=== PATIENT | female | born 1950 | race Caucasian/White ===

== ENCOUNTER → 2016-05-05 | Outpatient (CLI) | payer MEDICARE, MEDICAID ==
--- NOTE | 2016-05-05 08:57 | ST Modified Barium Swallow ---
Recommendation - Recommendations Recommendations: 1) Continue current diet- however pt does report self limiting (staying away from meat-pt reports sticks in upper chest). 2) Alternate bites and sips. 3) Pt reports referral for GI-ST in agreement due to no radiographic findings of pharyngeal deficits. SUMMARY: Pt presents with effective swallow. Instances of mild flash penetration observed with thin liquids however observed to clear. Trace residuals of puree at base of tongue-observed to clear with liquid wash. Medical Diagnoses - Medical Diagnoses Medical Diagnosis Description & ICD-10 Code(s): Dysphagia unspecified Other Medical Diagnoses/Co-Morbidities: COPD, Chronic bronchitis - ICD-10 Tx Diagnosis Coding (1) Dysphagia, unspecified ICD-10 Code(s): R13.10 - DYSPHAGIA, UNSPECIFIED ST Modified Barium Swallow - General Date: 05/05/16 Referring Physician: Dr. Harlan Watts Risks/Precautions: None Date of Onset: 05/05/15 Reason for Referral: dysphagia - History History obtained from: Patient -: Medical - Pt referred by pulmonology. Pt reports "periodically coughing" on both solids and liquids, globus sensation on right side of neck and in lower neck. Pt reports no history of PNA and states has chronic bronchitis. Pt reports onset of symptoms approximately 1 year ago, however symptoms becoming worse. Pt reports MD has placed referral for GI consult. PMHx: COPD, reflux, hernia repair., ST - reports possible MBSS in past-unsure of results Medications: Zoloft, Nexium, eliquis, sharon, singular, lipitor, "heart pill, blood pressure pill, pill for a-fib". Allergies: No known allergies. - Functional Status Prior Functional Status: INDEPENDENT: feeding Current Functional Limitations: feeding - Subjective Patient/caregiver goal(s): safe swallow Cognitive-Linguistic Function: WNL Speech Intelligibility: WNL Current Nutritional Means: PO Current PO diet: Regular Current symptoms: Coughing, c/o Globus sensation Pain: 5/5 - back pain - Objective Assessment: Upright, Left Lateral - Food Trials Used Food trials used: Thin liquids, Pureed, Regular The patient: Was Able to Self Feed - Oral-Motor Skills Dentition: Dentures-Upper, Dentures-Lower Velo-pharyngeal function: Unremarkable Laryngeal Function: Volitional Cough, Volitional Swallow - Assessment Oral prep: Normal Labial closure: Adequate Leakage: None Mastication: Adequate Lingual Movement: Normal Oral stage: Normal for this Procedure - Pharyngeal Stage Initiation of Pharyngeal Stage Reflex: Normal Decreased laryngeal elevation: No Reduced Velopharyngeal Closure: no Reduced pressure generation: Yes - mild reduced tongue-based retraction: No Pre-swallow pooling in valleculae: None Pre-Swallow pooling in pyriforms: None Reduced Thyro-Hyoid approximation: No Reduced epiglottic excursion: No Reduced pharyngeal peristalsis/contraction: No Post-swallow residulas vallecular: Mild - trace on puree-cleared with liquid wash Post-Swallow residuals in pyriforms: None - Fall Risk Assessment Medications/Conditions that increase fall risks include: Antidepressants, sedatives, anti-arrhythmic, diuretic, benzodiazipenes, neuroleptics. BP regulation problems, cardiac problems, balance or gait deficits, neurological problems. Is patient considered at risk for falls: no Fall Risk Actions Taken: No action needed - Behavioral Observations During evaluation process patient: was pleasant, was cooperative, able to answer questions, provided medical history - Treatment / Educational Needs: Treatment/Education Needs: Treatment consisted of patient education on the role of the Speech Pathologist. Patient's plan of care and golas were communicated as well as scheduling and attendance policies. Recommendations for initial home program were shared. Patient demonstrated understanding and verbalized agreement. - Impression/Summary Laryngeal Penetration: Yes, Flash - on thin, Cleared, during swallow Tracheal Aspiration: no Patient presents with: Normal swallow at eval - effective swallow observed Risk of Aspiration: Minimal - Recommendations NPO: no Solid diet recommendations: Regular Liquid Diet Modification: Thin Pt/Family education and followup with MD: Yes Dysphagia therapy with INSURANCE SALESPERSON: no Recommended techniques: Fully Upright During Meal, Alternate Bites/Sips Supervision: Independent Information, Precautions and Recommendations: Patient (Verbal) - Time Total Time: 20 - Plan of Care Strategies to optimize patient understanding include:: ongoing assessment of educational needs, implementation of educational strategies, and re-education. - - -: Thank you for the opportunity to work with this patient and his/her family. Should you have any questions about this patient's plan or progress, I can be reached at [phone]. Charge G Code? - - -: Yes ST F.L. Impairment Category - Rationale Based On Rationale Based On: Clin Find., Obj Measures - Swallowing Current G8996: CH 0% Impaired Goal G8997: CH 0% Impaired Discharge G8998: CH 0% Impaired
== END ==
LOC: RAD 07:32
PROVIDERS: ATTEND Nurse Practitioner Adult Health
DX: R13.10 Dysphagia, unspecified (principal)
CPT/HCPCS: 74230; 92611; G8996; G8997; G8998

== ENCOUNTER → 2016-05-05 | Outpatient (CLI) | payer MEDICARE, MEDICAID ==
[2016-05-05 09:41] LABS: ABSOLUTE BASOPHILS # (AUTO) 0.1 10^3/uL (0.0-0.2); ABSOLUTE EOSINOPHILS # (AUTO) 0.4 10^3/uL (0.0-0.6); ABSOLUTE LYMPHOCYTES (AUTO) 1.9 10^3/uL (0.5-4.7); ABSOLUTE MONOCYTES (AUTO) 0.9 10^3/uL (0.1-1.4); ABSOLUTE NEUT (AUTO) 6.7 10^3/uL (1.7-8.2); BASOPHILS % (AUTO) 0.6 % (0-2); HEMATOCRIT 38.3 % (36.0-47.0); HEMOGLOBIN 12.9 g/dL (12.0-15.5); HGB HCT DIFFERENCE 0.4; LYMPHOCYTES % (AUTO) 19.4 % (13-45); MEAN CORPUSCULAR HEMOGLOBIN 30.2 pg (27.0-33.4); MEAN CORPUSCULAR HGB CONC 33.6 g/dL (32.0-36.0); MEAN CORPUSCULAR VOLUME 90 fl (80-97); MONOCYTES % (AUTO) 9.3 % (3-13); RED BLOOD COUNT 4.26 10^6/uL (3.72-5.28); RED CELL DISTRIBUTION WIDTH 13.5 % (11.5-14.0); SEGMENTED NEUTROPHILS % (AUTO) 66.7 % (42-78)
[2016-05-05 09:58] LABS: ALANINE AMINOTRANSFERASE 23 U/L (9-52); ALBUMIN 3.5 g/dL (3.5-5.0); ALKALINE PHOSPHATASE 108 U/L (38-126); ANION GAP 11 (5-19); ASPARTATE AMINO TRANSFERASE 17 U/L (14-36); BILIRUBIN,TOTAL 0.5 mg/dL (0.2-1.3); BLOOD UREA NITROGEN 19 mg/dL (7-20); CALCIUM 9.2 mg/dL (8.4-10.2); CARBON DIOXIDE 24 mmol/L (22-30); CHLORIDE 106 mmol/L (98-107); CREATININE RESULT 1.06 mg/dL (0.52-1.25); GLUCOSE 108 mg/dL (75-110); POTASSIUM 4.1 mmol/L (3.6-5.0); TOTAL PROTEIN 6.6 g/dL (6.3-8.2)
[2016-05-05 14:57] LABS: APPEARANCE,URINE SLIGHTLY-CLOUDY; BILIRUBIN,URINE NEGATIVE (NEGATIVE); GLUCOSE, URINE NEGATIVE (NEGATIVE); KETONES,URINE NEGATIVE (NEGATIVE); LEUKOCYTE ESTERASE,URINE LARGE (NEGATIVE); NITRITE,URINE POSITIVE (NEGATIVE); PROTEIN,URINE NEGATIVE (NEGATIVE); URINE SPECIFIC GRAVITY 1.013; UROBILINOGEN,URINE NEGATIVE mg/dL (<2.0)
== END ==
LOC: OD 08:39
PROVIDERS: ATTEND Internal Medicine Cardiovascular Disease
DX: Z79.01 Long term (current) use of anticoagulants (principal); Z79.899 Other long term (current) drug therapy
CPT/HCPCS: 36415; 80048; 80076; 81001; 82272; 85025; 85730

== ENCOUNTER → 2016-06-29 | Outpatient (CLI) | payer MEDICARE, MEDICAID | LOC: RAD 18:18 | PROVIDERS: ATTEND Physician Assistant | DX: M54.2 Cervicalgia (principal); M54.6 Pain in thoracic spine | CPT/HCPCS: 72141; 72146 ==

== ENCOUNTER → 2016-07-06 | Outpatient (CLI) | payer MEDICARE, MEDICAID | LOC: WI 08:10 | PROVIDERS: ATTEND Physician Assistant | DX: Z12.31 Encounter for screening mammogram for malignant neoplasm of breast (principal); M81.0 Age-related osteoporosis without current pathological fracture; M85.88 Other specified disorders of bone density and structure, other site | CPT/HCPCS: 77080; G0202; 77067 ==

== ENCOUNTER → 2016-08-04 | Outpatient (CLI) | payer MEDICARE, MEDICAID ==
[2016-08-04 14:16] LABS: ABSOLUTE EOSINOPHILS # (AUTO) 0.3 10^3/uL (0.0-0.6); ABSOLUTE LYMPHOCYTES (AUTO) 1.9 10^3/uL (0.5-4.7); ABSOLUTE MONOCYTES (AUTO) 0.6 10^3/uL (0.1-1.4); ABSOLUTE NEUT (AUTO) 6.1 10^3/uL (1.7-8.2); BASOPHILS % (AUTO) 0.4 % (0-2); EOSINOPHILS % (AUTO) 3.3 % (0-6); HEMATOCRIT 41.4 % (36.0-47.0); HEMOGLOBIN 13.3 g/dL (12.0-15.5); HGB HCT DIFFERENCE -1.5; LYMPHOCYTES % (AUTO) 21.3 % (13-45); MEAN CORPUSCULAR HEMOGLOBIN 29.5 pg (27.0-33.4); MEAN CORPUSCULAR HGB CONC 32.2 g/dL (32.0-36.0); MEAN CORPUSCULAR VOLUME 92 fl (80-97); MONOCYTES % (AUTO) 6.5 % (3-13); RED BLOOD COUNT 4.52 10^6/uL (3.72-5.28); SEGMENTED NEUTROPHILS % (AUTO) 68.5 % (42-78); WHITE BLOOD COUNT 8.9 10^3/uL (4.0-10.5)
[2016-08-04 14:20] LABS: APPEARANCE,URINE CLEAR; BILIRUBIN,URINE NEGATIVE (NEGATIVE); GLUCOSE, URINE NEGATIVE (NEGATIVE); KETONES,URINE NEGATIVE (NEGATIVE); LEUKOCYTE ESTERASE,URINE NEGATIVE (NEGATIVE); NITRITE,URINE NEGATIVE (NEGATIVE); PROTEIN,URINE NEGATIVE (NEGATIVE); URINE SPECIFIC GRAVITY 1.008; UROBILINOGEN,URINE NEGATIVE mg/dL (<2.0)
[2016-08-04 14:40] LABS: ALANINE AMINOTRANSFERASE 24 U/L (9-52); ALBUMIN 4.4 g/dL (3.5-5.0); ALKALINE PHOSPHATASE 76 U/L (38-126); ANION GAP 15 (5-19); ASPARTATE AMINO TRANSFERASE 20 U/L (14-36); BILIRUBIN,DIRECT 0.3 mg/dL (0.0-0.4); BILIRUBIN,TOTAL 0.5 mg/dL (0.2-1.3); BLOOD UREA NITROGEN 12 mg/dL (7-20); CALCIUM 9.7 mg/dL (8.4-10.2); CARBON DIOXIDE 27 mmol/L (22-30); CHLORIDE 102 mmol/L (98-107); GLUCOSE 101 mg/dL (75-110); POTASSIUM 4.1 mmol/L (3.6-5.0); SODIUM 143.5 mmol/L (137-145); TOTAL PROTEIN 7.2 g/dL (6.3-8.2)
== END ==
LOC: OD 13:29
PROVIDERS: ATTEND Internal Medicine Cardiovascular Disease
DX: Z79.01 Long term (current) use of anticoagulants (principal); Z79.899 Other long term (current) drug therapy
CPT/HCPCS: 36415; 80048; 80076; 81001; 82272; 85025; 85730

== ENCOUNTER 2016-08-19 06:04 | Day surgery (SDC) | payer MEDICARE, MEDICAID ==
--- NOTE | 2016-08-12 10:56 | EKG REPORT ---
SEVERITY:- OTHERWISE NORMAL ECG - SINUS BRADYCARDIA : Confirmed by: Miko Crain 12-Aug-2016 10:55:46
[2016-08-12 11:16] LABS: ABSOLUTE EOSINOPHILS # (AUTO) 0.4 10^3/uL (0.0-0.6); ABSOLUTE LYMPHOCYTES (AUTO) 1.8 10^3/uL (0.5-4.7); ABSOLUTE MONOCYTES (AUTO) 0.8 10^3/uL (0.1-1.4); ABSOLUTE NEUT (AUTO) 4.3 10^3/uL (1.7-8.2); BASOPHILS % (AUTO) 0.6 % (0-2); EOSINOPHILS % (AUTO) 5.4 % (0-6); HEMATOCRIT 39.4 % (36.0-47.0); HEMOGLOBIN 12.9 g/dL (12.0-15.5); HGB HCT DIFFERENCE -0.7; LYMPHOCYTES % (AUTO) 24.1 % (13-45); MEAN CORPUSCULAR HEMOGLOBIN 30.1 pg (27.0-33.4); MEAN CORPUSCULAR HGB CONC 32.8 g/dL (32.0-36.0); MEAN CORPUSCULAR VOLUME 92 fl (80-97); MONOCYTES % (AUTO) 10.4 % (3-13); RED BLOOD COUNT 4.28 10^6/uL (3.72-5.28); RED CELL DISTRIBUTION WIDTH 14.2 % (11.5-14.0); SEGMENTED NEUTROPHILS % (AUTO) 59.5 % (42-78); WHITE BLOOD COUNT 7.3 10^3/uL (4.0-10.5)
--- NOTE | 2016-08-12 11:27 | RADIOLOGY REPORT (SQ) ---
EXAM DESCRIPTION: CHEST PA/LATERAL COMPLETED DATE/TIME: 08/12/2016 11:13 am REASON FOR STUDY: PRE OP COMPARISON: 09/29/2015 EXAM PARAMETERS: NUMBER OF VIEWS: two views TECHNIQUE: Digital Frontal and Lateral radiographic views of the chest acquired. RADIATION DOSE: NA LIMITATIONS: none FINDINGS: LUNGS AND PLEURA: The lungs are hyperexpanded with flattening of the diaphragms there is n o pulmonary infiltrate or pleural effusion. MEDIASTINUM AND HILAR STRUCTURES: No masses or contour abnormalities. HEART AND VASCULAR STRUCTURES: Heart normal size. No evidence for failure. BONES: No acute findings. HARDWARE: None in the chest. OTHER: No other significant finding. IMPRESSION: Chronic lung changes with no acute cardiopulmonary disease. TECHNICAL DOCUMENTATION: JOB ID: [id number] [employer]- All Rights Reserved
[2016-08-12 11:38] LABS: ANION GAP 10 (5-19); BLOOD UREA NITROGEN 12 mg/dL (7-20); CALCIUM 9.3 mg/dL (8.4-10.2); CARBON DIOXIDE 30 mmol/L (22-30); CHLORIDE 105 mmol/L (98-107); CREATININE RESULT 1.04 mg/dL (0.52-1.25); GLUCOSE 99 mg/dL (75-110); POTASSIUM 3.8 mmol/L (3.6-5.0); SODIUM 144.9 mmol/L (137-145)
[2016-08-12 12:06] LABS: APPEARANCE,URINE CLEAR; BILIRUBIN,URINE NEGATIVE (NEGATIVE); GLUCOSE, URINE NEGATIVE (NEGATIVE); KETONES,URINE NEGATIVE (NEGATIVE); LEUKOCYTE ESTERASE,URINE NEGATIVE (NEGATIVE); NITRITE,URINE NEGATIVE (NEGATIVE); PROTEIN,URINE NEGATIVE (NEGATIVE); URINE SPECIFIC GRAVITY 1.011; UROBILINOGEN,URINE NEGATIVE mg/dL (<2.0)
[~2016-08-19 06:04] MED LIST: CEFAZOLIN 2 GM/D5W RTU 2 GM/50 ML RTUPB IV PRN; LACTATED RINGERS 1000 ML IV PRN; LIDOCAINE 0.5% INJ-PF (5 MG/ML) 50 ML SDV SUBCUT PRN
[2016-08-19 06:46] LABS: PROTHROMBIN TIME 13.1 SEC (11.4-15.4)
[2016-08-19 06:47] LABS: PARTIAL THROMBOPLASTIN TIME 32.5 SEC (23.5-35.8)
[2016-08-19] MEDS ORDERED: BUPIVACAINE HCL 0.5 % INJ/PF 30 ML SDV ONE (07:25)
[2016-08-19] MEDS ORDERED: LIDOCAINE 1%/EPINEPHRINE INJ 20 ML VIAL ONE (07:26)
[2016-08-19] MEDS ORDERED: ONDANSETRON HCL INJ/PF 4 MG/2 ML SDV ONE (08:42)
[2016-08-19] MEDS ORDERED: DEXAMETHASONE SOD PHOSPHATE INJ 4 MG/1 ML VIAL ONE (08:42)
[2016-08-19] MEDS ORDERED: FENTANYL CITRATE INJ/PF 100 MCG/2 ML AMPUL ONE (08:42)
[2016-08-19] MEDS ORDERED: MIDAZOLAM 2 MG/2 ML INJ ONE (08:42)
[2016-08-19] MEDS ORDERED: PROPOFOL INJ 200 MG/20 ML VIAL IV ONE (08:43)
[2016-08-19] MEDS ORDERED: FENTANYL CITRATE INJ/PF 100 MCG/2 ML AMPUL IV PRN ×3 (09:07)
[2016-08-19] MEDS ORDERED: PROMETHAZINE HCL INJ 25 MG/1 ML VIAL IV PRN ×2 (09:07)
[2016-08-19] MEDS ORDERED: OXYCODONE-ACETAMINOPHEN 5-325 MG TABLET PO PRN ×2 (09:07)
[2016-08-19] MEDS ORDERED: DIPHENHYDRAMINE HCL 50 MG/ML VIAL IV PRN (09:07)
[2016-08-19] MEDS ORDERED: MORPHINE SULFATE 10 MG/ML INJ IV PRN (09:07)
[2016-08-19] MEDS ORDERED: MEPERIDINE HCL/PF INJ 25 MG/1 ML DISP.SYRIN IV PRN (09:07)
--- NOTE | 2016-08-19 09:24 | Operative Report ---
Operative Report DATE OF SURGERY: 08/19/16 PREOPERATIVE DIAGNOSIS: Right medial meniscal tear POSTOPERATIVE DIAGNOSIS: Right medial meniscal tear. 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 Intact ACL. Grade 0-1 chondromalacia of the lateral compartment. Intact lateral meniscus. Grade 1-2 chondral malacia the patellofemoral compartment OPERATION: Arthroscopic right partial medial meniscectomy SURGEON: FANNY DOS SANTOS ANESTHESIA: LMAC PROCEDURE: Patient supine on the operating table the right lower extremities prepped and draped in sterile fashion. The knee is insufflated with a combination of Marcaine, Xylocaine, and epinephrine through medial lateral patella portals. Medial lateral infrapatellar portals were then created with injection of the arthroscope and debridement mentation. Joint is examined in systematic fashion findings as above. Using accommodation mechanical Cavanaugh, mechanical shaver, electrocautery consider ablation probe a partial medial meniscectomy was performed from approximately 3:00 to 12:00 on the face with Dial. The joint is again examined in systematic fashion with no new findings. Instrumentation was removed. The portals closed with interrupted nylon suture. Sterile compressive dressing is applied and patient's return to the PACU in satisfactory condition
[2016-08-19] MEDS ORDERED: OXYCODONE HCL IR 5 MG TABLET PO PRN (09:46)
[2016-08-19] MEDS ORDERED: ONDANSETRON 4 MG TAB.RAPDIS SL PRN (09:47)
[2016-08-19 11:22] VITALS: BP 123/78
== END 2016-08-19 11:15 | disposition home or self-care (01) ==
LOC: OROUT 06:04
PROVIDERS: ATTEND Orthopaedic Surgery
PROC: 0SBC4ZZ Excision of Right Knee Joint, Percutaneous Endoscopic Approach (ICD-10-PCS; principal; 2016-08-19 08:30)
DX: M23.203 Derangement of unspecified medial meniscus due to old tear or injury, right knee (principal); I10 Essential (primary) hypertension; F17.210 Nicotine dependence, cigarettes, uncomplicated; M22.41 Chondromalacia patellae, right knee; J44.9 Chronic obstructive pulmonary disease, unspecified; M19.90 Unspecified osteoarthritis, unspecified site; E66.3 Overweight; Z79.01 Long term (current) use of anticoagulants; Z68.32 Body mass index [BMI] 32.0-32.9, adult; Z79.899 Other long term (current) drug therapy
CPT/HCPCS: 93005; 36415 ×2; 85025; 85610; 85730; 80048; 81001; 71020; 93010; 29881; J2250; J1100; J3010; J3490; J2405; J2704; J0690; 1400

== ENCOUNTER → 2016-10-26 | Outpatient (CLI) | payer MEDICARE, MEDICAID ==
[2016-10-26 15:09] LABS: ABSOLUTE EOSINOPHILS # (AUTO) 0.1 10^3/uL (0.0-0.6); ABSOLUTE LYMPHOCYTES (AUTO) 1.3 10^3/uL (0.5-4.7); ABSOLUTE MONOCYTES (AUTO) 0.5 10^3/uL (0.1-1.4); ABSOLUTE NEUT (AUTO) 4.8 10^3/uL (1.7-8.2); BASOPHILS % (AUTO) 0.3 % (0-2); EOSINOPHILS % (AUTO) 1.9 % (0-6); HEMATOCRIT 39.5 % (36.0-47.0); HEMOGLOBIN 13.4 g/dL (12.0-15.5); HGB HCT DIFFERENCE 0.7; LYMPHOCYTES % (AUTO) 18.9 % (13-45); MEAN CORPUSCULAR HEMOGLOBIN 31.2 pg (27.0-33.4); MEAN CORPUSCULAR VOLUME 92 fl (80-97); MONOCYTES % (AUTO) 7.5 % (3-13); RED CELL DISTRIBUTION WIDTH 14.5 % (11.5-14.0); SEGMENTED NEUTROPHILS % (AUTO) 71.4 % (42-78); WHITE BLOOD COUNT 6.7 10^3/uL (4.0-10.5)
[2016-10-26 15:35] LABS: ALANINE AMINOTRANSFERASE 26 U/L (9-52); ALBUMIN 4.3 g/dL (3.5-5.0); ALKALINE PHOSPHATASE 68 U/L (38-126); ANION GAP 10 (5-19); ASPARTATE AMINO TRANSFERASE 17 U/L (14-36); BILIRUBIN,DIRECT 0.4 mg/dL (0.0-0.4); BILIRUBIN,TOTAL 0.6 mg/dL (0.2-1.3); BLOOD UREA NITROGEN 17 mg/dL (7-20); CALCIUM 9.6 mg/dL (8.4-10.2); CARBON DIOXIDE 27 mmol/L (22-30); CHLORIDE 103 mmol/L (98-107); CREATININE RESULT 1.24 mg/dL (0.52-1.25); GLUCOSE 104 mg/dL (75-110); POTASSIUM 4.2 mmol/L (3.6-5.0); SODIUM 139.5 mmol/L (137-145); TOTAL PROTEIN 7.3 g/dL (6.3-8.2)
[2016-10-27 14:23] LABS: APPEARANCE,URINE SLIGHTLY-CLOUDY; BILIRUBIN,URINE NEGATIVE (NEGATIVE); GLUCOSE, URINE NEGATIVE (NEGATIVE); KETONES,URINE NEGATIVE (NEGATIVE); LEUKOCYTE ESTERASE,URINE NEGATIVE (NEGATIVE); NITRITE,URINE NEGATIVE (NEGATIVE); PROTEIN,URINE NEGATIVE (NEGATIVE); URINE SPECIFIC GRAVITY 1.018; UROBILINOGEN,URINE NEGATIVE mg/dL (<2.0)
== END ==
LOC: OD 13:09
PROVIDERS: ATTEND Internal Medicine Cardiovascular Disease
DX: Z79.01 Long term (current) use of anticoagulants (principal); Z79.899 Other long term (current) drug therapy; Z51.81 Encounter for therapeutic drug level monitoring
CPT/HCPCS: 36415; 80048; 80076; 81001; 82272; 85025; 85730

== ENCOUNTER → 2016-11-23 | Outpatient (CLI) | payer MEDICARE, MEDICAID ==
[2016-11-23 12:19] LABS: ABSOLUTE BASOPHILS # (AUTO) 0.1 10^3/uL (0.0-0.2); ABSOLUTE EOSINOPHILS # (AUTO) 0.2 10^3/uL (0.0-0.6); ABSOLUTE LYMPHOCYTES (AUTO) 1.9 10^3/uL (0.5-4.7); ABSOLUTE MONOCYTES (AUTO) 0.8 10^3/uL (0.1-1.4); ABSOLUTE NEUT (AUTO) 5.1 10^3/uL (1.7-8.2); BASOPHILS % (AUTO) 0.6 % (0-2); HEMATOCRIT 41.8 % (36.0-47.0); HEMOGLOBIN 13.8 g/dL (12.0-15.5); HGB HCT DIFFERENCE -0.4; MEAN CORPUSCULAR HGB CONC 32.9 g/dL (32.0-36.0); MEAN CORPUSCULAR VOLUME 94 fl (80-97); MONOCYTES % (AUTO) 9.6 % (3-13); RED BLOOD COUNT 4.44 10^6/uL (3.72-5.28); SEGMENTED NEUTROPHILS % (AUTO) 63.8 % (42-78); WHITE BLOOD COUNT 7.9 10^3/uL (4.0-10.5)
[2016-11-23 14:37] LABS: ANION GAP 13 (5-19); BLOOD UREA NITROGEN 14 mg/dL (7-20); CALCIUM 9.4 mg/dL (8.4-10.2); CARBON DIOXIDE 29 mmol/L (22-30); CHLORIDE 102 mmol/L (98-107); CREATININE RESULT 1.07 mg/dL (0.52-1.25); GLUCOSE 142 mg/dL (75-110); POTASSIUM 3.5 mmol/L (3.6-5.0); SODIUM 143.5 mmol/L (137-145)
[2016-11-24 13:06] LABS: APPEARANCE,URINE CLEAR; BILIRUBIN,URINE NEGATIVE (NEGATIVE); GLUCOSE, URINE NEGATIVE (NEGATIVE); KETONES,URINE NEGATIVE (NEGATIVE); LEUKOCYTE ESTERASE,URINE NEGATIVE (NEGATIVE); NITRITE,URINE NEGATIVE (NEGATIVE); PROTEIN,URINE NEGATIVE (NEGATIVE); URINE SPECIFIC GRAVITY 1.014; UROBILINOGEN,URINE NEGATIVE mg/dL (<2.0)
== END ==
LOC: OD 10:53
PROVIDERS: ATTEND Internal Medicine Cardiovascular Disease
DX: Z79.01 Long term (current) use of anticoagulants (principal); Z79.899 Other long term (current) drug therapy
CPT/HCPCS: 36415; 80048; 81001; 82272; 85025

== ENCOUNTER → 2017-02-15 | Outpatient (CLI) | payer MEDICARE, MEDICAID ==
[2017-02-15 13:27] LABS: ANION GAP 9 (5-19); BLOOD UREA NITROGEN 14 mg/dL (7-20); CALCIUM 9.4 mg/dL (8.4-10.2); CARBON DIOXIDE 29 mmol/L (22-30); CHLORIDE 106 mmol/L (98-107); CREATININE RESULT 0.91 mg/dL (0.52-1.25); GLUCOSE 92 mg/dL (75-110); POTASSIUM 4.6 mmol/L (3.6-5.0)
== END ==
LOC: OD 12:14
PROVIDERS: ATTEND Internal Medicine Cardiovascular Disease
DX: E87.6 Hypokalemia (principal); Z79.899 Other long term (current) drug therapy
CPT/HCPCS: 36415; 80048

== ENCOUNTER 2017-02-25 02:55 | Inpatient (IN) | payer MEDICARE, MEDICAID ==
[2017-02-25] MEDS ORDERED: IPRATROPIUM/ALBUTEROL 0.5-2.5 MG/3 ML AMPUL NEB ONE ×2 (03:05→05:30)
--- NOTE | 2017-02-25 03:08 | ER Document Report ---
ED General - General Stated Complaint: TROUBLE BREATHING Time Seen by Provider: 02/25/17 03:04 Notes: Patient is a pleasant 67-year-old female with a history of COPD who continues to smoke presents with difficulty breathing worsened over the last couple days. She does not wear oxygen at home. No fevers at home. She is currently not on oral steroids but did recently receive steroid shots for chronic back pain. She was picked up by ambulance. They gave her breathing treatment as well as 125 mg of Solu-Medrol. She denies any chest pain. She says it is tight when she takes a deep breath but no actual pain. She does have history of atrial fibrillation. No history of [place]. She is on Eliquis. She denies any medical allergies. She has no other complaints at this time. TRAVEL OUTSIDE OF THE [place] IN LAST 30 DAYS: No - Related Data Allergies/Adverse Reactions: adhesive tape [Adhesive Tape] Allergy (Mild, Verified 08/12/16 09:46) RASH/BLISTER roflumilast Adverse Reaction (Unknown, Verified 08/12/16 09:46) N/V, diarrhea Past Medical History - Social History Smoking Status: Current Every Day Smoker Frequency of alcohol use: None Drug Abuse: None Family History: Reviewed & Not Pertinent - Past Medical History Cardiac Medical History: Reports: Hx Atrial Fibrillation, Hx Hypercholesterolemia, Hx Hypertension Denies: Hx Coronary Artery Disease, Hx Heart Attack Pulmonary Medical History: Reports: Hx Asthma, Hx Bronchitis, Hx COPD, Hx Pneumonia Neurological Medical History: Denies: Hx Cerebrovascular Accident, Hx Seizures Renal/ Medical History: Reports: Hx Kidney Stones. Denies: Hx Peritoneal Dialysis GI Medical History: Reports: Hx Gastroesophageal Reflux Disease. Denies: Hx Hepatitis, Hx Hiatal Hernia, Hx Ulcer Musculoskeltal Medical History: Reports Hx Arthritis - NECK, LOWER BACK Psychiatric Medical History: Reports: Hx Depression Infectious Medical History: Denies: Hx Hepatitis Past Surgical History: Reports: Hx Abdominal Surgery - HERNIA, Hx Appendectomy, Hx Cholecystectomy, Hx Hysterectomy, Hx Rectal Surgery, Hx Tubal Ligation. Denies: Hx Mastectomy, Hx Open Heart Surgery, Hx Pacemaker - Immunizations Hx Diphtheria, Pertussis, Tetanus Vaccination: Yes Hx Pneumococcal Vaccination: 12/04/12 Review of Systems - Review of Systems Notes: My Normal Review Basic REVIEW OF SYSTEMS: CONSTITUTIONAL : Denies fever, chills, or sweats. Coughing. EENT: Denies eye, ear, throat, or mouth pain or symptoms. Denies nasal or sinus congestion. CARDIOVASCULAR: Denies chest pain. RESPIRATORY: Difficulty breathing. Wheezing GASTROINTESTINAL: Denies abdominal pain. Denies nausea, vomiting, or diarrhea. MUSCULOSKELETAL: Denies neck or back pain or joint pain or swelling. SKIN: Denies rash or skin lesions. NEUROLOGICAL: Denies altered mental status or loss of consciousness. Denies headache. Denies weakness or paralysis or loss of use of either side. Denies problems with gait or speech. Denies sensory or motor loss. ALL OTHER SYSTEMS REVIEWED AND NEGATIVE. Physical Exam - Vital signs Vitals: Resp 22 H 02/25/17 03:03 - Notes Notes: General Appearance: Well nourished, alert, cooperative, mild to moderate acute distress, no obvious discomfort. Vitals: reviewed, See vital signs table. Head: no swelling or tenderness to the head Eyes: PERRL, EOMI, Conjuctiva clear Mouth: No decreasd moisture Throat: No tonsillar inflammation, No airway obstruction, No lymphadenopathy Neck: Supple, no neck tenderness, No thyromegaly Lungs: Use wheezing, No rales, No rhonci, mild accessory muscle use, there air exchange bilaterally. Heart: Tachycardiac rate, Regular rythm, No murmur, no rub Abdomen: Normal BS, soft, No rigidity, No abdominal tenderness, No guarding, no rebound, no abdominal masses, no organomegaly Extremities: strength 5/5 in all extremities, good pulses in all extremities, no swelling or tenderness in the extremities, no edema. Skin: warm, dry, appropriate color, no rash Neuro: speech clear, oriented x 3, normal affect, responds appropriately to questions. Course - Vital Signs Vital signs: Temp Pulse Resp BP Pulse Ox 98.4 F 105 H 18 150/77 H 100 02/25/17 03:07 02/25/17 03:07 02/25/17 04:18 02/25/17 04:01 02/25/17 04:18 - Laboratory Result Diagrams: 02/25/17 03:13 02/25/17 03:13 Laboratory results interpreted by me: 02/25/17 02/25/17 03:13 03:13 RDW 14.2 H Plt Count 107 L Potassium 3.2 L Est GFR (Non-Af Amer) 55 L Glucose 131 H - EKG Interpretation by Me Additional EKG results interpreted by me: 02/25/17 03:08 EKG is reviewed and interpreted by me. EKG shows sinus tachycardia with a rate of [address] segment elevation or depression. No ischemic T-wave inversions. PA interval, QRS duration, QTc intervals are within normal range. No old EKG available for comparison. Discharge - Discharge Clinical Impression: Bronchitis Condition: Stable Disposition: ADMITTED OBSERVATION Admitting Provider: Hospitalist Unit Admitted: [facility]
[2017-02-25] MEDS: MAGNESIUM SULFATE/D5W 1 GM/100 ML RTUPB IV SCH ×2 (03:23→03:54)
--- NOTE | 2017-02-25 03:25 | RADIOLOGY REPORT (SQ) ---
EXAM DESCRIPTION: CHEST SINGLE VIEW CLINICAL HISTORY: difficulty breathing COMPARISON: 08/12/2016 FINDINGS: Single frontal view of the chest. Atherosclerotic calcification aortic arch. Heart is not enlarged. No consolidation, pneumothorax, or pleural effusion. No displaced rib fractures identified. Upper abdominal soft tissues are unremarkable. Leads overlie the chest. IMPRESSION: 1. No acute pulmonary process identified.
[2017-02-25 03:33] LABS: ABSOLUTE EOSINOPHILS # (AUTO) 0.1 10^3/uL (0.0-0.6); ABSOLUTE LYMPHOCYTES (AUTO) 1.2 10^3/uL (0.5-4.7); ABSOLUTE MONOCYTES (AUTO) 0.5 10^3/uL (0.1-1.4); ABSOLUTE NEUT (AUTO) 5.2 10^3/uL (1.7-8.2); BASOPHILS % (AUTO) 0.4 % (0-2); HEMOGLOBIN 13.4 g/dL (12.0-15.5); HGB HCT DIFFERENCE 0.2; LYMPHOCYTES % (AUTO) 16.9 % (13-45); MEAN CORPUSCULAR HGB CONC 33.4 g/dL (32.0-36.0); MEAN CORPUSCULAR VOLUME 93 fl (80-97); MONOCYTES % (AUTO) 7.1 % (3-13); RED BLOOD COUNT 4.32 10^6/uL (3.72-5.28); RED CELL DISTRIBUTION WIDTH 14.2 % (11.5-14.0); SEGMENTED NEUTROPHILS % (AUTO) 74.6 % (42-78)
[2017-02-25 03:36] LABS: VENOUS BLOOD BASE EXCESS 4.9 mmol/L; VENOUS BLOOD HCO3 30.7 mmol/L (20-32); VENOUS BLOOD PH 7.41 (7.30-7.42)
[2017-02-25 03:44] LABS: ALANINE AMINOTRANSFERASE 43 U/L (9-52); ALBUMIN 3.8 g/dL (3.5-5.0); ALKALINE PHOSPHATASE 87 U/L (38-126); ANION GAP 9 (5-19); ASPARTATE AMINO TRANSFERASE 21 U/L (14-36); BILIRUBIN,DIRECT 0.3 mg/dL (0.0-0.4); BILIRUBIN,TOTAL 0.6 mg/dL (0.2-1.3); BLOOD UREA NITROGEN 11 mg/dL (7-20); CALCIUM 8.9 mg/dL (8.4-10.2); CARBON DIOXIDE 30 mmol/L (22-30); CHLORIDE 102 mmol/L (98-107); GLUCOSE 131 mg/dL (75-110); POTASSIUM 3.2 mmol/L (3.6-5.0); SODIUM 140.5 mmol/L (137-145); TOTAL PROTEIN 6.8 g/dL (6.3-8.2)
[2017-02-25] MEDS ORDERED: ALBUTEROL SULFATE 0.083% NEB 2.5 MG/3 ML AMPUL NEB ONE (03:48)
[2017-02-25] MEDS ORDERED: POTASSIUM CHLORIDE 10 MEQ TABLET.SA PO ONE (04:59)
[2017-02-25] MEDS ORDERED: NORMAL SALINE 1000 ML 1,000 ML IV PRN (05:00)
[2017-02-25] MEDS ORDERED: LEVALBUTEROL HCL NEB 1.25 MG/3 ML AMPUL NEB PRN (05:00)
[2017-02-25] MEDS ORDERED: ACETAMINOPHEN 325 MG TABLET PO PRN (05:00)
[2017-02-25] MEDS: POTASSI CL 20 MEQ/50 ML RIDER 20 MEQ/50 ML RTUPB IV SCH ×2 (05:14→06:39)
[2017-02-25] MEDS ORDERED: LANSOPRAZOLE 30 MG TAB.RAP.DR PO SCH ×2 (06:00→10:00)
[2017-02-25] MEDS ORDERED: CEFTRIAXONE 1 GM/D5W RTU 1 GM/50 ML RTUPB IV ONE (06:00)
--- NOTE | 2017-02-25 06:36 | PDOC H&P ---
History of Present Illness Admission Date/PCP: 02/25/17 05:03 DASIA URBINA DO History of Present Illness: CHAKA PATEL is a 67 year old female with past medical history COPD, hiatal hernia, hypertension, chronic atrial fibrillation, chronic neck and back pain on chronic opioids who presents emergency department with shortness of breath. Patient reports that over the last 2 days she has become increasingly short of breath and developed a cough. She reports subjective fevers and chills for 24 hours. She reports generalized myalgias and arthralgias. She does report green -yellow sputum. Patient received several breathing treatments in the emergency department as well as magnesium sulfate and Solu-Medrol, but required the application of BiPAP to maintain an acceptable oxygen saturation. The hospital service for acute hypoxemic respiratory failure and COPD exacerbation. Past Medical History Cardiac Medical History: Reports: Atrial Fibrillation, Hyperlipidema, Hypertension Denies: Coronary Artery Disease, Myocardial Infarction Pulmonary Medical History: Reports: Asthma, Bronchitis, Chronic Obstructive Pulmonary Disease (COPD), Pneumonia, Sleep Apnea - on CPAP Neurological Medical History: Denies: Seizures Endocrine Medical History: Reports: Obesity GI Medical History: Reports: Gastroesophageal Reflux Disease, Hiatal Hernia Denies: Hepatitis Musculoskeltal Medical History: Reports: Arthritis - NECK, LOWER BACK Psychiatric Medical History: Reports: Depression Hematology: Denies: Anemia, Sickle Cell Disease Past Surgical History Past Surgical History: Reports: Appendectomy, Cholecystectomy, Herniorrhaphy, Hysterectomy, Tubal Ligation, Other - Rectocele and cystocele repair Denies: Amputation, Mastectomy, Pacemaker Social History Smoking Status: Current Every Day Smoker Cigarettes Packs Per Day: 0.1 Frequency of Alcohol Use: None Hx Recreational Drug Use: No Drugs: None Hx Prescription Drug Abuse: No - Advance Directive Resuscitation Status: Full Code Surrogate healthcare decision maker:: priscilla Patel, Family History Family History: COPD, Malignancy, Other - This Parental Family History Reviewed: Yes Children Family History Reviewed: Yes Sibling(s) Family History Reviewed.: Yes Medication/Allergy Home Medications: Fexofenadine HCl [Rin Allergy] 180 mg PO DAILY 11/23/14 Ergocalciferol (Vitamin D2) [Drisdol] 50,000 unit PO 09/29/15 Apixaban [Eliquis 5 mg Tablet] 5 mg PO BID #60 tablet 10/03/15 Diltiazem HCl [Cardizem Cd 180 mg Capsule] 180 mg PO DAILY #30 capsule.cr Atorvastatin Calcium 20 mg PO QHS 02/13/16 Budesonide/Formoterol Fumarate [Symbicort Hfa 160-4.5 Mcg Inhaler 6 gm] 2 puff IH DAILY 02/13/16 Ipratropium/Albuterol Sulfate [Combivent Respimat 4 gm Mdi] 1 puff IH Q6 PRN 03/30 Losartan Potassium [Cozaar 100 mg Tablet] 50 mg PO DAILY 02/13/16 Oxycodone HCl/Acetaminophen [Percocet 5-325 mg Tablet] 1 tab PO TID 02/13/16 Sertraline HCl [Zoloft] 100 mg PO DAILY 02/13/16 Nitrofurantoin/Nitrofuran Mac [Macrobid 100 mg Capsule] 1 tab PO BID #20 capsule 05/12/16 Metoprolol Succinate 25 mg PO BID 08/12/16 Pantoprazole Sodium [Protonix] 1 tab PO DAILY 08/12/16 Fenofibrate 50 mg PO QHS 08/19/16 Montelukast Sodium [Singulair 10 mg Tablet] 10 mg PO BID 08/19/16 Allergies/Adverse Reactions: adhesive tape [Adhesive Tape] Allergy (Mild, Verified 08/12/16 09:46) RASH/BLISTER roflumilast Adverse Reaction (Unknown, Verified 08/12/16 09:46) N/V, diarrhea Review of Systems Constitutional: PRESENT: chills, fatigue, fever(s), headache(s). ABSENT: weight gain, weight loss Eyes: ABSENT: visual disturbances Ears: ABSENT: hearing changes Cardiovascular: ABSENT: chest pain, dyspnea on exertion, edema, orthropnea, palpitations Respiratory: PRESENT: cough, dyspnea, sputum. ABSENT: hemoptysis Gastrointestinal: PRESENT: bloating. ABSENT: abdominal pain, constipation, diarrhea, hematemesis, hematochezia, melena, nausea, vomiting Genitourinary: ABSENT: dysuria, hematuria Musculoskeletal: ABSENT: joint swelling Integumentary: ABSENT: rash, wounds Neurological: ABSENT: abnormal gait, abnormal speech, confusion, dizziness, focal weakness, syncope Psychiatric: ABSENT: anxiety, depression, homidical ideation, suicidal ideation Endocrine: ABSENT: cold intolerance, heat intolerance, polydipsia, polyuria Hematologic/Lymphatic: ABSENT: easy bleeding, easy bruising Physical Exam Vital Signs: Temp Pulse Resp BP Pulse Ox 98.4 F 105 H 18 140/56 H 100 02/25/17 03:07 02/25/17 03:07 02/25/17 05:31 02/25/17 05:31 02/25/17 05:31 General appearance: PRESENT: well-developed, well-nourished, other - Respiratory distress, on BiPAP Head exam: PRESENT: atraumatic, normocephalic Eye exam: PRESENT: conjunctival injection, conjunctiva pink, EOMI, PERRLA. ABSENT: scleral icterus Ear exam: PRESENT: normal external ear exam Mouth exam: PRESENT: moist, tongue midline Neck exam: ABSENT: JVD, lymphadenopathy, thyromegaly, tracheal deviation Respiratory exam: PRESENT: accessory muscle use, prolonged expiratory phas, symmetrical, tachypnea, wheezes, other - Generalized poor air excursion. ABSENT : rales, retraction, rhonchi, unlabored Cardiovascular exam: PRESENT: irregular rhythm, +S1, +S2. ABSENT: diastolic murmur, rubs, systolic murmur Pulses: PRESENT: normal dorsalis pedis pul Vascular exam: PRESENT: normal capillary refill GI/Abdominal exam: PRESENT: distended, normal bowel sounds, soft. ABSENT: firm , guarding, mass, organolmegaly, rebound, tenderness Rectal exam: PRESENT: deferred Extremities exam: PRESENT: clubbing, full ROM. ABSENT: calf tenderness, pedal edema Neurological exam: PRESENT: alert, awake, oriented to person, oriented to place , oriented to time, oriented to situation, CN II-XII grossly intact. ABSENT: motor sensory deficit Psychiatric exam: PRESENT: appropriate affect, normal mood. ABSENT: homicidal ideation, suicidal ideation Skin exam: PRESENT: dry, intact, warm. ABSENT: cyanosis, rash Results Laboratory Results: 02/25/17 02/25/17 02/25/17 03:13 03:13 03:13 WBC 7.0 Hgb 13.4 Plt Count 107 L VBG pH 7.41 VBG pCO2 50.0 Sodium 140.5 Potassium 3.2 L BUN 11 Creatinine 1.00 Glucose 131 H Magnesium Albumin 3.8 02/25/17 03:13 WBC Hgb Plt Count VBG pH VBG pCO2 Sodium Potassium BUN Creatinine Glucose Magnesium 1.8 Albumin Impressions: Chest X-Ray 02/25/17 03:04 IMPRESSION: 1. No acute pulmonary process identified. Status: Imported from PACS Assessment & Plan - Diagnosis (1) COPD exacerbation Is this a current diagnosis for this admission?: Yes Plan: Place patient on scheduled nebulized treatments and re-evaluate for improvement. PRN Xopenex Place patient on IV Solu-Medrol Obtain sputum culture Encourage smoking cessation Due to the purulent nature of patient's sputum there is concern for possible developing pneumonia and will place her on azithromycin and Rocephin for possible community acquired pneumonia. Will also obtain an influenza screen (2) Acute on chronic respiratory failure Qualifiers: Respiratory failure complication: hypoxia Qualified Code(s): J96.21 - Acute and chronic respiratory failure with hypoxia Is this a current diagnosis for this admission?: Yes Plan: Continue and oxygen as needed to maintain saturation greater than 95 (3) Thrombocytopenia Is this a current diagnosis for this admission?: Yes Plan: Will monitor likely secondary to underlying illness (4) Atrial fibrillation Qualifiers: Atrial fibrillation type: chronic Qualified Code(s): I48.2 - Chronic atrial fibrillation Is this a current diagnosis for this admission?: Yes Plan: Patient is on diltiazem and metoprolol as well as Eliquis. Will continue these (5) Gastroesophageal reflux disease Qualifiers: Esophagitis presence: esophagitis presence not specified Qualified Code(s) : K21.9 - Gastro-esophageal reflux disease without esophagitis Is this a current diagnosis for this admission?: Yes Plan: Continue PPI (6) Hypokalemia Is this a current diagnosis for this admission?: Yes Plan: Monitor on telemetry with concern for arrhythmia. Replete and recheck (7) HTN (hypertension) Is this a current diagnosis for this admission?: Yes Plan: Patient will be on diltiazem and metoprolol. (8) Nicotine dependence Qualifiers: Nicotine product type: other Is this a current diagnosis for this admission?: Yes Plan: Patient has declined nicotine patch (9) DUANE (obstructive sleep apnea) Is this a current diagnosis for this admission?: Yes Plan: May use home CPAP (10) Obesity (BMI 30.0-34.9) Is this a current diagnosis for this admission?: Yes (11) DVT prophylaxis Is this a current diagnosis for this admission?: Yes Plan: Hold on pharmacologic prophylaxis secondary to combined thrombocytopenia and use of Eliquis. Will continue her Eliquis (12) Chronic prescription opiate use Is this a current diagnosis for this admission?: Yes Plan: Will likely continue patient's Percocet once her breathing has improved. - Time Time Spent: 50 to 70 Minutes Medications reviewed and adjusted accordingly: Yes Anticipated discharge: Home Within: Other - Improvement of symptomatology - Inpatient Certification Based on my medical assessment, after consideration of the patient's comorbidities, presenting symptoms, or acuity I expect that the services needed warrant INPATIENT care.: Yes I certify that my determination is in accordance with my understanding of Medicare's requirements for reasonable and necessary INPATIENT services [42 CFR 412.3e].: Yes Medical Necessity: Need For IV Fluids, Need For Continuous Telemetry Monitoring , Need for Nebulizer Therapy and Monitoring of Response, Need for IV Antibiotics Post Hospital Care: D/C Director Of Architecture Documentation
[2017-02-25] MEDS: METHYLPREDNISOLONE INJ 125 MG/2 ML SDV IV SCH ×3 (06:39→17:36)
--- NOTE | 2017-02-25 07:35 | EKG REPORT ---
SEVERITY:- OTHERWISE NORMAL ECG - SINUS TACHYCARDIA : Confirmed by: Miko Crain 25-Feb-2017 07:34:47
[2017-02-25] MEDS ORDERED: IPRATROPIUM/ALBUTEROL 0.5-2.5 MG/3 ML AMPUL NEB SCH (08:00)
[2017-02-25] MEDS: BUDESONIDE/FORMOTEROL 160-4.5 MCG 60 PUFF/6 GM MDI IH SCH (09:08)
[2017-02-25] MEDS: SERTRALINE HCL 50 MG TABLET PO SCH (09:09)
[2017-02-25] MEDS ORDERED: LEVALBUTEROL HCL NEB 0.63 MG/3 ML AMPUL NEB PRN ×2 (09:49→15:30)
[2017-02-25] MEDS ORDERED: DILTIAZEM HCL 180 MG CAPSULE.CR PO SCH (10:00)
[2017-02-25] MEDS ORDERED: LORATADINE 10 MG TABLET PO SCH ×2 (10:00→11:00)
[2017-02-25] MEDS ORDERED: APIXABAN 5 MG TABLET PO SCH (10:00)
[2017-02-25] MEDS ORDERED: FENOFIBRATE NANOCRYSTALLIZED 145 MG TABLET PO SCH (10:00)
[2017-02-25] MEDS ORDERED: MONTELUKAST SODIUM 10 MG TABLET PO SCH (10:00)
[2017-02-25] MEDS ORDERED: SPIRONOLACTONE 50 MG PO SCH (10:00)
[2017-02-25] MEDS ORDERED: GUAIFENESIN 600 MG TABLET.SA PO SCH (10:00)
[2017-02-25] MEDS ORDERED: METOPROLOL SUCCINATE 50 MG TAB.SR.24H PO SCH (10:00)
--- NOTE | 2017-02-25 10:28 | PROGRESS NOTE E ---
Progress Note NAME: CHAKA PATEL : 1950 AGE: 67Y DATE: 02/25/2017 ROOM: 336 SUBJECTIVE: The patient is currently lying in bed. She states that she feels somewhat better than when she came in. She admits to a very strong cough and feels there is sputum there but she is just not able to cough it up. The patient denies any shortness of breath, nausea, vomiting, diarrhea or dizziness. The patient does admit to sensations of being fevered and chilled and stated that when she woke up this morning she was just covered in sweat. The patient has had a low-grade temp that has been recorded. No other concerns are voiced at this time. REVIEW OF SYSTEMS: The rest of the review of systems is negative. MEDICATIONS: Medications have been reviewed. OBJECTIVE: GENERAL: The patient is a 67-year-old female who is awake, alert, and oriented to person, place, time, and situation. She is verbal, conversational, does not appear to be in any acute distress. VITAL SIGNS: As follows: Temperature is 99.4, pulse 78, respirations 20, blood pressure is 112/46, oxygen saturation is 94% on 2 L nasal cannula. SKIN: Warm and dry. No rash, not diaphoretic. HEENT: Pupils equal, round, and reactive to light and accommodation. Conjunctiva is pink. No JVP. CARDIOVASCULAR: Heart is regular. There is no rub. CHEST: Patient is diminished in the left lung field. Right lung field has expiratory wheezes throughout. ABDOMEN: Soft, nontender, nondistended. EXTREMITIES: No clubbing, cyanosis or edema. DIAGNOSTICS: Lab values are as follows. Hematology obtained on 02/25/2017: WBCs are 7.0, hemoglobin is 13.4, hematocrit is 40, platelet count is 107,000. Chemistry obtained on 02/25/2017: Sodium is 140, potassium is 3.2, chloride is 102, carbon dioxide 20, BUN 11, creatinine is 1, glucose 131, calcium is 8.9, magnesium is 1.8. IMPRESSION AND PLAN: 1. CHRONIC OBSTRUCTIVE PULMONARY DISEASE EXACERBATION. Will continue nebs, steroids and oxygen supplementation. Overall the patient appears improved. She does sound congested; therefore, will add a flutter valve. Hopefully the patient will be able to expectorate. 2. ACUTE ON CHRONIC HYPOXEMIC RESPIRATORY FAILURE, OVERALL MUCH IMPROVED. The patient is no longer requiring BiPAP. 3. THROMBOCYTOPENIA. Uncertain of the exact etiology of this. Will repeat CBCs in the a.m. and follow. 4. PAROXYSMAL ATRIAL FIBRILLATION. The patient is currently in sinus rhythm. Continue all the patient's garland agents as well as Eliquis. Will try to use nebs sparingly at this point. 5. GASTROESOPHAGEAL REFLUX DISEASE. Will continue PPI therapy. 6. HYPOKALEMIA. Will supplement and repeat potassium and follow. 7. HYPERTENSION. Will continue the patient's home medications. 8. NICOTINE DEPENDENCY, CONTINUOUS. Did discuss smoking cessation with the patient. The patient declines any pharmacological intervention at this time. 9. OBSTRUCTIVE SLEEP APNEA. Will continue home CPAP. 10. OBESITY. 11. DVT PROPHYLAXIS. The patient is on Eliquis. 12. OPIATE DEPENDENCY, CONTINUOUS. This may be contributory to the patient's respiratory depression. DISPOSITION: THE PATIENT IS A FULL CODE. Pending the patient's symptomatology and diagnostic findings, will re-evaluate in the a.m. The patient can be downgraded to a tele bed. Time spent on this followup, including assessment/plan, physical examination, patient education, review of records and followup, is 60 minutes. DICTATING PHYSICIAN: SANTY MAGANA NP [id number] PHY#: [id number] ID: [id number] JOB#: [id number] ACCT: [id number] cc: >
[2017-02-25] MEDS: APIXABAN 5 MG TABLET PO SCH ×2 (10:36→17:36)
[2017-02-25] MEDS: DILTIAZEM HCL 180 MG CAPSULE.CR PO SCH (10:36)
[2017-02-25] MEDS: AZITHROMYCIN 500 MG in DEXTROSE 5%-WATER 250 ML IV SCH (10:47)
[2017-02-25] MEDS: ASPIRIN 81 MG TABLET, ENT COATED PO SCH (10:48)
[2017-02-25] MEDS: OXYCODONE-ACETAMINOPHEN 5-325 MG TABLET PO SCH ×3 (10:48→22:25)
[2017-02-25] MEDS: LOSARTAN POTASSIUM 50 MG TABLET PO SCH (10:49)
[2017-02-25] MEDS: SPIRONOLACTONE 25 MG TABLET PO SCH (10:50)
[2017-02-25] MEDS: IPRATROPIUM/ALBUTEROL 0.5-2.5 MG/3 ML AMPUL NEB SCH ×2 (16:32→23:56)
[2017-02-25] MEDS ORDERED: INFLUENZA ADLT QUAD (36MOS+) 2017-18 VAC 0.5 ML SYR IM PRN (17:57)
[2017-02-25] MEDS: GUAIFENESIN 600 MG TABLET.SA PO SCH (21:24)
[2017-02-25] MEDS: ATORVASTATIN CALCIUM 20 MG TABLET PO SCH (21:25)
[2017-02-25] MEDS: METOPROLOL SUCCINATE 25 MG TAB.SR.24H PO SCH (21:25)
[2017-02-25] MEDS ORDERED: CEFTRIAXONE 1 GM/D5W RTU 1 GM/50 ML RTUPB IV SCH (22:00)
[2017-02-26] MEDS: METHYLPREDNISOLONE INJ 125 MG/2 ML SDV IV SCH ×4 (05:37→17:11)
[2017-02-26] MEDS: OXYCODONE-ACETAMINOPHEN 5-325 MG TABLET PO SCH ×3 (05:37→22:04)
[2017-02-26] MEDS: LANSOPRAZOLE 30 MG TAB.RAP.DR PO SCH (05:37)
[2017-02-26 06:06] LABS: HEMATOCRIT 35.3 % (36.0-47.0); HGB HCT DIFFERENCE 0.7; MEAN CORPUSCULAR HEMOGLOBIN 31.2 pg (27.0-33.4); MEAN CORPUSCULAR HGB CONC 33.9 g/dL (32.0-36.0); MEAN CORPUSCULAR VOLUME 92 fl (80-97); RED BLOOD COUNT 3.85 10^6/uL (3.72-5.28); RED CELL DISTRIBUTION WIDTH 14.3 % (11.5-14.0); WHITE BLOOD COUNT 10.5 10^3/uL (4.0-10.5)
[2017-02-26 06:08] LABS: ANION GAP 8 (5-19); BLOOD UREA NITROGEN 22 mg/dL (7-20); CARBON DIOXIDE 26 mmol/L (22-30); CHLORIDE 107 mmol/L (98-107); CREATININE RESULT 0.88 mg/dL (0.52-1.25); GLUCOSE 191 mg/dL (75-110); MAGNESIUM 2.6 mg/dL (1.6-2.3); POTASSIUM 4.6 mmol/L (3.6-5.0); SODIUM 140.7 mmol/L (137-145)
[2017-02-26] MEDS: FENOFIBRATE NANOCRYSTALLIZED 48 MG TABLET PO SCH (08:35)
[2017-02-26] MEDS: CEFTRIAXONE 1 GM/D5W RTU 1 GM/50 ML RTUPB IV SCH (08:35)
[2017-02-26] MEDS: IPRATROPIUM/ALBUTEROL 0.5-2.5 MG/3 ML AMPUL NEB SCH ×2 (08:46→16:07)
[2017-02-26] MEDS: LORATADINE 10 MG TABLET PO SCH (10:24)
[2017-02-26] MEDS: METOPROLOL SUCCINATE 25 MG TAB.SR.24H PO SCH ×2 (10:24→22:04)
[2017-02-26] MEDS: BUDESONIDE/FORMOTEROL 160-4.5 MCG 60 PUFF/6 GM MDI IH SCH (10:24)
[2017-02-26] MEDS: ASPIRIN 81 MG TABLET, ENT COATED PO SCH (10:24)
[2017-02-26] MEDS: MONTELUKAST SODIUM 10 MG TABLET PO SCH (10:25)
[2017-02-26] MEDS: SERTRALINE HCL 50 MG TABLET PO SCH (10:25)
[2017-02-26] MEDS: SPIRONOLACTONE 25 MG TABLET PO SCH (10:25)
[2017-02-26] MEDS: GUAIFENESIN 600 MG TABLET.SA PO SCH ×2 (10:25→22:04)
[2017-02-26] MEDS: APIXABAN 5 MG TABLET PO SCH ×2 (10:26→17:11)
[2017-02-26] MEDS: DILTIAZEM HCL 180 MG CAPSULE.CR PO SCH (10:26)
[2017-02-26] MEDS: LOSARTAN POTASSIUM 50 MG TABLET PO SCH (10:26)
[2017-02-26] MEDS: AZITHROMYCIN 500 MG in DEXTROSE 5%-WATER 250 ML IV SCH (10:29)
[2017-02-26] MEDS ORDERED: FUROSEMIDE INJ/PF 40 MG/4 ML SDV IV ONE (13:30)
--- NOTE | 2017-02-26 17:20 | PDOC PROGRESS REPORT ---
Subjective Progress Note for:: 02/26/17 Subjective:: Patient seen in bed. States her upper abdomen has been swollen she has no edema to her lower extremities abdomen is pressing up on her diaphragm causing him to have increased shortness of breath or cough clear frothy sputum she has been afebrile. She was admitted in hospital for pneumonia. Reason For Visit: COPD EXACERBATION ACUTE HYPOXEMIC RESPIRATORY Past medical history COPD, acute, acute on chronic respiratory failure requiring BiPAP with hypoxemia improved on nasal cannula, proximal atrial fibrillation currently on Eliquis, frequent nebulizer treatments, Solu-Medrol, and antibiotic use. Physical Exam Vital Signs: Temp Pulse Resp BP Pulse Ox 97.4 F 58 L 22 H 105/43 L 98 02/26/17 05:02 02/26/17 05:02 02/26/17 05:02 02/26/17 05:02 02/26/17 05:02 Intake & Output 02/25/17 02/26/17 02/27/17 06:59 06:59 06:59 Intake Total 1877 Output Total 200 Balance 1677 Weight 90.8 kg 93.5 kg General appearance: PRESENT: no acute distress, well-developed, well-nourished Head exam: PRESENT: atraumatic, normocephalic Eye exam: PRESENT: conjunctiva pink, EOMI, PERRLA. ABSENT: scleral icterus Ear exam: PRESENT: normal external ear exam Mouth exam: PRESENT: dry mucosa, moist, tongue midline Neck exam: ABSENT: carotid bruit, JVD, lymphadenopathy, thyromegaly Respiratory exam: PRESENT: clear to auscultation keren. ABSENT: rales, rhonchi, wheezes Cardiovascular exam: PRESENT: RRR. ABSENT: diastolic murmur, rubs, systolic murmur Pulses: PRESENT: normal dorsalis pedis pul Vascular exam: PRESENT: normal capillary refill GI/Abdominal exam: PRESENT: ascites, distended, firm, normal bowel sounds, soft. ABSENT: guarding, mass, organolmegaly, rebound, tenderness Rectal exam: PRESENT: deferred Extremities exam: PRESENT: full ROM. ABSENT: calf tenderness, clubbing, pedal edema Musculoskeletal exam: PRESENT: ambulatory Neurological exam: PRESENT: alert, awake, oriented to person, oriented to place , oriented to time, oriented to situation, CN II-XII grossly intact. ABSENT: motor sensory deficit Psychiatric exam: PRESENT: appropriate affect, normal mood. ABSENT: homicidal ideation, suicidal ideation Skin exam: PRESENT: dry, intact, warm. ABSENT: cyanosis, rash Results Laboratory Results: 02/26/17 05:34 02/26/17 05:34 02/26/17 02/26/17 05:34 05:34 WBC 10.5 RBC 3.85 Hgb 12.0 Hct 35.3 L MCV 92 MCH 31.2 MCHC 33.9 RDW 14.3 H Plt Count 104 L Sodium 140.7 Potassium 4.6 Chloride 107 Carbon Dioxide 26 Anion Gap 8 BUN 22 H Creatinine 0.88 Est GFR ( Amer) > 60 Est GFR (Non-Af Amer) > 60 Glucose 191 H Calcium 9.0 Magnesium 2.6 H Impressions: Chest X-Ray 02/25/17 03:04 IMPRESSION: 1. No acute pulmonary process identified. Assessment & Plan - Diagnosis (1) Atrial fibrillation Qualifiers: Atrial fibrillation type: chronic Qualified Code(s): I48.2 - Chronic atrial fibrillation Is this a current diagnosis for this admission?: Yes Plan: Currently on Eliquis (2) Obesity (BMI 30.0-34.9) Is this a current diagnosis for this admission?: Yes (3) Acute on chronic respiratory failure Qualifiers: Respiratory failure complication: hypoxia Qualified Code(s): J96.21 - Acute and chronic respiratory failure with hypoxia Is this a current diagnosis for this admission?: Yes Plan: Patient is on azithromycin, started Rocephin as well today blood cultures are negative thus far continue to monitor I have also given her some IV Lasix 1 dose given today. (4) COPD exacerbation Is this a current diagnosis for this admission?: Yes Plan: Continue steroids, nebulizers, and antibiotics for now (6) Tobacco use disorder Is this a current diagnosis for this admission?: Yes Plan: Encourage smoking cessation
--- NOTE | 2017-02-26 19:51 | XCELERA REPORT ---
[address] [address] Transthoracic Echocardiogram Report Name: CHAKA PATEL Age: 67 yrs Gender: Female : 1950 Patient Status: Inpatient Patient Location: [address] [place], [place] [address] Study Date: 02/26/2017 01:19 PM Height: 64 in Weight: 206 lb BSA: 2.0 m2 Reason For Study: shortness of breath Ordering Physician: SREE BALLARD Performed By: Asiya Fritz Interpretation Summary post pericardial effusion Mild AV sclerosis with upper peak Ao velocity, uncertain configuration, prob no ., no AR. Mild MAC. no MD, no MR, no MVP. Normal LA size. No LVH, hyperdynamic LV contractility, normal LVsize, incomplete LV segmental analysis, no LVDD. RH poorly seen. Unable to assess RVSP MMode/2D Measurements & Calculations RVDd: 2.0 cm LVIDd: 5.8 cm FS: 39.1 % Ao root diam: IVSd: 1.0 cm LVIDs: 3.5 cm EDV(Teich): 2.4 cm LVPWd: 0.97 cm 163.5 ml Ao root area: ESV(Teich): 51.0 ml 4.3 cm2 EF(Teich): LA dimension: 68.8 % 3.9 cm LVLd ap4: 7.5 cm SV(MOD-sp4): 46.0 ml LA A2Cs: LA A4Cs: 23.8 cm2 EDV(MOD-sp4): 20.3 cm2 67.0 ml LVLs ap4: 5.8 cm ESV(MOD-sp4): 21.0 ml EF(MOD-sp4): 68.7 % LA length: LA Vol Index (BP): LA Volume: 6.0 cm 34.4 ml/m2 68.1 ml Doppler Measurements & Calculations MV E max yessenia: MV P1/2t max yessenia: Ao V2 max: LV V1 max P.9 cm/sec 125.9 cm/sec 195.5 cm/sec 7.5 mmHg MV A max yessenia: MV P1/2t: 61.6 msec Ao max PG: LV V1 max: 101.7 cm/sec 15.3 mmHg 136.5 cm/sec MV E/A: 1.2 MVA(P1/2t): 3.6 cm2 MV dec slope: 598.7 cm/sec2 PA V2 max: 98.7 cm/sec PA max P.9 mmHg Left Ventricle The left ventricle is normal in size. LV EF is 65-70%. The E/E' ratio between the mitral E wave and the mitral annulus E' wave is abnormal, with a value of > 10. Regional wall motion abnormalities cannot be excluded due to limited visualization. The left ventricular apex is not well visualized. Right Ventricle The right ventricle is normal in size, thickness and function. Atria The right atrium is normal. The left atrial size is normal. The interatrial septum is intact with no evidence for an atrial septal defect. Mitral Valve The mitral valve is normal in structure and function. There is mild mitral leaflet calcification. There is no evidence of mitral valve prolapse. There is no mitral valve stenosis. There is no mitral regurgitation noted. Aortic Valve The aortic valve is not well visualized secondary to technical limitations. There is no aortic valve stenosis. No aortic regurgitation is present. Great Vessels The aortic root is normal size. Effusions Small pericardial effusion. I WMSI = 1.00 % Normal = 100 Segments Size X - Cannot 2 - 4 - 1-2 small Interpret 1 - Normal Hypokinetic 3 - AkineticDyskinetic 3-5 moderate 5 - 6-14 large Aneurysmal 15-16 diffuse : SREE BALLARD > Ke Lehman
[2017-02-26] MEDS: ATORVASTATIN CALCIUM 20 MG TABLET PO SCH (22:04)
[2017-02-27] MEDS: METHYLPREDNISOLONE INJ 125 MG/2 ML SDV IV SCH ×2 (00:05→05:17)
[2017-02-27] MEDS: IPRATROPIUM/ALBUTEROL 0.5-2.5 MG/3 ML AMPUL NEB SCH ×3 (00:13→16:38)
[2017-02-27] MEDS: LANSOPRAZOLE 30 MG TAB.RAP.DR PO SCH (05:17)
[2017-02-27] MEDS: OXYCODONE-ACETAMINOPHEN 5-325 MG TABLET PO SCH ×3 (05:17→21:05)
[2017-02-27] MEDS ORDERED: IPRATROPIUM/ALBUTEROL 0.5-2.5 MG/3 ML AMPUL NEB PRN (08:48)
[2017-02-27] MEDS: CEFTRIAXONE 1 GM/D5W RTU 1 GM/50 ML RTUPB IV SCH (09:18)
[2017-02-27] MEDS: BUDESONIDE/FORMOTEROL 160-4.5 MCG 60 PUFF/6 GM MDI IH SCH (09:18)
[2017-02-27] MEDS: APIXABAN 5 MG TABLET PO SCH ×2 (09:19→17:44)
[2017-02-27] MEDS: ASPIRIN 81 MG TABLET, ENT COATED PO SCH (09:19)
[2017-02-27] MEDS: FENOFIBRATE NANOCRYSTALLIZED 48 MG TABLET PO SCH (09:19)
[2017-02-27] MEDS: DILTIAZEM HCL 180 MG CAPSULE.CR PO SCH (09:19)
[2017-02-27] MEDS: LOSARTAN POTASSIUM 50 MG TABLET PO SCH (09:20)
[2017-02-27] MEDS: SPIRONOLACTONE 25 MG TABLET PO SCH (09:20)
[2017-02-27] MEDS: LORATADINE 10 MG TABLET PO SCH (09:20)
[2017-02-27] MEDS: SERTRALINE HCL 50 MG TABLET PO SCH (09:20)
[2017-02-27] MEDS: METOPROLOL SUCCINATE 25 MG TAB.SR.24H PO SCH ×2 (09:20→21:05)
[2017-02-27] MEDS: GUAIFENESIN 600 MG TABLET.SA PO SCH ×2 (09:20→21:05)
[2017-02-27] MEDS: MONTELUKAST SODIUM 10 MG TABLET PO SCH ×2 (09:21→21:06)
--- NOTE | 2017-02-27 10:17 | PDOC PROGRESS REPORT ---
Subjective Progress Note for:: 02/27/17 Subjective:: Patient seen in bed. States her upper abdomen has been swollen she has no edema to her lower extremities abdomen is pressing up on her diaphragm causing him to have increased shortness of breath or cough clear frothy sputum she has been afebrile. She was admitted in hospital for pneumonia. Reason For Visit: COPD EXACERBATION ACUTE HYPOXEMIC RESPIRATORY Physical Exam Vital Signs: Temp Pulse Resp BP Pulse Ox 97.4 F 68 20 125/47 L 95 02/27/17 07:39 02/27/17 07:39 02/27/17 07:39 02/27/17 07:39 02/27/17 07:39 Intake & Output 02/26/17 02/27/17 02/28/17 06:59 06:59 06:59 Intake Total 1877 1758 Output Total 200 1600 Balance 1677 158 Weight 93.5 kg 93.7 kg General appearance: PRESENT: no acute distress, obese, well-developed, well- nourished Head exam: PRESENT: atraumatic, normocephalic Eye exam: PRESENT: conjunctiva pink, EOMI, PERRLA. ABSENT: scleral icterus Ear exam: PRESENT: normal external ear exam Mouth exam: PRESENT: moist, tongue midline Neck exam: ABSENT: carotid bruit, JVD, lymphadenopathy, thyromegaly Respiratory exam: PRESENT: clear to auscultation keren, rhonchi, wheezes. ABSENT : rales Cardiovascular exam: PRESENT: RRR. ABSENT: diastolic murmur, rubs, systolic murmur Pulses: PRESENT: normal dorsalis pedis pul Vascular exam: PRESENT: normal capillary refill GI/Abdominal exam: PRESENT: normal bowel sounds, soft. ABSENT: distended, guarding, mass, organolmegaly, rebound, tenderness Rectal exam: PRESENT: deferred Extremities exam: PRESENT: full ROM. ABSENT: calf tenderness, clubbing, pedal edema Neurological exam: PRESENT: alert, awake, oriented to person, oriented to place , oriented to time, oriented to situation, CN II-XII grossly intact. ABSENT: motor sensory deficit Psychiatric exam: PRESENT: appropriate affect, normal mood. ABSENT: homicidal ideation, suicidal ideation Skin exam: PRESENT: dry, intact, warm. ABSENT: cyanosis, rash Results Laboratory Results: 02/26/17 05:34 12/15/17 05:34 Impressions: Chest X-Ray 02/25/17 03:04 IMPRESSION: 1. No acute pulmonary process identified. Assessment & Plan - Diagnosis (1) Chronic obstructive pulmonary disease (COPD) Qualifiers: COPD type: COPD with acute lower respiratory infection Qualified Code(s): J44.0 - Chronic obstructive pulmonary disease with acute lower respiratory infection Is this a current diagnosis for this admission?: Yes Plan: Continue nebulizers, steroids been decreased the dose today and change to oral, oxygen supplement, stop all IV fluids, patient was diuresed with some good output yesterday no growth on blood cultures so far continue to monitor (2) Atrial fibrillation Qualifiers: Atrial fibrillation type: chronic Qualified Code(s): I48.2 - Chronic atrial fibrillation Is this a current diagnosis for this admission?: Yes Plan: Currently on Eliquis (3) Acute on chronic respiratory failure Qualifiers: Respiratory failure complication: hypoxia Qualified Code(s): J96.21 - Acute and chronic respiratory failure with hypoxia Is this a current diagnosis for this admission?: Yes Plan: Patient is on azithromycin, started Rocephin as well today blood cultures are negative thus far continue to monitor I have also given her some IV Lasix 1 dose given today. (4) Obesity (BMI 30.0-34.9) Is this a current diagnosis for this admission?: Yes Plan: Encourage lifestyle modifications, slow steady weight loss (5) COPD exacerbation Is this a current diagnosis for this admission?: Yes Plan: Continue steroids, nebulizers, and antibiotics for now (6) Tobacco use disorder Is this a current diagnosis for this admission?: Yes Plan: Encourage smoking cessation - Plan Summary Plan Summary: Continue diuresing today, continues to wheeze will need to continue on steroids and nebulizers for now anticipate discharge home Wednesday or Wednesday
[2017-02-27] MEDS: AZITHROMYCIN 500 MG in DEXTROSE 5%-WATER 250 ML IV SCH (10:28)
[2017-02-27] MEDS ORDERED: FUROSEMIDE 20 MG TABLET PO ONE (11:00)
[2017-02-27] MEDS: ATORVASTATIN CALCIUM 20 MG TABLET PO SCH (21:05)
[2017-02-28] MEDS: IPRATROPIUM/ALBUTEROL 0.5-2.5 MG/3 ML AMPUL NEB SCH ×3 (00:22→16:01)
[2017-02-28] MEDS: OXYCODONE-ACETAMINOPHEN 5-325 MG TABLET PO SCH ×3 (05:37→22:49)
[2017-02-28] MEDS: LANSOPRAZOLE 30 MG TAB.RAP.DR PO SCH (05:37)
[2017-02-28] MEDS: CEFTRIAXONE 1 GM/D5W RTU 1 GM/50 ML RTUPB IV SCH (08:57)
[2017-02-28] MEDS: FENOFIBRATE NANOCRYSTALLIZED 48 MG TABLET PO SCH (09:07)
[2017-02-28] MEDS ORDERED: PREDNISONE 10 MG TABLET PO SCH (10:00)
[2017-02-28] MEDS: LOSARTAN POTASSIUM 50 MG TABLET PO SCH (10:07)
[2017-02-28] MEDS: SPIRONOLACTONE 25 MG TABLET PO SCH (10:07)
[2017-02-28] MEDS: ASPIRIN 81 MG TABLET, ENT COATED PO SCH (10:07)
[2017-02-28] MEDS: APIXABAN 5 MG TABLET PO SCH ×2 (10:07→17:27)
[2017-02-28] MEDS: METOPROLOL SUCCINATE 25 MG TAB.SR.24H PO SCH ×2 (10:07→22:49)
[2017-02-28] MEDS: LORATADINE 10 MG TABLET PO SCH (10:08)
[2017-02-28] MEDS: PREDNISONE 20 MG TABLET PO SCH (10:08)
[2017-02-28] MEDS: SERTRALINE HCL 50 MG TABLET PO SCH (10:08)
[2017-02-28] MEDS: AZITHROMYCIN 500 MG in DEXTROSE 5%-WATER 250 ML IV SCH (10:08)
[2017-02-28] MEDS: GUAIFENESIN 600 MG TABLET.SA PO SCH ×2 (10:08→22:49)
[2017-02-28] MEDS: DILTIAZEM HCL 180 MG CAPSULE.CR PO SCH (10:08)
[2017-02-28] MEDS: BUDESONIDE/FORMOTEROL 160-4.5 MCG 60 PUFF/6 GM MDI IH SCH (10:09)
[2017-02-28] MEDS ORDERED: IPRATROPIUM/ALBUTEROL 120 PUFF/4 GM MDI IH PRN (19:21)
[2017-02-28] MEDS ORDERED: FUROSEMIDE 40 MG TABLET PO ONE (19:23)
--- NOTE | 2017-02-28 19:26 | PDOC PROGRESS REPORT ---
Subjective Subjective:: Patient seen in bed. States her upper abdomen has been swollen she has no edema to her lower extremities abdomen is pressing up on her diaphragm causing him to have increased shortness of breath or cough clear frothy sputum she has been afebrile. She was admitted in hospital for pneumonia. Reason For Visit: COPD EXACERBATION ACUTE HYPOXEMIC RESPIRATORY Physical Exam Vital Signs: Temp Pulse Resp BP Pulse Ox 98.6 F 75 18 136/68 H 98 02/28/17 15:46 02/28/17 16:01 02/28/17 16:01 02/28/17 15:46 02/28/17 16:01 Intake & Output 02/27/17 02/28/17 03/01/17 06:59 06:59 06:59 Intake Total 1758 993 300 Output Total 1600 500 Balance 158 493 300 Weight 93.7 kg 95.6 kg General appearance: PRESENT: no acute distress, obese, well-developed, well- nourished Head exam: PRESENT: atraumatic, normocephalic Eye exam: PRESENT: conjunctiva pink, EOMI, PERRLA. ABSENT: scleral icterus Ear exam: PRESENT: normal external ear exam Mouth exam: PRESENT: moist, tongue midline Neck exam: ABSENT: carotid bruit, JVD, lymphadenopathy, thyromegaly Respiratory exam: PRESENT: accessory muscle use, decreased breath sounds, prolonged expiratory phas, rhonchi, wheezes. ABSENT: rales Cardiovascular exam: PRESENT: RRR. ABSENT: diastolic murmur, rubs, systolic murmur Pulses: PRESENT: normal dorsalis pedis pul Vascular exam: PRESENT: normal capillary refill GI/Abdominal exam: PRESENT: normal bowel sounds, soft. ABSENT: distended, guarding, mass, organolmegaly, rebound, tenderness Rectal exam: PRESENT: deferred Extremities exam: PRESENT: full ROM. ABSENT: calf tenderness, clubbing, pedal edema Neurological exam: PRESENT: alert, awake, oriented to person, oriented to place , oriented to time, oriented to situation, CN II-XII grossly intact. ABSENT: motor sensory deficit Psychiatric exam: PRESENT: appropriate affect, normal mood. ABSENT: homicidal ideation, suicidal ideation Skin exam: PRESENT: dry, intact, warm. ABSENT: cyanosis, rash Results Laboratory Results: 02/26/17 05:34 02/26/17 05:34 Impressions: Chest X-Ray 02/25/17 03:04 IMPRESSION: 1. No acute pulmonary process identified. Assessment & Plan - Diagnosis (1) Chronic obstructive pulmonary disease (COPD) Qualifiers: COPD type: COPD with acute lower respiratory infection Qualified Code(s): J44.0 - Chronic obstructive pulmonary disease with acute lower respiratory infection Is this a current diagnosis for this admission?: Yes Plan: Continue nebulizers, steroids been decreased the dose today and change to oral, oxygen supplement, stop all IV fluids, patient was diuresed with some good output yesterday no growth on blood cultures so far continue to monitor. Echocardiogram showed some mild pericardial effusion and will go ahead and treat with more Lasix tonight labs in a.m. (2) Atrial fibrillation Qualifiers: Atrial fibrillation type: chronic Qualified Code(s): I48.2 - Chronic atrial fibrillation Is this a current diagnosis for this admission?: Yes (3) Acute on chronic respiratory failure Qualifiers: Respiratory failure complication: hypoxia Qualified Code(s): J96.21 - Acute and chronic respiratory failure with hypoxia Is this a current diagnosis for this admission?: Yes Plan: Patient is on azithromycin, started Rocephin as well today blood cultures are negative thus far continue to monitor I have also given her more Lasix today. Monitor labs in a.m. patient is slowly coming around (4) Obesity (BMI 30.0-34.9) Is this a current diagnosis for this admission?: Yes Plan: Encourage lifestyle modifications, slow steady weight loss (5) COPD exacerbation Is this a current diagnosis for this admission?: Yes Plan: Continue steroids, nebulizers, and antibiotics for now (6) Tobacco use disorder Is this a current diagnosis for this admission?: Yes Plan: Encourage smoking cessation
[2017-02-28] MEDS: ATORVASTATIN CALCIUM 20 MG TABLET PO SCH (22:49)
[2017-02-28] MEDS: MONTELUKAST SODIUM 10 MG TABLET PO SCH (22:49)
[2017-03-01] MEDS: IPRATROPIUM/ALBUTEROL 0.5-2.5 MG/3 ML AMPUL NEB SCH ×3 (00:07→16:12)
[2017-03-01 04:42] LABS: HEMATOCRIT 39.6 % (36.0-47.0); HEMOGLOBIN 13.2 g/dL (12.0-15.5); MEAN CORPUSCULAR HGB CONC 33.4 g/dL (32.0-36.0); MEAN CORPUSCULAR VOLUME 93 fl (80-97); RED BLOOD COUNT 4.27 10^6/uL (3.72-5.28); RED CELL DISTRIBUTION WIDTH 14.7 % (11.5-14.0); WHITE BLOOD COUNT 7.1 10^3/uL (4.0-10.5)
[2017-03-01 05:06] LABS: ALANINE AMINOTRANSFERASE 84 U/L (9-52); ALBUMIN 3.7 g/dL (3.5-5.0); ALKALINE PHOSPHATASE 67 U/L (38-126); ANION GAP 10 (5-19); ASPARTATE AMINO TRANSFERASE 32 U/L (14-36); BILIRUBIN,DIRECT 0.2 mg/dL (0.0-0.4); BILIRUBIN,TOTAL 0.3 mg/dL (0.2-1.3); BLOOD UREA NITROGEN 26 mg/dL (7-20); CALCIUM 8.6 mg/dL (8.4-10.2); CARBON DIOXIDE 34 mmol/L (22-30); CHLORIDE 98 mmol/L (98-107); CREATININE RESULT 0.95 mg/dL (0.52-1.25); GLUCOSE 89 mg/dL (75-110); POTASSIUM 3.8 mmol/L (3.6-5.0); SODIUM 142.3 mmol/L (137-145); TOTAL PROTEIN 6.2 g/dL (6.3-8.2)
[2017-03-01 05:23] LABS: BAND NEUTROPHILS % (MANUAL) 1 % (3-5); BASOPHILS % (MANUAL) 0 % (0-2); EOSINOPHILS % (MANUAL) 0 % (0-6); LYMPHOCYTES % (MANUAL) 14 % (13-45); TOTAL CELLS COUNTED 100
[2017-03-01 05:25] LABS: RBC MORPHOLOGY COMMENT NORMO-CYTIC/CHROMIC
[2017-03-01] MEDS: OXYCODONE-ACETAMINOPHEN 5-325 MG TABLET PO SCH ×3 (05:47→22:26)
[2017-03-01] MEDS: LANSOPRAZOLE 30 MG TAB.RAP.DR PO SCH (05:47)
[2017-03-01] MEDS: FENOFIBRATE NANOCRYSTALLIZED 48 MG TABLET PO SCH (08:13)
[2017-03-01] MEDS: CEFTRIAXONE 1 GM/D5W RTU 1 GM/50 ML RTUPB IV SCH (08:13)
[2017-03-01] MEDS: SERTRALINE HCL 50 MG TABLET PO SCH (09:21)
[2017-03-01] MEDS: PREDNISONE 20 MG TABLET PO SCH (09:21)
[2017-03-01] MEDS: GUAIFENESIN 600 MG TABLET.SA PO SCH ×2 (09:21→22:26)
[2017-03-01] MEDS: LORATADINE 10 MG TABLET PO SCH (09:21)
[2017-03-01] MEDS: BUDESONIDE/FORMOTEROL 160-4.5 MCG 60 PUFF/6 GM MDI IH SCH (09:22)
[2017-03-01] MEDS: SPIRONOLACTONE 25 MG TABLET PO SCH (09:22)
[2017-03-01] MEDS: LOSARTAN POTASSIUM 50 MG TABLET PO SCH (09:22)
[2017-03-01] MEDS: DILTIAZEM HCL 180 MG CAPSULE.CR PO SCH (09:22)
[2017-03-01] MEDS: ASPIRIN 81 MG TABLET, ENT COATED PO SCH (09:22)
[2017-03-01] MEDS: METOPROLOL SUCCINATE 25 MG TAB.SR.24H PO SCH ×2 (09:22→22:25)
[2017-03-01] MEDS: AZITHROMYCIN 500 MG in DEXTROSE 5%-WATER 250 ML IV SCH (09:45)
[2017-03-01] MEDS ORDERED: ERGOCALCIFEROL (VITAMIN D2) 50000 UNIT (1.25 MG) CAPSULE PO SCH (10:00)
[2017-03-01] MEDS: APIXABAN 5 MG TABLET PO SCH ×2 (14:19→18:27)
[2017-03-01] MEDS ORDERED: IPRATROPIUM/ALBUTEROL 120 PUFF/4 GM MDI IH PRN (14:30)
--- NOTE | 2017-03-01 18:53 | PDOC PROGRESS REPORT ---
Subjective Progress Note for:: 03/01/17 Subjective:: Pt states that her breathing is better. Pt states that she has had 4 bowel movements today. Reason For Visit: COPD EXACERBATION ACUTE HYPOXEMIC RESPIRATORY Physical Exam Vital Signs: Temp Pulse Resp BP Pulse Ox 98.8 F 77 20 114/54 L 100 03/01/17 15:49 03/01/17 16:12 03/01/17 16:12 03/01/17 15:49 03/01/17 16:12 Intake & Output 02/28/17 03/01/17 03/02/17 06:59 06:59 06:59 Intake Total 993 2285 680 Output Total 500 2200 1725 Balance 493 85 -1045 Weight 95.6 kg 93.6 kg General appearance: PRESENT: no acute distress, well-developed, well-nourished Head exam: PRESENT: atraumatic, normocephalic Eye exam: PRESENT: conjunctiva pink, EOMI. ABSENT: scleral icterus Ear exam: PRESENT: normal external ear exam Mouth exam: PRESENT: moist, tongue midline Neck exam: ABSENT: carotid bruit, JVD, lymphadenopathy, thyromegaly Respiratory exam: PRESENT: accessory muscle use, decreased breath sounds, prolonged expiratory phas, wheezes Cardiovascular exam: PRESENT: irregular rhythm. ABSENT: diastolic murmur, rubs , systolic murmur Pulses: PRESENT: normal dorsalis pedis pul Vascular exam: PRESENT: normal capillary refill GI/Abdominal exam: PRESENT: normal bowel sounds, soft. ABSENT: distended, guarding, mass, organolmegaly, rebound, tenderness Rectal exam: PRESENT: deferred Extremities exam: PRESENT: full ROM. ABSENT: calf tenderness, clubbing, pedal edema Neurological exam: PRESENT: alert, awake, oriented to person, oriented to place , oriented to time, oriented to situation, CN II-XII grossly intact. ABSENT: motor sensory deficit Psychiatric exam: PRESENT: appropriate affect, normal mood. ABSENT: homicidal ideation, suicidal ideation Skin exam: PRESENT: dry, intact, warm. ABSENT: cyanosis, rash Results Laboratory Results: 03/01/17 04:15 03/01/17 04:15 03/01/17 03/01/17 04:15 04:15 WBC 7.1 RBC 4.27 Hgb 13.2 Hct 39.6 MCV 93 MCH 31.0 MCHC 33.4 RDW 14.7 H Plt Count 128 L Seg Neutrophils % Not Reportable Lymphocytes % Not Reportable Monocytes % Not Reportable Eosinophils % Not Reportable Basophils % Not Reportable Absolute Neutrophils Not Reportable Absolute Lymphocytes Not Reportable Absolute Monocytes Not Reportable Absolute Eosinophils Not Reportable Absolute Basophils Not Reportable Sodium 142.3 Potassium 3.8 Chloride 98 Carbon Dioxide 34 H Anion Gap 10 BUN 26 H Creatinine 0.95 Est GFR ( Amer) > 60 Est GFR (Non-Af Amer) 59 L Glucose 89 Calcium 8.6 Total Bilirubin 0.3 AST 32 ALT 84 H Alkaline Phosphatase 67 Total Protein 6.2 L Albumin 3.7 03/01/17 04:15 NT-Pro-B Natriuret Pep 463 Impressions: Chest X-Ray 02/25/17 03:04 IMPRESSION: 1. No acute pulmonary process identified. Assessment & Plan - Diagnosis (1) Acute on chronic respiratory failure Qualifiers: Respiratory failure complication: hypoxia Qualified Code(s): J96.21 - Acute and chronic respiratory failure with hypoxia Is this a current diagnosis for this admission?: Yes Plan: Secondary to COPD Exacerbation: Will continue current treatment. (2) COPD exacerbation Is this a current diagnosis for this admission?: Yes Plan: Will continue steroids, breathing treatments, and antibiotics (3) Thrombocytopenia Is this a current diagnosis for this admission?: Yes Plan: Will continue to monitor platelets. Will continue ASA. (4) Atrial fibrillation Qualifiers: Atrial fibrillation type: chronic Qualified Code(s): I48.2 - Chronic atrial fibrillation Is this a current diagnosis for this admission?: Yes (5) Gastroesophageal reflux disease Qualifiers: Esophagitis presence: esophagitis presence not specified Qualified Code(s) : K21.9 - Gastro-esophageal reflux disease without esophagitis Is this a current diagnosis for this admission?: Yes Plan: Will increase PPI to BID (6) Hypokalemia Is this a current diagnosis for this admission?: Yes Plan: Resolved. (7) Nicotine dependence Qualifiers: Nicotine product type: other Is this a current diagnosis for this admission?: Yes Plan: Encouraged the importance of not smoking. - Time Time Spent with patient: 15-24 minutes Anticipated discharge: Home
[2017-03-01] MEDS: MONTELUKAST SODIUM 10 MG TABLET PO SCH (22:25)
[2017-03-01] MEDS: ATORVASTATIN CALCIUM 20 MG TABLET PO SCH (22:26)
[2017-03-02] MEDS: IPRATROPIUM/ALBUTEROL 0.5-2.5 MG/3 ML AMPUL NEB SCH ×3 (00:20→16:11)
[2017-03-02] MEDS: OXYCODONE-ACETAMINOPHEN 5-325 MG TABLET PO SCH ×3 (05:43→21:20)
[2017-03-02 07:20] LABS: HEMATOCRIT 37.4 % (36.0-47.0); HEMOGLOBIN 12.6 g/dL (12.0-15.5); HGB HCT DIFFERENCE 0.4; MEAN CORPUSCULAR HEMOGLOBIN 31.2 pg (27.0-33.4); MEAN CORPUSCULAR HGB CONC 33.6 g/dL (32.0-36.0); MEAN CORPUSCULAR VOLUME 93 fl (80-97); RED BLOOD COUNT 4.04 10^6/uL (3.72-5.28); RED CELL DISTRIBUTION WIDTH 14.7 % (11.5-14.0); WHITE BLOOD COUNT 6.2 10^3/uL (4.0-10.5)
[2017-03-02 07:34] LABS: ANION GAP 9 (5-19); BLOOD UREA NITROGEN 26 mg/dL (7-20); CALCIUM 8.8 mg/dL (8.4-10.2); CARBON DIOXIDE 34 mmol/L (22-30); CHLORIDE 97 mmol/L (98-107); CREATININE RESULT 0.88 mg/dL (0.52-1.25); GLUCOSE 94 mg/dL (75-110); POTASSIUM 3.8 mmol/L (3.6-5.0); SODIUM 139.5 mmol/L (137-145)
[2017-03-02 07:52] LABS: BASOPHILS % (MANUAL) 0 % (0-2); EOSINOPHILS % (MANUAL) 0 % (0-6); LYMPHOCYTES % (MANUAL) 25 % (13-45); TOTAL CELLS COUNTED 100
[2017-03-02 07:53] LABS: ANISOCYTOSIS SLIGHT; TOXIC GRANULATION SLIGHT
[2017-03-02] MEDS: CEFTRIAXONE 1 GM/D5W RTU 1 GM/50 ML RTUPB IV SCH (09:17)
[2017-03-02] MEDS: LORATADINE 10 MG TABLET PO SCH (09:17)
[2017-03-02] MEDS: FENOFIBRATE NANOCRYSTALLIZED 48 MG TABLET PO SCH (09:17)
[2017-03-02] MEDS: DILTIAZEM HCL 180 MG CAPSULE.CR PO SCH (09:17)
[2017-03-02] MEDS: PREDNISONE 10 MG TABLET PO SCH (09:17)
[2017-03-02] MEDS: ASPIRIN 81 MG TABLET, ENT COATED PO SCH (09:17)
[2017-03-02] MEDS: GUAIFENESIN 600 MG TABLET.SA PO SCH ×2 (09:17→21:19)
[2017-03-02] MEDS: APIXABAN 5 MG TABLET PO SCH ×2 (09:17→18:23)
[2017-03-02] MEDS: LANSOPRAZOLE 30 MG TAB.RAP.DR PO SCH ×2 (09:17→18:23)
[2017-03-02] MEDS: METOPROLOL SUCCINATE 25 MG TAB.SR.24H PO SCH ×2 (09:17→21:19)
[2017-03-02] MEDS: BUDESONIDE/FORMOTEROL 160-4.5 MCG 60 PUFF/6 GM MDI IH SCH (09:18)
[2017-03-02] MEDS: SERTRALINE HCL 50 MG TABLET PO SCH (09:18)
[2017-03-02] MEDS: SPIRONOLACTONE 25 MG TABLET PO SCH (09:18)
[2017-03-02] MEDS: LOSARTAN POTASSIUM 50 MG TABLET PO SCH (09:18)
--- NOTE | 2017-03-02 15:02 | PDOC PROGRESS REPORT ---
Subjective Progress Note for:: 03/02/17 Subjective:: Pt states that she is still wheezing and short of breath. Pt states that she is still coughing frequently. Reason For Visit: COPD EXACERBATION ACUTE HYPOXEMIC RESPIRATORY Physical Exam Vital Signs: Temp Pulse Resp BP Pulse Ox 98.2 F 73 16 120/91 H 93 03/02/17 11:43 03/02/17 13:25 03/02/17 13:25 03/02/17 11:43 03/02/17 13:25 Intake & Output 03/01/17 03/02/17 03/03/17 06:59 06:59 06:59 Intake Total 2285 1390 840 Output Total 2200 3125 2200 Balance 85 -1735 -1360 Weight 93.6 kg 93.1 kg 93.1 kg General appearance: PRESENT: no acute distress, well-developed, well-nourished Head exam: PRESENT: atraumatic, normocephalic Eye exam: PRESENT: conjunctiva pink, EOMI. ABSENT: scleral icterus Ear exam: PRESENT: normal external ear exam Mouth exam: PRESENT: moist, tongue midline Neck exam: ABSENT: carotid bruit, JVD, lymphadenopathy, thyromegaly Respiratory exam: PRESENT: accessory muscle use, prolonged expiratory phas, wheezes Cardiovascular exam: PRESENT: RRR. ABSENT: diastolic murmur, rubs, systolic murmur Pulses: PRESENT: normal dorsalis pedis pul Vascular exam: PRESENT: normal capillary refill GI/Abdominal exam: PRESENT: normal bowel sounds, soft. ABSENT: distended, guarding, mass, organolmegaly, rebound, tenderness Rectal exam: PRESENT: deferred Extremities exam: PRESENT: full ROM. ABSENT: calf tenderness, clubbing, pedal edema Neurological exam: PRESENT: alert, awake, oriented to person, oriented to place , oriented to time, oriented to situation, CN II-XII grossly intact. ABSENT: motor sensory deficit Psychiatric exam: PRESENT: appropriate affect, normal mood. ABSENT: homicidal ideation, suicidal ideation Skin exam: PRESENT: dry, intact, warm. ABSENT: cyanosis, rash Results Laboratory Results: 03/02/17 06:18 03/02/17 06:18 03/02/17 03/02/17 06:18 06:18 WBC 6.2 RBC 4.04 Hgb 12.6 Hct 37.4 MCV 93 MCH 31.2 MCHC 33.6 RDW 14.7 H Plt Count 111 L Seg Neutrophils % Not Reportable Lymphocytes % Not Reportable Monocytes % Not Reportable Eosinophils % Not Reportable Basophils % Not Reportable Absolute Neutrophils Not Reportable Absolute Lymphocytes Not Reportable Absolute Monocytes Not Reportable Absolute Eosinophils Not Reportable Absolute Basophils Not Reportable Sodium 139.5 Potassium 3.8 Chloride 97 L Carbon Dioxide 34 H Anion Gap 9 BUN 26 H Creatinine 0.88 Est GFR ( Amer) > 60 Est GFR (Non-Af Amer) > 60 Glucose 94 Calcium 8.8 02/25/17 05:33 Blood Blood Culture - Final NO GROWTH IN 5 DAYS 03/01/17 04:15 NT-Pro-B Natriuret Pep 463 Impressions: Chest X-Ray 02/25/17 03:04 IMPRESSION: 1. No acute pulmonary process identified. Assessment & Plan - Diagnosis (1) Acute on chronic respiratory failure Qualifiers: Respiratory failure complication: hypoxia Qualified Code(s): J96.21 - Acute and chronic respiratory failure with hypoxia Is this a current diagnosis for this admission?: Yes Plan: Secondary to COPD Exacerbation: Will continue current treatment. Hopeful home tomorrow. (2) COPD exacerbation Is this a current diagnosis for this admission?: Yes Plan: Will continue steroids, breathing treatments, and antibiotics (3) Thrombocytopenia Is this a current diagnosis for this admission?: Yes Plan: Chronic Thrombocytopenia: Will continue to monitor platelets. Will continue ASA. (4) Atrial fibrillation Qualifiers: Atrial fibrillation type: chronic Qualified Code(s): I48.2 - Chronic atrial fibrillation Is this a current diagnosis for this admission?: Yes Plan: Will continue home medications. (5) Gastroesophageal reflux disease Qualifiers: Esophagitis presence: esophagitis presence not specified Qualified Code(s) : K21.9 - Gastro-esophageal reflux disease without esophagitis Is this a current diagnosis for this admission?: Yes Plan: PPI to BID (6) Hypokalemia Is this a current diagnosis for this admission?: Yes Plan: Resolved. (7) Nicotine dependence Qualifiers: Nicotine product type: other Is this a current diagnosis for this admission?: Yes Plan: Encouraged the importance of not smoking. - Time Time Spent with patient: Less than 15 minutes Anticipated discharge: Home - Hopefully home tomorrow.
[2017-03-02] MEDS ORDERED: LEVOFLOXACIN 500 MG TABLET PO ONE (16:30)
[2017-03-02] MEDS: ATORVASTATIN CALCIUM 20 MG TABLET PO SCH (21:19)
[2017-03-02] MEDS: MONTELUKAST SODIUM 10 MG TABLET PO SCH (21:20)
[2017-03-03] MEDS: IPRATROPIUM/ALBUTEROL 0.5-2.5 MG/3 ML AMPUL NEB SCH ×2 (00:01→07:44)
[2017-03-03 08:00] VITALS: BP 150/72
[2017-03-03] MEDS: OXYCODONE-ACETAMINOPHEN 5-325 MG TABLET PO SCH ×2 (09:14→14:36)
[2017-03-03] MEDS: APIXABAN 5 MG TABLET PO SCH (09:14)
[2017-03-03] MEDS: BUDESONIDE/FORMOTEROL 160-4.5 MCG 60 PUFF/6 GM MDI IH SCH (09:15)
[2017-03-03] MEDS: LOSARTAN POTASSIUM 50 MG TABLET PO SCH (09:15)
[2017-03-03] MEDS: LORATADINE 10 MG TABLET PO SCH (09:15)
[2017-03-03] MEDS: SPIRONOLACTONE 25 MG TABLET PO SCH (09:16)
[2017-03-03] MEDS: SERTRALINE HCL 50 MG TABLET PO SCH (09:16)
[2017-03-03] MEDS: GUAIFENESIN 600 MG TABLET.SA PO SCH (09:16)
[2017-03-03] MEDS: PREDNISONE 10 MG TABLET PO SCH (09:17)
[2017-03-03] MEDS: METOPROLOL SUCCINATE 25 MG TAB.SR.24H PO SCH (09:18)
[2017-03-03] MEDS: FENOFIBRATE NANOCRYSTALLIZED 48 MG TABLET PO SCH (09:18)
[2017-03-03] MEDS: DILTIAZEM HCL 180 MG CAPSULE.CR PO SCH (09:18)
[2017-03-03] MEDS: LANSOPRAZOLE 30 MG TAB.RAP.DR PO SCH (09:18)
[2017-03-03] MEDS: ASPIRIN 81 MG TABLET, ENT COATED PO SCH (09:19)
[2017-03-03] MEDS ORDERED: LEVOFLOXACIN 500 MG TABLET PO SCH (10:00)
--- NOTE | 2017-03-03 10:09 | PDOC DISCHARGE SUMMARY ---
General - Admit/Disc Date/PCP Admission Date/Primary Care Provider: 02/25/17 05:03 DASIA MCDANIELTE, Discharge Date: 03/03/17 - Discharge Diagnosis (1) Acute on chronic respiratory failure Is this a current diagnosis for this admission?: Yes Summary: Resolved. (2) COPD exacerbation Is this a current diagnosis for this admission?: Yes Summary: Will continue breathing treatments, steroids, and antibiotic. (3) Thrombocytopenia Is this a current diagnosis for this admission?: Yes Summary: Chronic Thrombocytopenia: Stable. (4) Atrial fibrillation Is this a current diagnosis for this admission?: Yes Summary: Will continue current medications. (5) Gastroesophageal reflux disease Is this a current diagnosis for this admission?: Yes Summary: Will continue PPI (6) Hypokalemia Is this a current diagnosis for this admission?: Yes Summary: Resolved. (7) Nicotine dependence Is this a current diagnosis for this admission?: Yes Summary: Encourage discontinuation of tobacco abuse. - Additional Information Resuscitation Status: Full Code Discharge Diet: Cardiac Discharge Activity: Activity As Tolerated Prescriptions: Levofloxacin [Levaquin 500 mg Tablet] 500 mg PO DAILY #5 tablet Methylprednisolone [Medrol Dosepack (4 mg/Tab) 21 Tab/Dosepak] 4 mg PO ASDIR PRN #21 tab.ds.pk PRN Reason: Home Medications: Fexofenadine HCl [Rin Allergy] 180 mg PO DAILY 11/23/14 Ergocalciferol (Vitamin D2) [Drisdol] 50,000 unit PO MO@1000 09/29/15 Apixaban [Eliquis 5 mg Tablet] 5 mg PO BID #60 tablet 10/03/15 Diltiazem HCl [Cardizem Cd 180 mg Capsule] 180 mg PO DAILY #30 capsule.cr Atorvastatin Calcium 20 mg PO QHS 02/13/16 Budesonide/Formoterol Fumarate [Symbicort HFA 160-4.5 mcg Inhaler 6 gm] 2 puff IH DAILY 02/13/16 Ipratropium/Albuterol Sulfate [Combivent Respimat 4 gm Mdi] 2 puff IH Q6 PRN 03/30 Losartan Potassium [Cozaar 100 mg Tablet] 50 mg PO DAILY 02/13/16 Oxycodone HCl/Acetaminophen [Percocet 5-325 mg Tablet] 1 tab PO TID 02/13/16 Sertraline HCl [Zoloft] 100 mg PO DAILY 02/13/16 Metoprolol Succinate 25 mg PO BID 08/12/16 Montelukast Sodium [Singulair 10 mg Tablet] 10 mg PO DAILY 08/19/16 Aspirin [Aspirin EC] 81 mg PO DAILY 02/25/17 Fenofibrate Nanocrystallized [Fenofibrate] 54 mg PO DAILY 02/25/17 Pantoprazole Sodium [Protonix] 40 mg PO DAILY 02/25/17 Spironolactone 50 mg PO DAILY 02/25/17 Levofloxacin [Levaquin 500 mg Tablet] 500 mg PO DAILY #5 tablet 03/03/17 Methylprednisolone [Medrol Dosepack (4 mg/Tab) 21 Tab/Dosepak] 4 mg PO ASDIR PRN #21 tab.ds.pk 03/03/17 History of Present Illness Patient complains of: Shortness of breath History of Present Illness: CHAKA PATEL is a 67 year old female present to the hospital with complaint of shortness of breath. Pt sates that she has been cough for the last 2 days. Pt states that she has had subjective fevers and chills. Hospital Course Hospital Course: Pt is a 67 year old female who was admitted to the hospital for COPD exacerbation. Pt was placed on steroids, breathing treatments, and antibiotics. Pt has done well during stay. Pt was told to discontinue tobacco use. Pt did require potassium replacement during hospital stay. Physical Exam Vital Signs: Temp Pulse Resp BP Pulse Ox 98.0 F 76 18 150/72 H 94 03/03/17 07:59 03/03/17 07:59 03/03/17 07:59 03/03/17 07:59 03/03/17 07:59 Intake & Output 03/02/17 03/03/17 03/04/17 06:59 06:59 06:59 Intake Total 1390 1200 Output Total 3125 2500 Balance -1735 -1300 Weight 93.1 kg 93.4 kg General appearance: PRESENT: no acute distress, well-developed, well-nourished Head exam: PRESENT: atraumatic, normocephalic Eye exam: PRESENT: conjunctiva pink, EOMI, PERRLA. ABSENT: scleral icterus Ear exam: PRESENT: normal external ear exam Mouth exam: PRESENT: moist, tongue midline Neck exam: ABSENT: carotid bruit, JVD, lymphadenopathy, thyromegaly Respiratory exam: PRESENT: other - Good air movement, + scant wheezing, no coarse breath sounds, no accessory muscle use. Cardiovascular exam: PRESENT: RRR. ABSENT: diastolic murmur, rubs, systolic murmur Pulses: PRESENT: normal dorsalis pedis pul Vascular exam: PRESENT: normal capillary refill GI/Abdominal exam: PRESENT: normal bowel sounds, soft. ABSENT: distended, guarding, mass, organolmegaly, rebound, tenderness Rectal exam: PRESENT: deferred Extremities exam: PRESENT: full ROM. ABSENT: calf tenderness, clubbing, pedal edema Neurological exam: PRESENT: alert, awake, oriented to person, oriented to place , oriented to time, oriented to situation, CN II-XII grossly intact. ABSENT: motor sensory deficit Psychiatric exam: PRESENT: appropriate affect, normal mood. ABSENT: homicidal ideation, suicidal ideation Skin exam: PRESENT: dry, intact, warm. ABSENT: cyanosis, rash Results Laboratory Results: 03/02/17 06:18 03/02/17 06:18 02/25/17 05:33 Blood Blood Culture - Final NO GROWTH IN 5 DAYS 03/01/17 04:15 NT-Pro-B Natriuret Pep 463 Impressions: Chest X-Ray 02/25/17 03:04 IMPRESSION: 1. No acute pulmonary process identified. Plan Time Spent: Greater than 30 Minutes
[2017-03-04] MEDS ORDERED: PREDNISONE 20 MG TABLET PO SCH (10:00)
[2017-03-06] MEDS ORDERED: PREDNISONE 10 MG TABLET PO SCH (10:00)
[2017-03-08] MEDS ORDERED: PREDNISONE 5 MG TABLET PO SCH (10:00)
== END 2017-03-03 15:40 | disposition home health service (06) | DRG 193 ==
LOC: ER 02:55 → EH 05:03 → OBSVTOIN 05:03 → 3S 06:20 → 5 02-27 13:54
PROVIDERS: ADMIT Family Medicine; ATTEND Family Medicine
PROC: 5A09357 Assistance with Respiratory Ventilation, Less than 24 Consecutive Hours, Continuous Positive Airway Pressure (ICD-10-PCS; principal; 2017-02-25)
PROC: 3E0F73Z Introduction of Anti-inflammatory into Respiratory Tract, Via Natural or Artificial Opening (ICD-10-PCS; 2017-02-25)
PROC: 3E0234Z Introduction of Serum, Toxoid and Vaccine into Muscle, Percutaneous Approach (ICD-10-PCS; 2017-03-03)
DX: J18.9 Pneumonia, unspecified organism (principal); J96.21 Acute and chronic respiratory failure with hypoxia; J44.1 Chronic obstructive pulmonary disease with (acute) exacerbation; J44.0 Chronic obstructive pulmonary disease with (acute) lower respiratory infection; K21.9 Gastro-esophageal reflux disease without esophagitis; E87.6 Hypokalemia; K44.9 Diaphragmatic hernia without obstruction or gangrene; E78.5 Hyperlipidemia, unspecified; I10 Essential (primary) hypertension; E66.9 Obesity, unspecified; I48.2 Chronic atrial fibrillation; D69.59 Other secondary thrombocytopenia; G47.33 Obstructive sleep apnea (adult) (pediatric); M47.812 Spondylosis without myelopathy or radiculopathy, cervical region; M47.818 Spondylosis without myelopathy or radiculopathy, sacral and sacrococcygeal region; F32.9 Major depressive disorder, single episode, unspecified; F17.210 Nicotine dependence, cigarettes, uncomplicated; E78.00 Pure hypercholesterolemia, unspecified; R00.0 Tachycardia, unspecified; Z23 Encounter for immunization; Z79.82 Long term (current) use of aspirin; Z79.899 Other long term (current) drug therapy; Z68.35 Body mass index [BMI] 35.0-35.9, adult; Z79.891 Long term (current) use of opiate analgesic; Z90.49 Acquired absence of other specified parts of digestive tract; Z90.710 Acquired absence of both cervix and uterus; Z88.8 Allergy status to other drugs, medicaments and biological substances
CPT/HCPCS: 36415; 71010; 80048; 80053; 82803; 83735; 83880; 85025; 85027; 87040; 87070; 87205; 87804; 90686; 93005; 93010; 93306; 94640; 94660; 94667; 94668; 94799; 96365; 96367; 99285; J0456; J0696; J1940; J2930; J3475; J3480; J3490; J7060; J7512; J7614; J7620

== ENCOUNTER → 2017-04-05 | Outpatient (CLI) | payer MEDICARE, MEDICAID ==
[2017-04-05 12:20] LABS: ABSOLUTE LYMPHOCYTES (AUTO) 1.4 10^3/uL (0.5-4.7); ABSOLUTE MONOCYTES (AUTO) 1.1 10^3/uL (0.1-1.4); ABSOLUTE NEUT (AUTO) 9.9 10^3/uL (1.7-8.2); BASOPHILS % (AUTO) 0.2 % (0-2); HEMOGLOBIN 12.3 g/dL (12.0-15.5); LYMPHOCYTES % (AUTO) 11.1 % (13-45); MEAN CORPUSCULAR HEMOGLOBIN 30.5 pg (27.0-33.4); MEAN CORPUSCULAR HGB CONC 33.1 g/dL (32.0-36.0); MEAN CORPUSCULAR VOLUME 92 fl (80-97); MONOCYTES % (AUTO) 9.2 % (3-13); PLATELET COUNT 238 10^3/uL (150-450); RED BLOOD COUNT 4.02 10^6/uL (3.72-5.28); RED CELL DISTRIBUTION WIDTH 14.8 % (11.5-14.0); SEGMENTED NEUTROPHILS % (AUTO) 79.5 % (42-78); TOTAL CELLS COUNTED % (AUTO) 100 %; WHITE BLOOD COUNT 12.5 10^3/uL (4.0-10.5)
[2017-04-05 12:22] LABS: APPEARANCE,URINE CLEAR; BILIRUBIN,URINE NEGATIVE (NEGATIVE); COLOR,URINE YELLOW; GLUCOSE, URINE NEGATIVE (NEGATIVE); KETONES,URINE NEGATIVE (NEGATIVE); LEUKOCYTE ESTERASE,URINE NEGATIVE (NEGATIVE); NITRITE,URINE NEGATIVE (NEGATIVE); PROTEIN,URINE NEGATIVE (NEGATIVE); URINE SPECIFIC GRAVITY 1.019; UROBILINOGEN,URINE NEGATIVE mg/dL (<2.0)
[2017-04-05 12:43] LABS: ALBUMIN 4.1 g/dL (3.5-5.0); ANION GAP 10 (5-19); BLOOD UREA NITROGEN 18 mg/dL (7-20); CALCIUM 9.6 mg/dL (8.4-10.2); CARBON DIOXIDE 27 mmol/L (22-30); CHLORIDE 105 mmol/L (98-107); GLUCOSE 96 mg/dL (75-110); PHOSPHORUS 3.4 mg/dL (2.5-4.5); POTASSIUM 4.2 mmol/L (3.6-5.0); SODIUM 141.7 mmol/L (137-145)
[2017-04-05 13:49] LABS: URINE POTASSIUM 31.5 mmol/L (22-164)
[2017-04-06 07:12] LABS: VITAMIN D 25-HYDROXY 40.7 ng/mL (30.0-100.0)
[2017-04-07 07:07] LABS: MICROALBUMIN URINE <3.0 ug/mL (Not Estab.)
[2017-04-08 09:53] LABS: ALDOSTERONE 5.4 ng/dL (0.0-30.0)
== END ==
LOC: OD 11:32
PROVIDERS: ATTEND Internal Medicine Nephrology
DX: I12.9 Hypertensive chronic kidney disease with stage 1 through stage 4 chronic kidney disease, or unspecified chronic kidney disease (principal); N18.9 Chronic kidney disease, unspecified; E87.6 Hypokalemia
CPT/HCPCS: 36415; 80048; 81001; 82040; 82043; 82088; 82306; 82533; 82570; 83930; 83935; 83970; 84100; 84133; 84244; 85025

== ENCOUNTER → 2017-04-14 | Outpatient (CLI) | payer MEDICARE, MEDICAID ==
[2017-04-14 11:01] LABS: APPEARANCE,URINE CLEAR; BILIRUBIN,URINE NEGATIVE (NEGATIVE); COLOR,URINE STRAW; GLUCOSE, URINE NEGATIVE (NEGATIVE); KETONES,URINE NEGATIVE (NEGATIVE); LEUKOCYTE ESTERASE,URINE NEGATIVE (NEGATIVE); NITRITE,URINE NEGATIVE (NEGATIVE); PROTEIN,URINE NEGATIVE (NEGATIVE); UROBILINOGEN,URINE NEGATIVE mg/dL (<2.0)
[2017-04-14 11:17] LABS: ABSOLUTE EOSINOPHILS # (AUTO) 0.1 10^3/uL (0.0-0.6); ABSOLUTE NEUT (AUTO) 7.9 10^3/uL (1.7-8.2); BASOPHILS % (AUTO) 0.3 % (0-2); EOSINOPHILS % (AUTO) 0.7 % (0-6); HEMATOCRIT 39.3 % (36.0-47.0); HEMOGLOBIN 13.2 g/dL (12.0-15.5); LYMPHOCYTES % (AUTO) 18.4 % (13-45); MEAN CORPUSCULAR HEMOGLOBIN 30.9 pg (27.0-33.4); MEAN CORPUSCULAR HGB CONC 33.7 g/dL (32.0-36.0); MEAN CORPUSCULAR VOLUME 92 fl (80-97); PLATELET COUNT 212 10^3/uL (150-450); RED BLOOD COUNT 4.28 10^6/uL (3.72-5.28); RED CELL DISTRIBUTION WIDTH 15.3 % (11.5-14.0); SEGMENTED NEUTROPHILS % (AUTO) 71.6 % (42-78); TOTAL CELLS COUNTED % (AUTO) 100 %; WHITE BLOOD COUNT 11.1 10^3/uL (4.0-10.5)
[2017-04-14 11:45] LABS: ALANINE AMINOTRANSFERASE 41 U/L (9-52); ALBUMIN 4.4 g/dL (3.5-5.0); ALKALINE PHOSPHATASE 62 U/L (38-126); ANION GAP 10 (5-19); ASPARTATE AMINO TRANSFERASE 18 U/L (14-36); BILIRUBIN,DIRECT 0.4 mg/dL (0.0-0.4); BILIRUBIN,TOTAL 0.5 mg/dL (0.2-1.3); BLOOD UREA NITROGEN 20 mg/dL (7-20); CALCIUM 9.7 mg/dL (8.4-10.2); CARBON DIOXIDE 29 mmol/L (22-30); CHLORIDE 103 mmol/L (98-107); CHOLESTEROL 190.49 mg/dL (0-200); GLUCOSE 89 mg/dL (75-110); POTASSIUM 4.3 mmol/L (3.6-5.0); SODIUM 142.2 mmol/L (137-145); TOTAL PROTEIN 6.9 g/dL (6.3-8.2); TRIGLYCERIDES 139 mg/dL (<150)
[2017-04-14 11:56] LABS: DIRECT LDL 112 mg/dL (<100)
== END ==
LOC: OD 10:10
PROVIDERS: ATTEND Internal Medicine Cardiovascular Disease
DX: E78.00 Pure hypercholesterolemia, unspecified (principal); I48.0 Paroxysmal atrial fibrillation; Z79.01 Long term (current) use of anticoagulants; Z79.899 Other long term (current) drug therapy
CPT/HCPCS: 36415; 80048; 80061; 80076; 81001; 82272; 85025; 85730

== ENCOUNTER 2017-05-24 10:44 | Day surgery (SDC) | payer MEDICARE, MEDICAID ==
[~2017-05-24 10:44] MED LIST changes: -CEFAZOLIN 2 GM/D5W RTU 2 GM/50 ML RTUPB IV PRN; -LACTATED RINGERS 1000 ML IV PRN; -LIDOCAINE 0.5% INJ-PF (5 MG/ML) 50 ML SDV SUBCUT PRN; +PROPOFOL INJ 200 MG/20 ML VIAL IV ONE
[2017-05-24] MEDS ORDERED: SIMETHICONE 80 MG TAB.CHEW PO ONE (12:05)
[2017-05-24] MEDS ORDERED: SIMETHICONE 80 MG TAB.CHEW ONE (12:05)
[2017-05-24 12:37] VITALS: BP 123/69
--- NOTE | 2017-05-24 13:42 | Operative Report ---
Operative Report DATE OF SURGERY: 05/24/17 Operative Report: The risks benefits and alternatives of the procedure explained to the patient in detail and informed consent is obtained.A GIF Olympus video scope was inserted into the patient's mouth and hypopharynx, the esophagus is identified intubated and insufflated ,the scope was then advanced through the esophagus stomach and duodenum, retroflexion maneuver is done, the esophagus stomach and first and second portions of the duodenum examined PREOPERATIVE DIAGNOSIS: Nausea, epigastric pain POSTOPERATIVE DIAGNOSIS: Bile reflux. Gastritis status post biopsy rule out Helicobacter pylori OPERATION: EGD with biopsy SURGEON: CANDIDO PETERSON ANESTHESIA: LMAC TISSUE REMOVED OR ALTERED: As noted above. COMPLICATIONS: None. ESTIMATED BLOOD LOSS: None. INTRAOPERATIVE FINDINGS: As noted above. PROCEDURE: Patient tolerated procedure well. No immediate postprocedure complications are noted. Patient discharged in good condition. Discharge date 05/24/2017. Discharge diet: Regular. Discharge activity: Regular. 2-3 week follow-up to discuss findings. We will wait on pathology. Patient is instructed call the office or proceed to the emergency room should there be any further problems or questions.
== END 2017-05-24 12:35 | disposition home or self-care (01) ==
LOC: END 10:44
PROVIDERS: ATTEND Internal Medicine Gastroenterology
PROC: 0DB68ZX Excision of Stomach, Via Natural or Artificial Opening Endoscopic, Diagnostic (ICD-10-PCS; principal; 2017-05-24 13:30)
DX: K29.50 Unspecified chronic gastritis without bleeding (principal); J44.9 Chronic obstructive pulmonary disease, unspecified; E07.9 Disorder of thyroid, unspecified; I10 Essential (primary) hypertension; F17.210 Nicotine dependence, cigarettes, uncomplicated; I48.91 Unspecified atrial fibrillation; K21.9 Gastro-esophageal reflux disease without esophagitis; M47.9 Spondylosis, unspecified; Z99.81 Dependence on supplemental oxygen; Z79.82 Long term (current) use of aspirin
CPT/HCPCS: 43239; 88305 ×2; A9270; J2704; 731

== ENCOUNTER → 2017-06-01 | Outpatient (CLI) | payer MEDICARE, MEDICAID ==
--- NOTE | 2017-06-01 15:44 | RADIOLOGY REPORT (SQ) ---
EXAM DESCRIPTION: CT ABD/PELVIS WITH IV ORAL COMPLETED DATE/TIME: 06/01/2017 3:00 pm REASON FOR STUDY: R10.84 GENERALIZED ABDOMINAL PAIN R10.84 GENERALIZED ABDOMINAL PAIN COMPARISON: 05/12/2016 CT abdomen pelvis TECHNIQUE: CT scan of the abdomen and pelvis performed using helical scanning technique with dynamic intravenous contrast injection. No oral contrast. Images reviewed with lung, soft tissue, and bone windows. Reconstructed coronal and sagittal MPR images reviewed. Delayed images for evaluation of the urinary system also acquired. All images stored on PACS. All CT scanners at this facility use dose modulation, iterative reconstruction, and/or weight based d osing when appropriate to reduce radiation dose to as low as reasonably achievable (ALARA). [facility]: Dose Right [facility]: CareDose [facility]: Dose Right [facility]: Teradose 4D [facility]: TouchBistro CONTRAST TYPE AND DOSE: contrast/concentration: Isovue 370.00 mg/ml; Total Contrast Delivered: 95.0 ml; Total Saline Delivered: 71.0 ml RENAL FUNCTION: Creatinine 1.1 RADIATION DOSE: CT Rad equipment meets quality standard of care and radiation dose reduction techniq ues were employed. CTDIvol: 19.6 - 19.6 mGy. DLP: 1919 mGy-cm.. LIMITATIONS: None. FINDINGS: LOWER CHEST: No significant findings. No nodules or infiltrates. LIVER: Normal size. No masses. No dilated ducts. Tiny less than 5 mm cysts in the left and right lo be liver SPLEEN: Normal size. No focal lesions. PANCREAS: No masses. No significant calcifications. No adjacent inflammation or peripancreatic fluid collections. Pancreatic duct not dilated. GALLBLADDER: Surgically absent ADRENAL GLANDS: No significant masses or asymmetry. RIGHT KIDNEY AND URETER: No solid masses. No significant calcifications. No hydronephrosis or hyd roureter. LEFT KIDNEY AND URETER: No solid masses. 1 cm cyst left mid pole kidney. No significant calcificati ons. No hydronephrosis or hydroureter. AORTA AND VESSELS: No aneurysm. No dissection. Renal arteries, SMA, celiac without stenosis. RETROPERITONEUM: No retroperitoneal adenopathy, hemorrhage or masses. BOWEL AND PERITONEAL CAVITY: On axial images 57 through 60, and axial images 66-68, there are enlarge d sigmoid colon diverticuli with mild surrounding inflammatory change worrisome for acute diverticuli tis. No perforation. No abscess. No colon obstruction. Heavy burden of diverticuli elsewhere in the sigmoid colon. Patient drank oral contrast without CT e vidence of bowel obstruction. APPENDIX: Surgically absent PELVIS: No mass. No free fluid. Normal bladder. Post hysterectomy. ABDOMINAL WALL: No masses. No hernias. BONES: No significant or acute findings. OTHER: No other significant finding. IMPRESSION: Heavy burden of diverticuli along the sigmoid colon. Two short segmental areas of infla mmatory change sigmoid colon likely from diverticulitis. No abscess or free intraperitoneal air TECHNICAL DOCUMENTATION: JOB ID: [id number] Quality ID # [id number]: Final reports with documentation of one or more dose reduction techniques (e.g., Au tomated exposure control, adjustment of the mA and/or kV according to patient size, use of iterative reconstruction technique) 2010 [employer]- All Rights Reserved Reading location - IP/workstation name: [email or web address]
== END ==
LOC: RAD 14:29
PROVIDERS: ATTEND Family Medicine
DX: K57.30 Diverticulosis of large intestine without perforation or abscess without bleeding (principal); R10.84 Generalized abdominal pain
CPT/HCPCS: 74177; 82565

== ENCOUNTER 2017-06-14 11:17 | Emergency (ER) | payer MEDICARE, MEDICAID ==
[2017-06-14] MEDS ORDERED: NORMAL SALINE 1000 ML 1,000 ML IV ONE (12:00)
[2017-06-14] MEDS ORDERED: ONDANSETRON HCL INJ/PF 4 MG/2 ML SDV IV ONE (12:00)
--- NOTE | 2017-06-14 12:01 | ER Document Report ---
ED Medical Screen (RME) - General Chief Complaint: Back Pain Stated Complaint: BACK/NECK PAIN, VOMITING Time Seen by Provider: 06/14/17 11:57 TRAVEL OUTSIDE OF THE [place] IN LAST 30 DAYS: No - HPI Notes: 06/14/17 12:01 Diffuse pain with nausea vomiting unable to take home medications pain medications because of nausea vomiting. - Related Data Allergies/Adverse Reactions: adhesive tape [Adhesive Tape] Allergy (Mild, Verified 06/14/17 11:22) RASH/BLISTER roflumilast Adverse Reaction (Unknown, Verified 06/14/17 11:22) N/V, diarrhea Past Medical History - Social History Frequency of alcohol use: None Drug Abuse: None - Past Medical History Cardiac Medical History: Reports: Hx Atrial Fibrillation, Hx Hypercholesterolemia, Hx Hypertension Denies: Hx Coronary Artery Disease, Hx Heart Attack Pulmonary Medical History: Reports: Hx Asthma, Hx Bronchitis, Hx COPD, Hx Pneumonia, Hx Sleep Apnea - on CPAP Neurological Medical History: Denies: Hx Cerebrovascular Accident, Hx Seizures Renal/ Medical History: Reports: Hx Kidney Stones. Denies: Hx Peritoneal Dialysis GI Medical History: Reports: Hx Gastroesophageal Reflux Disease, Hx Hiatal Hernia. Denies: Hx Hepatitis, Hx Ulcer Musculoskeltal Medical History: Reports Hx Arthritis - NECK, LOWER BACK Psychiatric Medical History: Reports: Hx Depression Infectious Medical History: Denies: Hx Hepatitis Past Surgical History: Reports: Hx Abdominal Surgery - HERNIA, Hx Appendectomy, Hx Cholecystectomy, Hx Herniorrhaphy, Hx Hysterectomy, Hx Rectal Surgery, Hx Tubal Ligation, Other - Rectocele and cystocele repair. Denies: Hx Mastectomy, Hx Open Heart Surgery, Hx Pacemaker - Immunizations Hx Diphtheria, Pertussis, Tetanus Vaccination: Yes History of Influenza Vaccine for 12/2016 - 05/2017 Season: Unknown Review of Systems - Review of Systems Gastrointestinal: Diarrhea, Nausea, Vomiting -: Yes All other systems reviewed and negative Physical Exam - Vital signs Vitals: Temp Pulse Resp BP Pulse Ox 99.9 F 94 18 150/136 H 99 06/14/17 11:26 06/14/17 11:26 06/14/17 11:26 06/14/17 11:26 06/14/17 11:26 - Respiratory Respiratory status: No respiratory distress Chest status: Nontender Breath sounds: Normal Chest palpation: Normal Course - Re-evaluation Re-evalutation: 06/14/17 12:01 I have greeted and performed a rapid initial assessment of this patient. A comprehensive ED assessment and evaluation of the patient, analysis of test results and completion of the medical decision making process will be conducted by additional ED providers. - Vital Signs Vital signs: Temp Pulse Resp BP Pulse Ox 99.9 F 94 18 150/136 H 99 06/14/17 11:26 06/14/17 11:26 06/14/17 11:26 06/14/17 11:26 06/14/17 11:26
[2017-06-14 12:26] LABS: ABSOLUTE LYMPHOCYTES (AUTO) 0.9 10^3/uL (0.5-4.7); ABSOLUTE MONOCYTES (AUTO) 0.9 10^3/uL (0.1-1.4); ABSOLUTE NEUT (AUTO) 10.1 10^3/uL (1.7-8.2); BASOPHILS % (AUTO) 0.3 % (0-2); EOSINOPHILS % (AUTO) 0.4 % (0-6); HEMATOCRIT 43.5 % (36.0-47.0); HEMOGLOBIN 14.4 g/dL (12.0-15.5); LYMPHOCYTES % (AUTO) 7.6 % (13-45); MEAN CORPUSCULAR HEMOGLOBIN 31.1 pg (27.0-33.4); MEAN CORPUSCULAR HGB CONC 33.2 g/dL (32.0-36.0); MEAN CORPUSCULAR VOLUME 94 fl (80-97); MONOCYTES % (AUTO) 7.6 % (3-13); PLATELET COUNT 171 10^3/uL (150-450); RED BLOOD COUNT 4.65 10^6/uL (3.72-5.28); RED CELL DISTRIBUTION WIDTH 14.5 % (11.5-14.0); SEGMENTED NEUTROPHILS % (AUTO) 84.1 % (42-78); TOTAL CELLS COUNTED % (AUTO) 100 %
[2017-06-14 12:44] LABS: ALANINE AMINOTRANSFERASE 31 U/L (9-52); ALBUMIN 4.3 g/dL (3.5-5.0); ALKALINE PHOSPHATASE 64 U/L (38-126); ANION GAP 7 (5-19); ASPARTATE AMINO TRANSFERASE 19 U/L (14-36); BILIRUBIN,DIRECT 0.1 mg/dL (0.0-0.4); BILIRUBIN,TOTAL 0.4 mg/dL (0.2-1.3); BLOOD UREA NITROGEN 10 mg/dL (7-20); CALCIUM 9.8 mg/dL (8.4-10.2); CARBON DIOXIDE 34 mmol/L (22-30); CHLORIDE 102 mmol/L (98-107); GLUCOSE 106 mg/dL (75-110); LIPASE 62.3 U/L (23-300); POTASSIUM 3.7 mmol/L (3.6-5.0); SODIUM 142.9 mmol/L (137-145)
[2017-06-14] MEDS ORDERED: MORPHINE SULFATE 10 MG/ML INJ IV ONE (13:15)
[2017-06-14] MEDS ORDERED: DIPHENHYDRAMINE HCL 50 MG/ML VIAL IV ONE (13:15)
--- NOTE | 2017-06-14 13:15 | ER Document Report ---
ED General - General Chief Complaint: Back Pain Stated Complaint: BACK/NECK PAIN, VOMITING Time Seen by Provider: 06/14/17 11:57 Mode of Arrival: Ambulatory Information source: Patient, Relative Notes: 67-year-old female with a history of COPD, hypertension, chronic neck and back pain presents with complaint of worsening neck and back pain as well as nausea and vomiting. Patient states nausea and vomiting started 1 day prior to arrival. She states since that time she has been unable to keep down any of her pain medication or blood pressure medications. Patient denies any abdominal pain, fever, chills, chest pain, shortness of breath, dysuria. He denies any new injury. Patient is currently in pain management for her back pain and takes oxycodone at home and receives monthly injections to her back. TRAVEL OUTSIDE OF THE [place] IN LAST 30 DAYS: No - HPI Onset: Yesterday Onset/Duration: Gradual Quality of pain: Stabbing, Throbbing Severity: Moderate Pain Level: 2 Associated symptoms: Nausea, Vomiting. denies: Diarrhea, Fever, Shortness of breath Exacerbated by: Movement, Walking Relieved by: Remaining still Similar symptoms previously: Yes Recently seen / treated by doctor: Yes - currently under pain management. - Related Data Allergies/Adverse Reactions: adhesive tape [Adhesive Tape] Allergy (Mild, Verified 06/14/17 11:22) RASH/BLISTER roflumilast Adverse Reaction (Unknown, Verified 06/14/17 11:22) N/V, diarrhea Past Medical History - General Information source: Patient - Social History Smoking Status: Current Every Day Smoker Cigarette use (# per day): Yes - 10 Smoking Education Provided: Yes Frequency of alcohol use: None Drug Abuse: None Lives with: Spouse/Significant other Family History: COPD, Malignancy, Other - This Patient has suicidal ideation: No Patient has homicidal ideation: No - Past Medical History Cardiac Medical History: Reports: Hx Atrial Fibrillation, Hx Hypercholesterolemia, Hx Hypertension Denies: Hx Coronary Artery Disease, Hx Heart Attack Pulmonary Medical History: Reports: Hx Asthma, Hx Bronchitis, Hx COPD, Hx Pneumonia, Hx Sleep Apnea - on CPAP Neurological Medical History: Denies: Hx Cerebrovascular Accident, Hx Seizures Renal/ Medical History: Reports: Hx Kidney Stones. Denies: Hx Peritoneal Dialysis GI Medical History: Reports: Hx Gastroesophageal Reflux Disease, Hx Hiatal Hernia. Denies: Hx Hepatitis, Hx Ulcer Musculoskeltal Medical History: Reports Hx Arthritis - NECK, LOWER BACK Psychiatric Medical History: Reports: Hx Depression Infectious Medical History: Denies: Hx Hepatitis Past Surgical History: Reports: Hx Abdominal Surgery - HERNIA, Hx Appendectomy, Hx Cholecystectomy, Hx Herniorrhaphy, Hx Hysterectomy, Hx Rectal Surgery, Hx Tubal Ligation, Other - Rectocele and cystocele repair. Denies: Hx Mastectomy, Hx Open Heart Surgery, Hx Pacemaker - Immunizations Hx Diphtheria, Pertussis, Tetanus Vaccination: Yes Hx Pneumococcal Vaccination: 12/04/12 Review of Systems - Review of Systems Constitutional: Malaise. denies: Fever Cardiovascular: denies: Chest pain, Palpitations, Dizziness Gastrointestinal: Nausea, Vomiting. denies: Abdominal pain, Diarrhea Genitourinary: denies: Dysuria, Flank pain Musculoskeletal: Back pain, Neck pain Skin: No symptoms reported Hematologic/Lymphatic: No symptoms reported Neurological/Psychological: denies: Confusion, Depression, Anxiety Physical Exam - Vital signs Vitals: Temp Pulse Resp BP Pulse Ox 99.9 F 94 18 150/136 H 99 06/14/17 11:26 06/14/17 11:26 06/14/17 11:26 06/14/17 11:26 06/14/17 11:26 Interpretation: Normal, Hypertensive. No: Febrile - General General appearance: Appears well, Alert In distress: Mild - HEENT Head: Normocephalic, Atraumatic Eyes: Normal Extraocular movements intact: Yes Pupils: PERRL Mucous membranes: Dry Pharynx: Normal Neck: Normal - Respiratory Respiratory status: No respiratory distress Chest status: Nontender Breath sounds: Normal Chest palpation: Normal Course - Re-evaluation Re-evalutation: Laboratory 06/14/17 06/14/17 12:10 12:10 WBC 12.0 H RBC 4.65 Hgb 14.4 Hct 43.5 MCV 94 MCH 31.1 MCHC 33.2 RDW 14.5 H Plt Count 171 Seg Neutrophils % 84.1 H Lymphocytes % 7.6 L Monocytes % 7.6 Eosinophils % 0.4 Basophils % 0.3 Absolute Neutrophils 10.1 H Absolute Lymphocytes 0.9 Absolute Monocytes 0.9 Absolute Eosinophils 0.0 Absolute Basophils 0.0 Sodium 142.9 Potassium 3.7 Chloride 102 Carbon Dioxide 34 H Anion Gap 7 BUN 10 Creatinine 0.88 Est GFR ( Amer) > 60 Est GFR (Non-Af Amer) > 60 Glucose 106 Calcium 9.8 Total Bilirubin 0.4 Direct Bilirubin 0.1 Neonat Total Bilirubin Not Reportable Neonat Direct Bilirubin Not Reportable Neonat Indirect Bili Not Reportable AST 19 ALT 31 Alkaline Phosphatase 64 Total Protein 7.0 Albumin 4.3 Lipase 62.3 06/14/17 13:33 On reevaluation patient is sleeping and resting comfortably. She states her nausea and pain have resolved. She is able to tolerate fluids prior to discharge. 06/14/17 15:17 06/16/17 06:05 67-year-old female with a history of chronic neck and back pain currently undergoing pain management presents with complaint of worsening neck and back pain and associated nausea and vomiting. Patient states nausea and vomiting started 1 day prior to arrival. Since that time she has been unable to tolerate any of her pain medications or blood pressure medications. Exam is significant for diffuse tenderness along the thoracic and lumbar spine. There is no midline tenderness. She has a mild leukocytosis with left shift. LFTs are within normal limits. CMP is without electrolyte abnormalities and shows normal renal function. Lipase is within normal limits. Patient received IV fluids, Dilaudid, Zofran. On reevaluation patient is resting comfortably. She is able to tolerate fluids. She is comfortable with discharge home. - Vital Signs Vital signs: Temp Pulse Resp BP Pulse Ox 97.5 F 84 18 132/71 H 100 06/14/17 15:45 06/14/17 15:45 06/14/17 15:45 06/14/17 15:45 06/14/17 15:45 - Laboratory Result Diagrams: 06/14/17 12:10 06/14/17 12:10 Laboratory results interpreted by me: 06/14/17 06/14/17 12:10 12:10 WBC 12.0 H RDW 14.5 H Seg Neutrophils % 84.1 H Lymphocytes % 7.6 L Absolute Neutrophils 10.1 H Carbon Dioxide 34 H Discharge - Discharge Clinical Impression: Chronic back pain greater than 3 months duration, Chronic neck pain, Tobacco use disorder Degenerative disc disease Qualifiers: Spinal region: lumbar Qualified Code(s): M51.36 - Other intervertebral disc degeneration, lumbar region Nausea & vomiting Qualifiers: Vomiting type: unspecified Vomiting Intractability: non-intractable Qualified Code(s): R11.2 - Nausea with vomiting, unspecified Hypertension Qualifiers: Hypertension type: unspecified Qualified Code(s): I10 - Essential (primary) hypertension Condition: Good Disposition: HOME, SELF-CARE Instructions: Diarrhea, Nonspecific ([facility]), Low Back Pain ([facility]), Oral Narcotic Medication ([facility]), Vomiting ([facility]) Prescriptions: Ondansetron [Zofran Odt 4 mg Tablet] 1 - 2 tab PO Q4H PRN #15 tab.rapdis PRN Reason: For Nausea/Vomiting Forms: Smoking Cessation Education, Elevated Blood Pressure Referrals: DASIA URBINA DO [Primary Care Provider] - Follow up as needed
[2017-06-14] MEDS ORDERED: METHYLPREDNISOLONE INJ 125 MG/2 ML SDV IV ONE (13:46)
[2017-06-14 15:46] VITALS: BP 132/71
== END 2017-06-14 15:46 | disposition home or self-care (01) ==
LOC: ER 11:17
DX: G89.29 Other chronic pain (principal); M54.5 Low back pain; M54.2 Cervicalgia; M51.36 Other intervertebral disc degeneration, lumbar region; R11.2 Nausea with vomiting, unspecified; D72.829 Elevated white blood cell count, unspecified; R53.81 Other malaise; J44.9 Chronic obstructive pulmonary disease, unspecified; I10 Essential (primary) hypertension; F17.210 Nicotine dependence, cigarettes, uncomplicated; Z71.6 Tobacco abuse counseling; Z79.899 Other long term (current) drug therapy; Z79.891 Long term (current) use of opiate analgesic
CPT/HCPCS: 99283; 96361; 96374; 96375; 36415; 83690; 85025; 80053; J1200; J2930; J2270; J2405; J7030

== ENCOUNTER 2017-06-15 11:19 | Day surgery (SDC) | payer MEDICARE, MEDICAID ==
[2017-06-15] MEDS ORDERED: PROPOFOL INJ 200 MG/20 ML VIAL IV ONE (13:18)
[2017-06-15] MEDS ORDERED: DIPHENHYDRAMINE HCL 50 MG/ML VIAL IV PRN (14:11)
[2017-06-15] MEDS ORDERED: PROMETHAZINE HCL INJ 25 MG/1 ML VIAL IV PRN ×2 (14:11)
[2017-06-15] MEDS ORDERED: FENTANYL CITRATE INJ/PF 100 MCG/2 ML AMPUL IV PRN ×3 (14:11)
[2017-06-15] MEDS ORDERED: MEPERIDINE HCL/PF INJ 25 MG/1 ML DISP.SYRIN IV PRN (14:11)
--- NOTE | 2017-06-15 14:55 | Operative Report ---
Operative Report DATE OF SURGERY: 06/15/17 Operative Report: The risks benefits and alternatives of the procedure explained to the patient in detail and informed consent is obtained.A GIF Olympus video scope was inserted into the patient's mouth and hypopharynx, the esophagus is identified intubated and insufflated, the scope was then advanced through the esophagus stomach and duodenum, retroflexion maneuver is done ,the esophagus stomach and first and second portions of the duodenum examined PREOPERATIVE DIAGNOSIS: History of Mcknight's. Significant nausea vomiting. Epigastric pain. Patient not able to prep for colonoscopy POSTOPERATIVE DIAGNOSIS: Gastric erosions with mild heme noted in the stomach status post biopsy. Hiatal hernia. Small area of Mcknight's ablated in situ OPERATION: EGD with ablation. EGD with biopsy SURGEON: CANDIDO PETERSON ANESTHESIA: LMAC TISSUE REMOVED OR ALTERED: As noted above. COMPLICATIONS: None. ESTIMATED BLOOD LOSS: None. INTRAOPERATIVE FINDINGS: As noted above. PROCEDURE: Patient tolerated procedure well. No postprocedure complications are noted. Patient discharged in good condition. Discharge date 06/15/2017. Discharge diet: Regular. Discharge activity: Regular. 2-3 week follow-up to discuss findings. We will go ahead and reschedule colonoscopy. Await pathology. Patient is instructed to call the office or proceed to the emergency room should there be any further problems or questions.
[2017-06-15 16:39] VITALS: BP 125/70
== END 2017-06-15 16:45 | disposition home or self-care (01) ==
LOC: OROUT 11:19
PROVIDERS: ATTEND Internal Medicine Gastroenterology
PROC: 0DB68ZX Excision of Stomach, Via Natural or Artificial Opening Endoscopic, Diagnostic (ICD-10-PCS; principal; 2017-06-15 13:45)
DX: K25.4 Chronic or unspecified gastric ulcer with hemorrhage (principal); K44.9 Diaphragmatic hernia without obstruction or gangrene; K22.70 Barrett's esophagus without dysplasia; J44.9 Chronic obstructive pulmonary disease, unspecified; I10 Essential (primary) hypertension; K21.9 Gastro-esophageal reflux disease without esophagitis; F17.210 Nicotine dependence, cigarettes, uncomplicated; E07.9 Disorder of thyroid, unspecified; M47.9 Spondylosis, unspecified; Z79.899 Other long term (current) drug therapy; Z79.82 Long term (current) use of aspirin; Z79.01 Long term (current) use of anticoagulants; Z86.010 Personal history of colon polyps
CPT/HCPCS: 43270; 43239; 88342 ×2; 88305 ×2; J2704; 731

== ENCOUNTER → 2017-07-07 | Outpatient (CLI) | payer MEDICARE, MEDICAID ==
--- NOTE | 2017-07-07 16:44 | WOMENS IMAGING REPORT ---
EXAM DESCRIPTION: BILAT SCREENING MAMMO W/CAD COMPLETED DATE/TIME: 07/07/2017 1:31 pm REASON FOR STUDY: SCREENING MAMMO Z12.31 ENCNTR SCREEN MAMMOGRAM FOR MALIGNANT NEOPLASM OF BERNABE COMPARISON: Multiple since 2008 TECHNIQUE: Standard craniocaudal and mediolateral oblique views of each breast recorded using digita l acquisition. LIMITATIONS: None. FINDINGS: No masses, calcifications or architectural distortion. No areas of suspicion. Read with the assistance of CAD. .[facility] - R2 Cenova Version 1.3 .[facility] - R2 Cenova Version 1.3 .[facility] - R2 Cenova Version 2.4 .[facility] - R2 Cenova Version 2.4 .[facility] - R2 Grainer Machine Version 9.2 IMPRESSION: NORMAL MAMMOGRAM. BIRADS 1. BREAST DENSITY: a. The breasts are almost entirely fatty. BIRAD: 1 NEGATIVE RECOMMENDATION: ROUTINE SCREENING Please continue yearly bilateral screening tomosynthesis in June 2018. Please consider bilateral sc reening tomosynthesis COMMENT: The patient has been notified of the results by letter per SA requirements. Additional no tification policies are in place for contacting patient with suspicious or incomplete findings. Quality ID #[id number]: The [employer] recommends an annual screening mammogram for women aged 40 years or over. This facility utilizes a reminder system to ensure that all patients receive reminder letters, and/or direct phone calls for appointments. This includes reminders for routine scr eening mammograms, diagnostic mammograms, or other Breast Imaging Interventions when appropriate. Th is patient will be placed in the appropriate reminder system. The [employer] [place] [employer] (ACR) has developed recommendations for screening MRI of the breast s in certain patient populations, to be used in conjunction with mammography. Breast MRI surveillanc e may be appropriate for women with more than 20% lifetime risk of developing breast cancer as deter mined by genetic testing, significant family history of the disease, or history of mantle radiation f or Hodgkins Disease. ACR Practice Guidelines 2008. TECHNICAL DOCUMENTATION: FINDING NUMBER: (1) ASSESSMENT: (1) JOB ID: [id number] [employer] All Rights Reserved Reading location - IP/workstation name: [facility]
== END ==
LOC: WI 13:16
PROVIDERS: ATTEND Family Medicine
DX: Z12.31 Encounter for screening mammogram for malignant neoplasm of breast (principal)
CPT/HCPCS: 77067

== ENCOUNTER → 2017-08-02 | Outpatient (CLI) | payer MEDICARE, MEDICAID ==
[2017-08-02 12:04] LABS: ABSOLUTE EOSINOPHILS # (AUTO) 0.1 10^3/uL (0.0-0.6); ABSOLUTE LYMPHOCYTES (AUTO) 1.5 10^3/uL (0.5-4.7); ABSOLUTE MONOCYTES (AUTO) 0.6 10^3/uL (0.1-1.4); ABSOLUTE NEUT (AUTO) 4.1 10^3/uL (1.7-8.2); BASOPHILS % (AUTO) 0.4 % (0-2); EOSINOPHILS % (AUTO) 1.6 % (0-6); HEMOGLOBIN 12.8 g/dL (12.0-15.5); MEAN CORPUSCULAR HEMOGLOBIN 30.9 pg (27.0-33.4); MEAN CORPUSCULAR HGB CONC 33.7 g/dL (32.0-36.0); MEAN CORPUSCULAR VOLUME 92 fl (80-97); MONOCYTES % (AUTO) 8.8 % (3-13); PLATELET COUNT 239 10^3/uL (150-450); RED BLOOD COUNT 4.15 10^6/uL (3.72-5.28); RED CELL DISTRIBUTION WIDTH 14.4 % (11.5-14.0); SEGMENTED NEUTROPHILS % (AUTO) 65.2 % (42-78); TOTAL CELLS COUNTED % (AUTO) 100 %; WHITE BLOOD COUNT 6.3 10^3/uL (4.0-10.5)
[2017-08-02 12:30] LABS: ALANINE AMINOTRANSFERASE 32 U/L (9-52); ALBUMIN 3.7 g/dL (3.5-5.0); ALKALINE PHOSPHATASE 70 U/L (38-126); ASPARTATE AMINO TRANSFERASE 21 U/L (14-36); BILIRUBIN,DIRECT 0.3 mg/dL (0.0-0.4); BILIRUBIN,TOTAL 0.6 mg/dL (0.2-1.3); TOTAL PROTEIN 6.3 g/dL (6.3-8.2)
[2017-08-02 12:31] LABS: ANION GAP 11 (5-19); BLOOD UREA NITROGEN 6 mg/dL (7-20); CALCIUM 9.8 mg/dL (8.4-10.2); CARBON DIOXIDE 32 mmol/L (22-30); CHLORIDE 105 mmol/L (98-107); GLUCOSE 94 mg/dL (75-110); POTASSIUM 4.1 mmol/L (3.6-5.0); SODIUM 147.6 mmol/L (137-145)
[2017-08-02 12:35] LABS: APPEARANCE,URINE CLEAR; BILIRUBIN,URINE NEGATIVE (NEGATIVE); COLOR,URINE YELLOW; GLUCOSE, URINE NEGATIVE (NEGATIVE); KETONES,URINE NEGATIVE (NEGATIVE); LEUKOCYTE ESTERASE,URINE NEGATIVE (NEGATIVE); NITRITE,URINE NEGATIVE (NEGATIVE); PROTEIN,URINE NEGATIVE (NEGATIVE); URINE SPECIFIC GRAVITY 1.013; UROBILINOGEN,URINE NEGATIVE mg/dL (<2.0)
== END ==
LOC: OD 10:44
PROVIDERS: ATTEND Internal Medicine Cardiovascular Disease
DX: I48.0 Paroxysmal atrial fibrillation (principal); Z79.01 Long term (current) use of anticoagulants; Z79.899 Other long term (current) drug therapy
CPT/HCPCS: 36415; 80048; 80076; 81001; 82272; 85025; 85730

== ENCOUNTER → 2017-08-26 | Day surgery (SDC) | payer MEDICARE, MEDICAID ==
[~2017-08-26] MED LIST changes: +BUPIVACAINE HCL 0.5 % INJ/PF 30 ML SDV ONE; +LIDOCAINE 1% INJ-PF (10 MG/ML) 30 ML SDV ONE; -PROPOFOL INJ 200 MG/20 ML VIAL IV ONE
--- NOTE | 2017-08-26 09:46 | Operative Report ---
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 Radiofrequency Ablation of bilateral L5 dorsal Ramus 2. Sacroiliac Joint Ablation - Lateral Branches of bilateral S1, S2, S3 DATE OF PROCEDURE: August 26, 2017 ANESTHESIA: Local COMPLICATIONS: None CONSENT: A full description of the procedure was provided including benefits as well as possible complications. All questions were answered and informed consent was given and signed. ASA guidelines for fasting were verified prior to sedation. PROCEDURE IN DETAIL The patient was brought into the fluoroscopy suite and carefully assisted into the prone position on the fluoroscopy table and allowed to adjust to a position of comfort. A grounding pad was placed on the right thigh. The low back and buttocks were widely prepped with a chloraprep solution, allowed to air dry and draped in standard sterile surgical fashion. Local anesthesia was provided by 12 mL of 1 % lidocaine delivered with a 25 g needle. PROCEDURE #1: Radiofrequency Ablation of Dorsal Ramus of bilateral L5. A 17g 100mm radiofrequency introducer needle was placed to the planned anatomic target, guided with intermittent fluoroscopy with a perpendicular approach, to terminally place at the bilateral sacral ala. The stylets were removed and the radiofrequency probes with a 4mm active tip were then inserted. Needle tip position of the probes were verified in the AP, oblique, and lateral views. At each site, the medial branch nerve was stimulated at 2Hz to a maximum of 1- 2volts determined to finalize safe needle and electrode placement. The patient was awake and responsive during this portion of the procedure. Each target was anesthetized with 2mL of 2 % Sensorcaine anesthesia for lesioning and then each target was lesioned at 80 degrees Celsius for 2 minutes and 30 seconds. Tissue impedences were noted to be between 250 and 500 Ohms. PROCEDURE #2: Radiofrequency Ablation of bilateral S1, S2, S3 Lateral Branches Using the AP fluoroscopic view for visualization of the lateral PSFA as defined by the pre-placed 27-gauge Quincke needles, appropriate skin starting positions were defined. Using the PSFA as a "clock-face", the positions were: S1; Right = 1 oclock and 5 oclock S2; Right = 1 oclock and 5 oclock S3; Right = 3 oclock Using fluoroscopic guidance, a 17g introducer needle was inserted sequentially onto the target positions described above until the introducer tip touched the bony surface of the sacrum. The stylet was withdrawn from the introducer and the radiofrequency probe with a 4 mm active tip was fully inserted into the introducer. A lateral view was obtained for standard reference. At each of the targets, needle placement was verified with the use of multi-planar fluoroscopy. The needle tip position was approximately 7 - 10mm lateral to the PSFA as determined by using an Epsilon ruler. At each site, the lateral branch nerve was stimulated at 2 Hz to a maximum of 1- 2 volts determined to finalize safe needle and electrode placement. The patient was awake and responsive during this portion of the procedure. Each target was anesthetized with 2 mL of 2 % Sensorcaine anesthesia for lesioning and then each target was lesioned at 80 degrees Celsius for 2 minutes and 30 seconds. Tissue impedences were noted to be between 250- 500 Ohms. At the conclusion of the lesioning the needles were removed and bandages placed over the needle placement sites and the patient returned to the supine position on a stretcher and transported to the recovery room without hemodynamic, neurologic, or allergic reactions. Fluoroscopic images were printed for hard copy recording and digitally archived. FLUOROSCOPIC INTERPRETATION: Appropriate epidurogram obtained. Appropriate lesioning of the 10 targets noted. POST PROCEDURE EVALUATION: The patient was comfortable in the recovery room. The patient is aware that pain may worsen before remitting and 4 6 weeks may be required prior to the onset of pain relief. IMPRESSION: 1. Technically successful sacral lateral branch, lumbar dorsal ramus for denervation from L5-S3 on the bilateral without complication. 2. RTC in 2 weeks. 3. Estimated Blood Loss: None 4. Fluoroscopy time: 30 seconds
== END ==
LOC: RAD 09:15
PROVIDERS: ATTEND Family Medicine
DX: M47.818 Spondylosis without myelopathy or radiculopathy, sacral and sacrococcygeal region (principal)
CPT/HCPCS: 64635; 64640 ×3; J3490 ×2

== ENCOUNTER 2017-09-11 11:53 | Emergency (ER) | payer MEDICARE, MEDICAID ==
[2017-09-11] MEDS ORDERED: METOCLOPRAMIDE HCL 10 MG TABLET PO ONE (12:13)
[2017-09-11] MEDS ORDERED: RINGERS SOLUTION,LACTATED 1,000 ML IV ONE (12:13)
--- NOTE | 2017-09-11 12:17 | ER Document Report ---
ED Medical Screen (RME) - General Chief Complaint: Nausea/Vomiting Stated Complaint: VOMITING,NAUSEA Time Seen by Provider: 09/11/17 12:05 Notes: Patient presents with approximately 2 months of intermittent nausea vomiting states is gotten worse over the last week comes to the emergency department for evaluation. She recently had EGD found to have gastric erosions and had ablation of Mcknight's esophagus in early June of this year. She since since that time her symptoms have been gradually getting worse. Takes blood thinners for paroxysmal A. fib, but denies any black or red stool. Had a normal bowel movement she states this morning. Denies any recent fevers chest pain or shortness of breath. Primary care is Dr. Razo, saw him approximately 2 weeks ago for same symptoms. States that Phenergan is not helping with her nausea. She also takes Nexium daily but is not on Carafate or Zantac. I have greeted and performed a rapid initial assessment of this patient. A comprehensive ED assessment and evaluation of the patient, analysis of test results and completion of the medical decision making process will be conducted by additional ED providers. PHYSICAL EXAMINATION: GENERAL: Well-appearing, well-nourished and in no acute distress. HEAD: Atraumatic, normocephalic. EYES: Pupils equal round extraocular movements intact, conjunctiva are normal. ENT: Nares patent NECK: Normal range of motion LUNGS: No respiratory distress Musculoskeletal: Normal range of motion NEUROLOGICAL: Normal speech, normal gait. PSYCH: Normal mood, normal affect. SKIN: Warm, Dry, normal turgor, no rashes or lesions noted. TRAVEL OUTSIDE OF THE [place] IN LAST 30 DAYS: No - Related Data Allergies/Adverse Reactions: adhesive tape [Adhesive Tape] Allergy (Mild, Verified 09/11/17 12:09) RASH/BLISTER roflumilast Adverse Reaction (Unknown, Verified 09/11/17 12:09) N/V, diarrhea Past Medical History - Social History Chew tobacco use (# tins/day): No Frequency of alcohol use: None Drug Abuse: None - Past Medical History Cardiac Medical History: Reports: Hx Atrial Fibrillation, Hx Hypercholesterolemia, Hx Hypertension Denies: Hx Coronary Artery Disease, Hx Heart Attack Pulmonary Medical History: Reports: Hx Asthma, Hx Bronchitis, Hx COPD, Hx Pneumonia, Hx Sleep Apnea - on CPAP Neurological Medical History: Denies: Hx Cerebrovascular Accident, Hx Seizures Renal/ Medical History: Reports: Hx Kidney Stones. Denies: Hx Peritoneal Dialysis GI Medical History: Reports: Hx Gastroesophageal Reflux Disease, Hx Hiatal Hernia. Denies: Hx Hepatitis, Hx Ulcer Musculoskeltal Medical History: Reports Hx Arthritis - NECK, LOWER BACK Psychiatric Medical History: Reports: Hx Depression Infectious Medical History: Denies: Hx Hepatitis Past Surgical History: Reports: Hx Abdominal Surgery - HERNIA, Hx Appendectomy, Hx Cholecystectomy, Hx Herniorrhaphy, Hx Hysterectomy, Hx Rectal Surgery, Hx Tubal Ligation, Other - Rectocele and cystocele repair. Denies: Hx Mastectomy, Hx Open Heart Surgery, Hx Pacemaker - Immunizations Hx Diphtheria, Pertussis, Tetanus Vaccination: Yes History of Influenza Vaccine for 12/2016 - 05/2017 Season: Unknown Physical Exam - Vital signs Vitals: Temp Pulse Resp BP Pulse Ox 98.2 F 74 20 151/74 H 100 09/11/17 12:00 09/11/17 12:00 09/11/17 12:00 09/11/17 12:00 09/11/17 12:00 Course - Vital Signs Vital signs: Temp Pulse Resp BP Pulse Ox 98.2 F 74 20 151/74 H 100 09/11/17 12:00 09/11/17 12:00 09/11/17 12:00 09/11/17 12:00 09/11/17 12:00 Doctor's Discharge - Discharge Referrals: DINORAH ALEXANDRE MD [Primary Care Provider] - Follow up as needed
[2017-09-11 13:24] LABS: ABSOLUTE BASOPHILS # (AUTO) 0.1 10^3/uL (0.0-0.2); ABSOLUTE EOSINOPHILS # (AUTO) 0.1 10^3/uL (0.0-0.6); ABSOLUTE LYMPHOCYTES (AUTO) 1.6 10^3/uL (0.5-4.7); ABSOLUTE MONOCYTES (AUTO) 0.9 10^3/uL (0.1-1.4); ABSOLUTE NEUT (AUTO) 6.8 10^3/uL (1.7-8.2); BASOPHILS % (AUTO) 0.7 % (0-2); EOSINOPHILS % (AUTO) 1.3 % (0-6); HEMATOCRIT 42.3 % (36.0-47.0); HEMOGLOBIN 14.1 g/dL (12.0-15.5); LYMPHOCYTES % (AUTO) 16.8 % (13-45); MEAN CORPUSCULAR HEMOGLOBIN 30.8 pg (27.0-33.4); MEAN CORPUSCULAR HGB CONC 33.2 g/dL (32.0-36.0); MEAN CORPUSCULAR VOLUME 93 fl (80-97); MONOCYTES % (AUTO) 9.1 % (3-13); PLATELET COUNT 276 10^3/uL (150-450); RED BLOOD COUNT 4.57 10^6/uL (3.72-5.28); RED CELL DISTRIBUTION WIDTH 13.6 % (11.5-14.0); SEGMENTED NEUTROPHILS % (AUTO) 72.1 % (42-78); TOTAL CELLS COUNTED % (AUTO) 100 %; WHITE BLOOD COUNT 9.5 10^3/uL (4.0-10.5)
[2017-09-11 13:43] LABS: ALANINE AMINOTRANSFERASE 21 U/L (9-52); ALBUMIN 3.8 g/dL (3.5-5.0); ALKALINE PHOSPHATASE 71 U/L (38-126); ANION GAP 8 (5-19); ASPARTATE AMINO TRANSFERASE 26 U/L (14-36); BILIRUBIN,DIRECT 0.5 mg/dL (0.0-0.4); BILIRUBIN,TOTAL 0.9 mg/dL (0.2-1.3); BLOOD UREA NITROGEN 9 mg/dL (7-20); CALCIUM 9.2 mg/dL (8.4-10.2); CARBON DIOXIDE 30 mmol/L (22-30); CHLORIDE 104 mmol/L (98-107); GLUCOSE 108 mg/dL (75-110); LIPASE 172.9 U/L (23-300); POTASSIUM 3.4 mmol/L (3.6-5.0); SODIUM 141.6 mmol/L (137-145); TOTAL PROTEIN 6.9 g/dL (6.3-8.2)
--- NOTE | 2017-09-11 14:13 | ER Document Report ---
ED GI/ - General Chief Complaint: Nausea/Vomiting Stated Complaint: VOMITING,NAUSEA Time Seen by Provider: 09/11/17 12:05 Mode of Arrival: Ambulatory Information source: Patient Notes: Patient presents complaining of a two-month history of abdominal tenderness that is worsened over the past week. Patient states the pain markedly increased over the past 2 days which prompted her visit today. Patient does report nausea and vomiting 1 episode today. Patient denies any fever, chest pain or shortness of breath. Patient states she does have Phenergan at home but is not been helping her nausea symptoms. Patient complains of generalized weakness. TRAVEL OUTSIDE OF THE [place] IN LAST 30 DAYS: No - HPI Patient complains to provider of: Abdominal pain, Vomiting. No: Diarrhea Onset: Other - 2 months Timing/Duration: Worse Quality of pain: Achy Pain Level: 3 Location: Epigastric, RUQ, Other - Umbilical Vaginal bleeding (Compared to normal period): None Associated symptoms: Nausea, Vomiting. denies: Constipation, Diarrhea, Dizzy, Dysuria, Fever, Loss of appetite, Urinary hesitancy, Urinary frequency, Urinary retention, Urinary urgency, Vaginal discharge Exacerbated by: Denies Relieved by: Denies Similar symptoms previously: Yes Recently seen / treated by doctor: Yes - 2 weeks ago saw primary doctor for this - Related Data Allergies/Adverse Reactions: adhesive tape [Adhesive Tape] Allergy (Mild, Verified 09/11/17 12:09) RASH/BLISTER roflumilast Adverse Reaction (Unknown, Verified 09/11/17 12:09) N/V, diarrhea Past Medical History - General Information source: Patient - Social History Smoking Status: Current Every Day Smoker Chew tobacco use (# tins/day): No Smoking Education Provided: Yes Frequency of alcohol use: None Drug Abuse: None Occupation: None Lives with: Family Family History: COPD, Malignancy, Other - This Patient has suicidal ideation: No Patient has homicidal ideation: No - Past Medical History Cardiac Medical History: Reports: Hx Atrial Fibrillation, Hx Hypercholesterolemia, Hx Hypertension Denies: Hx Coronary Artery Disease, Hx Heart Attack Pulmonary Medical History: Reports: Hx Asthma, Hx Bronchitis, Hx COPD, Hx Pneumonia, Hx Sleep Apnea - on CPAP Neurological Medical History: Denies: Hx Cerebrovascular Accident, Hx Seizures Renal/ Medical History: Reports: Hx Kidney Stones. Denies: Hx Peritoneal Dialysis GI Medical History: Reports: Hx Gastroesophageal Reflux Disease, Hx Hiatal Hernia. Denies: Hx Hepatitis, Hx Ulcer Musculoskeltal Medical History: Reports Hx Arthritis - NECK, LOWER BACK Psychiatric Medical History: Reports: Hx Depression Infectious Medical History: Denies: Hx Hepatitis Past Surgical History: Reports: Hx Abdominal Surgery - HERNIA, Hx Appendectomy, Hx Cholecystectomy, Hx Herniorrhaphy, Hx Hysterectomy, Hx Rectal Surgery, Hx Tubal Ligation, Other - Rectocele and cystocele repair. Denies: Hx Mastectomy, Hx Open Heart Surgery, Hx Pacemaker - Immunizations Hx Diphtheria, Pertussis, Tetanus Vaccination: Yes Hx Pneumococcal Vaccination: 12/04/12 Review of Systems - Review of Systems Constitutional: Weakness. denies: Fever, Recent illness EENT: No symptoms reported Cardiovascular: No symptoms reported. denies: Chest pain, Dizziness Respiratory: No symptoms reported. denies: Cough, Short of breath Gastrointestinal: Abdominal pain, Nausea, Vomiting. denies: Diarrhea Genitourinary: No symptoms reported. denies: Dysuria, Flank pain Female Genitourinary: No symptoms reported Musculoskeletal: No symptoms reported Skin: No symptoms reported Hematologic/Lymphatic: No symptoms reported Neurological/Psychological: No symptoms reported Physical Exam - Vital signs Vitals: Temp Pulse Resp BP Pulse Ox 98.2 F 74 20 151/74 H 100 09/11/17 12:00 09/11/17 12:00 09/11/17 12:00 09/11/17 12:00 09/11/17 12:00 - General General appearance: Appears well, Alert In distress: None - HEENT Head: Normocephalic Eyes: Normal Nasal: Normal Mouth/Lips: Normal Mucous membranes: Normal Neck: Normal, Supple. No: Lymphadenopathy - Respiratory Respiratory status: No respiratory distress Chest status: Nontender Breath sounds: Normal. No: Rales, Rhonchi, Stridor, Wheezing Chest palpation: Normal - Cardiovascular Rhythm: Regular Heart sounds: S1 appreciated, S2 appreciated Murmur: No - Abdominal Inspection: Normal Distension: No distension Bowel sounds: Normal Tenderness: Tender - Generalized abdominal tenderness Organomegaly: No organomegaly - Back Back: Normal, Nontender. No: CVA tenderness - Extremities General upper extremity: Normal inspection, Normal strength General lower extremity: Normal inspection, Normal strength - Neurological Neuro grossly intact: Yes Cognition: Normal [place] Coma Scale Eye Opening: Spontaneous [place] Coma Scale Verbal: Oriented [place] Coma Scale Motor: Obeys Commands [place] Coma Scale Total: 15 - Psychological Associated symptoms: Normal affect, Normal mood - Skin Skin Temperature: Warm Skin Moisture: Dry Skin Color: Normal Course - Re-evaluation Re-evalutation: 09/11/17 15:57 Patient abdomen soft, mild tenderness to the periumbilical area. Patient nontoxic in appearance. Patient is requesting to be able to eat. Consulted with Dr. Hyatt regarding patient CT scan report. Patient states that she did have a similar episode in May of this year and was treated with antibiotics and after taking the antibiotic she did improve. Dr. Hyatt advises restarting her on these antibiotics to help manage her symptoms and following up with a a GI doctor for follow-up. Patient presents with abdominal pain without signs of peritonitis or other life-threatening or serious etiology. Patient appears stable for discharge and has been instructed to return immediately if the symptoms worsen in any way, or in 8-12 hours if not improved for reevaluation. The patient has been instructed to return if the symptoms worsen or change in any way. - Vital Signs Vital signs: Temp Pulse Resp BP Pulse Ox 98.4 F 66 16 117/57 L 100 09/11/17 16:25 09/11/17 16:25 09/11/17 16:25 09/11/17 16:25 09/11/17 16:25 - Laboratory Result Diagrams: 09/11/17 12:22 09/11/17 12:22 Laboratory results interpreted by me: 09/11/17 12:22 Potassium 3.4 L Direct Bilirubin 0.5 H 09/11/17 15:58 Labs- Entire Visit 09/11/17 09/11/17 09/11/17 12:22 12:22 14:14 WBC 9.5 RBC 4.57 Hgb 14.1 Hct 42.3 MCV 93 MCH 30.8 MCHC 33.2 RDW 13.6 Plt Count 276 Seg Neutrophils % 72.1 Lymphocytes % 16.8 Monocytes % 9.1 Eosinophils % 1.3 Basophils % 0.7 Absolute Neutrophils 6.8 Absolute Lymphocytes 1.6 Absolute Monocytes 0.9 Absolute Eosinophils 0.1 Absolute Basophils 0.1 Sodium 141.6 Potassium 3.4 L Chloride 104 Carbon Dioxide 30 Anion Gap 8 BUN 9 Creatinine 0.89 Est GFR ( Amer) > 60 Est GFR (Non-Af Amer) > 60 Glucose 108 Calcium 9.2 Magnesium 1.8 Total Bilirubin 0.9 Direct Bilirubin 0.5 H Neonat Total Bilirubin Not Reportable Neonat Direct Bilirubin Not Reportable Neonat Indirect Bili Not Reportable AST 26 ALT 21 Alkaline Phosphatase 71 Total Protein 6.9 Albumin 3.8 Lipase 172.9 Urine Color YELLOW Urine Appearance CLEAR Urine pH 6.0 Ur Specific [place] 1.008 Urine Protein NEGATIVE Urine Glucose (UA) NEGATIVE Urine Ketones NEGATIVE Urine Blood NEGATIVE Urine Nitrite NEGATIVE Urine Bilirubin NEGATIVE Urine Urobilinogen NEGATIVE Ur Leukocyte Esterase NEGATIVE Urine WBC (Auto) 3 Urine RBC (Auto) 1 Urine Bacteria (Auto) TRACE Squamous Epi Cells Auto 1 Urine Mucus (Auto) RARE Urine Yeast (Budding) PRESENT Urine Ascorbic Acid NEGATIVE - Diagnostic Test Radiology reviewed: Reports reviewed Discharge - Discharge Clinical Impression: Hypokalemia, Colitis Abdominal pain Qualifiers: Abdominal location: unspecified location Qualified Code(s): R10.9 - Unspecified abdominal pain Nausea & vomiting Qualifiers: Vomiting type: unspecified Vomiting Intractability: non-intractable Qualified Code(s): R11.2 - Nausea with vomiting, unspecified Condition: Stable Disposition: HOME, SELF-CARE Instructions: Abdominal Pain ([facility]), Ciprofloxacin ([facility]), Colitis, Nonspecific ( [facility]), Hypokalemia ([facility]), Metronidazole ([facility]), Vomiting ([facility]) Additional Instructions: Return immediately for any new or worsening symptoms Followup with your primary care provider, call tomorrow to make a followup appointment Follow-up with your analytics architect for recheck, call Wednesday for an appointment Prescriptions: Ciprofloxacin HCl [Cipro 500 mg Tablet] 500 mg PO BID #20 tablet Metronidazole [Flagyl 500 mg Tablet] 500 mg PO TID #30 tablet Forms: Smoking Cessation Education Referrals: DINORAH ALEXANDRE MD [EMERITUS] - Follow up as needed DASIA URBINA DO [Primary Care Provider] - Follow up as needed CANDIDO PETERSON MD [ACTIVE STAFF] - Follow up as needed
[2017-09-11] MEDS ORDERED: POTASSIUM CHLORIDE 10 MEQ CAPSULE.ER PO ONE (14:14)
[2017-09-11 14:48] LABS: APPEARANCE,URINE CLEAR; BILIRUBIN,URINE NEGATIVE (NEGATIVE); COLOR,URINE YELLOW; GLUCOSE, URINE NEGATIVE (NEGATIVE); KETONES,URINE NEGATIVE (NEGATIVE); LEUKOCYTE ESTERASE,URINE NEGATIVE (NEGATIVE); NITRITE,URINE NEGATIVE (NEGATIVE); PROTEIN,URINE NEGATIVE (NEGATIVE); URINE SPECIFIC GRAVITY 1.008; UROBILINOGEN,URINE NEGATIVE mg/dL (<2.0)
--- NOTE | 2017-09-11 15:33 | RADIOLOGY REPORT (SQ) ---
EXAM DESCRIPTION: CT ABD/PELVIS WITH IV ONLY COMPLETED DATE/TIME: 09/11/2017 3:11 pm REASON FOR STUDY: abd pain, vomiting COMPARISON: 06/01/2017 TECHNIQUE: CT scan of the abdomen and pelvis performed using helical scanning technique with dynamic intravenous contrast injection. No oral contrast. Images reviewed with lung, soft tissue, and bone windows. Reconstructed coronal and sagittal MPR images reviewed. Delayed images for evaluation of the urinary system also acquired. All images stored on PACS. All CT scanners at this facility use dose modulation, iterative reconstruction, and/or weight based d osing when appropriate to reduce radiation dose to as low as reasonably achievable (ALARA). [facility]: Dose Right [facility]: CareDose [facility]: Dose Right [facility]: Teradose 4D [facility]: [employer] Electronic Cigarette CONTRAST TYPE AND DOSE: contrast/concentration: Isovue 370.00 mg/ml; Total Contrast Delivered: 90.0 ml; Total Saline Delivered: 46.4 ml RENAL FUNCTION: BUN 9; creatinine 0.89 RADIATION DOSE: CT Rad equipment meets quality standard of care and radiation dose reduction techniq ues were employed. CTDIvol: 15.4 - 19.1 mGy. DLP: 1658 mGy-cm.. LIMITATIONS: None. FINDINGS: LOWER CHEST: No significant findings. No nodules or infiltrates. LIVER: Normal size. No masses. No dilated ducts. SPLEEN: Normal size. No focal lesions. PANCREAS: No masses. No significant calcifications. No adjacent inflammation or peripancreatic fluid collections. Pancreatic duct not dilated. GALLBLADDER: Surgically absent. ADRENAL GLANDS: No significant masses or asymmetry. RIGHT KIDNEY AND URETER: No solid masses. No significant calcifications. No hydronephrosis or hyd roureter. LEFT KIDNEY AND URETER: No solid masses. No significant calcifications. No hydronephrosis or hydr oureter. AORTA AND VESSELS: No aneurysm. No dissection. Renal arteries, SMA, celiac without stenosis. RETROPERITONEUM: No retroperitoneal adenopathy, hemorrhage or masses. BOWEL AND PERITONEAL CAVITY: Re- demonstration of a prominent sigmoid colon diverticulum with surroun ding mesenteric fat stranding (Axial image 61; coronal reformat 51) ; this is similar to that seen on comparison imaging performed 06/01/2017. Background of marked sigmoid diverticular disease. APPENDIX: Surgically absent. PELVIS: No mass. No free fluid. Normal bladder. ABDOMINAL WALL: No masses. No hernias. BONES: No significant or acute findings. OTHER: No other significant finding. IMPRESSION: A prominent sigmoid diverticulum with adjacent mesenteric fat stranding appears similar to 06/01/2017 CT imaging; it remains unclear whether this represents chronic versus recurrent process. TECHNICAL DOCUMENTATION: JOB ID: [id number] Quality ID # [id number]: Final reports with documentation of one or more dose reduction techniques (e.g., Au tomated exposure control, adjustment of the mA and/or kV according to patient size, use of iterative reconstruction technique) 2010 [employer]- All Rights Reserved Reading location - IP/workstation name: [email or web address]
[2017-09-11] MEDS ORDERED: METRONIDAZOLE 500 MG TABLET PO ONE (15:56)
[2017-09-11] MEDS ORDERED: CIPROFLOXACIN HCL 500 MG TABLET PO ONE (15:56)
[2017-09-11 16:26] VITALS: BP 117/57
== END 2017-09-11 16:29 | disposition home or self-care (01) ==
LOC: ER 11:53
DX: K52.9 Noninfective gastroenteritis and colitis, unspecified (principal); E87.6 Hypokalemia; R10.13 Epigastric pain; R10.11 Right upper quadrant pain; R10.33 Periumbilical pain; R11.2 Nausea with vomiting, unspecified; R53.1 Weakness; F17.200 Nicotine dependence, unspecified, uncomplicated; I10 Essential (primary) hypertension; J44.9 Chronic obstructive pulmonary disease, unspecified; Z91.048 Other nonmedicinal substance allergy status; Z90.49 Acquired absence of other specified parts of digestive tract; Z87.442 Personal history of urinary calculi; Z87.19 Personal history of other diseases of the digestive system
CPT/HCPCS: 99284; 96360; 36415; 83690; 83735; 85025; 80053; 81001; 74177; A9270 ×4; J7120

== ENCOUNTER 2017-09-13 10:31 | Observation (INO) | payer MEDICARE, MEDICAID ==
[2017-09-13] MEDS ORDERED: METOCLOPRAMIDE HCL INJ/PF 10 MG/2 ML SDV IV ONE (11:16)
[2017-09-13] MEDS ORDERED: NORMAL SALINE 1000 ML 1,000 ML IV ONE (11:16)
--- NOTE | 2017-09-13 11:25 | ER Document Report ---
ED Medical Screen (RME) - General Chief Complaint: Nausea/Vomiting Stated Complaint: VOMITING Time Seen by Provider: 09/13/17 11:15 Mode of Arrival: Ambulatory Information source: Patient Notes: 67-year-old female who was recently seen here diagnosed with abdominal pain written for Cipro Flagyl and having nausea vomiting presents with continued nausea vomiting. Patient notes symptoms have not improved she has not been able to hold down her antibiotics. Patient called her GI specialist they are not until I have greeted and performed a rapid initial assessment of this patient. A comprehensive ED assessment and evaluation of the patient, analysis of test results and completion of the medical decision making process will be conducted by additional ED providers. PHYSICAL EXAMINATION: GENERAL: Well-appearing, well-nourished and in no acute distress. HEAD: Atraumatic, normocephalic. EYES: Pupils equal round extraocular movements intact, conjunctiva are normal. ENT: Nares patent NECK: Normal range of motion LUNGS: No respiratory distress Musculoskeletal: Normal range of motion NEUROLOGICAL: Normal speech, normal gait. PSYCH: Normal mood, normal affect. SKIN: Warm, Dry, normal turgor, no rashes or lesions noted. TRAVEL OUTSIDE OF THE [place] IN LAST 30 DAYS: No - Related Data Allergies/Adverse Reactions: adhesive tape [Adhesive Tape] Allergy (Mild, Verified 09/11/17 12:09) RASH/BLISTER roflumilast Adverse Reaction (Unknown, Verified 09/11/17 12:09) N/V, diarrhea Past Medical History - Past Medical History Cardiac Medical History: Reports: Hx Atrial Fibrillation, Hx Hypercholesterolemia, Hx Hypertension Denies: Hx Coronary Artery Disease, Hx Heart Attack Pulmonary Medical History: Reports: Hx Asthma, Hx Bronchitis, Hx COPD, Hx Pneumonia, Hx Sleep Apnea - on CPAP Neurological Medical History: Denies: Hx Cerebrovascular Accident, Hx Seizures Renal/ Medical History: Reports: Hx Kidney Stones. Denies: Hx Peritoneal Dialysis GI Medical History: Reports: Hx Gastroesophageal Reflux Disease, Hx Hiatal Hernia. Denies: Hx Hepatitis, Hx Ulcer Musculoskeltal Medical History: Reports Hx Arthritis - NECK, LOWER BACK Psychiatric Medical History: Reports: Hx Depression Infectious Medical History: Denies: Hx Hepatitis Past Surgical History: Reports: Hx Abdominal Surgery - HERNIA, Hx Appendectomy, Hx Cholecystectomy, Hx Herniorrhaphy, Hx Hysterectomy, Hx Rectal Surgery, Hx Tubal Ligation, Other - Rectocele and cystocele repair. Denies: Hx Mastectomy, Hx Open Heart Surgery, Hx Pacemaker - Immunizations Hx Diphtheria, Pertussis, Tetanus Vaccination: Yes History of Influenza Vaccine for 12/2016 - 05/2017 Season: Unknown Physical Exam - Vital signs Vitals: Temp Pulse Resp BP Pulse Ox 98.6 F 90 22 H 142/71 H 97 09/13/17 10:36 09/13/17 10:36 09/13/17 10:36 09/13/17 10:36 09/13/17 10:36 Course - Vital Signs Vital signs: Temp Pulse Resp BP Pulse Ox 98.6 F 90 22 H 142/71 H 97 09/13/17 10:36 09/13/17 10:36 09/13/17 10:36 09/13/17 10:36 09/13/17 10:36 Doctor's Discharge - Discharge Referrals: DASIA URBINA DO [Primary Care Provider] - Follow up as needed
[2017-09-13 12:16] LABS: ABSOLUTE EOSINOPHILS # (AUTO) 0.1 10^3/uL (0.0-0.6); ABSOLUTE LYMPHOCYTES (AUTO) 1.2 10^3/uL (0.5-4.7); ABSOLUTE MONOCYTES (AUTO) 0.7 10^3/uL (0.1-1.4); ABSOLUTE NEUT (AUTO) 6.2 10^3/uL (1.7-8.2); BASOPHILS % (AUTO) 0.5 % (0-2); EOSINOPHILS % (AUTO) 1.6 % (0-6); HEMATOCRIT 41.3 % (36.0-47.0); HEMOGLOBIN 13.9 g/dL (12.0-15.5); LYMPHOCYTES % (AUTO) 14.3 % (13-45); MEAN CORPUSCULAR HGB CONC 33.7 g/dL (32.0-36.0); MEAN CORPUSCULAR VOLUME 92 fl (80-97); MONOCYTES % (AUTO) 8.8 % (3-13); PLATELET COUNT 255 10^3/uL (150-450); RED CELL DISTRIBUTION WIDTH 14.1 % (11.5-14.0); SEGMENTED NEUTROPHILS % (AUTO) 74.8 % (42-78); TOTAL CELLS COUNTED % (AUTO) 100 %; WHITE BLOOD COUNT 8.2 10^3/uL (4.0-10.5)
[2017-09-13 12:38] LABS: ALANINE AMINOTRANSFERASE 19 U/L (9-52); ALBUMIN 3.6 g/dL (3.5-5.0); ALKALINE PHOSPHATASE 60 U/L (38-126); ANION GAP 10 (5-19); ASPARTATE AMINO TRANSFERASE 23 U/L (14-36); BILIRUBIN,DIRECT 0.4 mg/dL (0.0-0.4); BILIRUBIN,TOTAL 0.4 mg/dL (0.2-1.3); BLOOD UREA NITROGEN 6 mg/dL (7-20); CALCIUM 9.7 mg/dL (8.4-10.2); CARBON DIOXIDE 27 mmol/L (22-30); CHLORIDE 107 mmol/L (98-107); GLUCOSE 124 mg/dL (75-110); LIPASE 235.4 U/L (23-300); POTASSIUM 3.8 mmol/L (3.6-5.0); SODIUM 144.4 mmol/L (137-145); TOTAL PROTEIN 6.3 g/dL (6.3-8.2)
[2017-09-13] MEDS ORDERED: METRONIDAZOLE 500 MG TABLET PO ONE (12:39)
[2017-09-13] MEDS ORDERED: CIPROFLOXACIN 400 MG/D5W RTU 400 MG/200 ML RTUPB IV ONE (12:39)
[2017-09-13] MEDS ORDERED: HYDROMORPHONE HCL INJ/PF 2 MG/ML AMPULE IV ONE (12:41)
--- NOTE | 2017-09-13 12:46 | ER Document Report ---
ED General - General Chief Complaint: Nausea/Vomiting Stated Complaint: VOMITING Time Seen by Provider: 09/13/17 11:15 Mode of Arrival: Ambulatory Information source: Patient, [facility] Records Notes: 67-year-old female with atrial fibrillation, hypertension, COPD, reflux, chronic abdominal pain presents with complaint of abdominal pain, nausea and vomiting. Patient states symptoms started several weeks ago with worsening of symptoms over the last week. Patient was seen in the emergency department recently and discharged home with Cipro and Flagyl which the patient states she has been unable to take because of her persistent vomiting. Abdominal pain is diffusely located, described as a constant stabbing pain. Patient's last bowel movement was this morning. She denies any black or bloody stools. She does follow with Dr. Michele from gastroenterology and has an upcoming appointment in 3 days. Patient denies any fever, chills, chest pain, shortness of breath. Surgical history includes cholecystectomy appendectomy and hysterectomy. Patient having flatus. TRAVEL OUTSIDE OF THE [place] IN LAST 30 DAYS: No - HPI Onset: Other Onset/Duration: Gradual, Persistent, Worse Quality of pain: Achy, Stabbing Severity: Moderate Pain Level: 1 Associated symptoms: Nausea, Vomiting. denies: Chest pain, Diarrhea, Shortness of breath Exacerbated by: Food Relieved by: Denies Similar symptoms previously: Yes Recently seen / treated by doctor: Yes - Related Data Allergies/Adverse Reactions: adhesive tape [Adhesive Tape] Allergy (Mild, Verified 09/11/17 12:09) RASH/BLISTER roflumilast Adverse Reaction (Unknown, Verified 09/11/17 12:09) N/V, diarrhea Past Medical History - General Information source: Patient - Social History Smoking Status: Current Every Day Smoker Cigarette use (# per day): Yes - 15-20 Chew tobacco use (# tins/day): No Smoking Education Provided: Yes - Patient counselled regarding cessation for 4 minutes Frequency of alcohol use: None Drug Abuse: None Lives with: Family, Spouse/Significant other Family History: COPD, Malignancy, Other - This Patient has suicidal ideation: No Patient has homicidal ideation: No - Past Medical History Cardiac Medical History: Reports: Hx Atrial Fibrillation, Hx Hypercholesterolemia, Hx Hypertension Denies: Hx Coronary Artery Disease, Hx Heart Attack Pulmonary Medical History: Reports: Hx Asthma, Hx Bronchitis, Hx COPD, Hx Pneumonia, Hx Sleep Apnea - on CPAP Neurological Medical History: Denies: Hx Cerebrovascular Accident, Hx Seizures Renal/ Medical History: Reports: Hx Kidney Stones. Denies: Hx Peritoneal Dialysis GI Medical History: Reports: Hx Gastroesophageal Reflux Disease, Hx Hiatal Hernia. Denies: Hx Hepatitis, Hx Ulcer Musculoskeltal Medical History: Reports Hx Arthritis - NECK, LOWER BACK Psychiatric Medical History: Reports: Hx Depression Infectious Medical History: Denies: Hx Hepatitis Past Surgical History: Reports: Hx Abdominal Surgery - HERNIA, Hx Appendectomy, Hx Cholecystectomy, Hx Herniorrhaphy, Hx Hysterectomy, Hx Rectal Surgery, Hx Tubal Ligation, Other - Rectocele and cystocele repair. Denies: Hx Mastectomy, Hx Open Heart Surgery, Hx Pacemaker - Immunizations Hx Diphtheria, Pertussis, Tetanus Vaccination: Yes Hx Pneumococcal Vaccination: 12/04/12 Review of Systems - Review of Systems Constitutional: denies: Fever, Weight loss EENT: denies: Difficulty swallowing Cardiovascular: denies: Chest pain, Palpitations Respiratory: denies: Short of breath Gastrointestinal: Abdominal pain, Nausea, Vomiting. denies: Blood streaked bowels, Blood in vomit, Black stools, Rectal bleeding Genitourinary: denies: Dysuria Female Genitourinary: No symptoms reported Musculoskeletal: denies: Back pain Hematologic/Lymphatic: denies: Easy bruising Neurological/Psychological: denies: Weakness, Lost consciousness, Headaches -: Yes All other systems reviewed and negative Physical Exam - Vital signs Vitals: Temp Pulse Resp BP Pulse Ox 98.6 F 90 22 H 142/71 H 97 09/13/17 10:36 09/13/17 10:36 09/13/17 10:36 09/13/17 10:36 09/13/17 10:36 - Notes Notes: PHYSICAL EXAMINATION: GENERAL: Well-appearing, well-nourished and in no acute distress. HEAD: Atraumatic, normocephalic. EYES: Pupils equal round and reactive to light, extraocular movements intact, conjunctiva are normal. ENT: Nares patent, oropharynx clear without exudates. Moist mucous membranes. NECK: Normal range of motion, supple without lymphadenopathy LUNGS: Breath sounds clear to auscultation bilaterally and equal. No wheezes rales or rhonchi. HEART: Regular rate and rhythm without murmurs ABDOMEN: Soft, nondistended abdomen. Diffuse tenderness to palpation. No guarding, no rebound. No masses appreciated. Female : deferred Musculoskeletal: Normal range of motion, no pitting or edema. No cyanosis. NEUROLOGICAL: Cranial nerves grossly intact. Normal speech, normal gait. Normal sensory, motor exams PSYCH: Normal mood, normal affect. SKIN: Warm, Dry, normal turgor, no rashes or lesions noted. Course - Re-evaluation Re-evalutation: Laboratory 09/13/17 09/13/17 09/13/17 12:00 12:00 12:45 WBC 8.2 RBC 4.50 Hgb 13.9 Hct 41.3 MCV 92 MCH 31.0 MCHC 33.7 RDW 14.1 H Plt Count 255 Seg Neutrophils % 74.8 Lymphocytes % 14.3 Monocytes % 8.8 Eosinophils % 1.6 Basophils % 0.5 Absolute Neutrophils 6.2 Absolute Lymphocytes 1.2 Absolute Monocytes 0.7 Absolute Eosinophils 0.1 Absolute Basophils 0.0 Sodium 144.4 Potassium 3.8 Chloride 107 Carbon Dioxide 27 Anion Gap 10 BUN 6 L Creatinine 0.87 Est GFR ( Amer) > 60 Est GFR (Non-Af Amer) > 60 Glucose 124 H Lactic Acid 1.2 Calcium 9.7 Total Bilirubin 0.4 Direct Bilirubin 0.4 Neonat Total Bilirubin Not Reportable Neonat Direct Bilirubin Not Reportable Neonat Indirect Bili Not Reportable AST 23 ALT 19 Alkaline Phosphatase 60 Total Protein 6.3 Albumin 3.6 Lipase 235.4 67-year-old with hypertension, COPD, reflux, chronic abdominal pain presents with complaint of worsening abdominal pain that started a few weeks ago but has worsened over the last week. This is the patient's second visit this week. She was seen here 2 days ago and had a CAT scan which was significant for diverticulitis. She was placed on Cipro and Flagyl and was taking her home medication of Phenergan but states that she has had persistent vomiting and has been unable to take any of her antibiotics or home medications. Upon arrival vitals were reviewed patient is afebrile, normotensive. She does not appear toxic or dehydrated although she does appear to be in pain. Patient does have diffuse tenderness with palpation but does not have any guarding or rebound. There are no peritoneal signs at this time. Patient was administered Reglan, Zofran, Dilaudid and on reevaluation is still complaining of pain, inability to tolerate fluids. CBC is without leukocytosis. CMP shows no electrolyte abnormalities and patient has a normal lactate. At this point I am concerned because patient has failed outpatient therapy. She is concerned to attempt to go home and then have to come back. Patient has had a colonoscopy within the last 2 years which showed extensive polyps per the patient. She does follow with Dr. Michele and has an upcoming appointment on , September 16, 2017. Repeat CAT scan and obtained today actually shows improvement of the diverticulitis. Patient was accepted by the hospitalist for observation. 09/13/17 14:35 09/13/17 14:49 Spoke to hospitalist who is requesting repeat of the CAT scan of her abdomen and pelvis. 09/13/17 18:55 - Vital Signs Vital signs: Temp Pulse Resp BP Pulse Ox 98.3 F 63 20 128/57 H 100 09/13/17 16:47 09/13/17 16:47 09/13/17 16:47 09/13/17 16:47 09/13/17 16:47 - Laboratory Result Diagrams: 09/13/17 12:00 09/13/17 12:00 Laboratory results interpreted by me: 09/13/17 09/13/17 12:00 12:00 RDW 14.1 H BUN 6 L Glucose 124 H - Diagnostic Test Radiology reviewed: Image reviewed, Reports reviewed Discharge - Discharge Clinical Impression: Diverticulitis, Intractable abdominal pain Intractable nausea and vomiting Qualifiers: Vomiting type: unspecified Qualified Code(s): R11.2 - Nausea with vomiting, unspecified Condition: Good Disposition: ADMITTED OBSERVATION Admitting Provider: Hospitalist Unit Admitted: Medical Floor
[2017-09-13] MEDS ORDERED: ONDANSETRON 4 MG TAB.RAPDIS PO ONE (13:55)
[2017-09-13] MEDS ORDERED: PROMETHAZINE HCL 25 MG SUPP.RECT PR PRN (18:01)
[2017-09-13] MEDS ORDERED: RINGERS SOLUTION,LACTATED 1,000 ML IV PRN (18:01)
[2017-09-13 18:11] LABS: APPEARANCE,URINE CLEAR; BILIRUBIN,URINE NEGATIVE (NEGATIVE); COLOR,URINE YELLOW; GLUCOSE, URINE NEGATIVE (NEGATIVE); KETONES,URINE NEGATIVE (NEGATIVE); LEUKOCYTE ESTERASE,URINE TRACE (NEGATIVE); NITRITE,URINE NEGATIVE (NEGATIVE); PROTEIN,URINE NEGATIVE (NEGATIVE); URINE SPECIFIC GRAVITY 1.031; UROBILINOGEN,URINE NEGATIVE mg/dL (<2.0)
--- NOTE | 2017-09-13 18:30 | RADIOLOGY REPORT (SQ) ---
EXAM DESCRIPTION: CT ABD/PELVIS WITH IV ONLY COMPLETED DATE/TIME: 09/13/2017 3:18 pm REASON FOR STUDY: abd pain COMPARISON: 09/11/2017 TECHNIQUE: CT scan of the abdomen and pelvis performed using helical scanning technique with dynamic intravenous contrast injection. No oral contrast. Images reviewed with lung, soft tissue, and bone windows. Reconstructed coronal and sagittal MPR images reviewed. Delayed images for evaluation of the urinary system also acquired. All images stored on PACS. All CT scanners at this facility use dose modulation, iterative reconstruction, and/or weight based d osing when appropriate to reduce radiation dose to as low as reasonably achievable (ALARA). [facility]: Dose Right [facility]: CareDose [facility]: Dose Right [facility]: Teradose 4D [facility]: NationalField CONTRAST TYPE AND DOSE: contrast/concentration: Isovue 370.00 mg/ml; Total Contrast Delivered: 89.0 ml; Total Saline Delivered: 46.5 ml RENAL FUNCTION: BUN 6 creatinine 0.9 RADIATION DOSE: CT Rad equipment meets quality standard of care and radiation dose reduction techniq ues were employed. CTDIvol: 16.3 - 18.1 mGy. DLP: 1692 mGy-cm.. LIMITATIONS: None. FINDINGS: LOWER CHEST: Chronic interstitial changes in the right base suggestive of UIP. LIVER: Normal size. No masses. No dilated ducts. SPLEEN: Normal size. No focal lesions. PANCREAS: No masses. No significant calcifications. No adjacent inflammation or peripancreatic fluid collections. Pancreatic duct not dilated. GALLBLADDER: Surgically absent. ADRENAL GLANDS: No significant masses or asymmetry. RIGHT KIDNEY AND URETER: No solid masses. No significant calcifications. No hydronephrosis or hyd roureter. LEFT KIDNEY AND URETER: No solid masses. No significant calcifications. No hydronephrosis or hydr oureter. AORTA AND VESSELS: No aneurysm. No dissection. Renal arteries, SMA, celiac without stenosis. RETROPERITONEUM: No retroperitoneal adenopathy, hemorrhage or masses. BOWEL AND PERITONEAL CAVITY: Extensive diverticulosis coli. Decreased inflammatory changes associate d with the mid sigmoid. APPENDIX: Surgically absent. PELVIS: Uterus absent. Urinary bladder is normal. No free fluid. ABDOMINAL WALL: No masses. No hernias. BONES: No significant or acute findings. OTHER: No other significant finding. IMPRESSION: 1. Chronic lung changes. 2. Extensive diverticulosis coli. Improved sigmoid diverticulitis. TECHNICAL DOCUMENTATION: JOB ID: [id number] Quality ID # [id number]: Final reports with documentation of one or more dose reduction techniques (e.g., Au tomated exposure control, adjustment of the mA and/or kV according to patient size, use of iterative reconstruction technique) 2010 [employer]- All Rights Reserved Reading location - IP/workstation name: [email or web address]
--- NOTE | 2017-09-13 19:30 | HISTORY AND PHYSICAL E ---
History and Physical NAME: CHAKA PATEL : 1950 AGE: 67Y ADMITTED: 09/13/2017 ROOM: 532 PRIMARY CARE PROVIDER: Rachid Trimble D.O. CHIEF COMPLAINT: Abdominal pain, nausea. HISTORY OF PRESENT ILLNESS: The patient is a 67-year-old female that is known to the hospitalist service. The patient presented to the emergency department with a chief complaint of nausea, intermittent vomiting, as well as persistent abdominal pain. The patient, who also has COPD, has been admitted in the past for this. The patient was treated in the emergency department on 09/11/2017. At that time she had findings on CT scan that was suggestive of stranding of the sigmoid diverticulum suggestive of possible diverticulitis. The patient was discharged on Cipro and Flagyl, however, was unable to tolerate it due to persistent nausea and vomiting and had been unable to keep any of this down. The patient continues to have ongoing symptoms and represented to the emergency department. The patient does not have any significant electrolyte derangement, does not have a white count, has denied any fevers. However, given the patient's overall symptoms the hospitalists are agreeable to observation. PAST MEDICAL HISTORY: Is remarkable for; 1. Chronic obstructive pulmonary disease exacerbation. 2. Paroxysmal atrial fibrillation. 3. Gastroesophageal reflux disease. 4. Hypertension. 5. Nicotine dependency continuous. 6. Obstructive sleep apnea. 7. Obesity. PAST SURGICAL HISTORY: Is remarkable for; 1. Appendectomy. 2. Cholecystectomy. 3. Herniorrhaphy. 4. Hysterectomy. 5. Rectocele and cystocele repair. 6. Tubal ligation. ALLERGIES: Includes ADHESIVE TAPE and ROFLUMILAST. HOME MEDICATIONS: 1. Eliquis 5 mg p.o. b.i.d. 2. Flagyl 500 mg p.o. t.i.d. 3. Cipro 500 mg p.o. b.i.d. 4. Cardizem CD 180 mg p.o. daily. 5. DuoNebs, 1 neb q.4 hours p.r.n. 6. Spiriva 1 capsule inhalation b.i.d. 7. Percocet 5/325 mg 1 tablet p.o. t.i.d. 8. Singulair 2 mg p.o. daily. 9. Toprol XL 25 mg p.o. b.i.d. 10. Combivent 1-2 puff inhalation q.6 hours p.r.n. 11. Fenofibrate 54 mg p.o. daily. 12. Vitamin D2 - 50,000 international units p.o. on Wednesday. 13. Lipitor 20 mg p.o. q. hour of sleep. 14. Aspirin 81 mg p.o. daily. SOCIAL HISTORY: The patient currently resides at home. The does smoke about a pack a day for which she has smoked for over 50 years. The patient denies any history of alcohol use or illicit drug use. The patient's surrogate decision maker is her , Andrea aPtel. FAMILY MEDICAL HISTORY: Positive for COPD in multiple family members, as well as possible lung cancer. The patient does have children who are healthy. Both parents are related to COPD. REVIEW OF SYSTEMS: CONSTITUTIONAL: The patient denies any fevers, chills. No dizziness. No weakness. INTEGUMENTARY: The patient denies any diaphoresis, rashes, bruising, itching. HEENT: Denies any vision changes, hearing loss. No nasal drainage or sore throat. CARDIOVASCULAR: The patient denies any chest pain, shortness of breath, heart palpitations. RESPIRATORY: The patient denies any cough or sputum production. No hemoptysis. GASTROINTESTINAL: The patient denies any diarrhea. Admits to abdominal pain, bloating, nausea, and vomiting but no hematemesis, melena, or hematochezia. GENITOURINARY: Denies any hematuria, polyuria, or dysuria. MUSCULOSKELETAL: Denies any acute joint pains, but admits to chronic pains. NEUROLOGIC: Denies seizures, tremors, or loss of consciousness. HEMATOLOGIC: Denies any angel bleeding, easy bruising. ENDOCRINE: Denies any recent weight changes. PSYCHIATRIC: Denies any suicidal or homicidal ideation. The rest of the review of the other organ systems is negative. PHYSICAL EXAMINATION: GENERAL: On examination the patient is a 67-year-old female who is awake, alert. She is oriented to person, place, time, and situation. She is verbal, conversational, does not appear to be in any acute distress. VITAL SIGNS: Temperature 98.3, pulse 66, respirations 20, blood pressure 128/57, oxygen saturation is 100% on 2 liters nasal cannula. SKIN: Warm and dry; no rash. She is not diaphoretic. HEENT: Pupils equal, round reactive to light and accommodation. Conjunctivae are pink. Sclerae are nonicteric. No mouth lesions. Tongue is midline. NECK: Supple. No JVD. No palpable lymphadenopathy or thyromegaly. CARDIOVASCULAR: Heart is regular. There is no murmur or rub. CHEST: Clear, symmetrical, unlabored. ABDOMEN: Soft, there is no area of focal tenderness. Nondistended. Bowel sounds are present. BACK: No CVA tenderness or sacral edema. EXTREMITIES: No clubbing, cyanosis, edema, or peripheral signs of embolization. Pedal pulses +1 noted bilaterally. PSYCHIATRIC: Appropriate affect, pleasant mood. DIAGNOSTICS: Lab values are as follows. Hematology obtained on 09/13/2017; WBC 7.2, hemoglobin 13.9, hematocrit 41.3, platelet count is 255,000. Chemistry obtained on 09/13/2017; sodium is 144, potassium 2.8, chloride is 107, carbon dioxide 27, BUN 6, creatinine 0.7, glucose 124, lactic acid 1.12, calcium is 9.7, bilirubin is 0.4, AST 23, ALT 19, alk-phos 60, total protein 6.3, albumin 3.6, lipase is 235. Urinalysis obtained on 09/13/2017; color yellow, appearance clear, pH 6.0, specific gravity 1.031, protein negative, glucose negative, ketones negative, occult blood negative, nitrite negative, BILI negative, urobilinoge just a trace, WBC 4, RBC 5, bacteria trace. CT of the abdomen and pelvis obtained on 09/11/2017 is suggestive of stranding adjacent to diverticulum. IMPRESSION AND PLAN: 1. Possible diverticulitis. We will repeat the patient's CT scan with contrast. Given the patient's lack of white count, no fevers, do not believe that this has progressed. will observe for now and give the patient IV antibiotics for now as well as antiemetics. We will proceed cautiously with a clear liquid diet and follow. 2. COPD exacerbation. We will continue home inhalers. 3. Atrial fibrillation. The patient in sinus rhythm. Continue Cardizem as well as Eliquis. The patient has had no evidence of overt bleeding. CODE STATUS: The patient is a full code. DISPOSITION: Depending on the patient's symptomatology and diagnostic findings will reevaluate in the a.m. for discharge. Will observed the patient in continuous telemetry as the patient's expected length of stay should not surpass two midnights. TIME SPENT: On this admission including assessment, plan, physical examination, patient education, and review of records is 50 minutes. DICTATING PHYSICIAN: SANTY MAGANA NP [id number] PHY#: [id number] ID: [id number] JOB#: [id number] ACCT: [id number] cc:AURELIA DU M.D. > MTDClara
[2017-09-13] MEDS: CIPROFLOXACIN 400 MG/D5W RTU 400 MG/200 ML RTUPB IV SCH (21:21)
[2017-09-13] MEDS: HEPARIN SOD (PORCINE) 5,000 UNIT/ML 1 ML SYRINGE SUBCUT SCH (21:21)
[2017-09-13] MEDS: ONDANSETRON 4 MG TAB.RAPDIS PO PRN (21:26)
[2017-09-13] MEDS: METRONIDAZOLE 500 MG/NS RTU 500 MG/100 ML RTUPB IV SCH (23:27)
[2017-09-14] MEDS: KETOROLAC TROMETHAMINE INJ/PF 30 MG/1 ML SDV IV PRN ×2 (00:25→05:59)
[2017-09-14] MEDS: HEPARIN SOD (PORCINE) 5,000 UNIT/ML 1 ML SYRINGE SUBCUT SCH ×3 (04:56→22:54)
[2017-09-14] MEDS: METRONIDAZOLE 500 MG/NS RTU 500 MG/100 ML RTUPB IV SCH ×4 (04:57→23:57)
[2017-09-14] MEDS: ONDANSETRON 4 MG TAB.RAPDIS PO PRN (08:23)
[2017-09-14] MEDS: CIPROFLOXACIN 400 MG/D5W RTU 400 MG/200 ML RTUPB IV SCH ×2 (11:02→22:36)
--- NOTE | 2017-09-14 13:21 | PDOC PROGRESS REPORT ---
Subjective Progress Note for:: 09/14/17 Subjective:: I seen patient sitting up by the bedside. She is awake alert and oriented. Still she complains of nausea and vomiting and back pain. Reason For Visit: ABDOMINAL PAIN Physical Exam Vital Signs: Temp Pulse Resp BP Pulse Ox 97.9 F 65 18 123/55 L 100 09/14/17 11:09 09/14/17 11:09 09/14/17 11:09 09/14/17 11:09 09/14/17 11:09 Intake & Output 09/13/17 09/14/17 09/15/17 06:59 06:59 06:59 Intake Total 1216 Output Total 1720 Balance -504 Weight 82.8 kg Results Laboratory Results: 09/13/17 17:25 Urine Color YELLOW Urine Appearance CLEAR Urine pH 6.0 Ur Specific [place] 1.031 Urine Protein NEGATIVE Urine Glucose (UA) NEGATIVE Urine Ketones NEGATIVE Urine Blood NEGATIVE Urine Nitrite NEGATIVE Ur Leukocyte Esterase TRACE H Urine WBC (Auto) 4 Urine RBC (Auto) 5 Impressions: Abdomen/Pelvis CT 09/13/17 00:00 IMPRESSION: 1. Chronic lung changes. 2. Extensive diverticulosis coli. Improved sigmoid diverticulitis. Assessment & Plan - Diagnosis (1) Intractable N/V and abdominal pain Is this a current diagnosis for this admission?: Yes Plan: CT scan of the abdomen reported as extensive diverticulosis with improving sigmoid diverticulitis. Of note patient seen a week ago at this hospital for acute diverticulitis where she was sent with Flagyl and Cipro but she is not able to tolerate the p.o. antibiotics. I will continue his IV Cipro and Flagyl. (2) Atrial fibrillation Qualifiers: Atrial fibrillation type: chronic Qualified Code(s): I48.2 - Chronic atrial fibrillation Is this a current diagnosis for this admission?: Yes Plan: Rate controlled. Continue current regimen. (3) COPD (chronic obstructive pulmonary disease) Is this a current diagnosis for this admission?: Yes Plan: Continue as needed bronchodilators.
[2017-09-14] MEDS: OXYCODONE-ACETAMINOPHEN 5-325 MG TABLET PO PRN ×2 (14:20→22:36)
[2017-09-14] MEDS: OXYCODONE HCL IR 5 MG TABLET PO PRN ×2 (14:20→22:36)
[2017-09-14] MEDS ORDERED: APIXABAN 5 MG TABLET PO SCH (22:00)
[2017-09-14] MEDS ORDERED: METOPROLOL TARTRATE 50 MG TABLET PO SCH (22:00)
[2017-09-14] MEDS ORDERED: APIXABAN 5 MG TABLET PO ONE (23:00)
[2017-09-15] MEDS: METRONIDAZOLE 500 MG/NS RTU 500 MG/100 ML RTUPB IV SCH (05:51)
--- NOTE | 2017-09-15 08:34 | PDOC DISCHARGE SUMMARY ---
General - Admit/Disc Date/PCP Admission Date/Primary Care Provider: 09/13/17 14:58 DASIA URBINA, DO Discharge Date: 09/15/17 - Discharge Diagnosis (1) Intractable N/V and abdominal pain Is this a current diagnosis for this admission?: Yes (2) Atrial fibrillation Is this a current diagnosis for this admission?: Yes (3) COPD (chronic obstructive pulmonary disease) Is this a current diagnosis for this admission?: Yes - Additional Information Resuscitation Status: Full Code Discharge Diet: As Tolerated Discharge Activity: Activity As Tolerated Home Medications: Apixaban [Eliquis] 5 mg PO Q12 09/14/17 Atorvastatin Calcium [Lipitor 20 mg Tablet] 20 mg PO QHS 09/14/17 Ergocalciferol (Vitamin D2) [Drisdol 50,000 unit (1.25MG) Capsule] 50,000 unit PO MO@1000 09/14/17 Esomeprazole Magnesium [Nexium] 40 mg PO BID 09/14/17 Fenofibrate 54mg Tab 54 mg PO DAILY 09/14/17 Ipratropium/Albuterol Sulfate [Combivent Respimat 4 gm Mdi] 1 puff IH HSP PRN Ipratropium/Albuterol Sulfate [Iprat-Albut 0.5-3(2.5) mg/3 ml] 3 ml NEB Q6HP PRN 09/14/17 Metoprolol Tartrate [Lopressor 50 mg Tablet] 25 mg PO Q12 09/14/17 Montelukast Sodium [Singulair 10 mg Tablet] 10 mg PO QPM 09/14/17 Oxycodone HCl/Acetaminophen [Endocet 10-325 mg Tablet] 1 tab PO Q8HP PRN Spironolactone [Aldactone] 50 mg PO [id number] 09/14/17 History of Present Illness History of Present Illness: CHAKA PATEL is a 67 year old female with atrial fibrillation, hypertension , COPD, reflux, chronic abdominal pain presents with complaint of abdominal pain , nausea and vomiting. Patient states symptoms started several weeks ago with worsening of symptoms over the last week. Patient was seen in the emergency department recently and discharged home with Cipro and Flagyl which the patient states she has been unable to take because of her persistent vomiting. Abdominal pain is diffusely located, described as a constant stabbing pain. Patient's last bowel movement was this morning. She denies any black or bloody stools. She does follow with Dr. Michele from gastroenterology and has an upcoming appointment in 3 days. Patient denies any fever, chills, chest pain, shortness of breath. Surgical history includes cholecystectomy appendectomy and hysterectomy. Patient having flatus. Hospital Course Hospital Course: This is a 67-year-old female patient admitted with impression of intractable nausea, vomiting, abdominal pain due to sigmoid diverticulitis. Patient has been on antiemetics and IV ciprofloxacin and metronidazole. Her nausea vomiting and abdominal pain subsided patient able to eat and tolerate well. This morning I seen patient sitting on chair and enjoying her breakfast. She does not have a new complaints. Since patient has already prescribed metronidazole and Cipro, I advised her to continue his antibiotics. Patient also advised to come back to ER if he does not feel good if she started to have fever nausea and vomiting again. Physical Exam Vital Signs: Temp Pulse Resp BP Pulse Ox 98.3 F 56 L 20 119/49 L 100 09/15/17 07:55 09/15/17 07:55 09/15/17 07:55 09/15/17 07:55 09/15/17 07:55 Intake & Output 09/14/17 09/15/17 09/16/17 06:59 06:59 06:59 Intake Total 1216 2872 Output Total 1720 2225 Balance -504 647 Weight 82.8 kg 86.3 kg General appearance: PRESENT: no acute distress, well-developed, well-nourished Head exam: PRESENT: atraumatic, normocephalic Eye exam: PRESENT: conjunctiva pink, EOMI, PERRLA. ABSENT: scleral icterus Ear exam: PRESENT: normal external ear exam Mouth exam: PRESENT: moist, tongue midline Neck exam: ABSENT: carotid bruit, JVD, lymphadenopathy, thyromegaly Respiratory exam: PRESENT: clear to auscultation keren. ABSENT: rales, rhonchi, wheezes Cardiovascular exam: PRESENT: RRR. ABSENT: diastolic murmur, rubs, systolic murmur Pulses: PRESENT: normal dorsalis pedis pul Vascular exam: PRESENT: normal capillary refill GI/Abdominal exam: PRESENT: normal bowel sounds, soft. ABSENT: distended, guarding, mass, organolmegaly, rebound, tenderness Rectal exam: PRESENT: deferred Extremities exam: PRESENT: full ROM. ABSENT: calf tenderness, clubbing, pedal edema Neurological exam: PRESENT: alert, awake, oriented to person, oriented to place , oriented to time, oriented to situation. ABSENT: motor sensory deficit Psychiatric exam: PRESENT: appropriate affect, normal mood. ABSENT: homicidal ideation, suicidal ideation Skin exam: PRESENT: dry, intact, warm. ABSENT: cyanosis, rash Results Impressions: Abdomen/Pelvis CT 09/13/17 00:00 IMPRESSION: 1. Chronic lung changes. 2. Extensive diverticulosis coli. Improved sigmoid diverticulitis. Qualifiers - * PATIENT BEING DISCHARGED WITH ANY OF THE FOLLOWING DIAGNOSIS: No
[2017-09-15 08:39] VITALS: BP 118/61
[2017-09-15] MEDS ORDERED: APIXABAN 5 MG TABLET PO SCH (10:00)
== END 2017-09-15 09:34 | disposition home or self-care (01) ==
LOC: ER 10:31 → EH 14:58 → 5 16:46
PROVIDERS: ADMIT Internal Medicine; ATTEND Internal Medicine
DX: R10.9 Unspecified abdominal pain (principal); K57.30 Diverticulosis of large intestine without perforation or abscess without bleeding; K57.20 Diverticulitis of large intestine with perforation and abscess without bleeding; J44.1 Chronic obstructive pulmonary disease with (acute) exacerbation; K21.9 Gastro-esophageal reflux disease without esophagitis; I48.91 Unspecified atrial fibrillation; Z79.01 Long term (current) use of anticoagulants; F17.200 Nicotine dependence, unspecified, uncomplicated
CPT/HCPCS: 99406; 99285; 96361; 96375; 96365; 36415; 83690; 85025; 80053; 81001; 83605; 74177; G0378 ×3; J1644 ×2; A9270 ×7; J1885; J2765; J1170; J3490; J7030; J7120; J0744 ×2; S0119

== ENCOUNTER 2017-09-17 07:44 | Day surgery (SDC) | payer MEDICARE, MEDICAID ==
[2017-09-17 08:23] LABS: INTERNATIONAL RATION (INR) 1.13; PROTHROMBIN TIME 15.1 SEC (11.4-15.4)
[2017-09-17 08:24] LABS: PARTIAL THROMBOPLASTIN TIME 35.6 SEC (23.5-35.8)
[2017-09-17] MEDS ORDERED: FAMOTIDINE INJ/PF 20 MG/2 ML SDV IV ONE (09:05)
[2017-09-17] MEDS ORDERED: ALBUTEROL SULFATE 0.083% NEB 2.5 MG/3 ML AMPUL NEB ONE (09:07)
[2017-09-17] MEDS ORDERED: MEPERIDINE HCL/PF INJ 25 MG/1 ML DISP.SYRIN IV PRN (09:47)
[2017-09-17] MEDS ORDERED: FENTANYL CITRATE INJ/PF 100 MCG/2 ML AMPUL IV PRN ×3 (09:47)
[2017-09-17] MEDS ORDERED: PROMETHAZINE HCL INJ 25 MG/1 ML VIAL IV PRN ×2 (09:47)
[2017-09-17] MEDS ORDERED: OXYCODONE-ACETAMINOPHEN 5-325 MG TABLET PO PRN ×2 (09:47)
[2017-09-17] MEDS ORDERED: DIPHENHYDRAMINE HCL 50 MG/ML VIAL IV PRN (09:47)
[2017-09-17] MEDS ORDERED: PROPOFOL INJ 200 MG/20 ML VIAL IV ONE (10:01)
[2017-09-17] MEDS ORDERED: DEXTROSE 5%-1/2 NORMAL SALINE 1,000 ML IV PRN (10:40)
--- NOTE | 2017-09-17 11:08 | Operative Report ---
Operative Report DATE OF SURGERY: 09/17/17 Operative Report: The risks benefits and alternatives of the procedure explained to the patient in detail and informed consent is obtained.A GIF Olympus video scope was inserted into the patient's mouth and hypopharynx ,the esophagus is identified intubated and insufflated ,the scope was then advanced through the esophagus stomach and duodenum, retroflexion maneuver is done ,the esophagus stomach and first and second portions of the duodenum examined PREOPERATIVE DIAGNOSIS: Nausea vomiting POSTOPERATIVE DIAGNOSIS: Gastritis status post biopsy, no gastric outlet noted. No ulcers noted OPERATION: EGD with biopsy SURGEON: CANDIDO PETERSON ANESTHESIA: LMAC TISSUE REMOVED OR ALTERED: As noted above. COMPLICATIONS: None. ESTIMATED BLOOD LOSS: None. INTRAOPERATIVE FINDINGS: As noted above. PROCEDURE: Patient tolerated procedure well. No immediate postprocedure complications are noted. Patient discharged in good condition. Discharge date 09/17/2017. Discharge diet: Regular. Discharge activity: Regular. We will wait on the pathology. Any gastric emptying test. She has had cholecystectomy. Recent CT scan noted for possible diverticulitis for which she was recently admitted and subsequently discharge. She was on IV antibiotics and now has been transitioned to oral.
--- NOTE | 2017-09-17 13:37 | EKG REPORT ---
SEVERITY:- NORMAL ECG - SINUS RHYTHM : Confirmed by: Ke Lehman MD 17-Sep-2017 13:36:03
[2017-09-17 14:15] VITALS: BP 131/66
[2017-09-22] MEDS ORDERED: MAGNESIUM SULFATE 1 GM/D5W 100 ML IV SCH (13:30)
== END 2017-09-17 10:55 | disposition home or self-care (01) ==
LOC: OROUT 07:44
PROVIDERS: ATTEND Internal Medicine Gastroenterology
PROC: 0DB68ZX Excision of Stomach, Via Natural or Artificial Opening Endoscopic, Diagnostic (ICD-10-PCS; principal; 2017-09-17 10:00)
DX: R11.14 Bilious vomiting (principal); K29.50 Unspecified chronic gastritis without bleeding; B96.81 Helicobacter pylori [H. pylori] as the cause of diseases classified elsewhere; Z90.49 Acquired absence of other specified parts of digestive tract; J44.9 Chronic obstructive pulmonary disease, unspecified; I10 Essential (primary) hypertension; K21.9 Gastro-esophageal reflux disease without esophagitis
CPT/HCPCS: 43239; 36415; 85610; 85730; 88342 ×2; 88305 ×2; 93005; 93010; J2704; S0028; A9270; 731

== ENCOUNTER → 2017-10-27 | Outpatient (CLI) | payer MEDICARE, MEDICAID ==
[2017-10-27 16:40] LABS: ABSOLUTE LYMPHOCYTES (AUTO) 1.3 10^3/uL (0.5-4.7); ABSOLUTE MONOCYTES (AUTO) 1.2 10^3/uL (0.1-1.4); BASOPHILS % (AUTO) 0.1 % (0-2); EOSINOPHILS % (AUTO) 0.4 % (0-6); HEMATOCRIT 39.6 % (36.0-47.0); HEMOGLOBIN 13.1 g/dL (12.0-15.5); LYMPHOCYTES % (AUTO) 14.1 % (13-45); MEAN CORPUSCULAR HGB CONC 33.1 g/dL (32.0-36.0); MEAN CORPUSCULAR VOLUME 91 fl (80-97); MONOCYTES % (AUTO) 12.3 % (3-13); PLATELET COUNT 226 10^3/uL (150-450); RED BLOOD COUNT 4.37 10^6/uL (3.72-5.28); RED CELL DISTRIBUTION WIDTH 13.8 % (11.5-14.0); SEGMENTED NEUTROPHILS % (AUTO) 73.1 % (42-78); TOTAL CELLS COUNTED % (AUTO) 100 %; WHITE BLOOD COUNT 9.5 10^3/uL (4.0-10.5)
[2017-10-27 16:47] LABS: APPEARANCE,URINE SLIGHTLY-CLOUDY; BILIRUBIN,URINE NEGATIVE (NEGATIVE); COLOR,URINE YELLOW; GLUCOSE, URINE NEGATIVE (NEGATIVE); KETONES,URINE NEGATIVE (NEGATIVE); LEUKOCYTE ESTERASE,URINE SMALL (NEGATIVE); NITRITE,URINE NEGATIVE (NEGATIVE); PROTEIN,URINE NEGATIVE (NEGATIVE); URINE SPECIFIC GRAVITY 1.011
[2017-10-27 16:55] LABS: ALANINE AMINOTRANSFERASE 56 U/L (9-52); ALBUMIN 3.5 g/dL (3.5-5.0); ALKALINE PHOSPHATASE 75 U/L (38-126); ANION GAP 13 (5-19); ASPARTATE AMINO TRANSFERASE 21 U/L (14-36); BILIRUBIN,DIRECT 0.4 mg/dL (0.0-0.4); BILIRUBIN,TOTAL 0.6 mg/dL (0.2-1.3); BLOOD UREA NITROGEN 15 mg/dL (7-20); CALCIUM 9.6 mg/dL (8.4-10.2); CARBON DIOXIDE 29 mmol/L (22-30); CHLORIDE 101 mmol/L (98-107); GLUCOSE 87 mg/dL (75-110); POTASSIUM 4.4 mmol/L (3.6-5.0); SODIUM 142.7 mmol/L (137-145); TOTAL PROTEIN 6.4 g/dL (6.3-8.2)
== END ==
LOC: OD 15:16
PROVIDERS: ATTEND Internal Medicine Cardiovascular Disease
DX: I48.0 Paroxysmal atrial fibrillation (principal); Z79.01 Long term (current) use of anticoagulants; Z79.899 Other long term (current) drug therapy
CPT/HCPCS: 36415; 80048; 80076; 81001; 82272; 85025; 85610; 85730

== ENCOUNTER 2017-11-19 08:37 | Day surgery (SDC) | payer MEDICARE, MEDICAID ==
[2017-11-19] MEDS ORDERED: ALBUTEROL SULFATE 0.083% NEB 2.5 MG/3 ML AMPUL NEB ONE (08:50)
[2017-11-19] MEDS ORDERED: METOPROLOL TARTRATE 25 MG TABLET ONE (09:28)
[2017-11-19 09:52] LABS: INTERNATIONAL RATION (INR) 1.07; PROTHROMBIN TIME 14.5 SEC (11.4-15.4)
[2017-11-19 09:53] LABS: PARTIAL THROMBOPLASTIN TIME 30.3 SEC (23.5-35.8)
[2017-11-19] MEDS ORDERED: METOPROLOL TARTRATE 25 MG TABLET PO ONE (10:00)
[2017-11-19] MEDS ORDERED: PROMETHAZINE HCL INJ 25 MG/1 ML VIAL IV PRN ×3 (10:31→10:54)
[2017-11-19] MEDS ORDERED: DIPHENHYDRAMINE HCL 50 MG/ML VIAL IV PRN (10:31)
[2017-11-19] MEDS ORDERED: OXYCODONE-ACETAMINOPHEN 5-325 MG TABLET PO PRN ×2 (10:31)
[2017-11-19] MEDS ORDERED: MEPERIDINE HCL/PF INJ 25 MG/1 ML DISP.SYRIN IV PRN (10:31)
[2017-11-19] MEDS ORDERED: FENTANYL CITRATE INJ/PF 100 MCG/2 ML AMPUL IV PRN ×3 (10:31)
[2017-11-19] MEDS ORDERED: SIMETHICONE 80 MG TAB.CHEW PO PRN (10:52)
[2017-11-19] MEDS ORDERED: ACETAMINOPHEN 325 MG TABLET PO PRN (10:52)
[2017-11-19 11:47] VITALS: BP 114/62
--- NOTE | 2017-11-19 12:03 | Operative Report ---
Operative Report DATE OF SURGERY: 11/19/17 Operative Report: The risks, benefits and alternatives of the procedure including the risks of bleeding, perforation requiring surgery are explained to the patient in detail and informed consent is obtained. Patient is taken back to the operating room and placed in a left, lateral decubital position. Timeout was called. Propofol medication is administered. A rectal examination is done which did not reveal any masses, tears or fissures. An Olympus videoscope was inserted into the patient's rectum. The scope was then carefully advanced all the way to the cecum. The cecum was identified by the usual anatomical landmarks including the ileocecal valve as well as the appendiceal office. Photodocumentation is obtained. The scope was then sequentially pulled back via the rest segments of the colon including the ascending colon, hepatic flexure, transverse colon, splenic flexure, descending colon and finally into the rectosigmoid portions of the colon. Retroflexion maneuvers performed. PREOPERATIVE DIAGNOSIS: Personal history of polyps POSTOPERATIVE DIAGNOSIS: Significant sigmoid diverticulosis. Internal hemorrhoids, external hemorrhoids. There is inflammation in the right side of the colon status post biopsy OPERATION: Colonoscopy with biopsy SURGEON: CANDIDO PETERSON ANESTHESIA: LMAC TISSUE REMOVED OR ALTERED: As noted above. COMPLICATIONS: None. ESTIMATED BLOOD LOSS: None. INTRAOPERATIVE FINDINGS: As noted above. PROCEDURE: Patient tolerated procedure well. No immediate postprocedure comp occasions are noted. Patient discharged in good condition. Discharge date 11/19/2017. Discharge diet: Regular. Discharge activity: Regular. 2-3 week follow-up to discuss findings. We will need surgery to remove external hemorrhoid Wait on pathology.
== END 2017-11-19 11:40 | disposition home or self-care (01) ==
LOC: OROUT 08:37
PROVIDERS: ATTEND Internal Medicine Gastroenterology
DX: K57.30 Diverticulosis of large intestine without perforation or abscess without bleeding (principal); K64.8 Other hemorrhoids; K64.4 Residual hemorrhoidal skin tags; K52.9 Noninfective gastroenteritis and colitis, unspecified; Z86.010 Personal history of colon polyps; J44.9 Chronic obstructive pulmonary disease, unspecified; I10 Essential (primary) hypertension; M19.90 Unspecified osteoarthritis, unspecified site; I49.9 Cardiac arrhythmia, unspecified; I48.91 Unspecified atrial fibrillation; Z79.01 Long term (current) use of anticoagulants; Z99.81 Dependence on supplemental oxygen; Z79.82 Long term (current) use of aspirin; Z79.899 Other long term (current) drug therapy
CPT/HCPCS: 45380; 36415; 84132; 85610; 85730; 88305 ×2; A9270 ×2

== ENCOUNTER 2017-12-17 17:43 | Inpatient (IN) | payer MEDICARE, MEDICAID ==
[2017-12-17] MEDS ORDERED: ONDANSETRON 4 MG TAB.RAPDIS PO ONE ×2 (18:47→18:50)
--- NOTE | 2017-12-17 18:47 | ER Document Report ---
ED Medical Screen (RME) - General Chief Complaint: Abdominal Pain >50 Stated Complaint: ABDOMINAL, VOMITING Time Seen by Provider: 12/17/17 18:42 Notes: 67-year-old female patient had a colonoscopy on 11/19/2017. About a week later she began getting constipated, it is getting severe due to her hemorrhoids getting larger and more painful preventing her from having a bowel movement. She has an appointment with Dr. Ralph at [facility] for this coming Wednesday to discuss the hemorrhoids. She has been nauseous with some vomiting. TRAVEL OUTSIDE OF THE [place] IN LAST 30 DAYS: No - Related Data Allergies/Adverse Reactions: nickel Allergy (Severe, Verified 11/19/17 09:16) RASH adhesive tape [Adhesive Tape] Allergy (Mild, Verified 11/19/17 09:16) RASH/BLISTER roflumilast Adverse Reaction (Unknown, Verified 11/19/17 09:16) N/V, diarrhea Past Medical History - Social History Chew tobacco use (# tins/day): No Frequency of alcohol use: None Drug Abuse: None - Past Medical History Cardiac Medical History: Reports: Hx Atrial Fibrillation, Hx Hypercholesterolemia, Hx Hypertension Denies: Hx Coronary Artery Disease, Hx Heart Attack Pulmonary Medical History: Reports: Hx Asthma, Hx Bronchitis, Hx COPD, Hx Pneumonia, Hx Sleep Apnea - on CPAP Neurological Medical History: Denies: Hx Cerebrovascular Accident, Hx Seizures Renal/ Medical History: Reports: Hx Kidney Stones. Denies: Hx Peritoneal Dialysis GI Medical History: Reports: Hx Gastroesophageal Reflux Disease, Hx Hiatal Hernia. Denies: Hx Hepatitis, Hx Ulcer Musculoskeltal Medical History: Reports Hx Arthritis - NECK, LOWER BACK Psychiatric Medical History: Reports: Hx Depression Infectious Medical History: Denies: Hx Hepatitis Past Surgical History: Reports: Hx Abdominal Surgery - HERNIA, Hx Appendectomy, Hx Cholecystectomy, Hx Herniorrhaphy, Hx Hysterectomy, Hx Rectal Surgery, Hx Tubal Ligation, Other - Rectocele and cystocele repair. Denies: Hx Mastectomy, Hx Open Heart Surgery, Hx Pacemaker - Immunizations Hx Diphtheria, Pertussis, Tetanus Vaccination: Yes History of Influenza Vaccine for 12/2016 - 05/2017 Season: Unknown Physical Exam - Vital signs Vitals: Temp Pulse Resp BP Pulse Ox 98.2 F 123 H 18 132/77 H 98 12/17/17 17:59 12/17/17 17:59 12/17/17 17:59 12/17/17 17:59 12/17/17 17:59 Course - Vital Signs Vital signs: Temp Pulse Resp BP Pulse Ox 98.2 F 123 H 18 132/77 H 98 12/17/17 17:59 12/17/17 17:59 12/17/17 17:59 12/17/17 17:59 12/17/17 17:59 Doctor's Discharge - Discharge Referrals: DASIA URBINA DO [Primary Care Provider] - Follow up as needed
[2017-12-17 19:16] LABS: ABSOLUTE EOSINOPHILS # (AUTO) 0.1 10^3/uL (0.0-0.6); ABSOLUTE LYMPHOCYTES (AUTO) 1.8 10^3/uL (0.5-4.7); ABSOLUTE MONOCYTES (AUTO) 1.2 10^3/uL (0.1-1.4); ABSOLUTE NEUT (AUTO) 9.6 10^3/uL (1.7-8.2); BASOPHILS % (AUTO) 0.3 % (0-2); EOSINOPHILS % (AUTO) 0.7 % (0-6); HEMATOCRIT 41.7 % (36.0-47.0); HEMOGLOBIN 14.1 g/dL (12.0-15.5); LYMPHOCYTES % (AUTO) 14.2 % (13-45); MEAN CORPUSCULAR HEMOGLOBIN 30.1 pg (27.0-33.4); MEAN CORPUSCULAR HGB CONC 33.7 g/dL (32.0-36.0); MEAN CORPUSCULAR VOLUME 89 fl (80-97); MONOCYTES % (AUTO) 9.1 % (3-13); PLATELET COUNT 350 10^3/uL (150-450); RED BLOOD COUNT 4.67 10^6/uL (3.72-5.28); SEGMENTED NEUTROPHILS % (AUTO) 75.7 % (42-78); TOTAL CELLS COUNTED % (AUTO) 100 %; WHITE BLOOD COUNT 12.7 10^3/uL (4.0-10.5)
[2017-12-17] MEDS ORDERED: FENTANYL CITRATE INJ/PF 100 MCG/2 ML AMPUL IV ONE ×2 (19:18→23:23)
--- NOTE | 2017-12-17 19:42 | ER Document Report ---
ED General - General Chief Complaint: Abdominal Pain >50 Stated Complaint: ABDOMINAL, VOMITING Time Seen by Provider: 12/17/17 18:42 Notes: Patient is a 67-year-old female who presents with abdominal pain in which she describes as a cramping pain. She has had this pain on and off since her colonoscopy which was about 4 weeks ago. She states that her pain is better when she is lying on her side, off her bottom. Sitting for long periods of time makes the pain worse. She said her colonoscopy shows she has a large hemorrhoid in her rectum. She has an appointment with Dr. Ralph in outpatient clinic on Wednesday. For the past 2 days she has been nauseated and vomiting, not being able to keep down water. Her last bowel movement was last week, in which she needed to manually extract her stool. She has a past medical history of hypertension, hyperlipidemia, diverticulosis, and atrial fibrillation. Her past surgical history includes an appendectomy, cholecystectomy, and total hysterectomy. TRAVEL OUTSIDE OF THE [place] IN LAST 30 DAYS: No - Related Data Allergies/Adverse Reactions: nickel Allergy (Severe, Verified 11/19/17 09:16) RASH adhesive tape [Adhesive Tape] Allergy (Mild, Verified 11/19/17 09:16) RASH/BLISTER roflumilast Adverse Reaction (Unknown, Verified 11/19/17 09:16) N/V, diarrhea Past Medical History - Social History Smoking Status: Current Every Day Smoker Chew tobacco use (# tins/day): No Frequency of alcohol use: None Drug Abuse: None Family History: COPD, Malignancy, Other - This Patient has suicidal ideation: No Patient has homicidal ideation: No - Past Medical History Cardiac Medical History: Reports: Hx Atrial Fibrillation, Hx Hypercholesterolemia, Hx Hypertension Denies: Hx Coronary Artery Disease, Hx Heart Attack Pulmonary Medical History: Reports: Hx Asthma, Hx Bronchitis, Hx COPD, Hx Pneumonia, Hx Sleep Apnea - on CPAP Neurological Medical History: Denies: Hx Cerebrovascular Accident, Hx Seizures Renal/ Medical History: Reports: Hx Kidney Stones. Denies: Hx Peritoneal Dialysis GI Medical History: Reports: Hx Gastroesophageal Reflux Disease, Hx Hiatal Hernia. Denies: Hx Hepatitis, Hx Ulcer Musculoskeletal Medical History: Reports Hx Arthritis - NECK, LOWER BACK Psychiatric Medical History: Reports: Hx Depression Infectious Medical History: Denies: Hx Hepatitis Past Surgical History: Reports: Hx Abdominal Surgery - HERNIA, Hx Appendectomy, Hx Cholecystectomy, Hx Herniorrhaphy, Hx Hysterectomy, Hx Rectal Surgery, Hx Tubal Ligation, Other - Rectocele and cystocele repair. Denies: Hx Mastectomy, Hx Open Heart Surgery, Hx Pacemaker - Immunizations Hx Diphtheria, Pertussis, Tetanus Vaccination: Yes Hx Pneumococcal Vaccination: 12/04/12 Review of Systems - Review of Systems Notes: REVIEW OF SYSTEMS: CONSTITUTIONAL : Denies fever, chills, or sweats. Denies recent illness. EENT: Denies eye, ear, throat, or mouth pain or symptoms. Denies nasal or sinus congestion. CARDIOVASCULAR: Denies chest pain. RESPIRATORY: Denies cough, cold, or chest congestion. Denies shortness of breath, difficulty breathing, or wheezing. GASTROINTESTINAL: Positive for constipation. Positive for rectal pain. GENITOURINARY: Denies difficulty urinating, painful urination, burning, frequency, or blood in urine. FEMALE GENITOURINARY: Denies vaginal bleeding, discharge. MUSCULOSKELETAL: Denies neck or back pain or joint pain or swelling. SKIN: Denies rash or skin lesions. HEMATOLOGIC : Denies easy bruising or bleeding. LYMPHATIC: Denies swollen, enlarged glands. NEUROLOGICAL: Denies altered mental status or loss of consciousness. Denies headache. Denies weakness or paralysis or loss of use of either side. Denies problems with gait or speech. Denies sensory or motor loss. PSYCHIATRIC: Denies anxiety or stress or depression. ALL OTHER SYSTEMS REVIEWED AND NEGATIVE. Physical Exam - Vital signs Vitals: Temp Pulse Resp BP Pulse Ox 98.2 F 123 H 18 132/77 H 98 12/17/17 17:59 12/17/17 17:59 12/17/17 17:59 12/17/17 17:59 12/17/17 17:59 - Notes Notes: PHYSICAL EXAMINATION: GENERAL: Well-appearing, well-nourished and in no acute distress. HEAD: Atraumatic, normocephalic. EYES: Pupils equal round and reactive to light, extraocular movements intact, sclera anicteric, conjunctiva are normal. ENT: nares patent, oropharynx clear without exudates. Moist mucous membranes. NECK: Normal range of motion, supple without lymphadenopathy LUNGS: Breath sounds clear to auscultation bilaterally and equal. No wheezes rales or rhonchi. HEART: Regular rate and rhythm without murmurs ABDOMEN: guarding, rebound tenderness. No masses appreciated. EXTREMITIES: Normal range of motion, no pitting or edema. No cyanosis. NEUROLOGICAL: No focal neurological deficits. Moves all extremities spontaneously and on command. PSYCH: Normal mood, normal affect. SKIN: Warm, Dry, normal turgor, no rashes or lesions noted. Course - Re-evaluation Re-evalutation: 12/17/17 20:14 Upon reevaluation the patient abdomen with pain medication on board, slight palpation elicited pain in multiple areas. Her KUB shows no acute pathology. She will be sent to CT for further evaluation. Differential diagnosis includes SBO, perforated bowel, diverticulitis. 12/17/17 23:55 patient is up to bedside commode, attempting to have a bowel movement. She states that it is hard for her to have a bowel movement and does not want to strain too hard. Her heart rate increased to 140, most likely due to to her pain 12/18/17 00:34 I have called the electrical mechanical technician, she states that [facility] is having a hard time receiving images and she will attempt to recent the patient's CT to [facility]. 12/18/17 01:15 library media technician has informed me that they are still unable to get the images over to [facility]. Based upon my interpretation of her CAT scan, she is impacted with stool. 12/18/17 01:52 The radiologist has contacted me in regards to the patient's CT. He states there is free air in the patient's abdomen along with a 3.8 cm abscess. 12/18/17 02:[address] Roland to report the results of his CAT scan. Patient has been accepted for admission. - Vital Signs Vital signs: Temp Pulse Resp BP Pulse Ox 98.7 F 123 H 14 148/70 H 97 12/17/17 22:21 12/17/17 17:59 12/17/17 20:39 12/17/17 20:39 12/17/17 20:39 - Laboratory Result Diagrams: 12/17/17 19:07 12/17/17 19:07 Laboratory results interpreted by me: 12/17/17 12/17/17 19:07 19:07 WBC 12.7 H RDW 15.0 H Absolute Neutrophils 9.6 H Potassium 3.1 L Chloride 95 L Total Bilirubin 2.0 H Direct Bilirubin 1.3 H AST 37 H Discharge - Discharge Clinical Impression: Perforated bowel, Hypokalemia Abdominal pain Qualifiers: Abdominal location: generalized Qualified Code(s): R10.84 - Generalized abdominal pain Disposition: ADMITTED INPATIENT Admitting Provider: Surgicalist Unit Admitted: Surgical Floor Referrals: DASIA URBINA DO [Primary Care Provider] - Follow up as needed
[2017-12-17 19:45] LABS: ALANINE AMINOTRANSFERASE 13 U/L (9-52); ALBUMIN 3.8 g/dL (3.5-5.0); ALKALINE PHOSPHATASE 109 U/L (38-126); ANION GAP 13 (5-19); ASPARTATE AMINO TRANSFERASE 37 U/L (14-36); BILIRUBIN,DIRECT 1.3 mg/dL (0.0-0.4); BLOOD UREA NITROGEN 13 mg/dL (7-20); CALCIUM 9.3 mg/dL (8.4-10.2); CARBON DIOXIDE 29 mmol/L (22-30); CHLORIDE 95 mmol/L (98-107); GLUCOSE 104 mg/dL (75-110); POTASSIUM 3.1 mmol/L (3.6-5.0); SODIUM 137.3 mmol/L (137-145); TOTAL PROTEIN 7.9 g/dL (6.3-8.2)
--- NOTE | 2017-12-17 19:54 | RADIOLOGY REPORT (SQ) ---
EXAM DESCRIPTION: KUB/ABDOMEN (SINGLE VIEW) COMPLETED DATE/TIME: 12/17/2017 7:27 pm REASON FOR STUDY: Constipation COMPARISON: None. NUMBER OF VIEWS: One view. TECHNIQUE: Supine radiographic image of the abdomen acquired. LIMITATIONS: None. FINDINGS: BOWEL GAS PATTERN: Normal bowel gas pattern. No dilated loops. No constipation CALCIFICATIONS: No suspicious calcifications. SOFT TISSUES: No gross mass or suggestion of organomegaly. HARDWARE: Clips right upper quadrant post cholecystectomy. Faintly radiopaque right lower quadrant s utures likely from remote prior appendectomy. . BONES: No acute fracture. No worrisome bone lesions. OTHER: No other significant finding. IMPRESSION: NO RADIOGRAPHIC EVIDENCE FOR ACUTE ABDOMINAL DISEASE. No constipation TECHNICAL DOCUMENTATION: JOB ID: [id number] [employer]- All Rights Reserved Reading location - IP/workstation name: [email or web address]
[2017-12-17] MEDS ORDERED: ONDANSETRON HCL INJ/PF 4 MG/2 ML SDV IV ONE (22:27)
[2017-12-18] MEDS ORDERED: HYDROMORPHONE HCL INJ/PF 2 MG/ML AMPULE IV ONE (00:03)
[2017-12-18] MEDS ORDERED: NORMAL SALINE 1000 ML 1,000 ML IV ONE (00:28)
--- NOTE | 2017-12-18 01:57 | RADIOLOGY REPORT (SQ) ---
EXAM DESCRIPTION: CT ABDOMEN PELVIS WITH IV CONTRAST COMPLETED DATE/TME: 12/17/2017 00:00 CLINICAL HISTORY: Diffuse abdominal pain COMPARISON: 09/13/2017 TECHNIQUE: CT of the abdomen and pelvis performed following IV administration of 78 mL of Omnipaque 350. DLP: 1298.64 mGycm FINDINGS: Lung Bases: The visualized lung bases are clear. Bones: No destructive bone lesions identified. Degenerative change of the spine. Abdomen: Liver: The liver has normal size and density. No intrahepatic mass or biliary dilatation. Gallbladder: Prior cholecystectomy. Spleen, Pancreas, and Adrenal Glands: The spleen, pancreas, and adrenal glands are unremarkable. Kidneys: The kidneys have normal size and contour without evidence of solid mass or hydronephrosis. Bosniak class I bilateral renal cysts. Vasculature: Aortoiliac atherosclerosis. The portal vein is patent. The proximal visceral and renal arteries are patent. Stomach: The stomach and duodenum have normal course. Other: Small amount of free intraperitoneal air. No lymphadenopathy. Pelvis: Bladder: Urinary bladder is unremarkable. Bowel: Scattered diverticula of the colon. There is inflammatory change adjacent to the sigmoid colon with free intraperitoneal air as well as an ill-defined air fluid collection measuring 3.8 x 2.2 cm. No dilated loops of large or small bowel. Appendix: The appendix is not identified. Pelvis: Prior hysterectomy. IMPRESSION: 1. Findings compatible with perforated diverticulitis of the proximal sigmoid colon with small amount of free intraperitoneal air as well as paracolic air fluid collection likely representing an abscess measuring 3.8 cm in greatest dimension. Urgent finding reported to [facility] Saba Rivera at 12/18/2017 12:54 AM CDT This exam was performed according to our departmental dose-optimization program, which includes automated exposure control, adjustment of the mA and/or kV according to patient size and/or use of iterative reconstruction technique.
[2017-12-18] MEDS ORDERED: PIPERACILLIN/TAZOBACTAM 3.375 GM VIAL IV ONE (01:58)
[2017-12-18] MEDS ORDERED: POTASSI CL 20 MEQ/50 ML RIDER 20 MEQ/50 ML RTUPB IV ONE (02:12)
[2017-12-18] MEDS ORDERED: METRONIDAZOLE RTU 500 MG/NS 100 ML IV ONE (02:15)
[2017-12-18] MEDS ORDERED: CIPROFLOXACIN 400 MG/D5W RTU 400 MG/200 ML RTUPB IV ONE ×2 (03:00→05:00)
--- NOTE | 2017-12-18 03:28 | PDOC H&P ---
History of Present Illness Admission Date/PCP: 12/18/17 02:38 DASIA URBINA DO Patient complains of: abdominal pains History of Present Illness: CHAKA PATEL is a 67 year old female with history of emphysema, atrial fib on Eliquis which she stopped on her own 3 days ago had colonoscopy by Dr Michele . About 1 1/2 weeks later started c/o painful and gradually enlarging hemorrhoids and constipation. 2 weeks ago started c/o abdominal pains gradually getting worse in past [address] Michele about a week ago for abdominal pains and hemorrhoids and was referred to Dr Ralph this Wednesday. Her hemorrhoids and constipation has worsened past 5 days to the point that she has to manually disimpact herself. She has associated nausea. She did vomit some of the po contrast in the ED. She denies any fever or chills. Past Medical History Cardiac Medical History: Reports: Atrial Fibrillation, Hyperlipidema, Hypertension Denies: Coronary Artery Disease, Myocardial Infarction Pulmonary Medical History: Reports: Asthma, Bronchitis, Chronic Obstructive Pulmonary Disease (COPD), Pneumonia, Sleep Apnea - on CPAP Neurological Medical History: Denies: Seizures GI Medical History: Reports: Gastroesophageal Reflux Disease, Hiatal Hernia Denies: Hepatitis Musculoskeltal Medical History: Reports: Arthritis - NECK, LOWER BACK Psychiatric Medical History: Reports: Depression Hematology: Denies: Anemia, Sickle Cell Disease Past Surgical History Past Surgical History: Reports: Appendectomy, Cholecystectomy, Herniorrhaphy, Hysterectomy, Tubal Ligation, Other - Rectocele and cystocele repair Denies: Amputation, Mastectomy, Pacemaker Social History Smoking Status: Current Every Day Smoker Frequency of Alcohol Use: None Hx Recreational Drug Use: No Drugs: None Hx Prescription Drug Abuse: No Family History Family History: COPD, Malignancy, Other - This Parental Family History Reviewed: Yes - father of lung CA and mother from Emphysema Children Family History Reviewed: No Sibling(s) Family History Reviewed.: No - brother has emphysema Medication/Allergy Home Medications: Apixaban [Eliquis] 5 mg PO Q12 09/14/17 Atorvastatin Calcium [Lipitor 20 mg Tablet] 20 mg PO QHS 09/14/17 Ergocalciferol (Vitamin D2) [Drisdol 50,000 unit (1.25MG) Capsule] 50,000 unit PO MO@1000 09/14/17 Esomeprazole Magnesium [Nexium] 40 mg PO BID 09/14/17 Fenofibrate 54mg Tab 54 mg PO DAILY 09/14/17 Ipratropium/Albuterol Sulfate [Combivent Respimat 4 gm Mdi] 1 puff IH HSP PRN Ipratropium/Albuterol Sulfate [Iprat-Albut 0.5-3(2.5) mg/3 ml] 3 ml NEB Q6HP PRN 09/14/17 Metoprolol Tartrate [Lopressor 50 mg Tablet] 25 mg PO Q12 09/14/17 Montelukast Sodium [Singulair 10 mg Tablet] 10 mg PO QPM 09/14/17 Spironolactone [Aldactone] 50 mg PO [id number] 09/14/17 Oxycodone HCl/Acetaminophen [Percocet 10-325 mg Tablet] 11/19/17 Allergies/Adverse Reactions: nickel Allergy (Severe, Verified 11/19/17 09:16) RASH adhesive tape [Adhesive Tape] Allergy (Mild, Verified 11/19/17 09:16) RASH/BLISTER roflumilast Adverse Reaction (Unknown, Verified 11/19/17 09:16) N/V, diarrhea Review of Systems Constitutional: PRESENT: as per HPI Eyes: PRESENT: other - no visual/hearing changes Cardiovascular: PRESENT: other - no chest pains/cough Gastrointestinal: PRESENT: abdominal pain, constipation, nausea, vomiting Genitourinary: PRESENT: other - no dysuria Neurological: PRESENT: other - no seizures Physical Exam Vital Signs: Temp Pulse Resp BP Pulse Ox 98.7 F 123 H 14 148/70 H 97 12/17/17 22:21 12/17/17 17:59 12/17/17 20:39 12/17/17 20:39 12/17/17 20:39 General appearance: PRESENT: mild distress Head exam: PRESENT: atraumatic Eye exam: PRESENT: conjunctiva pink Mouth exam: PRESENT: dry mucosa Neck exam: PRESENT: full ROM Respiratory exam: PRESENT: clear to auscultation keren Cardiovascular exam: PRESENT: RRR Pulses: PRESENT: normal radial pulses Vascular exam: PRESENT: normal capillary refill GI/Abdominal exam: PRESENT: soft, tenderness - diffuse but mostly at the lower abdomen with rebound Rectal exam: PRESENT: deferred Extremities exam: PRESENT: full ROM Musculoskeletal exam: PRESENT: ambulatory Neurological exam: PRESENT: alert, oriented to person, oriented to place, oriented to time, oriented to situation Psychiatric exam: PRESENT: appropriate affect Skin exam: PRESENT: normal color, warm Results Impressions: Abdomen/Pelvis CT 12/17/17 00:00 IMPRESSION: 1. Findings compatible with perforated diverticulitis of the proximal sigmoid colon with small amount of free intraperitoneal air as well as paracolic air fluid collection likely representing an abscess measuring 3.8 cm in greatest dimension. Urgent finding reported to [facility] Saba Rivera at 12/18/2017 12:54 AM CDT This exam was performed according to our departmental dose-optimization program, which includes automated exposure control, adjustment of the mA and/or kV according to patient size and/or use of iterative reconstruction technique. KUB X-Ray 12/17/17 18:47 IMPRESSION: NO RADIOGRAPHIC EVIDENCE FOR ACUTE ABDOMINAL DISEASE. No constipation Assessment & Plan - Diagnosis (1) Abdominal pain Qualifiers: Abdominal location: generalized Qualified Code(s): R10.84 - Generalized abdominal pain Is this a current diagnosis for this admission?: Yes (2) Hypokalemia Is this a current diagnosis for this admission?: Yes (3) Perforated bowel Is this a current diagnosis for this admission?: Yes (4) Acute on chronic respiratory failure Qualifiers: Respiratory failure complication: hypoxia Qualified Code(s): J96.21 - Acute and chronic respiratory failure with hypoxia Is this a current diagnosis for this admission?: Yes (5) Atrial fibrillation Qualifiers: Atrial fibrillation type: chronic Qualified Code(s): I48.2 - Chronic atrial fibrillation Is this a current diagnosis for this admission?: Yes (6) COPD (chronic obstructive pulmonary disease) Is this a current diagnosis for this admission?: Yes (7) Sigmoid diverticulitis Is this a current diagnosis for this admission?: Yes (8) Nicotine dependence Qualifiers: Nicotine product type: other Is this a current diagnosis for this admission?: Yes - Time Time Spent: 30 to 50 Minutes - Inpatient Certification Medical Necessity: Need For IV Fluids, Need for Pain Control, Need for IV Antibiotics, Need for Surgery - Plan Summary Plan Summary: Hydrate IV antibiotics Correct hypokalemia Possible exploratory laparotomy if clinically gets worse ? IR consult for drainage of small abscess
[2017-12-18] MEDS ORDERED: ONDANSETRON HCL INJ/PF 4 MG/2 ML SDV IV ONE (03:55)
--- NOTE | 2017-12-18 03:55 | RADIOLOGY REPORT (SQ) ---
EXAM DESCRIPTION: XR CHEST 1 VIEW COMPLETED DATE/TME: 12/18/2017 00:00 CLINICAL HISTORY: emphysema COMPARISON: 02/25/2017 FINDINGS: Single frontal view of the chest. The cardiomediastinal silhouette has normal size and contour. No consolidation, pneumothorax, or pleural effusion. Lateral left seventh rib fracture. No acute osseous abnormality. Leads overlie the chest. Upper abdominal soft tissues are unremarkable. IMPRESSION: 1. No acute pulmonary process identified.
[2017-12-18 03:59] LABS: INTERNATIONAL RATION (INR) 1.17; PROTHROMBIN TIME 15.5 SEC (11.4-15.4)
[2017-12-18 04:00] LABS: PARTIAL THROMBOPLASTIN TIME 42.5 SEC (23.5-35.8)
[2017-12-18] MEDS ORDERED: GLUCAGON,HUMAN RECOMB 1 MG INJ SUBCUT PRN (04:10)
[2017-12-18] MEDS ORDERED: DEXTROSE 40% GEL 15 GM TUBE PO PRN ×2 (04:10)
[2017-12-18] MEDS ORDERED: DEXTROSE 50%-WATER 25 GM/50 ML DISP.SYRIN IV PRN ×2 (04:10)
[2017-12-18] MEDS: HYDROMORPHONE HCL INJ/PF 2 MG/ML AMPULE IV PRN ×5 (05:15→20:12)
[2017-12-18] MEDS: DEXTROSE 5%-LACTATED RINGERS 1,000 ML IV PRN (05:16)
[2017-12-18] MEDS: METRONIDAZOLE 500 MG/NS RTU 500 MG/100 ML RTUPB IV SCH ×4 (05:17→23:23)
[2017-12-18 11:26] LABS: APPEARANCE,URINE CLOUDY; BILIRUBIN,URINE NEGATIVE (NEGATIVE); COLOR,URINE AMBER; GLUCOSE, URINE NEGATIVE (NEGATIVE); KETONES,URINE TRACE mg/dL (NEGATIVE); LEUKOCYTE ESTERASE,URINE MODERATE (NEGATIVE); NITRITE,URINE NEGATIVE (NEGATIVE); PROTEIN,URINE 30 mg/dL (NEGATIVE)
[2017-12-18 11:27] LABS: URINE SPECIFIC GRAVITY > 1.060
[2017-12-18] MEDS: CIPROFLOXACIN 400 MG/D5W RTU 400 MG/200 ML RTUPB IV SCH (17:29)
[2017-12-18] MEDS ORDERED: CIPROFLOXACIN 400 MG/D5W RTU 400 MG/200 ML RTUPB IV SCH (18:00)
--- NOTE | 2017-12-18 19:30 | EKG REPORT ---
SEVERITY:- BORDERLINE ECG - SINUS RHYTHM SHORT SD INTERVAL, ACCELERATED AV CONDUCTION MINIMAL ST DEPRESSION, INFERIOR LEADS : Confirmed by: Miko Crain 18-Dec-2017 19:30:05
[2017-12-18] MEDS: ONDANSETRON HCL INJ/PF 4 MG/2 ML SDV IV PRN (19:56)
[2017-12-19] MEDS: DEXTROSE 5%-LACTATED RINGERS 1,000 ML IV PRN ×2 (05:08→12:50)
[2017-12-19] MEDS: METRONIDAZOLE 500 MG/NS RTU 500 MG/100 ML RTUPB IV SCH ×2 (05:08→12:51)
[2017-12-19 05:38] LABS: ABSOLUTE EOSINOPHILS # (AUTO) 0.2 10^3/uL (0.0-0.6); ABSOLUTE LYMPHOCYTES (AUTO) 1.3 10^3/uL (0.5-4.7); BASOPHILS % (AUTO) 0.6 % (0-2); EOSINOPHILS % (AUTO) 2.9 % (0-6); HEMATOCRIT 32.1 % (36.0-47.0); LYMPHOCYTES % (AUTO) 17.4 % (13-45); MEAN CORPUSCULAR HEMOGLOBIN 30.5 pg (27.0-33.4); MEAN CORPUSCULAR HGB CONC 34.5 g/dL (32.0-36.0); MEAN CORPUSCULAR VOLUME 88 fl (80-97); PLATELET COUNT 254 10^3/uL (150-450); RED BLOOD COUNT 3.63 10^6/uL (3.72-5.28); RED CELL DISTRIBUTION WIDTH 15.1 % (11.5-14.0); SEGMENTED NEUTROPHILS % (AUTO) 66.1 % (42-78); TOTAL CELLS COUNTED % (AUTO) 100 %; WHITE BLOOD COUNT 7.5 10^3/uL (4.0-10.5)
[2017-12-19 05:40] LABS: INTERNATIONAL RATION (INR) 1.15; PROTHROMBIN TIME 15.3 SEC (11.4-15.4)
[2017-12-19 05:53] LABS: HEMOGLOBIN 11.1 g/dL (12.0-15.5)
[2017-12-19 05:58] LABS: ALANINE AMINOTRANSFERASE 22 U/L (9-52); ALBUMIN 2.3 g/dL (3.5-5.0); ALKALINE PHOSPHATASE 62 U/L (38-126); ANION GAP 5 (5-19); ASPARTATE AMINO TRANSFERASE 16 U/L (14-36); BILIRUBIN,DIRECT 0.9 mg/dL (0.0-0.4); BLOOD UREA NITROGEN 5 mg/dL (7-20); CALCIUM 8.3 mg/dL (8.4-10.2); CARBON DIOXIDE 30 mmol/L (22-30); CHLORIDE 100 mmol/L (98-107); GLUCOSE 116 mg/dL (75-110); TOTAL PROTEIN 4.9 g/dL (6.3-8.2)
[2017-12-19 06:06] LABS: POTASSIUM 2.9 mmol/L (3.6-5.0)
[2017-12-19] MEDS: CIPROFLOXACIN 400 MG/D5W RTU 400 MG/200 ML RTUPB IV SCH ×2 (06:18→23:08)
[2017-12-19] MEDS: POTASSIUM CHLORIDE 20 MEQ/50 ML RTU IV SCH ×2 (07:32→10:17)
[2017-12-19] MEDS: ONDANSETRON HCL INJ/PF 4 MG/2 ML SDV IV PRN ×3 (07:59→21:23)
[2017-12-19] MEDS: HYDROMORPHONE HCL INJ/PF 2 MG/ML AMPULE IV PRN ×2 (10:16→21:22)
[2017-12-19] MEDS ORDERED: POTASSI CL 20 MEQ/50 ML RIDER 20 MEQ/50 ML RTUPB IV ONE (12:30)
--- NOTE | 2017-12-19 18:42 | PDOC PROGRESS REPORT ---
Subjective Progress Note for:: 12/19/17 Subjective:: abdominal pains but improving Had diarrheic stools x2 She is thirsty and hungry Reason For Visit: PERFORATED SIGMOID DIVERTICULITIS, A FIB,EMPHYSEMA Physical Exam Vital Signs: Temp Pulse Resp BP Pulse Ox 98.3 F 66 14 112/59 L 100 12/19/17 16:00 12/19/17 16:00 12/19/17 16:00 12/19/17 16:00 12/19/17 16:00 Intake & Output 12/18/17 12/19/17 12/20/17 06:59 06:59 06:59 Intake Total 1000 1950 2430 Output Total 200 400 Balance 1000 1750 2030 Weight 72.1 kg 72.2 kg Exam: Abd is soft with tenderness RLQ. Rest of abd is soft and non tender. Results Laboratory Results: 12/19/17 05:00 12/19/17 05:00 12/19/17 12/19/17 05:00 05:00 WBC 7.5 RBC 3.63 L Hgb 11.1 L D Hct 32.1 L MCV 88 MCH 30.5 MCHC 34.5 RDW 15.1 H Plt Count 254 Seg Neutrophils % 66.1 Lymphocytes % 17.4 Monocytes % 13.0 Eosinophils % 2.9 Basophils % 0.6 Absolute Neutrophils 5.0 Absolute Lymphocytes 1.3 Absolute Monocytes 1.0 Absolute Eosinophils 0.2 Absolute Basophils 0.0 Sodium 135.0 L Potassium 2.9 L* Chloride 100 Carbon Dioxide 30 Anion Gap 5 BUN 5 L Creatinine 0.58 Est GFR ( Amer) > 60 Est GFR (Non-Af Amer) > 60 Glucose 116 H Calcium 8.3 L Total Bilirubin 1.0 AST 16 ALT 22 Alkaline Phosphatase 62 Total Protein 4.9 L Albumin 2.3 L Impressions: Abdomen/Pelvis CT 12/17/17 00:00 IMPRESSION: 1. Findings compatible with perforated diverticulitis of the proximal sigmoid colon with small amount of free intraperitoneal air as well as paracolic air fluid collection likely representing an abscess measuring 3.8 cm in greatest dimension. Urgent finding reported to [facility] Saba Rivera at 12/18/2017 12:54 AM CDT This exam was performed according to our departmental dose-optimization program, which includes automated exposure control, adjustment of the mA and/or kV according to patient size and/or use of iterative reconstruction technique. KUB X-Ray 12/17/17 18:47 IMPRESSION: NO RADIOGRAPHIC EVIDENCE FOR ACUTE ABDOMINAL DISEASE. No constipation Chest X-Ray 12/18/17 00:00 IMPRESSION: 1. No acute pulmonary process identified. Assessment & Plan - Diagnosis (1) Abdominal pain Qualifiers: Abdominal location: generalized Qualified Code(s): R10.84 - Generalized abdominal pain Is this a current diagnosis for this admission?: Yes (2) Hypokalemia Is this a current diagnosis for this admission?: Yes (3) Perforated bowel Is this a current diagnosis for this admission?: Yes (4) Acute on chronic respiratory failure Qualifiers: Respiratory failure complication: hypoxia Qualified Code(s): J96.21 - Acute and chronic respiratory failure with hypoxia Is this a current diagnosis for this admission?: Yes (5) Atrial fibrillation Qualifiers: Atrial fibrillation type: chronic Qualified Code(s): I48.2 - Chronic atrial fibrillation Is this a current diagnosis for this admission?: Yes (6) COPD (chronic obstructive pulmonary disease) Is this a current diagnosis for this admission?: Yes (7) Sigmoid diverticulitis Is this a current diagnosis for this admission?: Yes (8) Nicotine dependence Qualifiers: Nicotine product type: other Is this a current diagnosis for this admission?: Yes - Time Time Spent with patient: 15-24 minutes - Inpatient Certification Medical Necessity: Need For IV Fluids, Need for Pain Control, Need for IV Antibiotics - Plan Summary Plan Summary: Continue IV antibiotics and hydration Continue NPO today Correct low Potassium
[2017-12-19] MEDS ORDERED: METRONIDAZOLE 500 MG/NS RTU 500 MG/100 ML RTUPB IV SCH (21:00)
--- NOTE | 2017-12-19 21:47 | RADIOLOGY REPORT (SQ) ---
EXAM DESCRIPTION: XR CHEST 1 VIEW COMPLETED DATE/TME: 12/19/2017 00:00 CLINICAL HISTORY: 67 years, Female, [place] COMPARISON: 12/18/2017 NUMBER OF VIEWS: One TECHNIQUE: AP LIMITATIONS: None. FINDINGS: Interval placement of a right internal jugular vein central venous line with distal tip in the region of the distal SVC. No pneumothorax. Cardiomediastinal silhouette is within normal limits. No lung consolidate. No pleural effusion. Again noted, old fracture at the lateral left 7th rib and lateral right 6th rib. IMPRESSION: Interval placement of a right IJ central venous line as above. No pneumothorax. 2010 [email or web address]- All Rights Reserved
[2017-12-19] MEDS ORDERED: NORMAL SALINE INJ/PF 0.9% 10 ML SDV IV PRN (23:24)
--- NOTE | 2017-12-20 00:46 | OPERATIVE REPORT E ---
Operative Report NAME: CHAKA PATEL : 1950 AGE: 67Y DATE OF SURGERY: 12/19/2017 ROOM: 435 PREOPERATIVE DIAGNOSIS: Poor peripheral veins for IV access and needed IV antibiotics. POSTOPERATIVE DIAGNOSIS: Poor peripheral veins for IV access and needed IV antibiotics. OPERATION: Insertion of right internal jugular vein under local anesthesia. SURGEON: LOUIE JEONG M.D. ANESTHESIA: Local. DESCRIPTION OF PROCEDURE: The patient was placed in Trendelenburg positive and the right neck prepped and draped in the usual sterile fashion. Local anesthesia infiltrated along the path of the internal jugular vein as seen on ultrasound. The right internal jugular was then punctured and guidewire passed through the needle towards the area of the superior vena cava. Puncture site was then dilated. A triple-lumen catheter was then insert with a guidewire and a triple-lumen catheter was inserted through the guidewire to a distance of about 16 cm. All the 3 ports aspirated blood easily and infused saline easily. The catheter was then anchored to the skin with 3-0 silk. A Biopatch placed over the insertion site. Transparent dressing was then placed over the Biopatch and catheter. A chest x-ray will be obtained for placement. The patient tolerated the procedure well. DICTATING PHYSICIAN: LOUIE JEONG M.D. [id number] Y#: [id number] ID: [id number] JOB#: [id number] ACCT: [id number] cc:LOUIE JEONG M.D. >
[2017-12-20] MEDS: HYDROMORPHONE HCL INJ/PF 2 MG/ML AMPULE IV PRN ×3 (02:13→13:44)
[2017-12-20] MEDS: METRONIDAZOLE 500 MG/NS RTU 500 MG/100 ML RTUPB IV SCH ×3 (06:55→18:15)
[2017-12-20 08:02] LABS: ABSOLUTE EOSINOPHILS # (AUTO) 0.2 10^3/uL (0.0-0.6); ABSOLUTE LYMPHOCYTES (AUTO) 1.3 10^3/uL (0.5-4.7); ABSOLUTE MONOCYTES (AUTO) 0.9 10^3/uL (0.1-1.4); ABSOLUTE NEUT (AUTO) 4.6 10^3/uL (1.7-8.2); BASOPHILS % (AUTO) 0.3 % (0-2); EOSINOPHILS % (AUTO) 2.3 % (0-6); HEMATOCRIT 28.4 % (36.0-47.0); HEMOGLOBIN 9.6 g/dL (12.0-15.5); LYMPHOCYTES % (AUTO) 19.2 % (13-45); MEAN CORPUSCULAR HEMOGLOBIN 30.1 pg (27.0-33.4); MEAN CORPUSCULAR HGB CONC 33.9 g/dL (32.0-36.0); MEAN CORPUSCULAR VOLUME 89 fl (80-97); MONOCYTES % (AUTO) 12.6 % (3-13); PLATELET COUNT 233 10^3/uL (150-450); RED BLOOD COUNT 3.19 10^6/uL (3.72-5.28); RED CELL DISTRIBUTION WIDTH 15.2 % (11.5-14.0); SEGMENTED NEUTROPHILS % (AUTO) 65.6 % (42-78); TOTAL CELLS COUNTED % (AUTO) 100 %
[2017-12-20 08:24] LABS: GLUCOSE 93 mg/dL (75-110)
[2017-12-20 08:27] LABS: BLOOD UREA NITROGEN < 2 mg/dL (7-20)
[2017-12-20 08:29] LABS: ANION GAP 5 (5-19); CARBON DIOXIDE 31 mmol/L (22-30); CHLORIDE 101 mmol/L (98-107); SODIUM 137.3 mmol/L (137-145)
[2017-12-20 08:32] LABS: POTASSIUM 2.9 mmol/L (3.6-5.0)
[2017-12-20] MEDS: ONDANSETRON HCL INJ/PF 4 MG/2 ML SDV IV PRN ×2 (09:38→20:40)
[2017-12-20] MEDS: CIPROFLOXACIN 400 MG/D5W RTU 400 MG/200 ML RTUPB IV SCH ×2 (09:42→21:46)
[2017-12-20] MEDS: POTASSIUM CHLORIDE 20 MEQ/50 ML RTU IV SCH ×4 (10:47→20:29)
[2017-12-20] MEDS: DEXTROSE 5%-LACTATED RINGERS 1,000 ML IV PRN ×2 (10:48→20:35)
--- NOTE | 2017-12-20 12:24 | Progress Note ---
Provider Note Provider Note: patient's daughter had contacted the office to let me know that her mother had been admitted. patient had a colonoscopy earlier last month she did have a diverticulosis without any diverticulitis at that time presented with LLQ abdominal pain this past Wednesday CT scan showing likely diverticulitis admitted to surgery patient stable and on antibiotics no decision yet on whether she is going to have surgery she likely has had multiple episodes of diverticulitis in the past It would be prudent at some point to consider left segmental resection. this was discussed with the patient while her is present.
[2017-12-20] MEDS ORDERED: KETOROLAC TROMETHAMINE INJ/PF 30 MG/1 ML SDV IV PRN (15:53)
--- NOTE | 2017-12-20 15:57 | PDOC PROGRESS REPORT ---
Subjective Progress Note for:: 12/20/17 Reason For Visit: PERFORATED SIGMOID DIVERTICULITIS, A FIB,EMPHYSEMA Patient saw having pain; had an episode of vomiting; no active stool. On narcotics IV Dilaudid for pain Physical Exam Vital Signs: Temp Pulse Resp BP Pulse Ox 98.4 F 73 12 112/42 L 100 12/20/17 11:20 12/20/17 11:20 12/20/17 11:20 12/20/17 11:20 12/20/17 11:20 Intake & Output 12/19/17 12/20/17 12/21/17 06:59 06:59 06:59 Intake Total 1950 2730 481 Output Total 200 650 Balance 1750 2080 481 Weight 72.2 kg 75.4 kg General appearance: PRESENT: mild distress GI/Abdominal exam: PRESENT: other - Abdomen soft hypoactive bowel sounds diffusely tender but no rigidity Results Laboratory Results: 12/20/17 07:34 12/20/17 07:34 12/20/17 12/20/17 12/20/17 07:34 07:34 07:34 WBC 7.0 RBC 3.19 L Hgb 9.6 L Hct 28.4 L MCV 89 MCH 30.1 MCHC 33.9 RDW 15.2 H Plt Count 233 Seg Neutrophils % 65.6 Lymphocytes % 19.2 Monocytes % 12.6 Eosinophils % 2.3 Basophils % 0.3 Absolute Neutrophils 4.6 Absolute Lymphocytes 1.3 Absolute Monocytes 0.9 Absolute Eosinophils 0.2 Absolute Basophils 0.0 Sodium 137.3 Potassium 2.9 L* Chloride 101 Carbon Dioxide 31 H Anion Gap 5 BUN < 2 L Creatinine 0.52 Est GFR ( Amer) > 60 Est GFR (Non-Af Amer) > 60 Glucose 93 Calcium 8.0 L Magnesium 1.5 L Impressions: Abdomen/Pelvis CT 12/17/17 00:00 IMPRESSION: 1. Findings compatible with perforated diverticulitis of the proximal sigmoid colon with small amount of free intraperitoneal air as well as paracolic air fluid collection likely representing an abscess measuring 3.8 cm in greatest dimension. Urgent finding reported to [facility] Saba Rivera at 12/18/2017 12:54 AM CDT This exam was performed according to our departmental dose-optimization program, which includes automated exposure control, adjustment of the mA and/or kV according to patient size and/or use of iterative reconstruction technique. KUB X-Ray 12/17/17 18:47 IMPRESSION: NO RADIOGRAPHIC EVIDENCE FOR ACUTE ABDOMINAL DISEASE. No constipation Chest X-Ray 12/19/17 00:00 IMPRESSION: Interval placement of a right IJ central venous line as above. No pneumothorax. 2010 [employer]- All Rights Reserved Assessment & Plan - Diagnosis (1) Perforated bowel Is this a current diagnosis for this admission?: Yes Plan: Impression: Localized perforation of sigmoid colon consistent with acute diverticulitis, Hinchey classification 1, no fever, normalization of white count on IV Cipro and Flagyl. Recommendations: 1. Will discontinue narcotics; substitute IV acetaminophen and IV Toradol 2. Start clear liquid sips 3. Reviewed imaging studies. If patient has had multiple previous diverticular episodes, she may be a candidate for interval sigmoid colectomy.
[2017-12-20] MEDS: MAGNESIUM SULFATE 1 GM/D5W 100 ML IV SCH ×2 (16:25→17:31)
[2017-12-20] MEDS: ACETAMINOPHEN INJ/PF 1000 MG/100 ML SDV IV SCH (17:31)
[2017-12-20] MEDS ORDERED: POTASSI CL 20 MEQ/50 ML RIDER 20 MEQ/50 ML RTUPB IV ONE (20:17)
[2017-12-21] MEDS: ACETAMINOPHEN INJ/PF 1000 MG/100 ML SDV IV SCH ×5 (01:01→23:51)
[2017-12-21] MEDS: METRONIDAZOLE 500 MG/NS RTU 500 MG/100 ML RTUPB IV SCH ×4 (01:08→17:16)
[2017-12-21 02:25] LABS: ANION GAP 5 (5-19); CALCIUM 8.6 mg/dL (8.4-10.2); CARBON DIOXIDE 30 mmol/L (22-30); CHLORIDE 103 mmol/L (98-107); GLUCOSE 122 mg/dL (75-110); POTASSIUM 3.7 mmol/L (3.6-5.0); SODIUM 137.7 mmol/L (137-145)
[2017-12-21 02:33] LABS: BLOOD UREA NITROGEN < 2 mg/dL (7-20)
[2017-12-21] MEDS: ONDANSETRON HCL INJ/PF 4 MG/2 ML SDV IV PRN ×2 (02:48→13:28)
[2017-12-21] MEDS ORDERED: MORPHINE SULFATE 10 MG/ML INJ IV ONE (05:00)
[2017-12-21] MEDS ORDERED: BISACODYL 5 MG TABEC PO ONE ×3 (08:28→20:00)
[2017-12-21] MEDS ORDERED: POLYETHYLENE GLYCOL 3350 POWDER 17 GM/1 PACKET PO ONE ×2 (09:15→11:30)
[2017-12-21] MEDS: DEXTROSE 5%-LACTATED RINGERS 1,000 ML IV PRN ×2 (10:08→21:41)
[2017-12-21] MEDS: PROMETHAZINE HCL INJ 25 MG/1 ML VIAL IV PRN ×2 (10:09→16:43)
[2017-12-21] MEDS: OXYCODONE-ACETAMINOPHEN 5-325 MG TABLET PO PRN (11:09)
[2017-12-21] MEDS: OXYCODONE HCL IR 5 MG TABLET PO PRN ×2 (11:10→19:47)
[2017-12-21] MEDS: CIPROFLOXACIN 400 MG/D5W RTU 400 MG/200 ML RTUPB IV SCH ×2 (11:11→21:41)
[2017-12-21] MEDS: METOPROLOL TARTRATE 25 MG TABLET PO SCH ×2 (11:18→21:55)
--- NOTE | 2017-12-21 13:25 | PDOC PROGRESS REPORT ---
Subjective Progress Note for:: 12/21/17 Subjective:: Still c/o RLQ pains with nausea Reason For Visit: PERFORATED SIGMOID DIVERTICULITIS, A FIB,EMPHYSEMA Physical Exam Vital Signs: Temp Pulse Resp BP Pulse Ox 98.0 F 71 17 123/70 100 12/21/17 11:02 12/21/17 11:02 12/21/17 11:02 12/21/17 11:02 12/21/17 11:02 Intake & Output 12/20/17 12/21/17 12/22/17 06:59 06:59 06:59 Intake Total 2730 3761 100 Output Total 650 Balance 2080 3761 100 Weight 75.4 kg 74.6 kg Exam: Abd is soft but slide forming machine tender at the RLQ Results Laboratory Results: 12/20/17 07:34 12/20/17 23:55 12/20/17 23:55 Sodium 137.7 Potassium 3.7 Chloride 103 Carbon Dioxide 30 Anion Gap 5 BUN < 2 L Creatinine 0.61 Est GFR ( Amer) > 60 Est GFR (Non-Af Amer) > 60 Glucose 122 H Calcium 8.6 Magnesium 2.4 H Impressions: Abdomen/Pelvis CT 12/17/17 00:00 IMPRESSION: 1. Findings compatible with perforated diverticulitis of the proximal sigmoid colon with small amount of free intraperitoneal air as well as paracolic air fluid collection likely representing an abscess measuring 3.8 cm in greatest dimension. Urgent finding reported to [facility] Saba Rivera at 12/18/2017 12:54 AM CDT This exam was performed according to our departmental dose-optimization program, which includes automated exposure control, adjustment of the mA and/or kV according to patient size and/or use of iterative reconstruction technique. KUB X-Ray 12/17/17 18:47 IMPRESSION: NO RADIOGRAPHIC EVIDENCE FOR ACUTE ABDOMINAL DISEASE. No constipation Chest X-Ray 12/19/17 00:00 IMPRESSION: Interval placement of a right IJ central venous line as above. No pneumothorax. 2010 [employer]- All Rights Reserved Assessment & Plan - Diagnosis (1) Abdominal pain Qualifiers: Abdominal location: generalized Qualified Code(s): R10.84 - Generalized abdominal pain Is this a current diagnosis for this admission?: Yes (2) Hypokalemia Is this a current diagnosis for this admission?: Yes (3) Perforated bowel Is this a current diagnosis for this admission?: Yes (4) Acute on chronic respiratory failure Qualifiers: Respiratory failure complication: hypoxia Qualified Code(s): J96.21 - Acute and chronic respiratory failure with hypoxia Is this a current diagnosis for this admission?: Yes (5) Atrial fibrillation Qualifiers: Atrial fibrillation type: chronic Qualified Code(s): I48.2 - Chronic atrial fibrillation Is this a current diagnosis for this admission?: Yes (6) COPD (chronic obstructive pulmonary disease) Is this a current diagnosis for this admission?: Yes (7) Sigmoid diverticulitis Is this a current diagnosis for this admission?: Yes (8) Nicotine dependence Qualifiers: Nicotine product type: other Is this a current diagnosis for this admission?: Yes - Time Time Spent with patient: 15-24 minutes - Inpatient Certification Medical Necessity: Need For IV Fluids, Need for Pain Control, Need for IV Antibiotics, Need for Surgery - Plan Summary Plan Summary: Patient with no definite significant improvement with the abdominal pains, She is requiring Dilaudid. The plan is to explore her tomorrow and try bowel prep today. Dr Ralph will place bowel prep orders and will be the operating surgeon. This was explained to the patient and she understands.
[2017-12-22] MEDS: METRONIDAZOLE 500 MG/NS RTU 500 MG/100 ML RTUPB IV SCH ×4 (01:02→17:49)
[2017-12-22] MEDS: OXYCODONE-ACETAMINOPHEN 5-325 MG TABLET PO PRN ×2 (01:32→07:46)
[2017-12-22] MEDS: ACETAMINOPHEN INJ/PF 1000 MG/100 ML SDV IV SCH ×3 (06:35→17:20)
[2017-12-22] MEDS: PROMETHAZINE HCL INJ 25 MG/1 ML VIAL IV PRN (07:32)
[2017-12-22] MEDS: ONDANSETRON HCL INJ/PF 4 MG/2 ML SDV IV PRN ×2 (08:32→16:35)
--- NOTE | 2017-12-22 09:03 | PDOC PROGRESS REPORT ---
Subjective Progress Note for:: 12/22/17 Subjective:: This is a 67-year-old female with complicated diverticulitis. The patient has been on intravenous antibiotics for several days now. Her pain is still severe in her left lower quadrant. She denies further nausea or vomiting. She denies melena, hematochezia, hematemesis. No chest pain, shortness of breath, dizziness, orthostasis, blurry vision, fevers, chills. Reason For Visit: PERFORATED SIGMOID DIVERTICULITIS, A FIB,EMPHYSEMA Physical Exam Vital Signs: Temp Pulse Resp BP Pulse Ox 98.2 F 79 18 135/66 H 100 12/22/17 08:03 12/22/17 08:03 12/22/17 08:03 12/22/17 08:03 12/22/17 08:03 Intake & Output 12/21/17 12/22/17 12/23/17 06:59 06:59 06:59 Intake Total 3761 2250 Balance 3761 2250 Weight 74.6 kg 78.5 kg General appearance: PRESENT: no acute distress Head exam: PRESENT: atraumatic, normocephalic Eye exam: PRESENT: EOMI, PERRLA. ABSENT: scleral icterus Mouth exam: PRESENT: moist, neck supple Teeth exam: PRESENT: poor dentation Neck exam: ABSENT: meningismus, tenderness, thyromegaly, tracheal deviation Respiratory exam: PRESENT: unlabored. ABSENT: accessory muscle use, chest wall tenderness, tachypnea, wheezes Cardiovascular exam: PRESENT: RRR Pulses: PRESENT: normal radial pulses GI/Abdominal exam: PRESENT: distended - Mild, guarding - Left lower quadrant, soft, tenderness - Left lower quadrant Extremities exam: ABSENT: clubbing Neurological exam: PRESENT: alert, awake, oriented to person, oriented to place , oriented to time, oriented to situation, CN II-XII grossly intact. ABSENT: motor sensory deficit Psychiatric exam: ABSENT: agitated, anxious, depressed Focused psych exam: ABSENT: delusional Skin exam: ABSENT: cyanosis, erythema, jaundice, pallor Results Laboratory Results: 12/20/17 07:34 12/20/17 23:55 12/21/17 21:33 Blood Type O POSITIVE Antibody Screen NEGATIVE Impressions: Abdomen/Pelvis CT 12/17/17 00:00 IMPRESSION: 1. Findings compatible with perforated diverticulitis of the proximal sigmoid colon with small amount of free intraperitoneal air as well as paracolic air fluid collection likely representing an abscess measuring 3.8 cm in greatest dimension. Urgent finding reported to [facility] at 12/18/2017 12:54 AM CDT This exam was performed according to our departmental dose-optimization program, which includes automated exposure control, adjustment of the mA and/or kV according to patient size and/or use of iterative reconstruction technique. KUB X-Ray 12/17/17 18:47 IMPRESSION: NO RADIOGRAPHIC EVIDENCE FOR ACUTE ABDOMINAL DISEASE. No constipation Chest X-Ray 12/19/17 00:00 IMPRESSION: Interval placement of a right IJ central venous line as above. No pneumothorax. 2010 [employer]- All Rights Reserved Assessment & Plan - Diagnosis (1) Diverticulitis of large intestine with complication Is this a current diagnosis for this admission?: Yes - Plan Summary Plan Summary: This is a 67-year-old female with complicated diverticulitis. She has a mesenteric abscess. She has failed to improve significantly with intravenous antibiotics. I have had a lengthy conversation with the patient and her regarding further treatments. I plan for sigmoid colon resection today with primary anastomosis. This was discussed at length with the patient, and she is in agreement with the treatment plan. Risks/benefits discussed, informed consent obtained, and all questions answered.
[2017-12-22] MEDS: METOPROLOL TARTRATE 25 MG TABLET PO SCH ×2 (09:11→22:18)
[2017-12-22] MEDS: CIPROFLOXACIN 400 MG/D5W RTU 400 MG/200 ML RTUPB IV SCH ×2 (09:11→22:18)
[2017-12-22] MEDS: DEXTROSE 5%-LACTATED RINGERS 1,000 ML IV PRN (09:16)
[2017-12-22] MEDS ORDERED: KETOROLAC TROMETHAMINE INJ/PF 30 MG/1 ML SDV IV PRN (09:45)
[2017-12-22] MEDS ORDERED: NEOSTIGMINE METHYLSULFATE 10 MG/10 ML VIAL ONE (10:16)
[2017-12-22] MEDS ORDERED: ONDANSETRON HCL INJ/PF 4 MG/2 ML SDV ONE (10:16)
[2017-12-22] MEDS ORDERED: ROCURONIUM BROMIDE INJ 50 MG/5 ML VIAL IV ONE (10:16)
[2017-12-22] MEDS ORDERED: GLYCOPYRROLATE 1 MG/5 ML SYRINGE ONE (10:16)
[2017-12-22] MEDS ORDERED: DEXAMETHASONE SOD PHOSPHATE INJ 4 MG/1 ML VIAL ONE (10:16)
[2017-12-22] MEDS ORDERED: SUCCINYLCHOLINE CHLORIDE INJ 200 MG/10 ML VIAL ONE (10:16)
[2017-12-22] MEDS ORDERED: PHENYLEPHRINE HCL INJ/PF 10 MG/1 ML SDV ONE (10:16)
[2017-12-22] MEDS ORDERED: BUPIVACAINE HCL 0.5 % INJ/PF 30 ML SDV ONE (11:01)
[2017-12-22] MEDS ORDERED: FENTANYL CITRATE INJ/PF 100 MCG/2 ML AMPUL ONE (11:06)
[2017-12-22] MEDS ORDERED: MIDAZOLAM 2 MG/2 ML INJ ONE (11:07)
[2017-12-22] MEDS ORDERED: PROPOFOL INJ 200 MG/20 ML VIAL IV ONE (11:07)
[2017-12-22] MEDS ORDERED: MORPHINE SULFATE 10 MG/ML INJ ONE ×2 (11:07→15:07)
[2017-12-22] MEDS ORDERED: ACETAMINOPHEN 1,000 MG/100 ML RTUPB IV ONE (11:07)
[2017-12-22] MEDS ORDERED: FENTANYL CITRATE INJ/PF 100 MCG/2 ML AMPUL IV PRN ×3 (12:39)
[2017-12-22] MEDS ORDERED: MORPHINE SULFATE 10 MG/ML INJ IV PRN (12:39)
[2017-12-22] MEDS ORDERED: DIPHENHYDRAMINE HCL 50 MG/ML VIAL IV PRN (12:39)
[2017-12-22] MEDS ORDERED: MEPERIDINE HCL/PF INJ 25 MG/1 ML DISP.SYRIN IV PRN (12:39)
[2017-12-22] MEDS ORDERED: PROMETHAZINE HCL INJ 25 MG/1 ML VIAL IV PRN ×2 (12:39)
[2017-12-22] MEDS: FENTANYL CITRATE INJ/PF 100 MCG/2 ML AMPUL ONE ×2 (14:50→14:58)
[2017-12-22] MEDS ORDERED: HYDROMORPHONE HCL INJ/PF 2 MG/ML AMPULE IV PRN (15:05)
[2017-12-22] MEDS ORDERED: KETOROLAC TROMETHAMINE INJ/PF 30 MG/1 ML SDV IV ONE (17:00)
--- NOTE | 2017-12-22 17:17 | Operative Report ---
Nonrecallable Operative Report DATE OF SURGERY: 12/22/17 PREOPERATIVE DIAGNOSIS: complicated diverticulitis POSTOPERATIVE DIAGNOSIS: complicated diverticulitis with a small, contained mesenteric abscess OPERATION: 1. sigmoid colectomy with hand-sewn colorectal anastomosis. 2. flexible sigmoidoscopy SURGEON: SAQIB CARPIO ANESTHESIA: GA TISSUE REMOVED OR ALTERED: sigmoid colon COMPLICATIONS: none apparent ESTIMATED BLOOD LOSS: 200cc PROCEDURE: Drains: 15 frisian round shlomo drain. Procedure in-detail: After informed consent was obtained, the patient was brought to the operating room and laid in the supine position. The area of the abdomen was prepped and draped in normal sterile fashion. A 10 blade scalpel was used to create an incision from the umbilicus to the pubic symphysis. This was deepened using sharp dissection. The linea alba fascia was incised sharply , the abdomen was entered sharply. The Omni retractor was used to optimize visualization. There was a thickened area of the sigmoid colon approximately 4- 5 inches in total length. There was a small mesenteric abscess inferior to the thickened sigmoid colon. The sigmoid colon was freed using blunt dissection. It was retracted anteriorly. The sigmoid colon was divided proximally and distally using the YASSINE-75 stapling device in an area that was free from active inflammation. Once this was completed the sigmoid colon was removed from its mesentery using the LigaSure impact device, immediately adjacent to the colon. Once the colon was freed, the diseased portion was removed from the patient and sent to pathology. The proximal rectum and distal descending colon were then brought in apposition to one another very easily. The amount of purulence and inflammation was minimal. It was felt prudent to create a handsewn colorectal anastomosis. The staple line was removed using sharp dissection. The ends of the colon and rectum were spatulated somewhat. The inner layer was sutured using 3-0 PDS in simple running fashion. 3-0 Vicryl was used in Lembert fashion as an outer layer. Attention was then turned to the flexible sigmoidoscopy and testing of the anastomosis. Flexible sigmoidoscope was inserted into the rectum and up to the area of the anastomosis. The anastomosis was visualized and appeared to be completely patent. Air was insufflated into the rectum until air was felt to pass out of the anus (around the scope). No air was found to escape from the anastomosis, intra-abdominally. Once the anastomosis was confirmed to be air and watertight , attention was turned to irrigation of the abdomen and closure. A 15 Salvadorean round Shlomo drain was placed into the pelvis, through a separate stab incision. Drain was sutured to the skin using 2-0 nylon suture. The abdomen was copiously irrigated and suctioned, until the effluent was clear. The midline fascia was closed using #1 double-stranded, looped PDS suture in simple running fashion. The overlying skin was closed using skin rianna. Dressing was placed, and the procedure was concluded. All sponge, instrument, and needle counts were correct x2. Condition: Fair.
[2017-12-22] MEDS: OXYCODONE HCL IR 5 MG TABLET PO PRN (18:26)
[2017-12-22] MEDS: KETOROLAC TROMETHAMINE INJ/PF 30 MG/1 ML SDV IV SCH (22:19)
[2017-12-23] MEDS: ONDANSETRON HCL INJ/PF 4 MG/2 ML SDV IV PRN ×4 (00:04→21:35)
[2017-12-23] MEDS: METRONIDAZOLE 500 MG/NS RTU 500 MG/100 ML RTUPB IV SCH ×4 (00:04→18:03)
[2017-12-23] MEDS: ACETAMINOPHEN INJ/PF 1000 MG/100 ML SDV IV SCH ×3 (01:01→12:17)
[2017-12-23] MEDS: RINGERS SOLUTION,LACTATED 1,000 ML IV PRN ×2 (01:20→18:07)
[2017-12-23 06:14] LABS: ABSOLUTE LYMPHOCYTES (AUTO) 0.9 10^3/uL (0.5-4.7); ABSOLUTE MONOCYTES (AUTO) 1.1 10^3/uL (0.1-1.4); ABSOLUTE NEUT (AUTO) 14.3 10^3/uL (1.7-8.2); BASOPHILS % (AUTO) 0.2 % (0-2); HEMOGLOBIN 9.2 g/dL (12.0-15.5); LYMPHOCYTES % (AUTO) 5.5 % (13-45); MEAN CORPUSCULAR HEMOGLOBIN 29.4 pg (27.0-33.4); MEAN CORPUSCULAR HGB CONC 32.7 g/dL (32.0-36.0); MEAN CORPUSCULAR VOLUME 90 fl (80-97); MONOCYTES % (AUTO) 6.9 % (3-13); PLATELET COUNT 276 10^3/uL (150-450); RED BLOOD COUNT 3.12 10^6/uL (3.72-5.28); RED CELL DISTRIBUTION WIDTH 15.3 % (11.5-14.0); SEGMENTED NEUTROPHILS % (AUTO) 87.4 % (42-78); TOTAL CELLS COUNTED % (AUTO) 100 %
[2017-12-23] MEDS: KETOROLAC TROMETHAMINE INJ/PF 30 MG/1 ML SDV IV SCH ×3 (06:23→21:35)
[2017-12-23 06:30] LABS: ALANINE AMINOTRANSFERASE 27 U/L (9-52); ALBUMIN 1.7 g/dL (3.5-5.0); ALKALINE PHOSPHATASE 37 U/L (38-126); ASPARTATE AMINO TRANSFERASE 6 U/L (14-36); BILIRUBIN,DIRECT 0.3 mg/dL (0.0-0.4); BILIRUBIN,TOTAL 0.4 mg/dL (0.2-1.3); CALCIUM 7.5 mg/dL (8.4-10.2); CARBON DIOXIDE 27 mmol/L (22-30); GLUCOSE 99 mg/dL (75-110); POTASSIUM 4.2 mmol/L (3.6-5.0); TOTAL PROTEIN 3.7 g/dL (6.3-8.2)
[2017-12-23 06:32] LABS: WHITE BLOOD COUNT 16.4 10^3/uL (4.0-10.5)
[2017-12-23 06:33] LABS: BLOOD UREA NITROGEN < 2 mg/dL (7-20)
[2017-12-23 06:35] LABS: CHLORIDE 104 mmol/L (98-107); SODIUM 134.7 mmol/L (137-145)
[2017-12-23 06:36] LABS: ANION GAP 3 (5-19)
--- NOTE | 2017-12-23 07:56 | PDOC PROGRESS REPORT ---
Subjective Progress Note for:: 12/23/17 Subjective:: Incisional pains Reason For Visit: PERFORATED SIGMOID DIVERTICULITIS, A FIB,EMPHYSEMA Physical Exam Vital Signs: Temp Pulse Resp BP Pulse Ox 97.4 F 65 16 144/64 H 98 12/22/17 23:19 12/23/17 02:00 12/22/17 23:19 12/22/17 23:19 12/23/17 00:09 Intake & Output 12/22/17 12/23/17 12/24/17 06:59 06:59 06:59 Intake Total 3250 2700 Output Total 1915 Balance 3250 785 Weight 78.5 kg 82 kg Exam: abd is soft non distended Dressings dry Results Laboratory Results: 12/23/17 06:00 12/23/17 06:00 12/23/17 12/23/17 06:00 06:00 WBC 16.4 H D RBC 3.12 L Hgb 9.2 L Hct 28.0 L MCV 90 MCH 29.4 MCHC 32.7 RDW 15.3 H Plt Count 276 Seg Neutrophils % 87.4 H Lymphocytes % 5.5 L Monocytes % 6.9 Eosinophils % 0.0 Basophils % 0.2 Absolute Neutrophils 14.3 H Absolute Lymphocytes 0.9 Absolute Monocytes 1.1 Absolute Eosinophils 0.0 Absolute Basophils 0.0 Sodium 134.7 L Potassium 4.2 Chloride 104 Carbon Dioxide 27 Anion Gap 3 L BUN < 2 L Creatinine 0.63 Est GFR ( Amer) > 60 Est GFR (Non-Af Amer) > 60 Glucose 99 Calcium 7.5 L Total Bilirubin 0.4 AST 6 L ALT 27 Alkaline Phosphatase 37 L Total Protein 3.7 L Albumin 1.7 L 12/18/17 03:45 Blood Blood Culture - Final NO GROWTH IN 5 DAYS Impressions: Abdomen/Pelvis CT 12/17/17 00:00 IMPRESSION: 1. Findings compatible with perforated diverticulitis of the proximal sigmoid colon with small amount of free intraperitoneal air as well as paracolic air fluid collection likely representing an abscess measuring 3.8 cm in greatest dimension. Urgent finding reported to [facility] Saba Rivera at 12/18/2017 12:54 AM CDT This exam was performed according to our departmental dose-optimization program, which includes automated exposure control, adjustment of the mA and/or kV according to patient size and/or use of iterative reconstruction technique. KUB X-Ray 12/17/17 18:47 IMPRESSION: NO RADIOGRAPHIC EVIDENCE FOR ACUTE ABDOMINAL DISEASE. No constipation Chest X-Ray 12/19/17 00:00 IMPRESSION: Interval placement of a right IJ central venous line as above. No pneumothorax. 2010 [employer]- All Rights Reserved Assessment & Plan - Diagnosis (1) Abdominal pain Qualifiers: Abdominal location: generalized Qualified Code(s): R10.84 - Generalized abdominal pain Is this a current diagnosis for this admission?: Yes (2) Hypokalemia Is this a current diagnosis for this admission?: Yes (3) Perforated bowel Is this a current diagnosis for this admission?: Yes (4) Acute on chronic respiratory failure Qualifiers: Respiratory failure complication: hypoxia Qualified Code(s): J96.21 - Acute and chronic respiratory failure with hypoxia Is this a current diagnosis for this admission?: Yes (5) Atrial fibrillation Qualifiers: Atrial fibrillation type: chronic Qualified Code(s): I48.2 - Chronic atrial fibrillation Is this a current diagnosis for this admission?: Yes (6) COPD (chronic obstructive pulmonary disease) Is this a current diagnosis for this admission?: Yes (7) Sigmoid diverticulitis Is this a current diagnosis for this admission?: Yes (8) Nicotine dependence Qualifiers: Nicotine product type: other Is this a current diagnosis for this admission?: Yes - Time Time Spent with patient: 15-24 minutes - Inpatient Certification Medical Necessity: Need For IV Fluids, Need for Pain Control, Need for IV Antibiotics - Plan Summary Plan Summary: POD #1 post sigmoid resection with primary anastomosis for acute diverticulitis with a small abscess Keep NPO today Continue IV antibiotics OOB Incentive spirometry
[2017-12-23] MEDS: METOPROLOL TARTRATE 25 MG TABLET PO SCH ×2 (09:28→21:28)
[2017-12-23] MEDS: CIPROFLOXACIN 400 MG/D5W RTU 400 MG/200 ML RTUPB IV SCH ×2 (09:28→21:28)
[2017-12-23] MEDS: PROMETHAZINE HCL INJ 25 MG/1 ML VIAL IV PRN (18:03)
[2017-12-23] MEDS: OXYCODONE HCL IR 5 MG TABLET PO PRN (19:57)
[2017-12-23] MEDS ORDERED: PANTOPRAZOLE SODIUM 40 MG VIAL IV ONE (20:00)
[2017-12-24] MEDS: METRONIDAZOLE 500 MG/NS RTU 500 MG/100 ML RTUPB IV SCH ×5 (00:21→23:11)
[2017-12-24] MEDS: RINGERS SOLUTION,LACTATED 1,000 ML IV PRN ×2 (00:30→23:12)
[2017-12-24] MEDS: OXYCODONE HCL IR 5 MG TABLET PO PRN ×3 (02:30→17:20)
[2017-12-24] MEDS: ONDANSETRON HCL INJ/PF 4 MG/2 ML SDV IV PRN (02:31)
[2017-12-24] MEDS: KETOROLAC TROMETHAMINE INJ/PF 30 MG/1 ML SDV IV SCH ×3 (06:44→21:20)
[2017-12-24] MEDS: PANTOPRAZOLE SODIUM 40 MG VIAL IV SCH (09:27)
[2017-12-24] MEDS: METOPROLOL TARTRATE 25 MG TABLET PO SCH ×2 (11:11→21:20)
[2017-12-24] MEDS: CIPROFLOXACIN 400 MG/D5W RTU 400 MG/200 ML RTUPB IV SCH ×2 (13:35→21:24)
[2017-12-24] MEDS: PROMETHAZINE HCL INJ 25 MG/1 ML VIAL IV PRN (20:17)
--- NOTE | 2017-12-24 22:19 | PDOC PROGRESS REPORT ---
Subjective Progress Note for:: 12/24/17 Subjective:: mild incisional pains. Very small amount of flatus Some nausea Reason For Visit: PERFORATED SIGMOID DIVERTICULITIS, A FIB,EMPHYSEMA Physical Exam Vital Signs: Temp Pulse Resp BP Pulse Ox 98.5 F 87 14 147/57 H 100 12/24/17 19:27 12/24/17 19:27 12/24/17 19:27 12/24/17 19:27 12/24/17 19:27 Intake & Output 12/23/17 12/24/17 12/25/17 06:59 06:59 06:59 Intake Total 2700 2800 1200 Output Total 1796 483 4990 Balance 785 2160 40 Weight 82 kg 82.7 kg Exam: Abdomen is soft with mild incisional tenderness. Results Laboratory Results: 12/23/17 06:00 12/23/17 06:00 Impressions: Abdomen/Pelvis CT 12/17/17 00:00 IMPRESSION: 1. Findings compatible with perforated diverticulitis of the proximal sigmoid colon with small amount of free intraperitoneal air as well as paracolic air fluid collection likely representing an abscess measuring 3.8 cm in greatest dimension. Urgent finding reported to [facility] Saba Rivera at 12/18/2017 12:54 AM CDT This exam was performed according to our departmental dose-optimization program, which includes automated exposure control, adjustment of the mA and/or kV according to patient size and/or use of iterative reconstruction technique. KUB X-Ray 12/17/17 18:47 IMPRESSION: NO RADIOGRAPHIC EVIDENCE FOR ACUTE ABDOMINAL DISEASE. No constipation Chest X-Ray 12/19/17 00:00 IMPRESSION: Interval placement of a right IJ central venous line as above. No pneumothorax. 2010 [employer]- All Rights Reserved Assessment & Plan - Diagnosis (1) Abdominal pain Qualifiers: Abdominal location: generalized Qualified Code(s): R10.84 - Generalized abdominal pain Is this a current diagnosis for this admission?: Yes (2) Hypokalemia Is this a current diagnosis for this admission?: Yes (3) Perforated bowel Is this a current diagnosis for this admission?: Yes (4) Acute on chronic respiratory failure Qualifiers: Respiratory failure complication: hypoxia Qualified Code(s): J96.21 - Acute and chronic respiratory failure with hypoxia Is this a current diagnosis for this admission?: Yes (5) Atrial fibrillation Qualifiers: Atrial fibrillation type: chronic Qualified Code(s): I48.2 - Chronic atrial fibrillation Is this a current diagnosis for this admission?: Yes (6) COPD (chronic obstructive pulmonary disease) Is this a current diagnosis for this admission?: Yes (7) Sigmoid diverticulitis Is this a current diagnosis for this admission?: Yes (8) Nicotine dependence Qualifiers: Nicotine product type: other Is this a current diagnosis for this admission?: Yes - Time Time Spent with patient: 15-24 minutes - Inpatient Certification Medical Necessity: Need For IV Fluids, Need for Pain Control, Need for IV Antibiotics - Plan Summary Plan Summary: Continue ice chips for now. Just 2nd POD Tolerated d/c garza and will ambulate with . Walker ordered by patient Continue IV antibiotics
[2017-12-25] MEDS: OXYCODONE HCL IR 5 MG TABLET PO PRN ×4 (01:01→19:37)
[2017-12-25] MEDS: ONDANSETRON HCL INJ/PF 4 MG/2 ML SDV IV PRN ×2 (01:04→12:13)
[2017-12-25] MEDS: KETOROLAC TROMETHAMINE INJ/PF 30 MG/1 ML SDV IV SCH ×2 (05:19→13:26)
[2017-12-25] MEDS: METRONIDAZOLE 500 MG/NS RTU 500 MG/100 ML RTUPB IV SCH ×4 (05:35→23:45)
[2017-12-25] MEDS: CIPROFLOXACIN 400 MG/D5W RTU 400 MG/200 ML RTUPB IV SCH ×2 (09:27→22:10)
[2017-12-25] MEDS: PANTOPRAZOLE SODIUM 40 MG VIAL IV SCH (09:27)
[2017-12-25] MEDS: METOPROLOL TARTRATE 25 MG TABLET PO SCH ×2 (09:27→22:10)
--- NOTE | 2017-12-25 10:22 | PDOC PROGRESS REPORT ---
Subjective Progress Note for:: 12/25/17 Subjective:: Patient feels well, has gotten up and out of bed, had some nausea but no vomiting. Pain is controlled. Reason For Visit: PERFORATED SIGMOID DIVERTICULITIS, A FIB,EMPHYSEMA Physical Exam Vital Signs: Temp Pulse Resp BP Pulse Ox 98.3 F 93 17 136/63 H 100 12/25/17 07:32 12/25/17 07:32 12/25/17 07:32 12/25/17 07:32 12/25/17 07:32 Intake & Output 12/24/17 12/25/17 12/26/17 06:59 06:59 06:59 Intake Total 2800 1600 1000 Output Total 640 1175 Balance 2160 425 1000 Weight 82.7 kg 86.1 kg General appearance: PRESENT: no acute distress GI/Abdominal exam: PRESENT: other - Soft, appropriately tender. Drain removed at bedside uneventfully. Midline rianna are intact. Results Laboratory Results: 12/23/17 06:00 12/23/17 06:00 Impressions: Abdomen/Pelvis CT 12/17/17 00:00 IMPRESSION: 1. Findings compatible with perforated diverticulitis of the proximal sigmoid colon with small amount of free intraperitoneal air as well as paracolic air fluid collection likely representing an abscess measuring 3.8 cm in greatest dimension. Urgent finding reported to [facility] Saba Rivera at 12/18/2017 12:54 AM CDT This exam was performed according to our departmental dose-optimization program, which includes automated exposure control, adjustment of the mA and/or kV according to patient size and/or use of iterative reconstruction technique. KUB X-Ray 12/17/17 18:47 IMPRESSION: NO RADIOGRAPHIC EVIDENCE FOR ACUTE ABDOMINAL DISEASE. No constipation Chest X-Ray 12/19/17 00:00 IMPRESSION: Interval placement of a right IJ central venous line as above. No pneumothorax. 2010 [employer]- All Rights Reserved Assessment & Plan - Diagnosis (1) Perforated bowel Is this a current diagnosis for this admission?: Yes (2) Diverticulitis of large intestine with complication Is this a current diagnosis for this admission?: Yes Plan: Patient is now postoperative day 3 status post exploratory laparotomy, evacuation of pericolonic abscess, drainage, and sigmoid colectomy with colorectal anastomosis, doing well, no complications. Recommendations: 1. DC drain-done 2. Start clear liquid slowly 3. Shower 4. Increase IV fluids, encourage p.o. antibiotics.
[2017-12-25] MEDS: PROMETHAZINE HCL INJ 25 MG/1 ML VIAL IV PRN (16:34)
[2017-12-25] MEDS: RINGERS SOLUTION,LACTATED 1,000 ML IV PRN (22:16)
[2017-12-26] MEDS: OXYCODONE HCL IR 5 MG TABLET PO PRN ×4 (03:42→23:44)
[2017-12-26] MEDS: IPRATROPIUM/ALBUTEROL 0.5-2.5 MG/3 ML AMPUL NEB PRN (04:29)
[2017-12-26] MEDS: METRONIDAZOLE 500 MG/NS RTU 500 MG/100 ML RTUPB IV SCH ×4 (06:44→23:45)
[2017-12-26] MEDS: ONDANSETRON HCL INJ/PF 4 MG/2 ML SDV IV PRN ×3 (08:38→21:03)
[2017-12-26] MEDS: CIPROFLOXACIN 400 MG/D5W RTU 400 MG/200 ML RTUPB IV SCH (09:27)
[2017-12-26] MEDS: METOPROLOL TARTRATE 25 MG TABLET PO SCH ×2 (09:27→21:03)
[2017-12-26] MEDS: RINGERS SOLUTION,LACTATED 1,000 ML IV PRN ×2 (09:27→21:04)
[2017-12-26] MEDS: PANTOPRAZOLE SODIUM 40 MG VIAL IV SCH (09:27)
[2017-12-26] MEDS: PROMETHAZINE HCL INJ 25 MG/1 ML VIAL IV PRN (13:54)
--- NOTE | 2017-12-26 14:33 | PDOC PROGRESS REPORT ---
Subjective Progress Note for:: 12/26/17 Subjective:: Patient still has some intermittent nausea but has not vomited. Does not like the clear liquid; has ambulating, voiding, taking p.o. narcotics. Reason For Visit: PERFORATED SIGMOID DIVERTICULITIS, A FIB,EMPHYSEMA Physical Exam Vital Signs: Temp Pulse Resp BP Pulse Ox 98.3 F 106 H 16 152/67 H 100 12/26/17 11:19 12/26/17 14:00 12/26/17 11:19 12/26/17 11:19 12/26/17 11:19 Intake & Output 12/25/17 12/26/17 12/27/17 06:59 06:59 06:59 Intake Total 1600 2700 594 Output Total 1175 Balance 425 2700 594 Weight 86.1 kg 86.1 kg General appearance: PRESENT: no acute distress, other - Color improved GI/Abdominal exam: PRESENT: other - Abdomen soft no peritoneal signs no rigidity. Dressing dry and intact. Results Laboratory Results: 12/23/17 06:00 12/23/17 06:00 Impressions: Abdomen/Pelvis CT 12/17/17 00:00 IMPRESSION: 1. Findings compatible with perforated diverticulitis of the proximal sigmoid colon with small amount of free intraperitoneal air as well as paracolic air fluid collection likely representing an abscess measuring 3.8 cm in greatest dimension. Urgent finding reported to [facility] Saba Rivera at 12/18/2017 12:54 AM CDT This exam was performed according to our departmental dose-optimization program, which includes automated exposure control, adjustment of the mA and/or kV according to patient size and/or use of iterative reconstruction technique. KUB X-Ray 12/17/17 18:47 IMPRESSION: NO RADIOGRAPHIC EVIDENCE FOR ACUTE ABDOMINAL DISEASE. No constipation Chest X-Ray 12/19/17 00:00 IMPRESSION: Interval placement of a right IJ central venous line as above. No pneumothorax. 2010 [employer]- All Rights Reserved Assessment & Plan - Diagnosis (1) Perforated bowel Is this a current diagnosis for this admission?: Yes Plan: Patient is postoperative day 4 exploratory laparotomy, sigmoid colectomy primary handsewn anastomosis for complicated Hinchey classification 1 diverticular disease, making satisfactory progress Recommendations: 1. Will expand diet 2. Intravenous ciprofloxacin 3. Anticipate discharge in next 24 hours (2) Diverticulitis of large intestine with complication Is this a current diagnosis for this admission?: Yes
[2017-12-27] MEDS: OXYCODONE HCL IR 5 MG TABLET PO PRN ×3 (04:03→19:37)
[2017-12-27] MEDS: RINGERS SOLUTION,LACTATED 1,000 ML IV PRN ×2 (04:04→15:05)
[2017-12-27 08:39] LABS: HEMOGLOBIN 9.1 g/dL (12.0-15.5); MEAN CORPUSCULAR HEMOGLOBIN 30.2 pg (27.0-33.4); MEAN CORPUSCULAR HGB CONC 33.8 g/dL (32.0-36.0); MEAN CORPUSCULAR VOLUME 89 fl (80-97); PLATELET COUNT 294 10^3/uL (150-450); RED BLOOD COUNT 3.02 10^6/uL (3.72-5.28); RED CELL DISTRIBUTION WIDTH 15.5 % (11.5-14.0); WHITE BLOOD COUNT 8.1 10^3/uL (4.0-10.5)
[2017-12-27 09:03] LABS: ABSOLUTE LYMPHOCYTES# (MANUAL) 1.3 10^3/uL (0.5-4.7); ABSOLUTE MONOCYTES # (MANUAL) 0.2 10^3/uL (0.1-1.4); ABSOLUTE NEUTROPHILS# (MANUAL) 6.3 10^3/uL (1.7-8.2); BASOPHILS % (MANUAL) 1 % (0-2); EOSINOPHILS % (MANUAL) 3 % (0-6); HYPERSEGMENTED NEUTROPHILS PRESENT; LYMPHOCYTES % (MANUAL) 16 % (13-45); MONOCYTES % (MANUAL) 2 % (3-13); SEGMENTED NEUTROPHILS % (MAN) 78 % (42-78); TOTAL CELLS COUNTED 100
[2017-12-27 09:05] LABS: ANISOCYTOSIS SLIGHT; OVALOCYTES SLIGHT; PLATELET COMMENT ADEQUATE; POIKILOCYTOSIS SLIGHT; POLYCHROMASIA SLIGHT
[2017-12-27] MEDS: METOPROLOL TARTRATE 25 MG TABLET PO SCH ×2 (09:39→22:46)
[2017-12-27] MEDS: IPRATROPIUM/ALBUTEROL 0.5-2.5 MG/3 ML AMPUL NEB PRN (10:46)
--- NOTE | 2017-12-27 12:18 | PDOC PROGRESS REPORT ---
Subjective Progress Note for:: 12/27/17 Subjective:: Generalized weakness and poor p.o. intake. Various very small bowel movement only. No emesis. Reason For Visit: PERFORATED SIGMOID DIVERTICULITIS, A FIB,EMPHYSEMA Physical Exam Vital Signs: Temp Pulse Resp BP Pulse Ox 98.2 F 86 17 150/81 H 99 12/27/17 11:05 12/27/17 11:05 12/27/17 11:05 12/27/17 11:05 12/27/17 11:05 Intake & Output 12/26/17 12/27/17 12/28/17 06:59 06:59 06:59 Intake Total 2700 3285 Output Total 3 Balance 2700 3282 Weight 86.1 kg 88.4 kg General appearance: PRESENT: no acute distress, cooperative Respiratory exam: PRESENT: clear to auscultation keren Cardiovascular exam: PRESENT: RRR GI/Abdominal exam: PRESENT: other - Soft, nondistended, very minimal tenderness. Wound is clean dry and intact with staple with no erythema and no drainage. And no focal tenderness along the wound. Extremities exam: PRESENT: other - No leg swelling nor tenderness Results Laboratory Results: 12/27/17 08:11 12/23/17 06:00 12/27/17 08:11 WBC 8.1 RBC 3.02 L Hgb 9.1 L Hct 27.0 L MCV 89 MCH 30.2 MCHC 33.8 RDW 15.5 H Plt Count 294 Seg Neutrophils % Not Reportable Lymphocytes % Not Reportable Monocytes % Not Reportable Eosinophils % Not Reportable Basophils % Not Reportable Absolute Neutrophils Not Reportable Absolute Lymphocytes Not Reportable Absolute Monocytes Not Reportable Absolute Eosinophils Not Reportable Absolute Basophils Not Reportable Impressions: Abdomen/Pelvis CT 12/17/17 00:00 IMPRESSION: 1. Findings compatible with perforated diverticulitis of the proximal sigmoid colon with small amount of free intraperitoneal air as well as paracolic air fluid collection likely representing an abscess measuring 3.8 cm in greatest dimension. Urgent finding reported to [facility] Saba Rivera at 12/18/2017 12:54 AM CDT This exam was performed according to our departmental dose-optimization program, which includes automated exposure control, adjustment of the mA and/or kV according to patient size and/or use of iterative reconstruction technique. KUB X-Ray 12/17/17 18:47 IMPRESSION: NO RADIOGRAPHIC EVIDENCE FOR ACUTE ABDOMINAL DISEASE. No constipation Chest X-Ray 12/19/17 00:00 IMPRESSION: Interval placement of a right IJ central venous line as above. No pneumothorax. 2010 [employer]- All Rights Reserved Assessment & Plan - Diagnosis (1) Diverticulitis of large intestine with complication Is this a current diagnosis for this admission?: Yes Plan: Status post sigmoid colectomy. Patient with failure to thrive after operation. Labs look good and abdominal exam looks good. will encourage ambulation and when she is eating better and ambulating better will discharge patient home. If she continues to have failure to progress will obtain an abdominal pelvic CT scan.
[2017-12-27] MEDS: ONDANSETRON HCL INJ/PF 4 MG/2 ML SDV IV PRN ×2 (12:41→19:37)
[2017-12-28] MEDS: OXYCODONE HCL IR 5 MG TABLET PO PRN ×4 (03:03→21:54)
[2017-12-28] MEDS: RINGERS SOLUTION,LACTATED 1,000 ML IV PRN (03:05)
[2017-12-28] MEDS: ONDANSETRON HCL INJ/PF 4 MG/2 ML SDV IV PRN ×2 (08:11→14:52)
[2017-12-28] MEDS: IPRATROPIUM/ALBUTEROL 0.5-2.5 MG/3 ML AMPUL NEB PRN ×2 (08:41→19:55)
[2017-12-28] MEDS: METOPROLOL TARTRATE 25 MG TABLET PO SCH ×3 (11:36→21:54)
--- NOTE | 2017-12-28 11:37 | PDOC PROGRESS REPORT ---
Subjective Progress Note for:: 12/28/17 Subjective:: Feels better today. Better appetite. Reason For Visit: PERFORATED SIGMOID DIVERTICULITIS, A FIB,EMPHYSEMA Physical Exam Vital Signs: Temp Pulse Resp BP Pulse Ox 97.5 F 103 H 12 154/82 H 98 12/28/17 03:42 12/28/17 08:43 12/28/17 08:43 12/28/17 03:42 12/28/17 08:43 Intake & Output 12/27/17 12/28/17 12/29/17 06:59 06:59 06:59 Intake Total 3285 2865 Output Total 3 Balance 3282 2865 Weight 88.4 kg 88.6 kg General appearance: PRESENT: no acute distress, cooperative Respiratory exam: PRESENT: clear to auscultation keren Cardiovascular exam: PRESENT: RRR GI/Abdominal exam: PRESENT: other - Soft, nondistended, minimal tenderness. Wound clean dry and intact with rianna. Results Laboratory Results: 12/27/17 08:11 12/23/17 06:00 Impressions: Abdomen/Pelvis CT 12/17/17 00:00 IMPRESSION: 1. Findings compatible with perforated diverticulitis of the proximal sigmoid colon with small amount of free intraperitoneal air as well as paracolic air fluid collection likely representing an abscess measuring 3.8 cm in greatest dimension. Urgent finding reported to [facility] Saba Rivera at 12/18/2017 12:54 AM CDT This exam was performed according to our departmental dose-optimization program, which includes automated exposure control, adjustment of the mA and/or kV according to patient size and/or use of iterative reconstruction technique. KUB X-Ray 12/17/17 18:47 IMPRESSION: NO RADIOGRAPHIC EVIDENCE FOR ACUTE ABDOMINAL DISEASE. No constipation Chest X-Ray 12/19/17 00:00 IMPRESSION: Interval placement of a right IJ central venous line as above. No pneumothorax. 2010 [employer]- All Rights Reserved Assessment & Plan - Diagnosis (1) Diverticulitis of large intestine with complication Is this a current diagnosis for this admission?: Yes Plan: Status post sigmoid colectomy. Looks better today. Continue to encourage ambulation. Will resume her home medications including Eliquis for intermittent A. fib. Will check CBC tomorrow to make sure she is not bleeding on Eliquis. Probable discharge within the next couple of days.
[2017-12-28] MEDS: APIXABAN 5 MG TABLET PO SCH ×2 (12:12→22:37)
[2017-12-28] MEDS: LANSOPRAZOLE 30 MG TAB.RAP.DR PO SCH (17:27)
[2017-12-28] MEDS: PANTOPRAZOLE SODIUM 40 MG VIAL IV SCH (17:28)
[2017-12-28] MEDS ORDERED: IPRATROPIUM/ALBUTEROL 120 PUFF/4 GM MDI IH SCH (22:00)
[2017-12-29] MEDS: OXYCODONE HCL IR 5 MG TABLET PO PRN ×2 (03:37→11:00)
[2017-12-29] MEDS: LANSOPRAZOLE 30 MG TAB.RAP.DR PO SCH (06:48)
[2017-12-29] MEDS: IPRATROPIUM/ALBUTEROL 0.5-2.5 MG/3 ML AMPUL NEB PRN (07:57)
[2017-12-29] MEDS ORDERED: (PENDING PHARMACY ID) (Spironolactone [Aldactone] 50 MG) PO SCH (10:00)
[2017-12-29] MEDS ORDERED: FENOFIBRATE 54 MG PO SCH (10:00)
[2017-12-29] MEDS ORDERED: ATORVASTATIN CALCIUM 20 MG TABLET PO SCH (10:00)
[2017-12-29] MEDS ORDERED: PANTOPRAZOLE SODIUM 40 MG VIAL IV SCH (10:00)
[2017-12-29] MEDS ORDERED: SPIRONOLACTONE 25 MG TABLET PO SCH (10:00)
[2017-12-29] MEDS ORDERED: DILTIAZEM HCL 180 MG CAPSULE.CR PO SCH (10:00)
[2017-12-29] MEDS ORDERED: FENOFIBRATE NANOCRYSTALLIZED 48 MG TABLET PO SCH (10:00)
[2017-12-29 10:32] LABS: HEMATOCRIT 27.3 % (36.0-47.0); HEMOGLOBIN 9.4 g/dL (12.0-15.5); MEAN CORPUSCULAR HEMOGLOBIN 30.4 pg (27.0-33.4); MEAN CORPUSCULAR HGB CONC 34.3 g/dL (32.0-36.0); MEAN CORPUSCULAR VOLUME 89 fl (80-97); PLATELET COUNT 311 10^3/uL (150-450); RED BLOOD COUNT 3.08 10^6/uL (3.72-5.28); RED CELL DISTRIBUTION WIDTH 15.4 % (11.5-14.0); WHITE BLOOD COUNT 10.1 10^3/uL (4.0-10.5)
[2017-12-29] MEDS: APIXABAN 5 MG TABLET PO SCH (11:00)
[2017-12-29] MEDS: ONDANSETRON HCL INJ/PF 4 MG/2 ML SDV IV PRN (11:00)
[2017-12-29] MEDS: PANTOPRAZOLE SODIUM 40 MG VIAL IV SCH (11:00)
[2017-12-29] MEDS: METOPROLOL TARTRATE 25 MG TABLET PO SCH (11:01)
--- NOTE | 2017-12-29 11:54 | PDOC DISCHARGE SUMMARY ---
General - Admit/Disc Date/PCP Admission Date/Primary Care Provider: 12/18/17 02:38 DASIA URBINA, Discharge Date: 12/29/17 - Discharge Diagnosis (1) Diverticulitis of large intestine with complication Is this a current diagnosis for this admission?: Yes - Additional Information Resuscitation Status: Full Code Discharge Diet: As Tolerated Discharge Activity: No Lifting Over 10 Pounds Home Medications: Apixaban [Eliquis 5 mg Tablet] 5 mg PO Q12 12/18/17 Atorvastatin Calcium [Lipitor 20 mg Tablet] 20 mg PO DAILY 12/18/17 Diltiazem HCl [Diltiazem ER] 180 mg PO DAILY 12/18/17 Ergocalciferol (Vitamin D2) [Vitamin D2] 50,000 unit PO MO@1000 12/18/17 Esomeprazole Magnesium [Nexium] 40 mg PO Q12 12/18/17 Fenofibrate [Fenoglide] 54 mg PO DAILY 12/18/17 Ipratropium/Albuterol Sulfate [Combivent Respimat 4 gm Mdi] 1 puff IH QHS Ipratropium/Albuterol Sulfate [Duoneb 3 ml Ampul] 3 ml NEB [id number] PRN 12/18/17 Metoprolol Tartrate [Lopressor 50 mg Tablet] 25 mg PO Q12 12/18/17 Spironolactone [Aldactone] 50 mg PO DAILY 12/18/17 History of Present Illness History of Present Illness: CHAKA PATEL is a 67 year old female admitted with complicated diverticulitis. She was found to have an abscess in the mesentery of the sigmoid colon, with pericolonic stranding. The patient had exquisite tenderness to palpation. She was admitted to the hospital for intravenous antibiotics and bowel rest. Hospital Course Hospital Course: The patient was taken to the floor in stable condition. The patient received intravenous antibiotics for 48-72 hours, without any improvement. It was then decided that the patient would require operative intervention. The patient was taken to the operating room where sigmoid colectomy was performed with primary, handsewn anastomosis. The patient was taken to the floor in stable condition. The patient progressed well. She began tolerating a diet, ambulating, and taking oral pain medications. By 12/19/2017 the patient was doing well, and was medically fit for discharge. Physical Exam Vital Signs: Temp Pulse Resp BP Pulse Ox 98.5 F 108 H 14 151/79 H 99 12/29/17 08:20 12/29/17 08:20 12/29/17 08:20 12/29/17 08:20 12/29/17 08:20 Intake & Output 12/28/17 12/29/17 12/30/17 06:59 06:59 06:59 Intake Total 2865 1623 Balance 2865 1623 Weight 88.6 kg 88.6 kg Results Laboratory Results: 12/29/17 09:41 12/23/17 06:00 12/29/17 09:41 WBC 10.1 RBC 3.08 L Hgb 9.4 L Hct 27.3 L MCV 89 MCH 30.4 MCHC 34.3 RDW 15.4 H Plt Count 311 Impressions: Abdomen/Pelvis CT 12/17/17 00:00 IMPRESSION: 1. Findings compatible with perforated diverticulitis of the proximal sigmoid colon with small amount of free intraperitoneal air as well as paracolic air fluid collection likely representing an abscess measuring 3.8 cm in greatest dimension. Urgent finding reported to [facility] Saba Rivera at 12/18/2017 12:54 AM CDT This exam was performed according to our departmental dose-optimization program, which includes automated exposure control, adjustment of the mA and/or kV according to patient size and/or use of iterative reconstruction technique. KUB X-Ray 12/17/17 18:47 IMPRESSION: NO RADIOGRAPHIC EVIDENCE FOR ACUTE ABDOMINAL DISEASE. No constipation Chest X-Ray 12/19/17 00:00 IMPRESSION: Interval placement of a right IJ central venous line as above. No pneumothorax. 2010 [employer]- All Rights Reserved Qualifiers - * PATIENT BEING DISCHARGED WITH ANY OF THE FOLLOWING DIAGNOSIS: No Plan Discharge Plan: Discharge home. Diet as tolerated. Activity: No lifting greater than 10 pounds x 6 weeks after surgery. Okay to shower. No tub baths or swimming times 2 weeks after surgery. Resume regular home pain medications. Follow-up at [facility] in 7-10 days for staple removal. Time Spent: Less than 30 Minutes
[2017-12-29 12:22] VITALS: BP 130/65
[2017-12-29] MEDS ORDERED: OXYCODONE HCL IR 5 MG TABLET PO PRN (15:05)
[2018-01-03] MEDS ORDERED: ERGOCALCIFEROL (VITAMIN D2) 50000 UNIT (1.25 MG) CAPSULE PO SCH (10:00)
== END 2017-12-29 13:50 | disposition home or self-care (01) | DRG 329 ==
LOC: ER 17:43 → EH 12-18 02:38 → 4S 12-18 04:27
PROVIDERS: ADMIT Surgery; ATTEND Surgery
PROC: 02HV33Z Insertion of Infusion Device into Superior Vena Cava, Percutaneous Approach (ICD-10-PCS; principal; 2017-12-19)
PROC: 0DBN0ZZ Excision of Sigmoid Colon, Open Approach (ICD-10-PCS; 2017-12-22)
PROC: 0DJD8ZZ Inspection of Lower Intestinal Tract, Via Natural or Artificial Opening Endoscopic (ICD-10-PCS; 2017-12-22)
DX: K57.20 Diverticulitis of large intestine with perforation and abscess without bleeding (principal); J96.21 Acute and chronic respiratory failure with hypoxia; E87.6 Hypokalemia; I10 Essential (primary) hypertension; I48.2 Chronic atrial fibrillation; E78.5 Hyperlipidemia, unspecified; K21.9 Gastro-esophageal reflux disease without esophagitis; J44.9 Chronic obstructive pulmonary disease, unspecified; F17.210 Nicotine dependence, cigarettes, uncomplicated; Z79.01 Long term (current) use of anticoagulants; Z79.899 Other long term (current) drug therapy
CPT/HCPCS: 00840; 36415; 71045; 74018; 74177; 80048; 80053; 81001; 83735; 85025; 85027; 85610; 85730; 86850; 86900; 86901; 86920; 87040; 88307; 93005; 93010; 94799; 96374; 96375; 96376; 99285; C1751; G8978-GP; G8979-GP; J0131; J0330; J0744; J1100; J1170; J1885; J2250; J2270; J2370; J2405; J2543; J2550; J2704; J3010; J3475; J3480; J3490; J7030; J7120; J7620; S0119; S0164

== ENCOUNTER 2018-01-08 10:32 | Inpatient (IN) | payer MEDICARE, MEDICAID ==
[2018-01-08] MEDS ORDERED: ONDANSETRON HCL INJ/PF 4 MG/2 ML SDV IV ONE (10:55)
[2018-01-08] MEDS ORDERED: NORMAL SALINE 1000 ML 1,000 ML IV ONE (10:55)
--- NOTE | 2018-01-08 11:12 | ER Document Report ---
ED General - General Chief Complaint: Nausea/Vomiting/Diarrhea Stated Complaint: NAUSEA Time Seen by Provider: 01/08/18 10:54 TRAVEL OUTSIDE OF THE [place] IN LAST 30 DAYS: No - HPI Notes: Patient is a 67-year-old female that presents to the emergency department for chief complaint of status post sigmoid colectomy for perforated diverticulitis presents the emergency room for persistent nausea vomiting and diarrhea. Patient states that yesterday and today her stools have started to become black and tarry. She reports vomiting anytime she attempts to eat or drink, greater than 10 times daily. She has been taking Zofran at home with no relief of her nausea. Her last dose of Zofran was yesterday evening. She states her abdominal pain has completely resolved. She denies any lightheadedness, chest pain, shortness of breath, fevers/chills, and dysuria. Patient is not currently on antibiotics. Past Medical History: COPD, hypertension, hyperlipidemia, A. fib Past Surgical History: Sigmoid colectomy Social History: Denies drug and alcohol use Family History: Reviewed and noncontributory for presenting illness Allergies: Reviewed, see documented allergy list. REVIEW OF SYSTEMS: CONSTITUTIONAL : No fever No chills No diaphoresis No recent illness EENT: No vision changes No congestion No sore throat CARDIOVASCULAR: No chest pain No palpitations RESPIRATORY: No shortness of breath No cough No difficulty breathing GASTROINTESTINAL: No abdominal pain nausea vomiting diarrhea GENITOURINARY: No dysuria No hematuria No difficulty urinating MUSCULOSKELETAL: No back pain No leg pain No arm pain SKIN: No rashes No lesions LYMPHATIC: No swollen, enlarged glands. NEUROLOGICAL: No lightheadedness No headache No weakness No paresthesias PSYCHIATRIC: No anxiety No depression PHYSICAL EXAMINATION: Vital signs reviewed, nursing noted reviewed. GENERAL: Well-appearing, well-nourished and in no acute distress. HEAD: Atraumatic, normocephalic. EYES: Eyes appear normal, extraocular movements intact, sclera anicteric, conjunctiva are normal. ENT: nares patent, oropharynx clear without exudates. Moist mucous membranes. NECK: Normal range of motion, supple without lymphadenopathy LUNGS: Breath sounds clear to auscultation bilaterally and equal. No wheezes rales or rhonchi. HEART: Tachycardic rate and rhythm without murmurs ABDOMEN: Soft, nontender, normoactive bowel sounds. No rebound, guarding, or rigidity. No masses appreciated. EXTREMITIES: Nontender, good range of motion, no pitting or edema. NEUROLOGICAL: No focal neurological deficits. Moves all extremities spontaneously Motor and sensory grossly intact on exam. PSYCH: Normal mood, normal affect. SKIN: Warm, Dry, normal turgor, no rashes or lesions noted on exposed skin - Related Data Allergies/Adverse Reactions: nickel Allergy (Severe, Verified 01/08/18 10:33) RASH adhesive tape [Adhesive Tape] Allergy (Mild, Verified 01/08/18 10:33) RASH/BLISTER roflumilast Adverse Reaction (Unknown, Verified 01/08/18 10:33) N/V, diarrhea Past Medical History - Social History Smoking Status: Former Smoker Family History: COPD, Malignancy, Other - Past Medical History Cardiac Medical History: Reports: Hx Atrial Fibrillation, Hx Hypercholesterolemia, Hx Hypertension Denies: Hx Coronary Artery Disease, Hx Heart Attack Pulmonary Medical History: Reports: Hx Asthma, Hx Bronchitis, Hx COPD, Hx Pneumonia, Hx Sleep Apnea - on CPAP Neurological Medical History: Denies: Hx Cerebrovascular Accident, Hx Seizures Renal/ Medical History: Reports: Hx Kidney Stones. Denies: Hx Peritoneal Dialysis GI Medical History: Reports: Hx Gastroesophageal Reflux Disease, Hx Hiatal Hernia. Denies: Hx Hepatitis, Hx Ulcer Musculoskeletal Medical History: Reports Hx Arthritis - NECK, LOWER BACK Psychiatric Medical History: Reports: Hx Depression Infectious Medical History: Denies: Hx Hepatitis Past Surgical History: Reports: Hx Abdominal Surgery - HERNIA, Hx Appendectomy, Hx Cholecystectomy, Hx Herniorrhaphy, Hx Hysterectomy, Hx Rectal Surgery, Hx Tubal Ligation, Other - Rectocele and cystocele repair. Denies: Hx Mastectomy, Hx Open Heart Surgery, Hx Pacemaker - Immunizations Hx Diphtheria, Pertussis, Tetanus Vaccination: Yes Hx Pneumococcal Vaccination: 12/04/12 Review of Systems - Review of Systems Notes: Dictated Physical Exam - Vital signs Vitals: Temp Pulse Resp BP Pulse Ox 98.1 F 120 H 18 135/86 H 98 01/08/18 10:38 01/08/18 10:38 01/08/18 10:38 01/08/18 10:38 01/08/18 10:38 - Notes Notes: Dictated Course - Re-evaluation Re-evalutation: 01/08/18 11:12 Vitals reviewed. Nursing notes reviewed. Patient given IV hydration and antiemetics. She is actively vomiting in the emergency room. 01/08/18 13:57 Patient's lab work shows mild hypokalemia and hypochloremia likely related to her vomiting and diarrhea. CT scan of her abdomen shows changes consistent with her recent sigmoid colectomy. Her hemoglobin is stable. Laboratory 01/08/18 01/08/18 01/08/18 11:28 11:28 11:28 WBC 5.9 RBC 3.98 Hgb 11.8 L Hct 35.7 L MCV 90 MCH 29.6 MCHC 32.9 RDW 16.3 H Plt Count 394 Seg Neutrophils % 73.7 Lymphocytes % 11.3 L Monocytes % 11.4 Eosinophils % 2.8 Basophils % 0.8 Absolute Neutrophils 4.3 Absolute Lymphocytes 0.7 Absolute Monocytes 0.7 Absolute Eosinophils 0.2 Absolute Basophils 0.0 Sodium 140.1 Potassium 3.4 L Chloride 96 L Carbon Dioxide 26 Anion Gap 18 BUN 8 Creatinine 0.50 L Est GFR ( Amer) > 60 Est GFR (Non-Af Amer) > 60 Glucose 82 Lactic Acid 0.9 Calcium 8.8 Total Bilirubin 0.9 Direct Bilirubin 0.5 H Neonat Total Bilirubin Not Reportable Neonat Direct Bilirubin Not Reportable Neonat Indirect Bili Not Reportable AST 17 ALT 16 Alkaline Phosphatase 76 Total Protein 6.4 Albumin 3.2 L Lipase 165.4 Blood Type Antibody Screen 01/08/18 11:28 WBC RBC Hgb Hct MCV MCH MCHC RDW Plt Count Seg Neutrophils % Lymphocytes % Monocytes % Eosinophils % Basophils % Absolute Neutrophils Absolute Lymphocytes Absolute Monocytes Absolute Eosinophils Absolute Basophils Sodium Potassium Chloride Carbon Dioxide Anion Gap BUN Creatinine Est GFR ( Amer) Est GFR (Non-Af Amer) Glucose Lactic Acid Calcium Total Bilirubin Direct Bilirubin Neonat Total Bilirubin Neonat Direct Bilirubin Neonat Indirect Bili AST ALT Alkaline Phosphatase Total Protein Albumin Lipase Blood Type O POSITIVE Antibody Screen NEGATIVE Abdomen/Pelvis CT 01/08/18 10:58 IMPRESSION: Resolving sigmoid diverticulitis with residual extraluminal gas but no drainable fluid collection. Follow-up is recommended. She has had multiple episodes of emesis in the emergency room despite antiemetics. Patient will be admitted for IV hydration and further monitoring of her intractable vomiting. Case discussed with Dr. Ralph who evaluated the patient in the emergency room and will admit her. Patient in agreement with this plan and stable at time of admission. - Vital Signs Vital signs: Temp Pulse Resp BP Pulse Ox 98.1 F 120 H 18 135/86 H 98 01/08/18 10:38 01/08/18 10:38 01/08/18 10:38 01/08/18 10:38 01/08/18 10:38 - Laboratory Result Diagrams: 01/08/18 11:28 01/08/18 11:28 Laboratory results interpreted by me: 01/08/18 01/08/18 11:28 11:28 Hgb 11.8 L Hct 35.7 L RDW 16.3 H Lymphocytes % 11.3 L Potassium 3.4 L Chloride 96 L Creatinine 0.50 L Direct Bilirubin 0.5 H Albumin 3.2 L - EKG Interpretation by Me Additional EKG results interpreted by me: 01/08/18 13:39 Interpreted by myself: Normal sinus rhythm, rate 71, normal axis, no ectopy, no ST elevation. Discharge - Discharge Clinical Impression: Intractable vomiting Qualifiers: Vomiting type: unspecified Nausea presence: with nausea Qualified Code(s): R11.2 - Nausea with vomiting, unspecified Diarrhea Qualifiers: Diarrhea type: unspecified type Qualified Code(s): R19.7 - Diarrhea, unspecified Condition: Stable Disposition: ADMITTED OBSERVATION Admitting Provider: Surgicalist Unit Admitted: Surgical Floor Referrals: DASIA URBINA DO [Primary Care Provider] - Follow up as needed
[2018-01-08 11:59] LABS: ABSOLUTE EOSINOPHILS # (AUTO) 0.2 10^3/uL (0.0-0.6); ABSOLUTE LYMPHOCYTES (AUTO) 0.7 10^3/uL (0.5-4.7); ABSOLUTE MONOCYTES (AUTO) 0.7 10^3/uL (0.1-1.4); ABSOLUTE NEUT (AUTO) 4.3 10^3/uL (1.7-8.2); BASOPHILS % (AUTO) 0.8 % (0-2); EOSINOPHILS % (AUTO) 2.8 % (0-6); HEMATOCRIT 35.7 % (36.0-47.0); HEMOGLOBIN 11.8 g/dL (12.0-15.5); LYMPHOCYTES % (AUTO) 11.3 % (13-45); MEAN CORPUSCULAR HEMOGLOBIN 29.6 pg (27.0-33.4); MEAN CORPUSCULAR HGB CONC 32.9 g/dL (32.0-36.0); MEAN CORPUSCULAR VOLUME 90 fl (80-97); MONOCYTES % (AUTO) 11.4 % (3-13); PLATELET COUNT 394 10^3/uL (150-450); RED BLOOD COUNT 3.98 10^6/uL (3.72-5.28); RED CELL DISTRIBUTION WIDTH 16.3 % (11.5-14.0); SEGMENTED NEUTROPHILS % (AUTO) 73.7 % (42-78); TOTAL CELLS COUNTED % (AUTO) 100 %; WHITE BLOOD COUNT 5.9 10^3/uL (4.0-10.5)
[2018-01-08 12:22] LABS: ALANINE AMINOTRANSFERASE 16 U/L (9-52); ALBUMIN 3.2 g/dL (3.5-5.0); ALKALINE PHOSPHATASE 76 U/L (38-126); ANION GAP 18 (5-19); ASPARTATE AMINO TRANSFERASE 17 U/L (14-36); BILIRUBIN,DIRECT 0.5 mg/dL (0.0-0.4); BILIRUBIN,TOTAL 0.9 mg/dL (0.2-1.3); BLOOD UREA NITROGEN 8 mg/dL (7-20); CALCIUM 8.8 mg/dL (8.4-10.2); CARBON DIOXIDE 26 mmol/L (22-30); CHLORIDE 96 mmol/L (98-107); GLUCOSE 82 mg/dL (75-110); LIPASE 165.4 U/L (23-300); POTASSIUM 3.4 mmol/L (3.6-5.0); SODIUM 140.1 mmol/L (137-145); TOTAL PROTEIN 6.4 g/dL (6.3-8.2)
--- NOTE | 2018-01-08 12:53 | RADIOLOGY REPORT (SQ) ---
EXAM DESCRIPTION: CT ABD/PELVIS WITH IV ONLY COMPLETED DATE/TIME: 01/08/2018 12:32 pm REASON FOR STUDY: abdominal pain COMPARISON: 12/17/2017 TECHNIQUE: CT scan of the abdomen and pelvis performed using helical scanning technique with dynamic intravenous contrast injection. No oral contrast. Images reviewed with lung, soft tissue, and bone windows. Reconstructed coronal and sagittal MPR images reviewed. Delayed images for evaluation of the urinary system also acquired. All images stored on PACS. All CT scanners at this facility use dose modulation, iterative reconstruction, and/or weight based d osing when appropriate to reduce radiation dose to as low as reasonably achievable (ALARA). [facility]: Dose Right [facility]: CareDose [facility]: Dose Right [facility]: Teradose 4D [facility]: [employer] CONTRAST TYPE AND DOSE: contrast/concentration: Isovue 350.00 mg/ml; Total Contrast Delivered: 74.0 ml; Total Saline Delivered: 27.2 ml RENAL FUNCTION: GFR > 60. RADIATION DOSE: CT Rad equipment meets quality standard of care and radiation dose reduction techniq ues were employed. CTDIvol: 7.1 - 10.0 mGy. DLP: 844 mGy-cm.. LIMITATIONS: None. FINDINGS: LOWER CHEST: No significant findings. No nodules or infiltrates. LIVER: Normal size. No masses. No dilated ducts. SPLEEN: Normal size. No focal lesions. PANCREAS: No masses. No significant calcifications. No adjacent inflammation or peripancreatic fluid collections. Pancreatic duct not dilated. GALLBLADDER: Surgically absent. ADRENAL GLANDS: No significant masses or asymmetry. RIGHT KIDNEY AND URETER: No solid masses. No significant calcifications. No hydronephrosis or hyd roureter. LEFT KIDNEY AND URETER: No solid masses. No significant calcifications. No hydronephrosis or hydr oureter. AORTA AND VESSELS: No aneurysm. No dissection. Renal arteries, SMA, celiac without stenosis. RETROPERITONEUM: No retroperitoneal adenopathy, hemorrhage or masses. BOWEL AND PERITONEAL CAVITY: Resolving inflammatory changes pelvic sigmoid colon. Residual extralumi nal gas measuring about 1.6 cm. Rectal anastomosis. No ascites or free air. APPENDIX: Surgically absent. PELVIS: No mass. No free fluid. Normal bladder. ABDOMINAL WALL: Postsurgical changes anterior abdominal wall. BONES: No acute findings. OTHER: No other significant finding. IMPRESSION: Resolving sigmoid diverticulitis with residual extraluminal gas but no drainable fluid c ollection. Follow-up is recommended. TECHNICAL DOCUMENTATION: JOB ID: [id number] Quality ID # [id number]: Final reports with documentation of one or more dose reduction techniques (e.g., Au tomated exposure control, adjustment of the mA and/or kV according to patient size, use of iterative reconstruction technique) 2010 [employer]- All Rights Reserved Reading location - IP/workstation name: [email or web address]
[2018-01-08 14:29] LABS: APPEARANCE,URINE CLEAR; BILIRUBIN,URINE NEGATIVE (NEGATIVE); COLOR,URINE YELLOW; GLUCOSE, URINE NEGATIVE (NEGATIVE); KETONES,URINE 80 mg/dL (NEGATIVE); LEUKOCYTE ESTERASE,URINE NEGATIVE (NEGATIVE); NITRITE,URINE NEGATIVE (NEGATIVE); PROTEIN,URINE NEGATIVE (NEGATIVE); UROBILINOGEN,URINE NEGATIVE mg/dL (<2.0)
[2018-01-08] MEDS ORDERED: DEXTROSE 40% GEL 15 GM TUBE PO PRN ×2 (15:32)
[2018-01-08] MEDS ORDERED: DEXTROSE 50%-WATER 25 GM/50 ML DISP.SYRIN IV PRN ×2 (15:32)
[2018-01-08] MEDS ORDERED: GLUCAGON,HUMAN RECOMB 1 MG INJ SUBCUT PRN (15:32)
[2018-01-08] MEDS: ONDANSETRON HCL INJ/PF 4 MG/2 ML SDV IV PRN ×2 (15:57→20:08)
[2018-01-08] MEDS ORDERED: OXYCODONE-ACETAMINOPHEN 5-325 MG TABLET PO SCH (18:00)
[2018-01-08] MEDS: ENOXAPARIN SODIUM INJ 40 MG/0.4 ML DISP.SYRIN SUBCUT SCH (18:05)
[2018-01-08] MEDS: OXYCODONE-ACETAMINOPHEN 5-325 MG TABLET PO PRN ×2 (18:05→22:27)
--- NOTE | 2018-01-08 20:52 | PDOC H&P ---
History of Present Illness Admission Date/PCP: 01/08/18 14:01 Patient complains of: Nausea and vomiting, diarrhea History of Present Illness: CHAKA PATEL is a 67 year old female who is approximately 2 weeks status post sigmoid colon resection for complicated diverticulitis. The patient reports persistent, progressive nausea and vomiting after being released to go home. The patient has a history of gastritis and reflux. Currently she takes Nexium. She is a heavy smoker. The patient denies fevers or chills. She denies lower abdominal pain. The discomfort she feels is in the epigastric area and is a burning type pain. Her pain is intermittent, but at its worst is 8 out of 10. Nothing makes it better. Eating makes it worse. She also reports melanotic stool and frequent diarrhea. She denies chest pain, shortness of breath, headache, dizziness, orthostasis. He does report malaise and fatigue. Past Medical History Cardiac Medical History: Reports: Atrial Fibrillation, Hyperlipidema, Hypertension Denies: Coronary Artery Disease, Myocardial Infarction Pulmonary Medical History: Reports: Asthma, Bronchitis, Chronic Obstructive Pulmonary Disease (COPD), Pneumonia, Sleep Apnea - on CPAP Neurological Medical History: Denies: Seizures GI Medical History: Reports: Gastroesophageal Reflux Disease, Hiatal Hernia Denies: Hepatitis Musculoskeltal Medical History: Reports: Arthritis - NECK, LOWER BACK Psychiatric Medical History: Reports: Depression Hematology: Denies: Anemia, Sickle Cell Disease Past Surgical History Past Surgical History: Reports: Appendectomy, Cholecystectomy, Herniorrhaphy, Hysterectomy, Tubal Ligation, Other - Rectocele/cystocele repair. Recent sigmoid colon resection. Denies: Amputation, Mastectomy, Pacemaker Social History Smoking Status: Current Some Day Smoker Frequency of Alcohol Use: None Hx Recreational Drug Use: No Drugs: None Hx Prescription Drug Abuse: No Family History Family History: COPD, Malignancy, Other Parental Family History Reviewed: Yes Children Family History Reviewed: Yes Sibling(s) Family History Reviewed.: Yes Medication/Allergy Home Medications: Apixaban [Eliquis 5 mg Tablet] 5 mg PO DAILY 12/18/17 Atorvastatin Calcium [Lipitor 20 mg Tablet] 20 mg PO DAILY 12/18/17 Diltiazem HCl [Diltiazem ER] 180 mg PO DAILY 12/18/17 Fenofibrate [Fenoglide] 54 mg PO DAILY 12/18/17 Metoprolol Tartrate [Lopressor 50 mg Tablet] 25 mg PO Q12 12/18/17 Spironolactone [Aldactone] 50 mg PO DAILY 12/18/17 Montelukast Sodium [Singulair 10 mg Tablet] 10 mg PO QHS 01/08/18 Nicotine [Nicoderm 14 mg/24 Hr Transdermal Patch] 1 patch TD DAILY 01/08/18 Ondansetron HCl [Zofran 4 mg Tablet] 1 tab PO Q6HP PRN 01/08/18 Oxycodone HCl/Acetaminophen [Percocet 10-325 Mg Tablet] 1 each PO TID 01/08/18 Pantoprazole Sodium [Protonix] 40 mg PO DAILY 01/08/18 Primidone [Mysoline 50 Mg Tablet] 50 mg PO DAILY 01/08/18 Allergies/Adverse Reactions: nickel Allergy (Severe, Verified 01/08/18 10:33) RASH adhesive tape [Adhesive Tape] Allergy (Mild, Verified 01/08/18 10:33) RASH/BLISTER roflumilast Adverse Reaction (Unknown, Verified 01/08/18 10:33) N/V, diarrhea Review of Systems Constitutional: PRESENT: anorexia, fatigue, weakness. ABSENT: chills, fever(s) , headache(s) Eyes: ABSENT: visual disturbances Ears: ABSENT: hearing changes Nose, Mouth, and Throat: ABSENT: sore throat Cardiovascular: ABSENT: chest pain, palpitations Respiratory: PRESENT: cough Gastrointestinal: PRESENT: abdominal pain - Gastric, diarrhea, melena. ABSENT: constipation Musculoskeletal: PRESENT: back pain Neurological: ABSENT: abnormal movements, abnormal speech, confusion, convulsions, dizziness Psychiatric: ABSENT: anxiety, depression Endocrine: ABSENT: cold intolerance, heat intolerance Hematologic/Lymphatic: PRESENT: easy bleeding, easy bruising Physical Exam Vital Signs: Temp Pulse Resp BP Pulse Ox 98.4 F 89 18 151/62 H 100 01/08/18 20:18 01/08/18 20:18 01/08/18 20:18 01/08/18 20:18 01/08/18 20:18 Intake & Output 01/07/18 01/08/18 01/09/18 06:59 06:59 06:59 Intake Total 1000 Balance 1000 General appearance: PRESENT: no acute distress Head exam: PRESENT: atraumatic, normocephalic Eye exam: PRESENT: EOMI, PERRLA. ABSENT: scleral icterus Mouth exam: PRESENT: moist, neck supple Neck exam: ABSENT: meningismus, tenderness, thyromegaly, tracheal deviation Respiratory exam: PRESENT: clear to auscultation keren, unlabored. ABSENT: chest wall tenderness, tachypnea Cardiovascular exam: PRESENT: irregular rhythm Pulses: PRESENT: normal radial pulses Vascular exam: PRESENT: normal capillary refill. ABSENT: pallor GI/Abdominal exam: PRESENT: soft, tenderness - Appropriate postsurgical tenderness. ABSENT: distended, guarding Extremities exam: ABSENT: clubbing Musculoskeletal exam: ABSENT: deformity Neurological exam: PRESENT: alert, awake, oriented to person, oriented to place , oriented to time, oriented to situation, CN II-XII grossly intact Psychiatric exam: ABSENT: agitated, anxious, depressed Focused psych exam: ABSENT: delusional Skin exam: ABSENT: cyanosis, erythema, jaundice Results Laboratory Results: 01/08/18 14:09 Urine Color YELLOW Urine Appearance CLEAR Urine pH 6.0 Ur Specific [place] 1.050 Urine Protein NEGATIVE Urine Glucose (UA) NEGATIVE Urine Ketones 80 H Urine Blood NEGATIVE Urine Nitrite NEGATIVE Ur Leukocyte Esterase NEGATIVE Urine WBC (Auto) 2 Urine RBC (Auto) 1 Impressions: Abdomen/Pelvis CT 01/08/18 10:58 IMPRESSION: Resolving sigmoid diverticulitis with residual extraluminal gas but no drainable fluid collection. Follow-up is recommended. Assessment & Plan - Diagnosis (2) Intractable vomiting Qualifiers: Vomiting type: unspecified Nausea presence: with nausea Qualified Code(s) : R11.2 - Nausea with vomiting, unspecified Is this a current diagnosis for this admission?: Yes - Plan Summary Plan Summary: This is a 67-year-old female admitted with intractable nausea and vomiting. This has been present since before her surgery was performed. It has persisted since after she went home. The patient underwent CT scanning in the emergency department. I have personally reviewed the images and the report. There are some postsurgical changes surrounding her sigmoid colon, however everything appears normal otherwise. The patient has a history of tobacco abuse, gastritis , and reflux. She has previously been treated with Nexium. The patient has difficulty with eating anything. She has had a previous cholecystectomy. I believe she is experiencing gastric ulcers or severe gastritis. I will admit the patient to the hospital, place her on IV PPIs, order Carafate 4 times per day, and perform an EGD for diagnostic purposes. The patient has agreed to this. The patient also experiences frequent diarrhea. I will test her stool for C. difficile.
[2018-01-08] MEDS: PANTOPRAZOLE SODIUM 40 MG VIAL IV SCH (22:27)
[2018-01-08] MEDS: MONTELUKAST SODIUM 10 MG TABLET PO SCH (22:27)
[2018-01-08] MEDS: SUCRALFATE SUSP 1 GM/10 ML UDCUP PO SCH (22:27)
[2018-01-08] MEDS: METOPROLOL TARTRATE 50 MG TABLET PO SCH (22:27)
[2018-01-09] MEDS: ONDANSETRON HCL INJ/PF 4 MG/2 ML SDV IV PRN ×3 (00:47→11:36)
[2018-01-09 05:03] LABS: ABSOLUTE EOSINOPHILS # (AUTO) 0.4 10^3/uL (0.0-0.6); ABSOLUTE LYMPHOCYTES (AUTO) 1.2 10^3/uL (0.5-4.7); ABSOLUTE MONOCYTES (AUTO) 0.9 10^3/uL (0.1-1.4); ABSOLUTE NEUT (AUTO) 2.8 10^3/uL (1.7-8.2); BASOPHILS % (AUTO) 0.8 % (0-2); EOSINOPHILS % (AUTO) 7.5 % (0-6); HEMATOCRIT 26.5 % (36.0-47.0); LYMPHOCYTES % (AUTO) 23.2 % (13-45); MEAN CORPUSCULAR HEMOGLOBIN 30.1 pg (27.0-33.4); MEAN CORPUSCULAR HGB CONC 34.1 g/dL (32.0-36.0); MEAN CORPUSCULAR VOLUME 88 fl (80-97); MONOCYTES % (AUTO) 15.9 % (3-13); PLATELET COUNT 256 10^3/uL (150-450); RED CELL DISTRIBUTION WIDTH 15.8 % (11.5-14.0); SEGMENTED NEUTROPHILS % (AUTO) 52.6 % (42-78); TOTAL CELLS COUNTED % (AUTO) 100 %; WHITE BLOOD COUNT 5.4 10^3/uL (4.0-10.5)
[2018-01-09 05:49] LABS: ALANINE AMINOTRANSFERASE 16 U/L (9-52); ALBUMIN 2.3 g/dL (3.5-5.0); ALKALINE PHOSPHATASE 58 U/L (38-126); ANION GAP 14 (5-19); ASPARTATE AMINO TRANSFERASE 12 U/L (14-36); BILIRUBIN,DIRECT 0.3 mg/dL (0.0-0.4); BILIRUBIN,TOTAL 0.6 mg/dL (0.2-1.3); BLOOD UREA NITROGEN 5 mg/dL (7-20); CALCIUM 7.9 mg/dL (8.4-10.2); CARBON DIOXIDE 27 mmol/L (22-30); CHLORIDE 99 mmol/L (98-107); GLUCOSE 69 mg/dL (75-110); SODIUM 139.8 mmol/L (137-145); TOTAL PROTEIN 4.8 g/dL (6.3-8.2)
[2018-01-09 05:51] LABS: POTASSIUM 2.8 mmol/L (3.6-5.0)
[2018-01-09] MEDS: OXYCODONE-ACETAMINOPHEN 5-325 MG TABLET PO PRN ×3 (06:22→21:46)
[2018-01-09] MEDS: POTASSIUM CHLORIDE 20 MEQ/50 ML RTU IV SCH ×2 (06:25→10:55)
[2018-01-09] MEDS: SUCRALFATE SUSP 1 GM/10 ML UDCUP PO SCH ×4 (08:11→21:45)
[2018-01-09] MEDS: PANTOPRAZOLE SODIUM 40 MG VIAL IV SCH (11:01)
[2018-01-09] MEDS: METOPROLOL TARTRATE 50 MG TABLET PO SCH ×2 (12:53→21:45)
[2018-01-09] MEDS: PRIMIDONE 50 MG TABLET PO SCH (12:53)
[2018-01-09] MEDS: DILTIAZEM HCL 180 MG CAPSULE.CR PO SCH (12:54)
[2018-01-09] MEDS ORDERED: ONDANSETRON HCL INJ/PF 4 MG/2 ML SDV ONE (13:04)
[2018-01-09] MEDS ORDERED: FENTANYL CITRATE INJ/PF 100 MCG/2 ML AMPUL ONE (13:04)
[2018-01-09] MEDS ORDERED: NALOXONE HCL INJ/PF 0.4 MG/1 ML SDV ONE (13:04)
[2018-01-09] MEDS ORDERED: EPINEPHRINE INJ 1 MG/10 ML DISP.SYRIN ONE (13:05)
[2018-01-09] MEDS ORDERED: GLUCAGON,HUMAN RECOMB 1 MG INJ ONE (13:05)
[2018-01-09] MEDS ORDERED: FLUMAZENIL INJ 0.5 MG/5 ML VIAL ONE (13:05)
[2018-01-09] MEDS: MIDAZOLAM 2 MG/2 ML INJ ONE ×2 (13:54→13:58)
[2018-01-09] MEDS: SPIRONOLACTONE 25 MG TABLET PO SCH (18:13)
[2018-01-09] MEDS: ATORVASTATIN CALCIUM 20 MG TABLET PO SCH (18:13)
[2018-01-09] MEDS: ENOXAPARIN SODIUM INJ 40 MG/0.4 ML DISP.SYRIN SUBCUT SCH (18:14)
--- NOTE | 2018-01-09 18:32 | PDOC PROGRESS REPORT ---
Subjective Progress Note for:: 01/09/18 Subjective:: This is a 67-year-old female with intractable nausea, vomiting, and upper abdominal pain. The patient is recently status post sigmoid colectomy. She has no lower abdominal pain. Today, the patient reports nausea with ingestion of anything, including water. She denies chest pain, shortness of breath, fevers, chills, dizziness, orthostasis. Reason For Visit: INTRACTABLE NAUSEA AND VOMITING Physical Exam Vital Signs: Temp Pulse Resp BP Pulse Ox 98.4 F 117 H 17 135/67 H 100 01/09/18 16:17 01/09/18 16:17 01/09/18 16:17 01/09/18 16:17 01/09/18 16:17 Intake & Output 01/08/18 01/09/18 01/10/18 06:59 06:59 06:59 Intake Total 1320 300 Output Total 800 Balance 520 300 Weight 67.2 kg General appearance: PRESENT: no acute distress Head exam: PRESENT: atraumatic, normocephalic Eye exam: PRESENT: EOMI, PERRLA. ABSENT: scleral icterus Mouth exam: PRESENT: moist, neck supple Neck exam: ABSENT: meningismus, tenderness, thyromegaly, tracheal deviation Respiratory exam: PRESENT: clear to auscultation keren. ABSENT: chest wall tenderness Cardiovascular exam: PRESENT: irregular rhythm Pulses: PRESENT: normal radial pulses Vascular exam: PRESENT: normal capillary refill. ABSENT: pallor GI/Abdominal exam: PRESENT: soft, tenderness - Appropriate postoperative tenderness, other - Incision is clean, dry, intact.. ABSENT: distended Rectal exam: PRESENT: deferred Extremities exam: ABSENT: clubbing Musculoskeletal exam: ABSENT: deformity Neurological exam: PRESENT: alert, awake, oriented to person, oriented to place , oriented to time, oriented to situation, CN II-XII grossly intact Psychiatric exam: ABSENT: agitated, anxious, depressed Skin exam: ABSENT: cyanosis, erythema, jaundice Results Laboratory Results: 01/09/18 03:58 01/09/18 03:58 01/09/18 01/09/18 01/09/18 03:58 03:58 03:58 WBC 5.4 RBC 3.00 L Hgb 9.0 L D Hct 26.5 L MCV 88 MCH 30.1 MCHC 34.1 RDW 15.8 H Plt Count 256 Seg Neutrophils % 52.6 Lymphocytes % 23.2 Monocytes % 15.9 H Eosinophils % 7.5 H Basophils % 0.8 Absolute Neutrophils 2.8 Absolute Lymphocytes 1.2 Absolute Monocytes 0.9 Absolute Eosinophils 0.4 Absolute Basophils 0.0 Sodium 139.8 Potassium 2.8 L* Chloride 99 Carbon Dioxide 27 Anion Gap 14 BUN 5 L Creatinine 0.42 L Est GFR ( Amer) > 60 Est GFR (Non-Af Amer) > 60 Glucose 69 L Calcium 7.9 L Magnesium 1.4 L Total Bilirubin 0.6 AST 12 L ALT 16 Alkaline Phosphatase 58 Total Protein 4.8 L Albumin 2.3 L Stool Occult Blood 01/09/18 11:40 WBC RBC Hgb Hct MCV MCH MCHC RDW Plt Count Seg Neutrophils % Lymphocytes % Monocytes % Eosinophils % Basophils % Absolute Neutrophils Absolute Lymphocytes Absolute Monocytes Absolute Eosinophils Absolute Basophils Sodium Potassium Chloride Carbon Dioxide Anion Gap BUN Creatinine Est GFR ( Amer) Est GFR (Non-Af Amer) Glucose Calcium Magnesium Total Bilirubin AST ALT Alkaline Phosphatase Total Protein Albumin Stool Occult Blood POSITIVE Impressions: Abdomen/Pelvis CT 01/08/18 10:58 IMPRESSION: Resolving sigmoid diverticulitis with residual extraluminal gas but no drainable fluid collection. Follow-up is recommended. Assessment & Plan - Diagnosis (2) Intractable vomiting Qualifiers: Vomiting type: unspecified Nausea presence: with nausea Qualified Code(s) : R11.2 - Nausea with vomiting, unspecified Is this a current diagnosis for this admission?: Yes - Plan Summary Plan Summary: This is a 67-year-old female with intractable nausea and vomiting. The patient is on Carafate, and has not vomited since admission. Plan is for EGD today to evaluate her gastric mucosa. Suspect she has gastritis which is contributing to her nausea and vomiting. Risks/benefits discussed, informed consent obtained , and all questions answered. Hypokalemia --> replace
--- NOTE | 2018-01-09 18:40 | Operative Report ---
Nonrecallable Operative Report DATE OF SURGERY: 01/09/18 PREOPERATIVE DIAGNOSIS: Persistent nausea, vomiting, and upper abdominal pain POSTOPERATIVE DIAGNOSIS: 1. Severe antral gastritis. 2. Reflux esophagitis. 3. Narrowing at the distal esophagus OPERATION: EGD with biopsy SURGEON: SAQIB CARPIO ANESTHESIA: Moderate Sedation TISSUE REMOVED OR ALTERED: 1. Antral biopsy. 2. Distal esophagus COMPLICATIONS: None apparent ESTIMATED BLOOD LOSS: Minimal PROCEDURE: Procedure in detail: After informed consent was obtained, the patient was brought into the operating room and laid in the left lateral decubitus position. The endoscope was passed down the oropharynx, down the esophagus, and into the stomach. Immediately upon insufflation of the stomach there was noted to be a dense inflammatory reaction through the antrum of the stomach. There were multiple petechiae and shallow ulcerations, consistent with severe gastritis. The scope was pushed through the pylorus. The first and second portions of the duodenum appeared normal. The scope was pulled back into the antrum, where biopsy was taken for pathology. The scope was then retroflexed. No large hiatal hernias could be identified. The scope was pulled up into the distal esophagus, noting severe reflux esophagitis. Biopsy was taken at the distal esophagus. The scope was then used to examine the remainder of the esophagus. There was some element of narrowing in the distal esophagus in the area of inflammation, however the scope moved through this area very easily. There were no masses or other lesions found throughout the esophagus. The scope was removed from the patient, and the procedure was concluded. All sponge , instrument, needle counts were correct. Condition: Fair.
[2018-01-09] MEDS: MONTELUKAST SODIUM 10 MG TABLET PO SCH (21:46)
[2018-01-09] MEDS: ONDANSETRON 4 MG TAB.RAPDIS PO PRN (21:47)
[2018-01-10] MEDS: ONDANSETRON 4 MG TAB.RAPDIS PO PRN (05:11)
[2018-01-10] MEDS: LANSOPRAZOLE 30 MG TAB.RAP.DR PO SCH ×2 (05:18→17:27)
[2018-01-10 05:39] LABS: ANION GAP 11 (5-19); BLOOD UREA NITROGEN 5 mg/dL (7-20); CALCIUM 8.1 mg/dL (8.4-10.2); CARBON DIOXIDE 29 mmol/L (22-30); CHLORIDE 99 mmol/L (98-107); GLUCOSE 83 mg/dL (75-110); POTASSIUM 3.1 mmol/L (3.6-5.0); SODIUM 139.2 mmol/L (137-145)
[2018-01-10] MEDS: SUCRALFATE SUSP 1 GM/10 ML UDCUP PO SCH ×4 (08:12→21:43)
[2018-01-10] MEDS ORDERED: ONDANSETRON HCL INJ/PF 4 MG/2 ML SDV ONE (08:23)
[2018-01-10] MEDS: OXYCODONE-ACETAMINOPHEN 5-325 MG TABLET PO PRN ×3 (08:25→16:14)
[2018-01-10] MEDS: ONDANSETRON HCL INJ/PF 4 MG/2 ML SDV IV PRN ×3 (08:25→16:23)
[2018-01-10] MEDS: DILTIAZEM HCL 180 MG CAPSULE.CR PO SCH (10:59)
[2018-01-10] MEDS: SPIRONOLACTONE 25 MG TABLET PO SCH (10:59)
[2018-01-10] MEDS: ENOXAPARIN SODIUM INJ 40 MG/0.4 ML DISP.SYRIN SUBCUT SCH (11:00)
[2018-01-10] MEDS: ATORVASTATIN CALCIUM 20 MG TABLET PO SCH (11:00)
[2018-01-10] MEDS: MAGNESIUM OXIDE 400 MG TABLET PO SCH ×2 (11:00→18:15)
[2018-01-10] MEDS: PRIMIDONE 50 MG TABLET PO SCH (11:00)
[2018-01-10] MEDS: METOPROLOL TARTRATE 50 MG TABLET PO SCH ×2 (11:00→21:42)
--- NOTE | 2018-01-10 13:02 | Physician Advisory Note ---
Physician Advisor ProgressNote .: Pursuant to the plan for [facility], I have reviewed the medical record for this patient. Physician Advisor Statement: Please consider documenting, if you agree: 1. "Chronic Hypoxemic Respiratory Failure, maintained on her usual 2L O2" Status: Medicare pt, appropriate to change to Inpatient status as of 01/09 PM when it became clear she was not safe for d/c before 2MNs. Thanks! CK
[2018-01-10] MEDS: MAGNESIUM SULFATE 1 GM/D5W 100 ML IV SCH ×2 (14:51→16:14)
--- NOTE | 2018-01-10 15:52 | RADIOLOGY REPORT (SQ) ---
EXAM DESCRIPTION: BARIUM SWALLOW ESOPHAGUS COMPLETED DATE/TIME: 01/10/2018 9:03 am REASON FOR STUDY: possible esophageal stricture R11.2 NAUSEA WITH VOMITING, UNSPECIFIED COMPARISON: None. TECHNIQUE: Under fluoroscopic guidance, patient ingested effervescent granules followed by thick and thin barium. Fluoroscopic spot images and routine radiographic images acquired and stored on PACS. 12 MM BARIUM TABLET GIVEN: The patient swallowed a 12 mm barium tablet which passed easily through th e esophagus and into the stomach without delay. LIMITATIONS: None. FLUOROSCOPY TIME: FLUORO TIME: 0.3 minutes 7 images saved to PACS. FINDINGS: NEUROMUSCULAR COORDINATION OF SWALLOW: Normal. No aspiration. ESOPHAGEAL MOTILITY: Normal peristalsis. No esophageal spasm. ESOPHAGEAL MUCOSA: Normal mucosa without masses or ulceration. GASTRO-ESOPHAGEAL JUNCTION: There is a small hiatal hernia present with mild gastroesophageal reflux demonstrated. NON-GI TRACT STRUCTURES: No significant finding. OTHER: No other significant finding. IMPRESSION: SMALL HIATAL HERNIA WITH MILD GASTROESOPHAGEAL REFLUX. OTHERWISE UNREMARKABLE STUDY. RECOMMENDATION: None COMMENT: None Quality ID [id number]: Final reports for procedures using fluoroscopy that document radiation exposure oksana britt, or exposure time and number of fluorographic images (if radiation exposure indices are not avail able) TECHNICAL DOCUMENTATION: JOB ID: [id number]- All Rights Reserved Reading location - IP/workstation name: [email or web address] [id number]
[2018-01-10] MEDS: POTASSIUM CHLORIDE 20 MEQ/50 ML RTU IV SCH ×3 (17:26→20:58)
--- NOTE | 2018-01-10 17:40 | PDOC PROGRESS REPORT ---
Subjective Progress Note for:: 01/10/18 Subjective:: Patient still having nausea and limited vomiting. Reason For Visit: INTRACTABLE NAUSEA AND VOMITING,HYPOKALEMIA Physical Exam Vital Signs: Temp Pulse Resp BP Pulse Ox 97.6 F 72 18 134/62 H 100 01/10/18 16:00 01/10/18 16:30 01/10/18 16:30 01/10/18 16:00 01/10/18 16:30 Intake & Output 01/09/18 01/10/18 01/11/18 06:59 06:59 06:59 Intake Total 1320 390 420 Output Total 800 Balance 520 390 420 Weight 67.2 kg 67.2 kg General appearance: PRESENT: no acute distress GI/Abdominal exam: PRESENT: other - Abdomen benign and cervical Steri-Strips in place; patient actively pooping Results Laboratory Results: 01/09/18 03:58 01/10/18 04:46 01/10/18 04:46 Sodium 139.2 Potassium 3.1 L Chloride 99 Carbon Dioxide 29 Anion Gap 11 BUN 5 L Creatinine 0.38 L Est GFR ( Amer) > 60 Est GFR (Non-Af Amer) > 60 Glucose 83 Calcium 8.1 L Magnesium 1.4 L Impressions: Abdomen/Pelvis CT 01/08/18 10:58 IMPRESSION: Resolving sigmoid diverticulitis with residual extraluminal gas but no drainable fluid collection. Follow-up is recommended. Esophagus X-Ray 01/10/18 00:00 IMPRESSION: SMALL HIATAL HERNIA WITH MILD GASTROESOPHAGEAL REFLUX. OTHERWISE UNREMARKABLE STUDY. Assessment & Plan - Diagnosis (1) Intractable vomiting Qualifiers: Vomiting type: unspecified Nausea presence: with nausea Qualified Code(s) : R11.2 - Nausea with vomiting, unspecified Is this a current diagnosis for this admission?: Yes Plan: Impression: Clinically no significant change. No evidence of sepsis; symptoms presumed secondary to severe gastritis; barium swallow today shows hiatal hernia , and minimal GE reflux; no other pathology; Hypomagnesemia and hypokalemia being treated Recommendations: 1. Continue medical management 2. Check CBC and SMA-7 in the a.m.
[2018-01-10] MEDS: IPRATROPIUM/ALBUTEROL 0.5-2.5 MG/3 ML AMPUL NEB PRN (19:52)
[2018-01-10] MEDS: MONTELUKAST SODIUM 10 MG TABLET PO SCH (21:43)
[2018-01-11] MEDS: OXYCODONE-ACETAMINOPHEN 5-325 MG TABLET PO PRN ×4 (03:04→22:51)
[2018-01-11 05:18] LABS: ABSOLUTE EOSINOPHILS # (AUTO) 0.2 10^3/uL (0.0-0.6); ABSOLUTE MONOCYTES (AUTO) 0.8 10^3/uL (0.1-1.4); ABSOLUTE NEUT (AUTO) 2.5 10^3/uL (1.7-8.2); BASOPHILS % (AUTO) 0.7 % (0-2); EOSINOPHILS % (AUTO) 3.3 % (0-6); HEMATOCRIT 27.4 % (36.0-47.0); HEMOGLOBIN 9.2 g/dL (12.0-15.5); LYMPHOCYTES % (AUTO) 22.3 % (13-45); MEAN CORPUSCULAR HEMOGLOBIN 29.9 pg (27.0-33.4); MEAN CORPUSCULAR HGB CONC 33.5 g/dL (32.0-36.0); MEAN CORPUSCULAR VOLUME 89 fl (80-97); MONOCYTES % (AUTO) 17.5 % (3-13); PLATELET COUNT 239 10^3/uL (150-450); RED BLOOD COUNT 3.06 10^6/uL (3.72-5.28); RED CELL DISTRIBUTION WIDTH 15.6 % (11.5-14.0); SEGMENTED NEUTROPHILS % (AUTO) 56.2 % (42-78); TOTAL CELLS COUNTED % (AUTO) 100 %; WHITE BLOOD COUNT 4.5 10^3/uL (4.0-10.5)
[2018-01-11 05:47] LABS: ANION GAP 11 (5-19); BLOOD UREA NITROGEN 6 mg/dL (7-20); CALCIUM 7.8 mg/dL (8.4-10.2); CARBON DIOXIDE 28 mmol/L (22-30); CHLORIDE 98 mmol/L (98-107); GLUCOSE 80 mg/dL (75-110); POTASSIUM 3.8 mmol/L (3.6-5.0); SODIUM 137.4 mmol/L (137-145)
[2018-01-11] MEDS: LANSOPRAZOLE 30 MG TAB.RAP.DR PO SCH ×2 (05:52→17:42)
[2018-01-11] MEDS: ONDANSETRON HCL INJ/PF 4 MG/2 ML SDV IV PRN ×2 (09:40→22:48)
[2018-01-11] MEDS: SUCRALFATE SUSP 1 GM/10 ML UDCUP PO SCH ×4 (09:43→22:10)
[2018-01-11] MEDS: SPIRONOLACTONE 25 MG TABLET PO SCH (09:43)
[2018-01-11] MEDS: PRIMIDONE 50 MG TABLET PO SCH (09:44)
[2018-01-11] MEDS: METOPROLOL TARTRATE 50 MG TABLET PO SCH ×2 (09:44→22:10)
[2018-01-11] MEDS: MAGNESIUM OXIDE 400 MG TABLET PO SCH ×2 (09:44→17:42)
[2018-01-11] MEDS: ATORVASTATIN CALCIUM 20 MG TABLET PO SCH (09:44)
[2018-01-11] MEDS: ENOXAPARIN SODIUM INJ 40 MG/0.4 ML DISP.SYRIN SUBCUT SCH (09:44)
[2018-01-11] MEDS: DILTIAZEM HCL 180 MG CAPSULE.CR PO SCH (09:44)
[2018-01-11] MEDS ORDERED: PROMETHAZINE HCL INJ 25 MG/1 ML VIAL IV PRN (12:08)
[2018-01-11] MEDS ORDERED: MAGNESIUM SULFATE/D5W 1 GM/100 ML RTUPB IV ONE (13:00)
--- NOTE | 2018-01-11 14:06 | PDOC PROGRESS REPORT ---
Subjective Progress Note for:: 01/11/18 Subjective:: N/V Reason For Visit: INTRACTABLE NAUSEA AND VOMITING,HYPOKALEMIA Physical Exam Vital Signs: Temp Pulse Resp BP Pulse Ox 98.1 F 62 15 149/60 H 100 01/11/18 11:18 01/11/18 11:18 01/11/18 11:18 01/11/18 11:18 01/11/18 11:18 Intake & Output 01/10/18 01/11/18 01/12/18 06:59 06:59 06:59 Intake Total 390 741 Output Total 300 Balance 390 441 Weight 67.2 kg Exam: abd is soft and non tender Incision is clean and dry Results Laboratory Results: 01/11/18 04:02 01/11/18 04:02 01/11/18 01/11/18 04:02 04:02 WBC 4.5 RBC 3.06 L Hgb 9.2 L Hct 27.4 L MCV 89 MCH 29.9 MCHC 33.5 RDW 15.6 H Plt Count 239 Seg Neutrophils % 56.2 Lymphocytes % 22.3 Monocytes % 17.5 H Eosinophils % 3.3 Basophils % 0.7 Absolute Neutrophils 2.5 Absolute Lymphocytes 1.0 Absolute Monocytes 0.8 Absolute Eosinophils 0.2 Absolute Basophils 0.0 Sodium 137.4 Potassium 3.8 Chloride 98 Carbon Dioxide 28 Anion Gap 11 BUN 6 L Creatinine 0.40 L Est GFR ( Amer) > 60 Est GFR (Non-Af Amer) > 60 Glucose 80 Calcium 7.8 L Impressions: Abdomen/Pelvis CT 01/08/18 10:58 IMPRESSION: Resolving sigmoid diverticulitis with residual extraluminal gas but no drainable fluid collection. Follow-up is recommended. Esophagus X-Ray 01/10/18 00:00 IMPRESSION: SMALL HIATAL HERNIA WITH MILD GASTROESOPHAGEAL REFLUX. OTHERWISE UNREMARKABLE STUDY. Assessment & Plan - Time Time Spent with patient: 15-24 minutes - Inpatient Certification Medical Necessity: Failure to Improve With Outpatient Therapy, Need For IV Fluids, Risk of Complication if Not Cared For in Hospital - Plan Summary Plan Summary: Correct lytes, Mg Ordered new anti emetic Ordered PT for ambulation She says she has been having episodes of vomiting since August 2017. Had sigmoid resection with primary anastomosis about 2 weks ago for perforated sigmoid diverticulitis and her n/V continued post op. She was able to tolerate some clears this am. Advised her to take po ensure clear. Continue observation with anti emetics
[2018-01-11] MEDS: IPRATROPIUM/ALBUTEROL 0.5-2.5 MG/3 ML AMPUL NEB PRN (18:36)
[2018-01-11] MEDS: PROMETHAZINE HCL INJ 25 MG/1 ML VIAL IV PRN (19:04)
[2018-01-11] MEDS: MONTELUKAST SODIUM 10 MG TABLET PO SCH (22:10)
[2018-01-12 05:24] LABS: ABSOLUTE EOSINOPHILS # (AUTO) 0.2 10^3/uL (0.0-0.6); ABSOLUTE LYMPHOCYTES (AUTO) 1.3 10^3/uL (0.5-4.7); ABSOLUTE MONOCYTES (AUTO) 0.7 10^3/uL (0.1-1.4); ABSOLUTE NEUT (AUTO) 2.8 10^3/uL (1.7-8.2); BASOPHILS % (AUTO) 0.6 % (0-2); EOSINOPHILS % (AUTO) 4.3 % (0-6); HEMATOCRIT 26.4 % (36.0-47.0); HEMOGLOBIN 8.9 g/dL (12.0-15.5); LYMPHOCYTES % (AUTO) 25.8 % (13-45); MEAN CORPUSCULAR HEMOGLOBIN 30.2 pg (27.0-33.4); MEAN CORPUSCULAR HGB CONC 33.8 g/dL (32.0-36.0); MEAN CORPUSCULAR VOLUME 89 fl (80-97); MONOCYTES % (AUTO) 14.7 % (3-13); PLATELET COUNT 227 10^3/uL (150-450); RED BLOOD COUNT 2.95 10^6/uL (3.72-5.28); SEGMENTED NEUTROPHILS % (AUTO) 54.6 % (42-78); TOTAL CELLS COUNTED % (AUTO) 100 %
[2018-01-12 05:46] LABS: ANION GAP 8 (5-19); BLOOD UREA NITROGEN 6 mg/dL (7-20); CARBON DIOXIDE 31 mmol/L (22-30); CHLORIDE 98 mmol/L (98-107); GLUCOSE 77 mg/dL (75-110); SODIUM 136.6 mmol/L (137-145)
[2018-01-12 05:48] LABS: CALCIUM 7.8 mg/dL (8.4-10.2); POTASSIUM 3.7 mmol/L (3.6-5.0)
[2018-01-12] MEDS: LANSOPRAZOLE 30 MG TAB.RAP.DR PO SCH ×2 (06:07→16:04)
[2018-01-12] MEDS: SUCRALFATE SUSP 1 GM/10 ML UDCUP PO SCH ×4 (08:41→21:32)
[2018-01-12] MEDS: PROMETHAZINE HCL INJ 25 MG/1 ML VIAL IV PRN ×2 (09:22→18:21)
[2018-01-12] MEDS: OXYCODONE-ACETAMINOPHEN 5-325 MG TABLET PO PRN ×2 (11:00→18:21)
[2018-01-12] MEDS: DILTIAZEM HCL 180 MG CAPSULE.CR PO SCH (11:00)
[2018-01-12] MEDS: SPIRONOLACTONE 25 MG TABLET PO SCH (11:00)
[2018-01-12] MEDS: METOPROLOL TARTRATE 50 MG TABLET PO SCH ×2 (11:02→21:32)
[2018-01-12] MEDS: MAGNESIUM OXIDE 400 MG TABLET PO SCH ×2 (11:03→18:21)
[2018-01-12] MEDS: ATORVASTATIN CALCIUM 20 MG TABLET PO SCH (11:04)
[2018-01-12] MEDS: ENOXAPARIN SODIUM INJ 40 MG/0.4 ML DISP.SYRIN SUBCUT SCH (11:05)
[2018-01-12] MEDS: PRIMIDONE 50 MG TABLET PO SCH (11:28)
[2018-01-12] MEDS: ONDANSETRON HCL INJ/PF 4 MG/2 ML SDV IV PRN (14:49)
--- NOTE | 2018-01-12 17:31 | PDOC PROGRESS REPORT ---
Subjective Progress Note for:: 01/12/18 Subjective:: no N/V but still c/o back pains and requesting po narcotics. Claims she gets eidural injections q 4 months at her pain clinic([facility] in [place]) Has BM and flatus Reason For Visit: INTRACTABLE NAUSEA AND VOMITING,HYPOKALEMIA Physical Exam Vital Signs: Temp Pulse Resp BP Pulse Ox 98.3 F 62 16 126/54 H 99 01/12/18 16:00 01/12/18 16:00 01/12/18 16:00 01/12/18 16:00 01/12/18 16:00 Intake & Output 01/11/18 01/12/18 01/13/18 06:59 06:59 06:59 Intake Total 741 910 Output Total 300 400 Balance 441 510 Weight 67.6 kg Exam: abd is flat soft and non tender Results Laboratory Results: 01/12/18 03:59 01/12/18 03:59 01/12/18 01/12/18 03:59 03:59 WBC 5.0 RBC 2.95 L Hgb 8.9 L Hct 26.4 L MCV 89 MCH 30.2 MCHC 33.8 RDW 16.0 H Plt Count 227 Seg Neutrophils % 54.6 Lymphocytes % 25.8 Monocytes % 14.7 H Eosinophils % 4.3 Basophils % 0.6 Absolute Neutrophils 2.8 Absolute Lymphocytes 1.3 Absolute Monocytes 0.7 Absolute Eosinophils 0.2 Absolute Basophils 0.0 Sodium 136.6 L Potassium 3.7 Chloride 98 Carbon Dioxide 31 H Anion Gap 8 BUN 6 L Creatinine 0.45 L Est GFR ( Amer) > 60 Est GFR (Non-Af Amer) > 60 Glucose 77 Calcium 7.8 L Magnesium 1.9 Impressions: Abdomen/Pelvis CT 01/08/18 10:58 IMPRESSION: Resolving sigmoid diverticulitis with residual extraluminal gas but no drainable fluid collection. Follow-up is recommended. Esophagus X-Ray 01/10/18 00:00 IMPRESSION: SMALL HIATAL HERNIA WITH MILD GASTROESOPHAGEAL REFLUX. OTHERWISE UNREMARKABLE STUDY. Assessment & Plan - Time Time Spent with patient: 15-24 minutes - Inpatient Certification Medical Necessity: Significant Comorbidiites Make Outpatient Treatment Too Risky , Need For IV Fluids, Need for Pain Control - Plan Summary Plan Summary: Gradually increase diet and activity via PT Hopefully can be discharge soon so she can see her pain mx doctors and get an epidural to decrease po narcotics which promotes ileus.
[2018-01-12] MEDS: IPRATROPIUM/ALBUTEROL 0.5-2.5 MG/3 ML AMPUL NEB PRN (20:12)
[2018-01-12] MEDS: MONTELUKAST SODIUM 10 MG TABLET PO SCH (21:34)
[2018-01-13] MEDS: ONDANSETRON HCL INJ/PF 4 MG/2 ML SDV IV PRN (03:39)
[2018-01-13] MEDS: OXYCODONE-ACETAMINOPHEN 5-325 MG TABLET PO PRN ×3 (03:39→21:26)
[2018-01-13] MEDS: LANSOPRAZOLE 30 MG TAB.RAP.DR PO SCH ×2 (06:37→17:51)
[2018-01-13] MEDS: SUCRALFATE SUSP 1 GM/10 ML UDCUP PO SCH ×4 (09:28→21:24)
[2018-01-13] MEDS: SPIRONOLACTONE 25 MG TABLET PO SCH (09:29)
[2018-01-13] MEDS: DILTIAZEM HCL 180 MG CAPSULE.CR PO SCH (09:29)
[2018-01-13] MEDS: METOPROLOL TARTRATE 50 MG TABLET PO SCH ×2 (09:29→21:24)
[2018-01-13] MEDS: ATORVASTATIN CALCIUM 20 MG TABLET PO SCH (09:29)
[2018-01-13] MEDS: MAGNESIUM OXIDE 400 MG TABLET PO SCH ×2 (09:29→17:51)
[2018-01-13] MEDS: PRIMIDONE 50 MG TABLET PO SCH (09:31)
[2018-01-13] MEDS: ENOXAPARIN SODIUM INJ 40 MG/0.4 ML DISP.SYRIN SUBCUT SCH (09:31)
[2018-01-13] MEDS: ONDANSETRON 4 MG TAB.RAPDIS PO PRN ×2 (11:58→20:33)
--- NOTE | 2018-01-13 15:37 | PDOC PROGRESS REPORT ---
Subjective Progress Note for:: 01/13/18 Subjective:: This is a 67-year-old female admitted with intractable nausea, vomiting, and upper abdominal pain. The patient is recently status post sigmoid colectomy. She has no lower abdominal pain. Today, the patient reports that her nausea is improving. She was able to eat most of her breakfast this morning. She still complains of severe reflux. She denies chest pain, shortness of breath, fevers , chills, dizziness, orthostasis. Reason For Visit: INTRACTABLE NAUSEA AND VOMITING,HYPOKALEMIA Physical Exam Vital Signs: Temp Pulse Resp BP Pulse Ox 98 F 71 16 154/62 H 100 01/13/18 12:00 01/13/18 12:00 01/13/18 12:00 01/13/18 12:00 01/13/18 12:00 Intake & Output 01/12/18 01/13/18 01/14/18 06:59 06:59 06:59 Intake Total 910 1006 Output Total 400 Balance 510 1006 Weight 67.6 kg 67.3 kg General appearance: PRESENT: no acute distress Head exam: PRESENT: atraumatic, normocephalic Eye exam: PRESENT: EOMI, PERRLA. ABSENT: scleral icterus Mouth exam: PRESENT: moist, neck supple Neck exam: ABSENT: meningismus, tenderness, thyromegaly, tracheal deviation Respiratory exam: PRESENT: clear to auscultation keren. ABSENT: chest wall tenderness Cardiovascular exam: PRESENT: RRR Pulses: PRESENT: normal radial pulses Vascular exam: PRESENT: normal capillary refill. ABSENT: pallor GI/Abdominal exam: PRESENT: soft. ABSENT: distended, guarding, tenderness Extremities exam: ABSENT: clubbing Musculoskeletal exam: ABSENT: deformity Neurological exam: PRESENT: alert, awake, oriented to person, oriented to place , oriented to time, oriented to situation, CN II-XII grossly intact Psychiatric exam: ABSENT: agitated, anxious, depressed Skin exam: ABSENT: cyanosis, erythema, jaundice Results Laboratory Results: 01/12/18 03:59 01/12/18 03:59 Impressions: Abdomen/Pelvis CT 01/08/18 10:58 IMPRESSION: Resolving sigmoid diverticulitis with residual extraluminal gas but no drainable fluid collection. Follow-up is recommended. Esophagus X-Ray 01/10/18 00:00 IMPRESSION: SMALL HIATAL HERNIA WITH MILD GASTROESOPHAGEAL REFLUX. OTHERWISE UNREMARKABLE STUDY. Assessment & Plan - Diagnosis (2) Intractable vomiting Qualifiers: Vomiting type: unspecified Nausea presence: with nausea Qualified Code(s) : R11.2 - Nausea with vomiting, unspecified Is this a current diagnosis for this admission?: Yes - Plan Summary Plan Summary: This is a 68-year-old female with gastritis, reflux esophagitis, nausea, and vomiting. The patient reports that her symptoms are improving after the addition of Carafate. Continue her PPI and Carafate. Add Pepcid. Plan for discharge soon.
[2018-01-13] MEDS: IPRATROPIUM/ALBUTEROL 0.5-2.5 MG/3 ML AMPUL NEB PRN (18:12)
[2018-01-13] MEDS: MONTELUKAST SODIUM 10 MG TABLET PO SCH (21:23)
[2018-01-14] MEDS: LANSOPRAZOLE 30 MG TAB.RAP.DR PO SCH ×2 (05:03→17:33)
[2018-01-14] MEDS: IPRATROPIUM/ALBUTEROL 0.5-2.5 MG/3 ML AMPUL NEB PRN (08:23)
[2018-01-14] MEDS: SUCRALFATE SUSP 1 GM/10 ML UDCUP PO SCH ×4 (09:13→21:11)
[2018-01-14] MEDS: OXYCODONE-ACETAMINOPHEN 5-325 MG TABLET PO PRN ×2 (09:14→17:34)
[2018-01-14] MEDS: MAGNESIUM OXIDE 400 MG TABLET PO SCH ×2 (09:14→17:30)
[2018-01-14] MEDS: ATORVASTATIN CALCIUM 20 MG TABLET PO SCH (09:14)
[2018-01-14] MEDS: METOPROLOL TARTRATE 50 MG TABLET PO SCH ×2 (09:14→21:11)
[2018-01-14] MEDS: DILTIAZEM HCL 180 MG CAPSULE.CR PO SCH (09:14)
[2018-01-14] MEDS: ENOXAPARIN SODIUM INJ 40 MG/0.4 ML DISP.SYRIN SUBCUT SCH (09:15)
--- NOTE | 2018-01-14 09:15 | PDOC PROGRESS REPORT ---
Subjective Progress Note for:: 01/14/18 Subjective:: Still with some nausea likely due to her gastritis Feels weak Reason For Visit: INTRACTABLE NAUSEA AND VOMITING,HYPOKALEMIA Physical Exam Vital Signs: Temp Pulse Resp BP Pulse Ox 97.4 F 75 14 175/96 H 100 01/14/18 08:15 01/14/18 08:23 01/14/18 08:23 01/14/18 08:15 01/14/18 08:23 Intake & Output 01/13/18 01/14/18 01/15/18 06:59 06:59 06:59 Intake Total 1006 505 Balance 1006 505 Weight 67.3 kg 66 kg Exam: abd is soft and non tender Results Laboratory Results: 01/12/18 03:59 01/12/18 03:59 01/08/18 15:20 Blood Blood Culture - Final NO GROWTH IN 5 DAYS Impressions: Abdomen/Pelvis CT 01/08/18 10:58 IMPRESSION: Resolving sigmoid diverticulitis with residual extraluminal gas but no drainable fluid collection. Follow-up is recommended. Esophagus X-Ray 01/10/18 00:00 IMPRESSION: SMALL HIATAL HERNIA WITH MILD GASTROESOPHAGEAL REFLUX. OTHERWISE UNREMARKABLE STUDY. Assessment & Plan - Time Time Spent with patient: 15-24 minutes - Plan Summary Plan Summary: Will arrange for discharge to rehab facility
[2018-01-14] MEDS: SPIRONOLACTONE 25 MG TABLET PO SCH (09:17)
[2018-01-14] MEDS: PRIMIDONE 50 MG TABLET PO SCH (09:17)
[2018-01-14] MEDS: FAMOTIDINE 20 MG TABLET PO SCH (09:17)
[2018-01-14] MEDS: ONDANSETRON 4 MG TAB.RAPDIS PO PRN (17:33)
[2018-01-14] MEDS: MONTELUKAST SODIUM 10 MG TABLET PO SCH (21:11)
[2018-01-15] MEDS: OXYCODONE-ACETAMINOPHEN 5-325 MG TABLET PO PRN ×3 (04:22→19:52)
[2018-01-15] MEDS: LANSOPRAZOLE 30 MG TAB.RAP.DR PO SCH ×2 (05:33→17:22)
[2018-01-15] MEDS: MAGNESIUM OXIDE 400 MG TABLET PO SCH ×2 (10:26→17:22)
[2018-01-15] MEDS: SUCRALFATE SUSP 1 GM/10 ML UDCUP PO SCH ×4 (10:26→22:22)
[2018-01-15] MEDS: METOPROLOL TARTRATE 50 MG TABLET PO SCH ×2 (10:27→22:22)
[2018-01-15] MEDS: FAMOTIDINE 20 MG TABLET PO SCH (10:27)
[2018-01-15] MEDS: ATORVASTATIN CALCIUM 20 MG TABLET PO SCH (10:28)
[2018-01-15] MEDS: ENOXAPARIN SODIUM INJ 40 MG/0.4 ML DISP.SYRIN SUBCUT SCH (10:28)
[2018-01-15] MEDS: PRIMIDONE 50 MG TABLET PO SCH (10:28)
[2018-01-15] MEDS: DILTIAZEM HCL 180 MG CAPSULE.CR PO SCH (10:28)
[2018-01-15] MEDS: SPIRONOLACTONE 25 MG TABLET PO SCH (10:28)
--- NOTE | 2018-01-15 15:55 | PDOC PROGRESS REPORT ---
Subjective Progress Note for:: 01/15/18 Subjective:: No N/V today but still eak. Claims she has 16 stairs at home and feels difficult to go upstairs Awaiting Rehab placement. Continue PT in Hospital Reason For Visit: INTRACTABLE NAUSEA AND VOMITING,HYPOKALEMIA Physical Exam Vital Signs: Temp Pulse Resp BP Pulse Ox 98.4 F 70 16 114/52 L 100 01/15/18 12:27 01/15/18 12:35 01/15/18 12:35 01/15/18 12:27 01/15/18 12:35 Intake & Output 01/14/18 01/15/18 01/16/18 06:59 06:59 05:59 Intake Total 505 692 380 Balance 505 692 380 Weight 66 kg 66.2 kg Results Laboratory Results: 01/12/18 03:59 01/12/18 03:59 Impressions: Abdomen/Pelvis CT 01/08/18 10:58 IMPRESSION: Resolving sigmoid diverticulitis with residual extraluminal gas but no drainable fluid collection. Follow-up is recommended. Esophagus X-Ray 01/10/18 00:00 IMPRESSION: SMALL HIATAL HERNIA WITH MILD GASTROESOPHAGEAL REFLUX. OTHERWISE UNREMARKABLE STUDY.
[2018-01-15] MEDS: MONTELUKAST SODIUM 10 MG TABLET PO SCH (22:22)
[2018-01-16] MEDS: SUCRALFATE SUSP 1 GM/10 ML UDCUP PO SCH ×4 (08:52→21:25)
[2018-01-16] MEDS: OXYCODONE-ACETAMINOPHEN 5-325 MG TABLET PO PRN ×3 (09:00→23:08)
[2018-01-16] MEDS: FAMOTIDINE 20 MG TABLET PO SCH (09:01)
[2018-01-16] MEDS: MAGNESIUM OXIDE 400 MG TABLET PO SCH ×2 (09:01→17:34)
[2018-01-16] MEDS: LANSOPRAZOLE 30 MG TAB.RAP.DR PO SCH ×2 (09:01→17:38)
[2018-01-16] MEDS: METOPROLOL TARTRATE 50 MG TABLET PO SCH ×2 (09:01→21:25)
[2018-01-16] MEDS: ENOXAPARIN SODIUM INJ 40 MG/0.4 ML DISP.SYRIN SUBCUT SCH (09:02)
[2018-01-16] MEDS: DILTIAZEM HCL 180 MG CAPSULE.CR PO SCH (09:02)
[2018-01-16] MEDS: SPIRONOLACTONE 25 MG TABLET PO SCH (09:02)
[2018-01-16] MEDS: ATORVASTATIN CALCIUM 20 MG TABLET PO SCH (09:02)
[2018-01-16] MEDS: PRIMIDONE 50 MG TABLET PO SCH (09:06)
[2018-01-16] MEDS ORDERED: DOCUSATE SODIUM 100 MG CAPSULE PO PRN (10:47)
[2018-01-16] MEDS: ONDANSETRON 4 MG TAB.RAPDIS PO PRN (19:45)
[2018-01-16] MEDS: IPRATROPIUM/ALBUTEROL 0.5-2.5 MG/3 ML AMPUL NEB PRN (19:56)
[2018-01-16] MEDS: MONTELUKAST SODIUM 10 MG TABLET PO SCH (21:25)
[2018-01-17] MEDS: SUCRALFATE SUSP 1 GM/10 ML UDCUP PO SCH ×4 (08:24→21:14)
[2018-01-17] MEDS: LANSOPRAZOLE 30 MG TAB.RAP.DR PO SCH ×2 (08:24→16:29)
--- NOTE | 2018-01-17 08:51 | PDOC PROGRESS REPORT ---
Subjective Progress Note for:: 01/17/18 Subjective:: No N/v, flatus present, good appetite Reason For Visit: INTRACTABLE NAUSEA AND VOMITING,HYPOKALEMIA Physical Exam Vital Signs: Temp Pulse Resp BP Pulse Ox 97.9 F 76 19 107/57 L 99 01/17/18 00:00 01/17/18 00:00 01/17/18 00:00 01/17/18 00:00 01/17/18 00:20 Intake & Output 01/16/18 01/17/18 01/18/18 06:59 06:59 06:59 Intake Total 554 Balance 554 Weight 64.2 kg General appearance: PRESENT: no acute distress Respiratory exam: PRESENT: clear to auscultation keren Cardiovascular exam: PRESENT: RRR GI/Abdominal exam: PRESENT: normal bowel sounds, soft, other - incision c/d/i Results Laboratory Results: 01/12/18 03:59 01/12/18 03:59 Impressions: Abdomen/Pelvis CT 01/08/18 10:58 IMPRESSION: Resolving sigmoid diverticulitis with residual extraluminal gas but no drainable fluid collection. Follow-up is recommended. Esophagus X-Ray 01/10/18 00:00 IMPRESSION: SMALL HIATAL HERNIA WITH MILD GASTROESOPHAGEAL REFLUX. OTHERWISE UNREMARKABLE STUDY. Assessment & Plan - Diagnosis (1) Intractable vomiting Qualifiers: Vomiting type: unspecified Nausea presence: with nausea Qualified Code(s) : R11.2 - Nausea with vomiting, unspecified Is this a current diagnosis for this admission?: Yes (2) Gastroesophageal reflux disease Qualifiers: Esophagitis presence: esophagitis presence not specified Qualified Code(s) : K21.9 - Gastro-esophageal reflux disease without esophagitis Is this a current diagnosis for this admission?: Yes - Plan Summary Plan Summary: A/ General conditions improved, no N/V patient repots flatus and stools good appetite zP/ [facility] continue current orders No other General Surgery issues identified
[2018-01-17] MEDS: IPRATROPIUM/ALBUTEROL 0.5-2.5 MG/3 ML AMPUL NEB PRN (09:05)
[2018-01-17] MEDS: MAGNESIUM OXIDE 400 MG TABLET PO SCH ×2 (10:19→17:15)
[2018-01-17] MEDS: SPIRONOLACTONE 25 MG TABLET PO SCH (10:19)
[2018-01-17] MEDS: FAMOTIDINE 20 MG TABLET PO SCH (10:19)
[2018-01-17] MEDS: DILTIAZEM HCL 180 MG CAPSULE.CR PO SCH (10:19)
[2018-01-17] MEDS: ATORVASTATIN CALCIUM 20 MG TABLET PO SCH (10:20)
[2018-01-17] MEDS: METOPROLOL TARTRATE 50 MG TABLET PO SCH ×2 (10:20→21:14)
[2018-01-17] MEDS: ENOXAPARIN SODIUM INJ 40 MG/0.4 ML DISP.SYRIN SUBCUT SCH (10:21)
[2018-01-17] MEDS: PRIMIDONE 50 MG TABLET PO SCH (10:22)
[2018-01-17] MEDS: OXYCODONE-ACETAMINOPHEN 5-325 MG TABLET PO PRN ×2 (10:26→21:15)
[2018-01-17] MEDS: ONDANSETRON 4 MG TAB.RAPDIS PO PRN (16:43)
[2018-01-17] MEDS: MONTELUKAST SODIUM 10 MG TABLET PO SCH (21:14)
[2018-01-18] MEDS: LANSOPRAZOLE 30 MG TAB.RAP.DR PO SCH (06:07)
[2018-01-18] MEDS: SUCRALFATE SUSP 1 GM/10 ML UDCUP PO SCH ×3 (07:52→16:11)
[2018-01-18] MEDS: IPRATROPIUM/ALBUTEROL 0.5-2.5 MG/3 ML AMPUL NEB PRN (08:30)
--- NOTE | 2018-01-18 09:19 | Progress Note ---
Provider Note Provider Note: S/ no c/o PE: abdomen soft A/P Patient to be transferred to rehabilitation today. See d/c orders from yesterday
[2018-01-18] MEDS: FAMOTIDINE 20 MG TABLET PO SCH (09:50)
[2018-01-18] MEDS: DILTIAZEM HCL 180 MG CAPSULE.CR PO SCH (09:51)
[2018-01-18] MEDS: OXYCODONE-ACETAMINOPHEN 5-325 MG TABLET PO PRN ×2 (09:52→16:10)
[2018-01-18] MEDS: METOPROLOL TARTRATE 50 MG TABLET PO SCH (09:52)
[2018-01-18] MEDS: ATORVASTATIN CALCIUM 20 MG TABLET PO SCH (09:52)
[2018-01-18] MEDS: MAGNESIUM OXIDE 400 MG TABLET PO SCH (09:52)
[2018-01-18] MEDS: SPIRONOLACTONE 25 MG TABLET PO SCH (09:53)
[2018-01-18] MEDS: ENOXAPARIN SODIUM INJ 40 MG/0.4 ML DISP.SYRIN SUBCUT SCH (09:54)
[2018-01-18] MEDS: PRIMIDONE 50 MG TABLET PO SCH (09:56)
--- NOTE | 2018-01-18 11:26 | DISCHARGE SUMMARY E ---
Discharge Summary NAME: CHAKA PATEL : 1950 AGE: 67Y ADMITTED: 01/08/2018 DISCHARGED: 01/17/2018 FINAL DIAGNOSES: 1. Status post sigmoid resection. 2. Status post chronic sigmoid diverticulitis. 3. Intractable nausea and vomiting. 4. Distal reflux esophagitis. PROCEDURE: EGD on January 09. COMPLICATIONS: None. HOSPITAL COURSE: This 67-year-old female is status post sigmoid resection in the middle of December done for chronic sigmoid diverticulitis. The procedure was uneventful and the patient was discharged to home, readmitted on January 08 for intractable nausea and vomiting and abdominal distention. She was admitted, kept n.p.o. on IV fluids, and EGD was performed on January 09, revealing distal esophagitis. An upper GI esophagram was performed on January 10 demonstrating a small hiatal hernia with mild reflux. The patient was kept n.p.o. on IV fluids. The diet was then slowly advanced. On the day of discharge the patient had stable vital signs, no complaints. She presented with flatus and stools. Physical exam was unremarkable. Her abdomen was soft, nondistended, nontender, hypoactive bowel sounds, midline incision clean, dry, and intact. DISCHARGE ORDERS: Patient was discharged on 01/17/2018 to the [facility] facility. Continue current medications. Follow up in the surgical office with Dr. Ralph in 2 weeks. Continue administration of oxygen via nasal cannula. Patient can follow a regular diet. Activities as tolerated. DICTATING PHYSICIAN: ADELA NORRIS M.D. [id number] Y#: [id number] ID: [id number] JOB#: [id number] ACCT: [id number] cc:ADELA NORRIS M.D. [facility],
[2018-01-18 13:34] VITALS: BP 130/70
--- NOTE | 2018-01-19 11:17 | DISCHARGE SUMMARY E ---
Discharge Summary NAME: CHAKA PATEL : 1950 AGE: 67Y ADMITTED: 01/08/2018 DISCHARGED: 01/18/2018 ADDENDUM: The patient was finally discharged to a rehabilitation center on January 18, 2018. Please refer to the full dictation for orders and disposition. DICTATING PHYSICIAN: ADELA NORRIS M.D. [id number] PHY#: [id number] ID: [id number] JOB#: [id number] ACCT: [id number] cc:ADELA NORRIS M.D., E. R. >
== END 2018-01-18 16:32 | DRG 392 ==
LOC: ER 10:32 → EH 14:01 → OBSVTOIN 14:20 → 5 16:12
PROVIDERS: ATTEND Surgery
PROC: 0DB78ZX Excision of Stomach, Pylorus, Via Natural or Artificial Opening Endoscopic, Diagnostic (ICD-10-PCS; 2018-01-09)
PROC: 0DB58ZX Excision of Esophagus, Via Natural or Artificial Opening Endoscopic, Diagnostic (ICD-10-PCS; principal; 2018-01-09 13:30)
DX: K21.0 Gastro-esophageal reflux disease with esophagitis (principal); K29.00 Acute gastritis without bleeding; F17.200 Nicotine dependence, unspecified, uncomplicated; J44.9 Chronic obstructive pulmonary disease, unspecified; I48.91 Unspecified atrial fibrillation; E78.5 Hyperlipidemia, unspecified; K44.9 Diaphragmatic hernia without obstruction or gangrene; I10 Essential (primary) hypertension; M19.90 Unspecified osteoarthritis, unspecified site; F32.9 Major depressive disorder, single episode, unspecified; Z90.49 Acquired absence of other specified parts of digestive tract; Z90.710 Acquired absence of both cervix and uterus; Z79.899 Other long term (current) drug therapy; Z88.8 Allergy status to other drugs, medicaments and biological substances
CPT/HCPCS: 36415; 43239; 74177; 74220; 80048; 80053; 81001; 82272; 83605; 83690; 83735; 85025; 86850; 86900; 86901; 87040; 87086; 87493; 88305; 88342; 94640; 96361; 96374; 99285; G0378; G8978-GP; G8979-GP; J0171; J1610; J1650; J2250; J2310; J2405; J2550; J3010; J3475; J3480; J3490; J7030; J7620; S0119; S0164

== ENCOUNTER 2018-01-30 15:00 | Emergency (ER) | payer MEDICARE, MEDICAID ==
--- NOTE | 2018-01-30 15:18 | ER Document Report ---
ED Medical Screen (RME) - General Chief Complaint: Abdominal Pain Stated Complaint: RECTAL ISSUE Time Seen by Provider: 01/30/18 15:15 Mode of Arrival: Wheelchair Information source: Patient, Relative TRAVEL OUTSIDE OF THE [place] IN LAST 30 DAYS: No - HPI Patient complains to provider of: rectal issue Onset: Just prior to arrival - pt with h/o rectocele with possible rectal prolapse after BM earlier this afternoon - Related Data Allergies/Adverse Reactions: nickel Allergy (Severe, Verified 01/08/18 10:33) RASH adhesive tape [Adhesive Tape] Allergy (Mild, Verified 01/08/18 10:33) RASH/BLISTER roflumilast Adverse Reaction (Unknown, Verified 01/08/18 10:33) N/V, diarrhea Past Medical History - Past Medical History Cardiac Medical History: Reports: Hx Atrial Fibrillation, Hx Hypercholesterolemia, Hx Hypertension Denies: Hx Coronary Artery Disease, Hx Heart Attack Pulmonary Medical History: Reports: Hx Asthma, Hx Bronchitis, Hx COPD, Hx Pneumonia, Hx Sleep Apnea - on CPAP Neurological Medical History: Denies: Hx Cerebrovascular Accident, Hx Seizures Renal/ Medical History: Reports: Hx Kidney Stones. Denies: Hx Peritoneal Dialysis GI Medical History: Reports: Hx Gastroesophageal Reflux Disease, Hx Hiatal Hernia. Denies: Hx Hepatitis, Hx Ulcer Musculoskeltal Medical History: Reports Hx Arthritis - NECK, LOWER BACK Psychiatric Medical History: Reports: Hx Depression Infectious Medical History: Denies: Hx Hepatitis Past Surgical History: Reports: Hx Abdominal Surgery - HERNIA, Hx Appendectomy, Hx Cholecystectomy, Hx Herniorrhaphy, Hx Rectal Surgery, Hx Tubal Ligation, Other - Rectocele/cystocele repair. Recent sigmoid colon resection.. Denies: Hx Hysterectomy, Hx Mastectomy, Hx Open Heart Surgery, Hx Pacemaker - Immunizations Hx Diphtheria, Pertussis, Tetanus Vaccination: Yes History of Influenza Vaccine for 12/2016 - 05/2017 Season: Unknown Physical Exam - Vital signs Vitals: Temp Pulse Resp BP Pulse Ox 98.4 F 88 18 130/57 H 99 01/30/18 15:09 01/30/18 15:09 01/30/18 15:09 01/30/18 15:09 01/30/18 15:09 Course - Vital Signs Vital signs: Temp Pulse Resp BP Pulse Ox 98.4 F 88 18 130/57 H 99 01/30/18 15:09 01/30/18 15:09 01/30/18 15:09 01/30/18 15:09 01/30/18 15:09
[2018-01-30 15:55] LABS: ABSOLUTE BASOPHILS # (AUTO) 0.1 10^3/uL (0.0-0.2); ABSOLUTE EOSINOPHILS # (AUTO) 0.3 10^3/uL (0.0-0.6); ABSOLUTE LYMPHOCYTES (AUTO) 2.3 10^3/uL (0.5-4.7); ABSOLUTE MONOCYTES (AUTO) 1.1 10^3/uL (0.1-1.4); ABSOLUTE NEUT (AUTO) 8.6 10^3/uL (1.7-8.2); BASOPHILS % (AUTO) 0.8 % (0-2); EOSINOPHILS % (AUTO) 2.5 % (0-6); HEMATOCRIT 33.8 % (36.0-47.0); HEMOGLOBIN 11.2 g/dL (12.0-15.5); LYMPHOCYTES % (AUTO) 18.4 % (13-45); MEAN CORPUSCULAR HEMOGLOBIN 29.9 pg (27.0-33.4); MEAN CORPUSCULAR HGB CONC 33.1 g/dL (32.0-36.0); MEAN CORPUSCULAR VOLUME 90 fl (80-97); MONOCYTES % (AUTO) 8.6 % (3-13); PLATELET COUNT 428 10^3/uL (150-450); RED BLOOD COUNT 3.74 10^6/uL (3.72-5.28); RED CELL DISTRIBUTION WIDTH 16.3 % (11.5-14.0); SEGMENTED NEUTROPHILS % (AUTO) 69.7 % (42-78); TOTAL CELLS COUNTED % (AUTO) 100 %; WHITE BLOOD COUNT 12.3 10^3/uL (4.0-10.5)
[2018-01-30 16:07] LABS: ALANINE AMINOTRANSFERASE 18 U/L (9-52); ALBUMIN 3.5 g/dL (3.5-5.0); ALKALINE PHOSPHATASE 76 U/L (38-126); ANION GAP 14 (5-19); ASPARTATE AMINO TRANSFERASE 16 U/L (14-36); BILIRUBIN,DIRECT 0.2 mg/dL (0.0-0.4); BILIRUBIN,TOTAL 0.3 mg/dL (0.2-1.3); BLOOD UREA NITROGEN 21 mg/dL (7-20); CALCIUM 9.8 mg/dL (8.4-10.2); CARBON DIOXIDE 28 mmol/L (22-30); CHLORIDE 93 mmol/L (98-107); GLUCOSE 124 mg/dL (75-110); POTASSIUM 4.8 mmol/L (3.6-5.0); SODIUM 135.1 mmol/L (137-145); TOTAL PROTEIN 6.5 g/dL (6.3-8.2)
--- NOTE | 2018-01-30 17:10 | ER Document Report ---
ED GI Bleed / Rectal Pain - General Chief Complaint: Abdominal Pain Stated Complaint: RECTAL ISSUE Time Seen by Provider: 01/30/18 15:15 Mode of Arrival: Wheelchair Notes: 68 year old female presents to the emergency department with complaints of rectal pain. Patient states that she was having a bowel movement when she went to wipe and felt something hanging out of her rectum. Patient states that she tried to pull it but felt immediate pain. Nursing staff evaluated the rectum and saw a string. Patient was sent to the emergency department for further evaluation. History of colon resection status post diverticulitis. Dr. Ralph is her surgeon. Patient denies abdominal pain, nausea, vomiting, diarrhea, constipation, dysuria. TRAVEL OUTSIDE OF THE [place] IN LAST 30 DAYS: No - HPI Timing/Duration: Sudden Quality of pain: No pain Severity of symptoms: None Rectal foreign body: Yes Associated symptoms: None Exacerbated by: Denies Relieved by: Denies Similar symptoms previously: No Recently seen / treated by doctor: No - Related Data Allergies/Adverse Reactions: nickel Allergy (Severe, Verified 01/08/18 10:33) RASH adhesive tape [Adhesive Tape] Allergy (Mild, Verified 01/08/18 10:33) RASH/BLISTER roflumilast Adverse Reaction (Unknown, Verified 01/08/18 10:33) N/V, diarrhea Past Medical History - General Information source: Patient, Relative - Social History Smoking Status: Current Every Day Smoker Chew tobacco use (# tins/day): No Frequency of alcohol use: None Drug Abuse: None Family History: COPD, Malignancy, Other Patient has suicidal ideation: No Patient has homicidal ideation: No - Past Medical History Cardiac Medical History: Reports: Hx Atrial Fibrillation, Hx Hypercholesterolemia, Hx Hypertension Denies: Hx Coronary Artery Disease, Hx Heart Attack Pulmonary Medical History: Reports: Hx Asthma, Hx Bronchitis, Hx COPD, Hx Pneumonia, Hx Sleep Apnea - on CPAP Neurological Medical History: Denies: Hx Cerebrovascular Accident, Hx Seizures Renal/ Medical History: Reports: Hx Kidney Stones. Denies: Hx Peritoneal Dialysis GI Medical History: Reports: Hx Gastroesophageal Reflux Disease, Hx Hiatal Hernia. Denies: Hx Hepatitis, Hx Ulcer Musculoskeletal Medical History: Reports Hx Arthritis - NECK, LOWER BACK Psychiatric Medical History: Reports: Hx Depression Infectious Medical History: Denies: Hx Hepatitis Past Surgical History: Reports: Hx Abdominal Surgery - HERNIA, Hx Appendectomy, Hx Cholecystectomy, Hx Herniorrhaphy, Hx Rectal Surgery, Hx Tubal Ligation, Other - Rectocele/cystocele repair. Recent sigmoid colon resection.. Denies: Hx Hysterectomy, Hx Mastectomy, Hx Open Heart Surgery, Hx Pacemaker - Immunizations Hx Diphtheria, Pertussis, Tetanus Vaccination: Yes Hx Pneumococcal Vaccination: 12/04/12 Review of Systems - Review of Systems Constitutional: No symptoms reported EENT: No symptoms reported Cardiovascular: No symptoms reported Respiratory: No symptoms reported Gastrointestinal: Other - rectal foreign body Genitourinary: No symptoms reported Female Genitourinary: No symptoms reported Musculoskeletal: No symptoms reported Skin: No symptoms reported Hematologic/Lymphatic: No symptoms reported Neurological/Psychological: No symptoms reported -: Yes All other systems reviewed and negative Physical Exam - Vital signs Vitals: Temp Pulse Resp BP Pulse Ox 98.4 F 88 18 130/57 H 99 01/30/18 15:09 01/30/18 15:09 01/30/18 15:09 01/30/18 15:09 01/30/18 15:09 - Notes Notes: PHYSICAL EXAMINATION: GENERAL: Well-appearing, well-nourished and in no acute distress. HEAD: Atraumatic, normocephalic. EYES: Pupils equal round and reactive to light, extraocular movements intact, conjunctiva are normal. ENT: Nares patent, oropharynx clear without exudates. Moist mucous membranes. NECK: Normal range of motion, supple without lymphadenopathy LUNGS: Breath sounds clear to auscultation bilaterally and equal. No wheezes rales or rhonchi. HEART: Regular rate and rhythm without murmurs ABDOMEN: Soft, nontender, nondistended abdomen. No guarding, no rebound. No masses appreciated. Female : deferred Rectal: Suture seen in the rectum. Musculoskeletal: Normal range of motion, no pitting or edema. No cyanosis. NEUROLOGICAL: Cranial nerves grossly intact. Normal speech, normal gait. Normal sensory, motor exams PSYCH: Normal mood, normal affect. SKIN: Warm, Dry, normal turgor, no rashes or lesions noted. Course - Re-evaluation Re-evalutation: 01/30/18 17:13 I contacted as he's the surgeon primary health organisation manager. He came down and evaluated the patient. He cut the string. I will discharge the patient home. She is instructed to continue taking medication as directed and to follow-up with her primary care physician and general surgeon as scheduled. Patient is agreeable to plan of care. - Vital Signs Vital signs: Temp Pulse Resp BP Pulse Ox 98.5 F 80 18 117/56 L 100 01/30/18 17:49 01/30/18 17:49 01/30/18 17:49 01/30/18 17:49 01/30/18 17:49 - Laboratory Result Diagrams: 01/30/18 15:37 01/30/18 15:37 Laboratory results interpreted by me: 01/30/18 01/30/18 15:37 15:37 WBC 12.3 H Hgb 11.2 L Hct 33.8 L RDW 16.3 H Absolute Neutrophils 8.6 H Sodium 135.1 L Chloride 93 L BUN 21 H Est GFR (Non-Af Amer) 53 L Glucose 124 H Discharge - Discharge Clinical Impression: Rectal abnormality Condition: Good Disposition: HOME, SELF-CARE Referrals: DASIA URBINA DO [Primary Care Provider] - Follow up as needed SAQIB RALPH MD [ACTIVE STAFF] - Follow up as needed
[2018-01-30 17:50] VITALS: BP 117/56
== END 2018-01-30 17:51 | disposition home or self-care (01) ==
LOC: ER 15:00
DX: T18.5XXA Foreign body in anus and rectum, initial encounter (principal); X58.XXXA Exposure to other specified factors, initial encounter; K62.89 Other specified diseases of anus and rectum; F17.200 Nicotine dependence, unspecified, uncomplicated; I10 Essential (primary) hypertension; J44.9 Chronic obstructive pulmonary disease, unspecified; Z90.49 Acquired absence of other specified parts of digestive tract; Z87.19 Personal history of other diseases of the digestive system; Z91.048 Other nonmedicinal substance allergy status
CPT/HCPCS: 36415; 80053; 85025; 99284

== ENCOUNTER 2018-02-27 15:12 | Inpatient (IN) | payer MEDICARE, MEDICAID ==
[2018-02-27] MEDS ORDERED: MORPHINE SULFATE 10 MG/ML INJ IV ONE (15:52)
[2018-02-27] MEDS ORDERED: ONDANSETRON HCL INJ/PF 4 MG/2 ML SDV IV ONE (15:52)
--- NOTE | 2018-02-27 15:54 | ER Document Report ---
ED Medical Screen (RME) - General Chief Complaint: Abdominal Pain Stated Complaint: ABDOMINAL PAIN Time Seen by Provider: 02/27/18 15:51 Mode of Arrival: Ambulatory Information source: Patient, [facility] Records Notes: 68-year-old female with hypertension, atrial fibrillation, recent bowel perforation requiring resection in December 2017 presents with an acute onset of generalized abdominal pain that started at 5 AM this morning. States it feels similar to when she presented with her perforation. Has had associated nausea and vomiting. I have greeted and performed a rapid initial assessment of this patient. A comprehensive ED assessment and evaluation of the patient, analysis of test results and completion of medical decision making process we will be contacted by additional ED providers. PHYSICAL EXAMINATION: Vital signs reviewed-within normal limits GENERAL: Ill-appearing, appears to be in pain LUNGS: No respiratory distress Musculoskeletal: Normal range of motion NEUROLOGICAL: Normal speech, normal gait. PSYCH: Normal mood, normal affect. SKIN: Warm, Dry, normal turgor, no rashes or lesions noted. TRAVEL OUTSIDE OF THE [place] IN LAST 30 DAYS: No - HPI Onset: This morning Onset/Duration: Sudden Quality of pain: Cramping Severity: Severe Associated Symptoms: Nausea, Vomiting Similar symptoms previously: Yes Recently seen / treated by doctor: Yes - Related Data Smoking: Cigarettes Frequency of alcohol use: None Drug Abuse: None Allergies/Adverse Reactions: nickel Allergy (Severe, Verified 01/08/18 10:33) RASH adhesive tape [Adhesive Tape] Allergy (Mild, Verified 01/08/18 10:33) RASH/BLISTER ketorolac [From Toradol] Allergy (Verified 02/27/18 15:53) tramadol Allergy (Verified 02/27/18 15:53) roflumilast Adverse Reaction (Unknown, Verified 01/08/18 10:33) N/V, diarrhea Past Medical History - Social History Frequency of alcohol use: None Drug Abuse: None - Past Medical History Cardiac Medical History: Reports: Hx Atrial Fibrillation, Hx Hypercholesterolemia, Hx Hypertension Denies: Hx Coronary Artery Disease, Hx Heart Attack Pulmonary Medical History: Reports: Hx Asthma, Hx Bronchitis, Hx COPD, Hx Pneumonia, Hx Sleep Apnea - on CPAP Neurological Medical History: Denies: Hx Cerebrovascular Accident, Hx Seizures Renal/ Medical History: Reports: Hx Kidney Stones. Denies: Hx Peritoneal Dialysis GI Medical History: Reports: Hx Gastroesophageal Reflux Disease, Hx Hiatal Hernia. Denies: Hx Hepatitis, Hx Ulcer Musculoskeltal Medical History: Reports Hx Arthritis - NECK, LOWER BACK Psychiatric Medical History: Reports: Hx Depression Infectious Medical History: Denies: Hx Hepatitis Past Surgical History: Reports: Hx Abdominal Surgery - HERNIA, Hx Appendectomy, Hx Cholecystectomy, Hx Herniorrhaphy, Hx Rectal Surgery, Hx Tubal Ligation, Other - Rectocele/cystocele repair. Recent sigmoid colon resection.. Denies: Hx Hysterectomy, Hx Mastectomy, Hx Open Heart Surgery, Hx Pacemaker - Immunizations Hx Diphtheria, Pertussis, Tetanus Vaccination: Yes History of Influenza Vaccine for 12/2016 - 05/2017 Season: Unknown Physical Exam - Vital signs Vitals: Temp Pulse BP Pulse Ox 97.8 F 100 120/70 100 02/27/18 15:48 02/27/18 15:48 02/27/18 15:48 02/27/18 15:48 Course - Vital Signs Vital signs: Temp Pulse Resp BP Pulse Ox 97.8 F 100 120/70 100 02/27/18 15:48 02/27/18 15:48 02/27/18 15:48 02/27/18 15:48 Doctor's Discharge - Discharge Referrals: DASIA URBINA DO [Primary Care Provider] - Follow up as needed
[2018-02-27 17:05] LABS: ABSOLUTE LYMPHOCYTES (AUTO) 0.8 10^3/uL (0.5-4.7); ABSOLUTE MONOCYTES (AUTO) 0.6 10^3/uL (0.1-1.4); ABSOLUTE NEUT (AUTO) 8.9 10^3/uL (1.7-8.2); BASOPHILS % (AUTO) 0.4 % (0-2); EOSINOPHILS % (AUTO) 0.1 % (0-6); HEMATOCRIT 37.3 % (36.0-47.0); HEMOGLOBIN 12.3 g/dL (12.0-15.5); LYMPHOCYTES % (AUTO) 7.4 % (13-45); MEAN CORPUSCULAR HEMOGLOBIN 29.7 pg (27.0-33.4); MEAN CORPUSCULAR VOLUME 90 fl (80-97); MONOCYTES % (AUTO) 6.1 % (3-13); PLATELET COUNT 252 10^3/uL (150-450); RED BLOOD COUNT 4.14 10^6/uL (3.72-5.28); RED CELL DISTRIBUTION WIDTH 15.9 % (11.5-14.0); TOTAL CELLS COUNTED % (AUTO) 100 %; WHITE BLOOD COUNT 10.3 10^3/uL (4.0-10.5)
[2018-02-27 17:14] LABS: INTERNATIONAL RATION (INR) 1.07; PARTIAL THROMBOPLASTIN TIME 30.7 SEC (23.5-35.8); PROTHROMBIN TIME 14.5 SEC (11.4-15.4)
[2018-02-27 17:25] LABS: ALANINE AMINOTRANSFERASE 9 U/L (9-52); ALBUMIN 3.7 g/dL (3.5-5.0); ALKALINE PHOSPHATASE 77 U/L (38-126); ANION GAP 6 (5-19); ASPARTATE AMINO TRANSFERASE 18 U/L (14-36); BILIRUBIN,DIRECT 0.2 mg/dL (0.0-0.4); BILIRUBIN,TOTAL 0.4 mg/dL (0.2-1.3); BLOOD UREA NITROGEN 10 mg/dL (7-20); CALCIUM 9.2 mg/dL (8.4-10.2); CARBON DIOXIDE 28 mmol/L (22-30); CHLORIDE 106 mmol/L (98-107); GLUCOSE 93 mg/dL (75-110); LIPASE 69.6 U/L (23-300); POTASSIUM 3.2 mmol/L (3.6-5.0); SODIUM 139.9 mmol/L (137-145); TOTAL PROTEIN 6.6 g/dL (6.3-8.2)
--- NOTE | 2018-02-27 18:38 | RADIOLOGY REPORT (SQ) ---
EXAM DESCRIPTION: CT ABD/PELVIS WITH IV ONLY COMPLETED DATE/TIME: 02/27/2018 6:24 pm REASON FOR STUDY: Abdominal pain recent history of perforation COMPARISON: 01/08/2018 TECHNIQUE: CT scan of the abdomen and pelvis performed using helical scanning technique with dynamic intravenous contrast injection. No oral contrast. Images reviewed with lung, soft tissue, and bone windows. Reconstructed coronal and sagittal MPR images reviewed. Delayed images for evaluation of the urinary system also acquired. All images stored on PACS. All CT scanners at this facility use dose modulation, iterative reconstruction, and/or weight based d osing when appropriate to reduce radiation dose to as low as reasonably achievable (ALARA). [facility]: Dose Right [facility]: CareDose [facility]: Dose Right [facility]: Teradose 4D [facility]: retickr CONTRAST TYPE AND DOSE: contrast/concentration: Isovue 350.00 mg/ml; Total Contrast Delivered: 73.0 ml; Total Saline Delivered: 66.0 ml RENAL FUNCTION: GFR > 60. RADIATION DOSE: CT Rad equipment meets quality standard of care and radiation dose reduction techniq ues were employed. CTDIvol: 6.5 - 8.8 mGy. DLP: 836 mGy-cm.. LIMITATIONS: None. FINDINGS: LOWER CHEST: Nothing acute. LIVER: Tiny cysts. No solid masses or biliary dilatation. SPLEEN: Normal size. No focal lesions. PANCREAS: No masses. No significant calcifications. No adjacent inflammation or peripancreatic fluid collections. Pancreatic duct not dilated. GALLBLADDER: Surgically absent. ADRENAL GLANDS: No significant masses or asymmetry. RIGHT KIDNEY AND URETER: No solid masses. No significant calcifications. No hydronephrosis or hyd roureter. LEFT KIDNEY AND URETER: No solid masses. No significant calcifications. No hydronephrosis or hydr oureter. AORTA AND VESSELS: No aneurysm. RETROPERITONEUM: No retroperitoneal adenopathy, hemorrhage or masses. BOWEL AND PERITONEAL CAVITY: 4.7 cm diverticular abscess sigmoid colon. Gas fluid levels in nondilat ed small bowel. No free air or ascites. APPENDIX: Surgically absent. PELVIS: See above. ABDOMINAL WALL: Postsurgical changes. Small fat containing midline hernia. BONES: Nothing acute. OTHER: No other significant finding. IMPRESSION: Diverticular abscess sigmoid colon. TECHNICAL DOCUMENTATION: JOB ID: [id number] Quality ID # [id number]: Final reports with documentation of one or more dose reduction techniques (e.g., Au tomated exposure control, adjustment of the mA and/or kV according to patient size, use of iterative reconstruction technique) 2010 [employer]- All Rights Reserved Reading location - IP/workstation name: [email or web address]
[2018-02-27] MEDS ORDERED: PIPERACILLIN/TAZOBACTAM 3.375 GM VIAL IV ONE (18:39)
[2018-02-27] MEDS ORDERED: ACETAMINOPHEN 325 MG TABLET PO ONE (18:40)
[2018-02-27] MEDS ORDERED: RINGERS SOLUTION,LACTATED 2,000 ML IV ONE (18:40)
[2018-02-27] MEDS: MORPHINE SULFATE 10 MG/ML INJ IV PRN ×2 (18:53→21:03)
--- NOTE | 2018-02-27 19:25 | ER Document Report ---
ED General - General Chief Complaint: Abdominal Pain Stated Complaint: ABDOMINAL PAIN Time Seen by Provider: 02/27/18 15:51 Mode of Arrival: Ambulatory Notes: Patient is a 68-year-old female with past medical history of atrial fibrillation , COPD, chronic pain, presents with 24 hours of progressively worsening generalized abdominal pain worse in the bilateral lower quadrants and fever. The patient states this feels identical to when she has had a perforation in the past resulting in a partial sigmoid colectomy in December 2017. She has not had a recorded fever until arriving here in the emergency department. She notes that she has been nauseated but has not had fever. Nothing seems to improve or worsen her pain which is described as a throbbing, aching, constant pain. She has not seen her general physician regarding today's concerns. TRAVEL OUTSIDE OF THE [place] IN LAST 30 DAYS: No - Related Data Allergies/Adverse Reactions: nickel Allergy (Severe, Verified 02/27/18 17:14) RASH adhesive tape [Adhesive Tape] Allergy (Mild, Verified 02/27/18 17:14) RASH/BLISTER ketorolac [From Toradol] Allergy (Verified 02/27/18 17:14) tramadol Allergy (Verified 02/27/18 17:14) roflumilast Adverse Reaction (Unknown, Verified 02/27/18 17:14) N/V, diarrhea Past Medical History - General Information source: Patient, [facility] Records - Social History Smoking Status: Current Every Day Smoker Frequency of alcohol use: None Drug Abuse: None Lives with: Spouse/Significant other Family History: Reviewed & Not Pertinent, COPD, Malignancy, Other Patient has suicidal ideation: No Patient has homicidal ideation: No - Past Medical History Cardiac Medical History: Reports: Hx Atrial Fibrillation, Hx Hypercholesterolemia, Hx Hypertension Denies: Hx Coronary Artery Disease, Hx Heart Attack Pulmonary Medical History: Reports: Hx Asthma, Hx Bronchitis, Hx COPD, Hx Pneumonia, Hx Sleep Apnea - on CPAP Neurological Medical History: Denies: Hx Cerebrovascular Accident, Hx Seizures Renal/ Medical History: Reports: Hx Kidney Stones. Denies: Hx Peritoneal Dialysis GI Medical History: Reports: Hx Gastroesophageal Reflux Disease, Hx Hiatal Hernia. Denies: Hx Hepatitis, Hx Ulcer Musculoskeletal Medical History: Reports Hx Arthritis - NECK, LOWER BACK Psychiatric Medical History: Reports: Hx Depression Infectious Medical History: Denies: Hx Hepatitis Past Surgical History: Reports: Hx Abdominal Surgery - HERNIA, Hx Appendectomy, Hx Cholecystectomy, Hx Herniorrhaphy, Hx Rectal Surgery, Hx Tubal Ligation, Other - Rectocele/cystocele repair. Recent sigmoid colon resection.. Denies: Hx Hysterectomy, Hx Mastectomy, Hx Open Heart Surgery, Hx Pacemaker - Immunizations Hx Diphtheria, Pertussis, Tetanus Vaccination: Yes Hx Pneumococcal Vaccination: 12/04/12 Review of Systems - Review of Systems Notes: Constitutional: Positive for fever. HENT: Negative for sore throat. Eyes: Negative for visual changes. Cardiovascular: Negative for chest pain. Respiratory: Negative for shortness of breath. Gastrointestinal: Positive for abdominal pain and nausea Genitourinary: Negative for dysuria. Musculoskeletal: Negative for back pain. Skin: Negative for rash. Neurological: Negative for headaches, weakness or numbness. 10 point ROS negative except as marked above and in HPI. Physical Exam - Vital signs Vitals: Temp Pulse BP Pulse Ox 97.8 F 100 120/70 100 02/27/18 15:48 02/27/18 15:48 02/27/18 15:48 02/27/18 15:48 Interpretation: Normal Notes: PHYSICAL EXAMINATION: GENERAL: Appears moderately unwell but in no acute distress HEAD: Atraumatic, normocephalic. EYES: Pupils equal round and reactive to light, extraocular movements intact, sclera anicteric, conjunctiva are normal. ENT: nares patent, oropharynx clear without exudates. Moderately dry mucous membranes. NECK: Normal range of motion, supple without lymphadenopathy LUNGS: Breath sounds clear to auscultation bilaterally and equal. No wheezes rales or rhonchi. HEART: Regular tachycardia without murmurs ABDOMEN: Soft, moderately diffuse tenderness with localization to the right and left lower quadrants, normoactive bowel sounds. Rebound tenderness present in the right and left lower quadrants. No masses appreciated. EXTREMITIES: Normal range of motion, no pitting or edema. No cyanosis. NEUROLOGICAL: No focal neurological deficits. Moves all extremities spontaneously and on command. PSYCH: Normal mood, normal affect. SKIN: Warm, Dry, normal turgor, no rashes or lesions noted. Course - Re-evaluation Re-evalutation: 02/27/18 19:23 Patient presents with a diffuse abdominal pain, fever recorded here to 101.7 F with associated tachycardia. The patient on CT scan has evidence of a sigmoid diverticular abscess similar to when she was seen and hospitalized in December 2017 for the same. At that time she did have a partial sigmoid colonic resection. She is currently septic, receiving IV fluids, IV Zosyn. I have consulted with Dr. Bean who is currently in the operating room. I have provided demographics of the patient to the nurse Renea who is in the operating room and asked that the patient please be seen by Dr. Bean at his earliest availability. 02/27/18 22:[address] Bean has seen and assessed the patient. She will be admitted. - Vital Signs Vital signs: Temp Pulse Resp BP Pulse Ox 100.3 F 123 H 17 160/68 H 99 02/27/18 22:27 02/27/18 18:34 02/27/18 19:01 02/27/18 19:00 02/27/18 19:01 - Laboratory Result Diagrams: 02/27/18 16:52 02/27/18 16:52 Laboratory results interpreted by me: 02/27/18 02/27/18 16:52 16:52 RDW 15.9 H Seg Neutrophils % 86.0 H Lymphocytes % 7.4 L Absolute Neutrophils 8.9 H Potassium 3.2 L - Diagnostic Test Radiology reviewed: Reports reviewed - EKG Interpretation by Me Additional EKG results interpreted by me: 02/27/18 22:55 Sinus rhythm. Rate 94. No ST elevations or depressions. QTC is 446. Discharge - Discharge Clinical Impression: Abscess of sigmoid colon due to diverticulitis, Generalized abdominal pain Sepsis Qualifiers: Sepsis type: sepsis due to unspecified organism Qualified Code(s): A41.9 - Sepsis, unspecified organism Condition: Fair Disposition: ADMITTED INPATIENT Admitting Provider: Surgicalist Unit Admitted: Surgical Floor Referrals: DASIA URBINA DO [Primary Care Provider] - Follow up as needed
[2018-02-27] MEDS ORDERED: RINGERS SOLUTION,LACTATED 1,000 ML IV ONE (20:59)
[2018-02-27] MEDS ORDERED: KETOROLAC TROMETHAMINE INJ/PF 30 MG/1 ML SDV IV PRN (22:29)
--- NOTE | 2018-02-27 22:36 | PDOC H&P ---
History of Present Illness Admission Date/PCP: DASIA URBINA DO Patient complains of: Abdominal pain History of Present Illness: CHAKA PATEL is a 68 year old female who presents to the emergency department via ground rescue complaining of a 1 day history of acute onset abdominal pain pelvic area centrally, associated with some anorexia but no nausea or vomiting. Last bowel movement was yesterday; she takes stool softeners for regularity including Colace and Metamucil. Patient is 2 months status post limited sigmoid colectomy, open, handsewn anastomosis for complicated diverticular disease with pericolonic abscess by Dr. Bran Ralph December 2017. Patient did well from that operation without complication, and in general has been faring satisfactorily. The emergency department she was found to have abdominal tenderness and had a CT scan of the abdomen and pelvis without oral contrast which showed pelvic inflammation around the rectosigmoid colon, and interpretation of pericolonic abscess. Surgery was consulted. Patient did have a fever in the emergency department of 101.7. Past Medical History Cardiac Medical History: Reports: Atrial Fibrillation, Hyperlipidema, Hypertension Denies: Coronary Artery Disease, Myocardial Infarction Pulmonary Medical History: Reports: Asthma, Bronchitis, Chronic Obstructive Pulmonary Disease (COPD), Pneumonia, Sleep Apnea - on CPAP Neurological Medical History: Denies: Seizures GI Medical History: Reports: Gastroesophageal Reflux Disease, Hiatal Hernia Denies: Hepatitis Musculoskeltal Medical History: Reports: Arthritis - NECK, LOWER BACK Psychiatric Medical History: Reports: Depression Hematology: Denies: Anemia, Sickle Cell Disease Past Surgical History Past Surgical History: Reports: Appendectomy, Cholecystectomy, Herniorrhaphy, Tubal Ligation, Other - Rectocele/cystocele repair. Recent sigmoid colon resection. Denies: Amputation, Hysterectomy, Mastectomy, Pacemaker Social History Smoking Status: Current Every Day Smoker Frequency of Alcohol Use: None Hx Recreational Drug Use: No Drugs: None Hx Prescription Drug Abuse: No Family History Family History: COPD, Malignancy, Other Parental Family History Reviewed: Yes Children Family History Reviewed: Yes Sibling(s) Family History Reviewed.: Yes Medication/Allergy Home Medications: Apixaban [Eliquis 5 mg Tablet] 5 mg PO BID 02/27/18 Atorvastatin Calcium [Lipitor 20 mg Tablet] 20 mg PO QHS 02/27/18 Diltiazem HCl [Diltiazem 24Hr Cd] 180 mg PO DAILY 02/27/18 Docusate Sodium [Dulcolax Stool Softener] 100 mg PO BID 02/27/18 Fenofibrate 54 mg PO DAILY 02/27/18 Ipratropium/Albuterol Sulfate [Duoneb 3 ml Ampul] 3 ml NEB RTQ6 PRN 02/27/18 Metoprolol Tartrate [Lopressor 25 mg Tablet] 25 mg PO Q12 02/27/18 Ondansetron [Zofran Odt 4 mg Tablet] 1 - 2 tab PO Q4HP PRN 02/27/18 Pantoprazole Sodium 40 mg PO DAILY 02/27/18 Psyllium Husk (with Sugar) [Metamucil Packet] 3.4 gm PO DAILY 02/27/18 Spironolactone 50 mg PO DAILY 02/27/18 Allergies/Adverse Reactions: nickel Allergy (Severe, Verified 02/27/18 17:14) RASH adhesive tape [Adhesive Tape] Allergy (Mild, Verified 02/27/18 17:14) RASH/BLISTER ketorolac [From Toradol] Allergy (Verified 02/27/18 17:14) tramadol Allergy (Verified 02/27/18 17:14) roflumilast Adverse Reaction (Unknown, Verified 02/27/18 17:14) N/V, diarrhea Review of Systems Constitutional: PRESENT: as per HPI Eyes: ABSENT: visual disturbances Ears: ABSENT: hearing changes Cardiovascular: ABSENT: chest pain, dyspnea on exertion, edema, orthropnea, palpitations Respiratory: ABSENT: cough, hemoptysis Gastrointestinal: PRESENT: as per HPI Physical Exam Vital Signs: Temp Pulse Resp BP Pulse Ox 100.3 F 123 H 17 160/68 H 99 02/27/18 22:27 02/27/18 18:34 02/27/18 19:01 02/27/18 19:00 02/27/18 19:01 Intake & Output 02/26/18 02/27/18 02/28/18 06:59 06:59 06:59 Intake Total 1999 Balance 1999 Weight 64.2 kg General appearance: PRESENT: mild distress Head exam: PRESENT: normocephalic Eye exam: PRESENT: EOMI Neck exam: PRESENT: full ROM Respiratory exam: PRESENT: rales Cardiovascular exam: PRESENT: tachycardia Pulses: PRESENT: normal carotid pulses, other - Diminished pulses in feet GI/Abdominal exam: PRESENT: other - Scar below the umbilicus; use tenderness but no distention no rigidity. Minimal guarding. Extremities exam: PRESENT: full ROM Neurological exam: PRESENT: oriented to person, oriented to place, oriented to time, oriented to situation Psychiatric exam: PRESENT: anxious Results Laboratory Results: 02/27/18 16:52 02/27/18 16:52 02/27/18 02/27/18 02/27/18 16:52 16:52 16:52 WBC 10.3 RBC 4.14 Hgb 12.3 Hct 37.3 MCV 90 MCH 29.7 MCHC 33.0 RDW 15.9 H Plt Count 252 Seg Neutrophils % 86.0 H Lymphocytes % 7.4 L Monocytes % 6.1 Eosinophils % 0.1 Basophils % 0.4 Absolute Neutrophils 8.9 H Absolute Lymphocytes 0.8 Absolute Monocytes 0.6 Absolute Eosinophils 0.0 Absolute Basophils 0.0 Sodium 139.9 Potassium 3.2 L Chloride 106 Carbon Dioxide 28 Anion Gap 6 BUN 10 Creatinine 0.70 Est GFR ( Amer) > 60 Est GFR (Non-Af Amer) > 60 Glucose 93 Lactic Acid 1.7 Calcium 9.2 Total Bilirubin 0.4 AST 18 ALT 9 Alkaline Phosphatase 77 Total Protein 6.6 Albumin 3.7 Lipase 69.6 Impressions: Abdomen/Pelvis CT 02/27/18 15:52 IMPRESSION: Diverticular abscess sigmoid colon. Assessment & Plan - Diagnosis (1) Abdominal pain Is this a current diagnosis for this admission?: Yes Plan: Impression: Acute onset pelvic pain, tenderness, fever, CT scan findings consistent with kyung-colonic inflammation in the pelvis concerning for acute infectious process; no obvious fluid collection, or abscess in the pelvis. Patient does not have peritonitis. Recommend patients: 1. I reviewed the findings on CT scan. The scan is limited due to the absence of enteral contrast. The findings suggesting a pericolonic abscess is likely a portion of the rectosigmoid junction with stool. There is no free air, free fluid. We will manage the patient for pelvic sepsis 2. Admit to the surgical service, keep n.p.o. and IV fluids and intravenous antibiotics. Patient has a history of gastritis contact her with the H2 xu. 3. Resume home medicine for a sip of water. (2) Hypokalemia Is this a current diagnosis for this admission?: Yes (3) Smoker Is this a current diagnosis for this admission?: Yes (4) Atrial fibrillation Qualifiers: Is this a current diagnosis for this admission?: Yes - Time Time Spent: 50 to 70 Minutes Critical Time spent with patient: 15-24 minutes Medications reviewed and adjusted accordingly: Yes Anticipated discharge: Home - Inpatient Certification Based on my medical assessment, after consideration of the patient's comorbidities, presenting symptoms, or acuity I expect that the services needed warrant INPATIENT care.: Yes I certify that my determination is in accordance with my understanding of Medicare's requirements for reasonable and necessary INPATIENT services [42 CFR 412.3e].: Yes Medical Necessity: Need For IV Fluids, Need for Pain Control, Need for IV Antibiotics
[2018-02-27] MEDS ORDERED: AMPICILLIN SOD/SULBACTAM 3 GM VIAL IV PRN (22:51)
[2018-02-27] MEDS ORDERED: FAMOTIDINE INJ/PF 20 MG/2 ML SDV IV ONE (22:59)
[2018-02-27] MEDS ORDERED: AMPICILLIN SODIUM/SULBACTAM NA 3 GM in NORMAL SALINE 100 ML IV ONE (23:00)
--- NOTE | 2018-02-28 00:55 | EKG REPORT ---
SEVERITY:- BORDERLINE ECG - SINUS RHYTHM : Confirmed by: Analy Mena MD 28-Feb-2018 00:53:51
[2018-02-28] MEDS: ACETAMINOPHEN INJ/PF 1000 MG/100 ML SDV IV SCH ×3 (01:02→11:39)
[2018-02-28] MEDS: MORPHINE SULFATE 10 MG/ML INJ IV PRN ×3 (04:54→15:34)
[2018-02-28] MEDS ORDERED: AMPICILLIN SOD/SULBACTAM 3 GM VIAL ONE (05:22)
[2018-02-28] MEDS: AMPICILLIN SODIUM/SULBACTAM NA 3 GM in NORMAL SALINE 100 ML IV SCH ×2 (06:29→15:30)
[2018-02-28] MEDS ORDERED: IPRATROPIUM/ALBUTEROL 0.5-2.5 MG/3 ML AMPUL NEB PRN (08:12)
[2018-02-28] MEDS ORDERED: POLYETHYLENE GLYCOL 3350 POWDER 17 GM/1 PACKET PO ONE ×2 (09:30→10:00)
[2018-02-28] MEDS ORDERED: (PENDING PHARMACY ID) (Diltiazem Hcl [Diltiazem 24hr Cd] 180 MG) PO SCH (10:00)
[2018-02-28] MEDS ORDERED: (PENDING PHARMACY ID) (Fenofibrate [Fenofibrate] 54 MG) PO SCH ×2 (10:00)
[2018-02-28] MEDS ORDERED: SPIRONOLACTONE 50 MG PO SCH (10:00)
[2018-02-28] MEDS: MINERAL OIL 30 ML UDCUP PO SCH ×3 (10:07→17:59)
[2018-02-28] MEDS: DOCUSATE SODIUM 100 MG CAPSULE PO SCH ×2 (10:47→17:59)
[2018-02-28] MEDS: METOPROLOL TARTRATE 25 MG TABLET PO SCH (10:48)
--- NOTE | 2018-02-28 10:57 | PDOC PROGRESS REPORT ---
Subjective Progress Note for:: 02/28/18 Subjective:: 68-year-old female with a long history of chronic constipation and recurrent diverticulitis. The patient underwent sigmoid colectomy approximately 2 months ago with primary, handsewn anastomosis. The patient presents with abdominal pain. She was admitted for possible diverticulitis with a question of abscess formation around the sigmoid colon. Today, the patient reports that her abdominal pain is somewhat better. She reports that the worst of her pain is in the right lower quadrant. She denies chest pain, shortness of breath, fevers , chills, nausea, vomiting, headache, dizziness, orthostasis. Reason For Visit: ABSCESS OF SIGMOID COLON DUE TO DIVERTICULITIS/ Physical Exam Vital Signs: Temp Pulse Resp BP Pulse Ox 98 F 80 16 109/60 97 02/28/18 08:24 02/28/18 08:24 02/28/18 08:24 02/28/18 08:24 02/28/18 08:24 Intake & Output 02/27/18 02/28/18 03/01/18 06:59 06:59 06:59 Intake Total 1100 100 Balance 1100 100 Weight 68.2 kg General appearance: PRESENT: no acute distress Head exam: PRESENT: atraumatic, normocephalic Eye exam: PRESENT: EOMI, PERRLA. ABSENT: scleral icterus Mouth exam: PRESENT: moist, neck supple Neck exam: ABSENT: meningismus, tenderness, thyromegaly, tracheal deviation Respiratory exam: PRESENT: unlabored. ABSENT: chest wall tenderness, tachypnea , wheezes Cardiovascular exam: PRESENT: irregular rhythm Pulses: PRESENT: normal radial pulses Vascular exam: PRESENT: normal capillary refill. ABSENT: pallor GI/Abdominal exam: PRESENT: soft, tenderness - Lower abdominal mild. ABSENT: distended, firm, guarding, rebound, rigid Neurological exam: PRESENT: alert, awake, oriented to person, oriented to place , oriented to time, oriented to situation, CN II-XII grossly intact. ABSENT: motor sensory deficit Psychiatric exam: ABSENT: agitated, anxious, depressed Focused psych exam: ABSENT: delusional Skin exam: ABSENT: cyanosis, erythema, jaundice Results Impressions: Abdomen/Pelvis CT 02/27/18 15:52 IMPRESSION: Diverticular abscess sigmoid colon. Assessment & Plan - Diagnosis (1) Constipation Qualifiers: Constipation type: drug induced constipation Qualified Code(s): K59.03 - Drug induced constipation Is this a current diagnosis for this admission?: Yes (2) Abdominal pain Is this a current diagnosis for this admission?: Yes - Plan Summary Plan Summary: There is a 68-year-old female with abdominal pain. The patient takes oxycodone at home chronically, and struggles with long-term constipation. I have reviewed her CT scan at length. The patient has fecalization of the small bowel and a large amount of stool within the entire colon. There is a pocket/ outpouching in the sigmoid colon, at the area of the anastomosis. Due to the lack of enteral contrast, delineation of this pocket is very difficult. It may be intraluminal, or it may be immediately extraluminal. It appears to be filled with stool, leading me to believe that it is likely intraluminal. The patient does not have an acute abdomen. She does not have free air or free fluid. I will attempt a bowel prep to clear her colon of stool (MiraLAX and mineral oil). Afterwards, she will require radiologic testing (barium enema versus repeat CT scan) to delineate the shape, size, and etiology of this "abscess". Further recommendations and treatments to be determined based on this testing.
[2018-02-28] MEDS ORDERED: SPIRONOLACTONE 25 MG TABLET PO SCH (11:00)
[2018-02-28] MEDS ORDERED: KETOROLAC TROMETHAMINE INJ/PF 30 MG/1 ML SDV IV PRN (11:02)
[2018-02-28] MEDS: DILTIAZEM HCL 180 MG CAPSULE.CR PO SCH (11:40)
[2018-02-28] MEDS: ACETAMINOPHEN 1,000 MG/100 ML RTUPB IV SCH (18:06)
[2018-02-28] MEDS: POTASSIUM CHLORIDE 10 MEQ CAPSULE.ER PO SCH (18:06)
[2018-02-28] MEDS: RINGERS SOLUTION,LACTATED 1,000 ML IV PRN (18:12)
[2018-02-28] MEDS ORDERED: RINGERS SOLUTION,LACTATED 1,000 ML IV ONE (18:30)
[2018-03-01] MEDS ORDERED: POTASSIUM CHLORIDE 10 MEQ CAPSULE.ER PO ONE (00:21)
[2018-03-01] MEDS: POTASSIUM CHLORIDE 10 MEQ CAPSULE.ER PO SCH ×4 (00:38→21:54)
[2018-03-01] MEDS: AMPICILLIN SODIUM/SULBACTAM NA 3 GM in NORMAL SALINE 100 ML IV SCH ×3 (00:42→13:50)
[2018-03-01] MEDS: ACETAMINOPHEN 1,000 MG/100 ML RTUPB IV SCH ×4 (00:46→21:53)
[2018-03-01] MEDS: MINERAL OIL 30 ML UDCUP PO SCH ×4 (00:47→21:53)
[2018-03-01] MEDS: ATORVASTATIN CALCIUM 20 MG TABLET PO SCH ×2 (00:48→21:54)
[2018-03-01] MEDS: METOPROLOL TARTRATE 25 MG TABLET PO SCH ×2 (00:50→09:47)
[2018-03-01] MEDS: ONDANSETRON HCL INJ/PF 4 MG/2 ML SDV IV PRN (02:05)
[2018-03-01] MEDS: MORPHINE SULFATE 10 MG/ML INJ IV PRN ×5 (02:06→15:47)
[2018-03-01] MEDS ORDERED: LANSOPRAZOLE 30 MG TAB.RAP.DR PO SCH (06:00)
[2018-03-01] MEDS: RINGERS SOLUTION,LACTATED 1,000 ML IV PRN (07:58)
[2018-03-01] MEDS ORDERED: FENOFIBRATE NANOCRYSTALLIZED 48 MG TABLET PO SCH (08:00)
[2018-03-01] MEDS: DOCUSATE SODIUM 100 MG CAPSULE PO SCH ×2 (09:47→21:53)
[2018-03-01] MEDS: DILTIAZEM HCL 180 MG CAPSULE.CR PO SCH (09:52)
--- NOTE | 2018-03-01 10:28 | PDOC PROGRESS REPORT ---
Subjective Progress Note for:: 03/01/18 Subjective:: patient c/o bilateral lower abdominal pain Reason For Visit: ABSCESS OF SIGMOID COLON DUE TO DIVERTICULITIS/ Physical Exam Vital Signs: Temp Pulse Resp BP Pulse Ox 98.9 F 100 24 H 127/51 H 98 03/01/18 07:42 03/01/18 07:42 03/01/18 07:42 03/01/18 07:42 03/01/18 07:42 Intake & Output 02/28/18 03/01/18 03/02/18 06:59 06:59 06:59 Intake Total 1100 3100 200 Balance 1100 3100 200 Weight 68.2 kg 67.5 kg General appearance: PRESENT: mild distress Respiratory exam: PRESENT: clear to auscultation keren Cardiovascular exam: PRESENT: RRR GI/Abdominal exam: PRESENT: distended, soft, tenderness - right > left lower abdomen with guarding Results Impressions: Abdomen/Pelvis CT 02/27/18 15:52 IMPRESSION: Diverticular abscess sigmoid colon. Assessment & Plan - Diagnosis (2) Abdominal pain Is this a current diagnosis for this admission?: Yes - Plan Summary Plan Summary: A/ S/p sigmoidectomy for chronic diverticulitis right > left lower abdominal pain CT scan A/P shows either loop of sigmoid colon distended and filled with stools or a paracolic abscess normal WBC P/ Ct scan A/P with IV and rectal contrast to be done today to differenciate anastomotic stricture as the cause of colonic distention vs. a less likely paracolic abscess
[2018-03-01] MEDS ORDERED: SUCCINYLCHOLINE CHLORIDE INJ 200 MG/10 ML VIAL ONE (13:50)
[2018-03-01] MEDS ORDERED: ROCURONIUM BROMIDE INJ 50 MG/5 ML VIAL IV ONE (13:50)
--- NOTE | 2018-03-01 15:57 | RADIOLOGY REPORT (SQ) ---
EXAM DESCRIPTION: CT ABD/PELVIS WITH IV ONLY COMPLETED DATE/TIME: 03/01/2018 3:26 pm REASON FOR STUDY: IV RECTAL CONTRAST, POSS ABSCESS OF SIG COLON COMPARISON: CT abdomen pelvis 02/27/2018, 01/08/2018, 12/17/2017, 09/13/2017 TECHNIQUE: CT scan of the abdomen and pelvis performed using helical scanning technique with dynamic intravenous contrast injection. Patient was given rectal Omnipaque saline contrast. Images reviewed with lung, soft tissue, and bone windows. Reconstructed coronal and sagittal MPR images reviewed. A ll images stored on PACS. All CT scanners at this facility use dose modulation, iterative reconstruction, and/or weight based d osing when appropriate to reduce radiation dose to as low as reasonably achievable (ALARA). [facility]: Dose Right [facility]: CareDose [facility]: Dose Right [facility]: Teradose 4D [facility]: BioIQ CONTRAST TYPE AND DOSE: contrast/concentration: Isovue 350.00 mg/ml; Total Contrast Delivered: 77.0 ml; Total Saline Delivered: 65.0 ml RENAL FUNCTION: GFR > 60. RADIATION DOSE: CT Rad equipment meets quality standard of care and radiation dose reduction techniq ues were employed. CTDIvol: 7.0 mGy. DLP: 396 mGy-cm.. LIMITATIONS: None. FINDINGS: Small amount of rectal contrast was administered. This fills the rectosigmoid, descending colon, and splenic flexure. About 15 to 20 cm from the anus, a saccular dilatation of the distal descending colon is present. Th is is the area of concern from CT 02/27/2018. Along the superior margin of this dilated loop, there is extravasation of rectal contrast from the bowel, which then tracks [id number] across the pelvis , and fills the right pericolic gutter and right subphrenic space. Site of distal descending colon p erforation is marked with a false pass on coronal images 60 and 61. There is a small amount of free intraperitoneal air. No bowel obstruction. These findings were reviewed with Dr. Norris, 1520 hours 03/01/2018. LOWER CHEST: Trace right pleural effusion with minimal right basilar atelectasis. LIVER: Normal size. No masses. No dilated ducts. SPLEEN: Normal size. No focal lesions. PANCREAS: No masses. No significant calcifications. No adjacent inflammation or peripancreatic fluid collections. Pancreatic duct not dilated. GALLBLADDER: Surgically absent ADRENAL GLANDS: No significant masses or asymmetry. RIGHT KIDNEY AND URETER: Subcentimeter fatty nodule right upper pole kidney likely a tiny angiomyolip yessenia. No significant calcifications. No hydronephrosis or hydroureter. LEFT KIDNEY AND URETER: No solid masses. No significant calcifications. No hydronephrosis or hydr oureter. AORTA AND VESSELS: No aneurysm. No dissection. Renal arteries, SMA, celiac without stenosis. RETROPERITONEUM: No retroperitoneal adenopathy, hemorrhage or masses. BOWEL AND PERITONEAL CAVITY: As above APPENDIX: Surgically absent PELVIS: Urinary bladder unremarkable. No adenopathy. Post hysterectomy. ABDOMINAL WALL: No masses. No hernias. BONES: No significant or acute findings. OTHER: No other significant finding. IMPRESSION: Extravasation of rectal contrast from the distal descending colon, with tracking of cont rast into the right pericolic gutter and right subphrenic space. Small amount of free intraperitonea l air. COMMENT: Pertinent findings on the imaging study reported as a CRITICAL RESULT to ADELA NORRIS MD at15:20 on 03/01/2018. Category of Critical Result: Bowel perforation TECHNICAL DOCUMENTATION: JOB ID: [id number] Quality ID # [id number]: Final reports with documentation of one or more dose reduction techniques (e.g., Au tomated exposure control, adjustment of the mA and/or kV according to patient size, use of iterative reconstruction technique) 2010 [employer]- All Rights Reserved Reading location - IP/workstation name: [email or web address]
--- NOTE | 2018-03-01 16:25 | Progress Note ---
Provider Note Provider Note: Events noted: CT with IV and rectal contrast reveals extravasation of contrast from the sigmod coon above the area of LAR anastomosis, most lkely representing a perforation of colon proximal to the stapled anastomosis. Free contrast is noted up the liver, very small free air. PE: abdomen: diffusely tender A/P S/P LAR in December CT with rectal contrast done this afternoon demonstrates a perforation with free flowing contrast into the peritoneal cavity occurring from colon proximal to the stapled anastomosis. Finduings discussed with the patient. Plan: emergent exploratory laparotomy, possible bowel resection, possible ostomy. Procedure, risks, benefits, complications, and options discussed with the patient, her questions were answered and she decides to proceed
[2018-03-01] MEDS ORDERED: HYDROMORPHONE HCL INJ/PF 2 MG/ML AMPULE ONE (16:53)
[2018-03-01] MEDS ORDERED: LIDOCAINE 2% INJ-PF (20 MG/ML) 10 ML AMPUL ONE (16:53)
[2018-03-01] MEDS ORDERED: MIDAZOLAM 2 MG/2 ML INJ ONE (16:54)
[2018-03-01] MEDS ORDERED: PROPOFOL INJ 200 MG/20 ML VIAL IV ONE (16:54)
[2018-03-01] MEDS ORDERED: BUPIVACAINE HCL 0.5%-EPI 1:200000 INJ/PF 30 ML VIAL ONE (16:58)
[2018-03-01] MEDS ORDERED: MORPHINE SULFATE 10 MG/ML INJ IV ONE (17:00)
--- NOTE | 2018-03-01 22:01 | Operative Report ---
Nonrecallable Operative Report DATE OF SURGERY: 03/01/18 PREOPERATIVE DIAGNOSIS: perforated sigmoid colon POSTOPERATIVE DIAGNOSIS: same, at the anastomosis level OPERATION: exploratory laparotomy. extensive lysis of adhesions. transverse colostomy. placement of WoundVac SURGEON: ADELA NORRIS ANESTHESIA: GA - plus 30 mL 0.5 marcaine TISSUE REMOVED OR ALTERED: n/a COMPLICATIONS: none ESTIMATED BLOOD LOSS: 50 mL INTRAOPERATIVE FINDINGS: severe intraperitoneal inflammatory changes. perforated sigmoid colon at the anastomosis PROCEDURE: see dictation
[2018-03-01] MEDS ORDERED: DEXTROSE 40% GEL 15 GM TUBE PO PRN ×2 (22:07)
[2018-03-01] MEDS ORDERED: GLUCAGON,HUMAN RECOMB 1 MG INJ SUBCUT PRN (22:07)
[2018-03-01] MEDS ORDERED: DEXTROSE 50%-WATER 25 GM/50 ML DISP.SYRIN IV PRN ×2 (22:07)
[2018-03-01] MEDS ORDERED: FAMOTIDINE INJ/PF 20 MG/2 ML SDV IV ONE (22:20)
[2018-03-01] MEDS ORDERED: FENTANYL CITRATE INJ/PF 100 MCG/2 ML AMPUL ONE ×2 (22:31→23:52)
[2018-03-01] MEDS ORDERED: MIDAZOLAM 2 MG/2 ML INJ IV PRN (22:44)
[2018-03-01] MEDS ORDERED: FENTANYL CITRATE INJ/PF 250 MCG/5 ML AMPULE IV PRN (22:45)
--- NOTE | 2018-03-01 22:51 | RADIOLOGY REPORT (SQ) ---
XR CHEST 1 VIEW HISTORY: Tube placement. COMPARISON: None. FINDINGS: There is a nasogastric tube with the tip coiled in the stomach. There is an endotracheal tube with the tip overlying the upper thoracic spine. Query opacity versus prominent vasculature in the right perihilar region. No pleural effusion or pneumothorax is identified. IMPRESSION: Support apparatus as described above. Possible opacity versus prominent vasculature in the right perihilar region.
[2018-03-01] MEDS ORDERED: MIDAZOLAM HCL 50 MG/100 ML RTUINJ IV PRN (23:32)
[2018-03-01] MEDS ORDERED: AMPICILLIN SOD/SULBACTAM 3 GM VIAL IV PRN (23:32)
[2018-03-01 23:46] LABS: ALANINE AMINOTRANSFERASE 20 U/L (9-52); ALBUMIN 2.4 g/dL (3.5-5.0); ALKALINE PHOSPHATASE 48 U/L (38-126); ANION GAP 7 (5-19); ASPARTATE AMINO TRANSFERASE 18 U/L (14-36); BILIRUBIN,DIRECT 0.4 mg/dL (0.0-0.4); BILIRUBIN,TOTAL 0.4 mg/dL (0.2-1.3); BLOOD UREA NITROGEN 11 mg/dL (7-20); CALCIUM 8.1 mg/dL (8.4-10.2); CARBON DIOXIDE 25 mmol/L (22-30); CHLORIDE 108 mmol/L (98-107); GLUCOSE 100 mg/dL (75-110); SODIUM 139.6 mmol/L (137-145)
[2018-03-01 23:54] LABS: ARTERIAL BLOOD BASE EXCESS -3.9 mmol/L; ARTERIAL BLOOD FIO2 40%; ARTERIAL BLOOD H2CO3 1.63 mmol/L (1.05-1.35); ARTERIAL BLOOD HCO3 23.7 mmol/L (20-24); ARTERIAL BLOOD O2 SATURATION 94.6 % (94-98); ARTERIAL BLOOD PCO2 54.2 mmHg (35-45); ARTERIAL BLOOD PH 7.26 (7.35-7.45); ARTERIAL BLOOD PO2 83.4 mmHg (80-100); ARTERIAL BLOOD TOTAL CO2 25.4 mmol/L (21-25)
[2018-03-02] MEDS: MINERAL OIL 30 ML UDCUP PO SCH ×5 (00:01→23:59)
[2018-03-02] MEDS: AMPICILLIN SODIUM/SULBACTAM NA 3 GM in NORMAL SALINE 100 ML IV SCH ×5 (00:27→23:42)
[2018-03-02] MEDS: NORMAL SALINE 1000 ML 1,000 ML IV PRN ×3 (00:28→20:17)
[2018-03-02] MEDS: ACETAMINOPHEN 1,000 MG/100 ML RTUPB IV SCH ×5 (00:35→23:36)
[2018-03-02] MEDS: METRONIDAZOLE 500 MG/NS RTU 500 MG/100 ML RTUPB IV SCH ×3 (02:48→18:18)
[2018-03-02] MEDS: METOPROLOL TARTRATE PF/INJ 5 MG/5 ML SDV IV SCH ×4 (03:55→23:30)
[2018-03-02] MEDS ORDERED: DEXTROSE 5%-WATER 250 ML with NOREPINEPHRINE BITARTRATE 4 MG IV PRN ×2 (06:44)
[2018-03-02] MEDS ORDERED: HYDROCORTISONE SOD SUCCINATE INJ/PF 100 MG/2 ML SDV IV ONE (06:45)
[2018-03-02 06:53] LABS: HEMATOCRIT 32.5 % (36.0-47.0); HEMOGLOBIN 10.6 g/dL (12.0-15.5); MEAN CORPUSCULAR HEMOGLOBIN 29.8 pg (27.0-33.4); MEAN CORPUSCULAR HGB CONC 32.7 g/dL (32.0-36.0); MEAN CORPUSCULAR VOLUME 91 fl (80-97); PLATELET COUNT 219 10^3/uL (150-450); RED BLOOD COUNT 3.56 10^6/uL (3.72-5.28); RED CELL DISTRIBUTION WIDTH 16.3 % (11.5-14.0); WHITE BLOOD COUNT 8.5 10^3/uL (4.0-10.5)
--- NOTE | 2018-03-02 06:59 | PDOC CONSULTATION ---
Consultation Consult Date: 03/02/18 Attending physician:: SAQIB CARPIO Consult reason:: Postop hypotension History of Present Illness Admission Date/PCP: 02/27/18 23:12 DASIA URBINA DO History of Present Illness: CHAKA PATEL is a 68 year old female admitted through the emergency room with abdominal pain, CT reveals rectosigmoid colon inflammation and pericolonic abscess. She is taken to the OR and postop day 0 remains intubated with hypotension for which I am consulted. Patient appears comfortable on ventilator at current settings but is sedated and unable to evaluate neurologically, blood pressure of 89/49 with a regular pulse of 90. Evaluation of labs reveal hypomagnesemia of 1.1. Nursing is instructed to hold Versed, 1 L normal saline bolus, magnesium 3 g IV now, Solu-Cortef 100 mg IV now, random cortisol pending, surgical consultation for central line and Levophed. Past Medical History Cardiac Medical History: Reports: Atrial Fibrillation, Hyperlipidema, Hypertension Denies: Coronary Artery Disease, Myocardial Infarction Pulmonary Medical History: Reports: Asthma, Bronchitis, Chronic Obstructive Pul monary Disease (COPD), Pneumonia, Sleep Apnea - on CPAP Neurological Medical History: Denies: Seizures GI Medical History: Reports: Gastroesophageal Reflux Disease, Hiatal Hernia Denies: Hepatitis Musculoskeltal Medical History: Reports: Arthritis - NECK, LOWER BACK Psychiatric Medical History: Reports: Depression Hematology: Denies: Anemia, Sickle Cell Disease Past Surgical History Past Surgical History: Reports: Appendectomy, Cholecystectomy, Herniorrhaphy, Tubal Ligation, Other - Rectocele/cystocele repair. Recent sigmoid colon resection. Denies: Amputation, Hysterectomy, Mastectomy, Pacemaker Social History Information Source: [facility] Records Lives with: Spouse/Significant other Smoking Status: Current Every Day Smoker Frequency of Alcohol Use: None Hx Recreational Drug Use: No Drugs: None Hx Prescription Drug Abuse: No - Advance Directive Resuscitation Status: Full Code Family History Family History: Reviewed & Not Pertinent, COPD, Malignancy, Other Parental Family History Reviewed: No Children Family History Reviewed: No Sibling(s) Family History Reviewed.: No Medication/Allergy Home Medications: Apixaban [Eliquis 5 mg Tablet] 5 mg PO BID 02/27/18 Atorvastatin Calcium [Lipitor 20 mg Tablet] 20 mg PO QHS 02/27/18 Diltiazem HCl [Diltiazem 24Hr Cd] 180 mg PO DAILY 02/27/18 Docusate Sodium [Dulcolax Stool Softener] 100 mg PO DAILYP PRN 02/27/18 Fenofibrate 54 mg PO DAILY 02/27/18 Metoprolol Tartrate [Lopressor 25 mg Tablet] 25 mg PO Q12 02/27/18 Ondansetron [Zofran Odt 4 mg Tablet] 1 tab PO Q6HP PRN 02/27/18 Pantoprazole Sodium 40 mg PO DAILY 02/27/18 Psyllium Husk (with Sugar) [Metamucil Packet] 3.4 gm PO BID 02/27/18 Spironolactone 50 mg PO DAILY 02/27/18 Ipratropium/Albuterol Sulfate [Combivent Respimat 4 gm Mdi] 1 puff IH Q6 MDD 6 PUFFS 02/28/18 Oxycodone HCl/Acetaminophen [Percocet 10-325 Mg Tablet] 1 each PO Q8HP PRN 02/28/18 Allergies/Adverse Reactions: nickel Allergy (Severe, Verified 02/27/18 17:14) RASH adhesive tape [Adhesive Tape] Allergy (Mild, Verified 02/27/18 17:14) RASH/BLISTER ketorolac [From Toradol] Allergy (Verified 02/28/18 09:57) Vomiting tramadol Allergy (Verified 02/28/18 09:57) Vomiting roflumilast Adverse Reaction (Unknown, Verified 02/27/18 17:14) N/V, diarrhea Review of Systems ROS unobtainable: Due to mental status - Intubated and sedated Physical Exam Vital Signs: Temp Pulse Resp BP Pulse Ox 97.7 F 105 H 14 90/50 L 100 03/02/18 06:00 03/02/18 00:34 03/02/18 03:39 03/02/18 03:39 03/02/18 03:39 Intake & Output 02/28/18 03/01/18 03/02/18 11:59 11:59 11:59 Intake Total 3200 3200 5523 Output Total 440 Balance 3200 3200 5083 Weight 68.2 kg 67.5 kg 73.6 kg General appearance: PRESENT: no acute distress, well-developed, well-nourished Head exam: PRESENT: atraumatic, normocephalic Eye exam: PRESENT: conjunctiva pink, EOMI, PERRLA. ABSENT: scleral icterus Ear exam: PRESENT: normal external ear exam Mouth exam: PRESENT: moist, tongue midline Neck exam: ABSENT: carotid bruit, JVD, lymphadenopathy, thyromegaly Respiratory exam: PRESENT: clear to auscultation keren. ABSENT: rales, rhonchi, wheezes Cardiovascular exam: PRESENT: RRR. ABSENT: diastolic murmur, rubs, systolic murmur Pulses: PRESENT: normal dorsalis pedis pul Vascular exam: PRESENT: normal capillary refill GI/Abdominal exam: PRESENT: diminished bowel sounds, hypoactive bowel sounds, soft, other - Drains in place. ABSENT: distended, guarding, mass, organolmegaly, rebound, tenderness Rectal exam: PRESENT: deferred Extremities exam: PRESENT: full ROM. ABSENT: calf tenderness, clubbing, pedal edema Neurological exam: PRESENT: alert, awake, oriented to person, oriented to place, oriented to time, oriented to situation, CN II-XII grossly intact. ABSENT: motor sensory deficit Psychiatric exam: PRESENT: appropriate affect, normal mood. ABSENT: homicidal ideation, suicidal ideation Skin exam: PRESENT: dry, intact, warm. ABSENT: cyanosis, rash Results Laboratory Results: 02/27/18 16:52 03/01/18 23:27 03/01/18 03/01/18 03/01/18 23:01 23:27 23:42 Carbonic Acid 1.63 H HCO3/H2CO3 Ratio 14:1 ABG pH 7.26 L ABG pCO2 54.2 H ABG pO2 83.4 ABG HCO3 23.7 ABG O2 Saturation 94.6 ABG Base Excess -3.9 FiO2 40% Sodium Cancelled 139.6 Potassium Cancelled 4.0 Chloride Cancelled 108 H Carbon Dioxide Cancelled 25 Anion Gap Cancelled 7 BUN Cancelled 11 Creatinine Cancelled 0.61 Est GFR ( Amer) Cancelled > 60 Est GFR (Non-Af Amer) Cancelled > 60 Glucose Cancelled 100 Calcium Cancelled 8.1 L Total Bilirubin Cancelled 0.4 AST Cancelled 18 ALT Cancelled 20 Alkaline Phosphatase Cancelled 48 Total Protein Cancelled 5.0 L Albumin Cancelled 2.4 L Impressions: Abdomen/Pelvis CT 03/01/18 09:07 IMPRESSION: Extravasation of rectal contrast from the distal descending colon, with tracking of contrast into the right pericolic gutter and right subphrenic space. Small amount of free intraperitoneal air. Assessment & Plan - Diagnosis (1) Hypotension Is this a current diagnosis for this admission?: Yes Plan: Unclear cause, sepsis versus adrenal insufficiency versus iatrogenic from Versed and analgesia. Hold Versed, IV fluid challenge, follow-up random cortisol, IV Solu-Cortef challenge, Levophed as needed (2) Hypomagnesemia Is this a current diagnosis for this admission?: Yes Plan: Secondary to critical illness, replete and reevaluate chemistry at noon (3) Hypokalemia Is this a current diagnosis for this admission?: Yes Plan: Secondary to critical illness, replace magnesium and potassium, follow-up chemistry at noon (4) Perforated bowel Is this a current diagnosis for this admission?: Yes Plan: Defer to surgery. - Time Time Spent: 50 to 70 Minutes - Inpatient Certification Medical Necessity: Need Close Monitoring Due to Risk of Patient Decompensation
[2018-03-02 07:06] LABS: ARTERIAL BLOOD BASE EXCESS -1.6 mmol/L; ARTERIAL BLOOD H2CO3 1.31 mmol/L (1.05-1.35); ARTERIAL BLOOD HCO3 23.9 mmol/L (20-24); ARTERIAL BLOOD PCO2 43.6 mmHg (35-45); ARTERIAL BLOOD PH 7.36 (7.35-7.45); ARTERIAL BLOOD PO2 113.8 mmHg (80-100); ARTERIAL BLOOD TOTAL CO2 25.3 mmol/L (21-25)
[2018-03-02 07:06] LABS: ALANINE AMINOTRANSFERASE 17 U/L (9-52); ALBUMIN 1.6 g/dL (3.5-5.0); ALKALINE PHOSPHATASE 36 U/L (38-126); ANION GAP 6 (5-19); ASPARTATE AMINO TRANSFERASE 11 U/L (14-36); BILIRUBIN,DIRECT 0.3 mg/dL (0.0-0.4); BILIRUBIN,TOTAL 0.3 mg/dL (0.2-1.3); BLOOD UREA NITROGEN 12 mg/dL (7-20); CALCIUM 7.5 mg/dL (8.4-10.2); CARBON DIOXIDE 22 mmol/L (22-30); CHLORIDE 111 mmol/L (98-107); GLUCOSE 112 mg/dL (75-110); POTASSIUM 4.4 mmol/L (3.6-5.0); TOTAL PROTEIN 3.5 g/dL (6.3-8.2)
[2018-03-02] MEDS: POTASSIUM CHLORIDE 10 MEQ CAPSULE.ER PO SCH ×3 (07:07→23:30)
--- NOTE | 2018-03-02 07:20 | RADIOLOGY REPORT (SQ) ---
EXAM DESCRIPTION: XR CHEST 1 VIEW COMPLETED DATE/TME: 03/02/2018 06:00 CLINICAL HISTORY: Respiratory Distress. 68 years Female, Respiratory COMPARISON: One day prior. NUMBER OF VIEWS/TECHNIQUE: 1/AP FINDINGS: Small streaky left lower retrocardiac opacity.Adequate appearing endotracheal tube. Likely adequate appearing enteric tube partially obscured. Normal cardiac silhouette size. No pneumothorax. Stable bony thorax. IMPRESSION: No significant change.
[2018-03-02 07:23] LABS: ARTERIAL BLOOD FIO2 40%
[2018-03-02] MEDS ORDERED: NORMAL SALINE 1000 ML 1,000 ML IV ONE (08:00)
--- NOTE | 2018-03-02 09:34 | PDOC PROGRESS REPORT ---
Subjective Progress Note for:: 03/02/18 Subjective:: sedated, intubated, but arousable and following commands Reason For Visit: ABSCESS OF SIGMOID COLON DUE TO DIVERTICULITIS/ Physical Exam Vital Signs: Temp Pulse Resp BP Pulse Ox 98.1 F 105 H 16 95/49 L 100 03/02/18 08:00 03/02/18 00:34 03/02/18 06:39 03/02/18 06:24 03/02/18 06:39 Intake & Output 03/01/18 03/02/18 03/03/18 06:59 06:59 06:59 Intake Total 3100 5723 1795 Output Total 440 40 Balance 3100 5283 1755 Weight 67.5 kg 73.6 kg General appearance: PRESENT: no acute distress, cooperative, other - sedated, intubated, arousable, follows commnads Neck exam: PRESENT: other - ETT and OGT in place Respiratory exam: PRESENT: clear to auscultation keren Cardiovascular exam: PRESENT: RRR GI/Abdominal exam: PRESENT: soft, other - midline incsion clean with WoundVac, colostomy pink with moisture in bag Extremities exam: PRESENT: full ROM Musculoskeletal exam: PRESENT: full ROM Neurological exam: PRESENT: other - arousable Results Laboratory Results: 03/02/18 04:57 03/02/18 04:57 03/01/18 03/01/18 03/01/18 23:01 23:27 23:42 WBC RBC Hgb Hct MCV MCH MCHC RDW Plt Count Carbonic Acid 1.63 H HCO3/H2CO3 Ratio 14:1 ABG pH 7.26 L ABG pCO2 54.2 H ABG pO2 83.4 ABG HCO3 23.7 ABG O2 Saturation 94.6 ABG Base Excess -3.9 FiO2 40% Sodium Cancelled 139.6 Potassium Cancelled 4.0 Chloride Cancelled 108 H Carbon Dioxide Cancelled 25 Anion Gap Cancelled 7 BUN Cancelled 11 Creatinine Cancelled 0.61 Est GFR ( Amer) Cancelled > 60 Est GFR (Non-Af Amer) Cancelled > 60 Glucose Cancelled 100 Calcium Cancelled 8.1 L Magnesium Total Bilirubin Cancelled 0.4 AST Cancelled 18 ALT Cancelled 20 Alkaline Phosphatase Cancelled 48 Total Protein Cancelled 5.0 L Albumin Cancelled 2.4 L 03/02/18 03/02/1803/02/18 04:57 04:57 05:35 WBC 8.5 RBC 3.56 L Hgb 10.6 L Hct 32.5 L MCV 91 MCH 29.8 MCHC 32.7 RDW 16.3 H Plt Count 219 Carbonic Acid 1.31 HCO3/H2CO3 Ratio 18:1 ABG pH 7.36 ABG pCO2 43.6 ABG pO2 113.8 H ABG HCO3 23.9 ABG O2 Saturation 98.0 ABG Base Excess -1.6 FiO2 40% Sodium 139.0 Potassium 4.4 Chloride 111 H Carbon Dioxide 22 Anion Gap 6 BUN 12 Creatinine 0.69 Est GFR ( Amer) > 60 Est GFR (Non-Af Amer) > 60 Glucose 112 H Calcium 7.5 L Magnesium 1.0 L* Total Bilirubin 0.3 AST 11 L ALT 17 Alkaline Phosphatase 36 L Total Protein 3.5 L Albumin 1.6 L Impressions: Abdomen/Pelvis CT 03/01/18 09:07 IMPRESSION: Extravasation of rectal contrast from the distal descending colon, with tracking of contrast into the right pericolic gutter and right subphrenic space. Small amount of free intraperitoneal air. Chest X-Ray 03/02/18 06:00 IMPRESSION: No significant change. Assessment & Plan - Diagnosis (2) Abdominal pain Is this a current diagnosis for this admission?: Yes - Plan Summary Plan Summary: A/ POD#1 after laparotomy, PETTY, transverse colostomy patient hypotensive overnight ostlikely due to sepsis, now VS stable, normotensive bordeline UO Moderate ALLISON output, serosanguinous Low NGT output WBC normal Low H/H, most likely dilutiona; Low Mg Good ABG's P/ Continue current management No extubation today despite good ABG's b/c large amount of IVF given Placement CVL to start TPN today
[2018-03-02] MEDS: DILTIAZEM HCL 180 MG CAPSULE.CR PO SCH (09:45)
[2018-03-02] MEDS: MAGNESIUM SULFATE/D5W 1 GM/100 ML RTUPB IV SCH ×3 (09:45→12:03)
[2018-03-02] MEDS: ENOXAPARIN SODIUM INJ 40 MG/0.4 ML DISP.SYRIN SUBCUT SCH (09:46)
[2018-03-02] MEDS: FAMOTIDINE INJ/PF 20 MG/2 ML SDV IV SCH ×2 (09:46)
[2018-03-02] MEDS ORDERED: LIDOCAINE 0.5% INJ-PF (5 MG/ML) 50 ML SDV ONE (12:14)
[2018-03-02] MEDS: MORPHINE SULFATE 10 MG/ML INJ IV PRN (12:34)
--- NOTE | 2018-03-02 13:22 | OPERATIVE REPORT E ---
Operative Report NAME: CHAKA PATEL : 1950 AGE: 68Y DATE OF SURGERY: 03/02/2018 ROOM: 611 PREOPERATIVE DIAGNOSIS: 1. Need of IV access for administration of medication and fluids. 2. Septic status. 3. Status post perforated bowel. 4. Status post laparotomy and colostomy. POSTOPERATIVE DIAGNOSIS: 1. Needl of IV access for administration of medication and fluids. 2. Septic status. 3. Status post perforated bowel. 4. Status post laparotomy and colostomy. OPERATION: Placement of right subclavian triple lumen intravenous line. SURGEON: ADELA NORRIS M.D. MINING PLANT OPERATOR: None. ANESTHESIA: 15 mL of 0.5% lidocaine with epinephrine. BLOOD LOSS: None. COMPLICATIONS: None. INDICATION AND FINDINGS: This is a 68-year-old female postop day number 1 for a laparotomy for chronic anastomosis leak and transverse colostomy who has begun septic status overnight. She needs placement of a central venous line for administration of TPN and other medications. Procedure, risks, benefits, and complications explained to the patient. She understands and desires to proceed. DESCRIPTION OF PROCEDURE: Procedure was done at the bedside. The patient was placed in supine and then Trendelenburg position. A towel was placed in between the shoulder blades to allow arching of the upper back. The left side of the neck and chest prepped and draped in the usual fashion. The area just below the midportion of the clavicle was infiltrated with 0.5% Marcaine with epinephrine. A 16-gauge needle was then used to easily cannulate the right subclavian vein by inserting the needle below the midportion of the right clavicle. Following this, a guidewire was inserted through the needle into the subclavian vein and superior vena cava. The needle was removed. The insertion point of the guidewire enlarged with a #11 blade and a tissue dilator. Following this, a triple-lumen catheter was inserted over the guidewire up to 16 cm. The guidewire was removed. Each lumen of the triple lumen catheter was aspirated and flushed with normal saline without difficulty. The catheter was then secured to the skin with silk sutures. Sterile dressings applied. The patient tolerated the procedure well. Chest x-ray was obtained to confirm position of the line. DICTATING PHYSICIAN: ADELA NORRIS M.D. [id number] PHY#: [id number] ID: [id number] JOB#: [id number] ACCT: [id number] cc:ADELA NORRIS M.D. > [facility]
[2018-03-02] MEDS ORDERED: DEXTROSE 50%-WATER SYRINGE 12.5 GM/25 ML DOSE IV PRN (13:30)
[2018-03-02] MEDS ORDERED: INSULIN REG, HUMAN 100 UNIT/ML 3 ML VIAL (PYX) SUBCUT PRN (13:30)
[2018-03-02] MEDS ORDERED: DEXTROSE 50%-WATER SYRINGE 25 GM/50 ML DOSE IV PRN (13:30)
[2018-03-02] MEDS ORDERED: DEXTROSE 40% GEL 15 GM TUBE X 2 PO PRN (13:30)
[2018-03-02] MEDS ORDERED: GLUCAGON,HUMAN RECOMB 1 MG INJ IM PRN (13:30)
[2018-03-02] MEDS ORDERED: DEXTROSE 40% GEL 15 GM TUBE PO PRN (13:30)
[2018-03-02] MEDS ORDERED: DEXTROSE 10%-WATER 1,000 ML IV PRN (13:30)
--- NOTE | 2018-03-02 15:53 | RADIOLOGY REPORT (SQ) ---
EXAM DESCRIPTION: CHEST SINGLE VIEW COMPLETED DATE/TIME: 03/02/2018 12:22 pm REASON FOR STUDY: central line placement COMPARISON: 03/02/2018 EXAM PARAMETERS: NUMBER OF VIEWS: One view. TECHNIQUE: Single frontal radiographic view of the chest acquired. RADIATION DOSE: NA LIMITATIONS: None. FINDINGS: LUNGS AND PLEURA: Patchy opacification in the retrocardiac area on the left. MEDIASTINUM AND HILAR STRUCTURES: No masses. Contour normal. HEART AND VASCULAR STRUCTURES: Heart normal in size. Normal vasculature. BONES: No acute findings. HARDWARE: Endotracheal tube at the level of the clavicles. An NG tube extends to the stomach. A rig ht subclavian line has its tip in the superior vena cava. OTHER: No other significant finding. IMPRESSION: Left lower lobe pneumonia. Life lines as described. TECHNICAL DOCUMENTATION: JOB ID: [id number] [employer]- All Rights Reserved Reading location - IP/workstation name: [email or web address]
[2018-03-02 16:47] LABS: BLOOD UREA NITROGEN 15 mg/dL (7-20); CALCIUM 7.2 mg/dL (8.4-10.2); CARBON DIOXIDE 23 mmol/L (22-30); CHLORIDE 111 mmol/L (98-107); GLUCOSE 121 mg/dL (75-110)
[2018-03-02 16:52] LABS: SODIUM 138.2 mmol/L (137-145)
[2018-03-02 16:53] LABS: ANION GAP 4 (5-19)
--- NOTE | 2018-03-02 17:17 | PDOC PROGRESS REPORT ---
Subjective Progress Note for:: 03/02/18 Subjective:: The patient is a 68-year-old female with a past medical history of atrial fibrillation, hyperlipidemia, hypertension, asthma, COPD, sleep apnea, GERD, hiatal hernia, arthritis, depression who was admitted 02/27/18 for a rectosigmoid colon inflammation and pericolonic abscess resulting in perforated bowel; now postop day 1 laparotomy and colostomy. The patient was seen in the ICU on morning rounds. She is currently sedated and mechanically ventilated; appears to be comfortable. She does respond to verbal stimuli and makes clear attempts to follow commands. The hospitalist team was consulted for management of hypotension. At the time of my assessment her blood pressure is noted to be 123/54 with a map of 74. No family members are present at this time. ROS is limited secondary to sedation. No concerns per nursing. Reason For Visit: ABSCESS OF SIGMOID COLON DUE TO DIVERTICULITIS/ Physical Exam Vital Signs: Temp Pulse Resp BP Pulse Ox 98.4 F 108 H 17 132/72 H 100 03/02/18 14:00 03/02/18 14:00 03/02/18 14:00 03/02/18 14:00 03/02/18 14:00 Intake & Output 03/01/18 03/02/18 03/03/18 06:59 06:59 06:59 Intake Total 3100 5723 2095 Output Total 440 595 Balance 3100 5283 1500 Weight 67.5 kg 73.6 kg General appearance: PRESENT: no acute distress, well-developed, well-nourished Head exam: PRESENT: atraumatic, normocephalic Eye exam: PRESENT: conjunctiva pink, EOMI, PERRLA. ABSENT: scleral icterus Ear exam: PRESENT: normal external ear exam Mouth exam: PRESENT: moist, tongue midline Neck exam: ABSENT: carotid bruit, JVD, lymphadenopathy, thyromegaly Respiratory exam: PRESENT: clear to auscultation keren, symmetrical, unlabored, other - Mechanically ventilated. ABSENT: rales, rhonchi, wheezes Cardiovascular exam: PRESENT: RRR. ABSENT: diastolic murmur, rubs, systolic murmur Pulses: PRESENT: normal dorsalis pedis pul Vascular exam: PRESENT: normal capillary refill GI/Abdominal exam: PRESENT: hypoactive bowel sounds, soft, other - ALLISON drains. ABSENT: distended, guarding, mass, organolmegaly, rebound, tenderness Rectal exam: PRESENT: deferred Extremities exam: PRESENT: full ROM. ABSENT: calf tenderness, clubbing, pedal edema Neurological exam: PRESENT: other - Sedated; response to verbal stimuli. ABSENT: motor sensory deficit Skin exam: PRESENT: dry, intact, warm. ABSENT: cyanosis, rash Results Laboratory Results: 03/02/18 04:57 03/02/18 16:24 03/01/18 03/01/18 03/01/18 23:01 23:27 23:42 WBC RBC Hgb Hct MCV MCH MCHC RDW Plt Count Carbonic Acid 1.63 H HCO3/H2CO3 Ratio 14:1 ABG pH 7.26 L ABG pCO2 54.2 H ABG pO2 83.4 ABG HCO3 23.7 ABG O2 Saturation 94.6 ABG Base Excess -3.9 FiO2 40% Sodium Cancelled 139.6 Potassium Cancelled 4.0 Chloride Cancelled 108 H Carbon Dioxide Cancelled 25 Anion Gap Cancelled 7 BUN Cancelled 11 Creatinine Cancelled 0.61 Est GFR ( Amer) Cancelled > 60 Est GFR (Non-Af Amer) Cancelled > 60 Glucose Cancelled 100 Calcium Cancelled 8.1 L Magnesium Total Bilirubin Cancelled 0.4 AST Cancelled 18 ALT Cancelled 20 Alkaline Phosphatase Cancelled 48 Total Protein Cancelled 5.0 L Albumin Cancelled 2.4 L 03/02/18 03/02/18 03/02/18 04:57 04:57 05:35 WBC 8.5 RBC 3.56 L Hgb 10.6 L Hct 32.5 L MCV 91 MCH 29.8 MCHC 32.7 RDW 16.3 H Plt Count 219 Carbonic Acid 1.31 HCO3/H2CO3 Ratio 18:1 ABG pH 7.36 ABG pCO2 43.6 ABG pO2 113.8 H ABG HCO3 23.9 ABG O2 Saturation 98.0 ABG Base Excess -1.6 FiO2 40% Sodium 139.0 Potassium 4.4 Chloride 111 H Carbon Dioxide 22 Anion Gap 6 BUN 12 Creatinine 0.69 Est GFR ( Amer) > 60 Est GFR (Non-Af Amer) > 60 Glucose 112 H Calcium 7.5 L Magnesium 1.0 L* Total Bilirubin 0.3 AST 11 L ALT 17 Alkaline Phosphatase 36 L Total Protein 3.5 L Albumin 1.6 L 03/02/18 16:24 WBC RBC Hgb Hct MCV MCH MCHC RDW Plt Count Carbonic Acid HCO3/H2CO3 Ratio ABG pH ABG pCO2 ABG pO2 ABG HCO3 ABG O2 Saturation ABG Base Excess FiO2 Sodium 138.2 Potassium 4.0 Chloride 111 H Carbon Dioxide 23 Anion Gap 4 L BUN 15 Creatinine 0.76 Est GFR ( Amer) > 60 Est GFR (Non-Af Amer) > 60 Glucose 121 H Calcium 7.2 L Magnesium 2.1 D Total Bilirubin AST ALT Alkaline Phosphatase Total Protein Albumin Impressions: Abdomen/Pelvis CT 03/01/18 09:07 IMPRESSION: Extravasation of rectal contrast from the distal descending colon, with tracking of contrast into the right pericolic gutter and right subphrenic space. Small amount of free intraperitoneal air. Chest X-Ray 03/02/18 06:00 IMPRESSION: No significant change. Assessment & Plan - Diagnosis (1) Hypotension Is this a current diagnosis for this admission?: Yes Plan: Improved blood pressures at present; 132/72 Unclear etiology: sepsis vs. intraoperative Versed and analgesia. Less likely to be adrenal insufficiency as random cortisol level is appropriate at 43.6 (obtained at 5 AM this morning). Possibly sepsis, however, WBCs are normal, lactic acid is normal, and patient remains afebrile (though did have an elevated temp of 101.1 on admission). Holding Versed. Providing IV maintenance fluids. She did receive IV Solu-Cortef 100 mg x1 earlier this morning. Now on TPN which will address her hypoalbuminemia. Cultures and antibiotics as addressed below. Levophed drip as needed; titrate per protocol. Fortunately, the patient has not yet required this intervention. (2) Hypomagnesemia Is this a current diagnosis for this admission?: Yes Plan: Replete. Patient has been started on TPN per surgery recommendations. Daily chemistries; adjustments per pharmacy. (3) Hypokalemia Is this a current diagnosis for this admission?: Yes Plan: Replete. Patient has been started on TPN per surgery recommendations. Daily chemistries; adjustments per pharmacy. (4) Chronic obstructive pulmonary disease (COPD) Qualifiers: COPD type: COPD with acute lower respiratory infection Qualified Code(s): J44.0 - Chronic obstructive pulmonary disease with acute lower respiratory infection Is this a current diagnosis for this admission?: Yes Plan: Stable and without exacerbation at this time. She is currently intubated and mechanically ventilated. Nebulizer treatments every 6 hours as needed. (5) Perforated bowel Is this a current diagnosis for this admission?: Yes Plan: Blood cultures are negative at 48 hours. Peritoneal fluid growing multiple gram-negative rods. Primary management per surgery; will defer wound care to their expertise. Antibiotics per their recommendations; currently on Unasyn and Flagyl.
[2018-03-02] MEDS: AMINO ACIDS 5%/D25W 1,000 ML IV PRN (18:55)
[2018-03-02] MEDS ORDERED: FENTANYL CITRATE INJ/PF 100 MCG/2 ML AMPUL ONE (22:49)
[2018-03-03] MEDS: METRONIDAZOLE 500 MG/NS RTU 500 MG/100 ML RTUPB IV SCH ×3 (02:24→18:06)
[2018-03-03] MEDS: MINERAL OIL 30 ML UDCUP PO SCH ×4 (05:01→23:19)
[2018-03-03] MEDS: POTASSIUM CHLORIDE 10 MEQ CAPSULE.ER PO SCH ×3 (05:01→23:14)
[2018-03-03] MEDS: ACETAMINOPHEN 1,000 MG/100 ML RTUPB IV SCH ×4 (05:11→23:17)
[2018-03-03] MEDS: METOPROLOL TARTRATE PF/INJ 5 MG/5 ML SDV IV SCH ×4 (05:12→23:17)
[2018-03-03] MEDS: AMPICILLIN SODIUM/SULBACTAM NA 3 GM in NORMAL SALINE 100 ML IV SCH ×4 (05:15→23:33)
[2018-03-03 05:41] LABS: ABSOLUTE NEUT (AUTO) 8.1 10^3/uL (1.7-8.2); BASOPHILS % (AUTO) 0.3 % (0-2); EOSINOPHILS % (AUTO) 0.4 % (0-6); HEMOGLOBIN 9.9 g/dL (12.0-15.5); LYMPHOCYTES % (AUTO) 10.3 % (13-45); MEAN CORPUSCULAR HEMOGLOBIN 29.6 pg (27.0-33.4); MEAN CORPUSCULAR VOLUME 90 fl (80-97); MONOCYTES % (AUTO) 9.4 % (3-13); PLATELET COUNT 257 10^3/uL (150-450); RED BLOOD COUNT 3.34 10^6/uL (3.72-5.28); RED CELL DISTRIBUTION WIDTH 15.8 % (11.5-14.0); SEGMENTED NEUTROPHILS % (AUTO) 79.6 % (42-78); TOTAL CELLS COUNTED % (AUTO) 100 %; WHITE BLOOD COUNT 10.2 10^3/uL (4.0-10.5)
[2018-03-03 05:47] LABS: ARTERIAL BLOOD BASE EXCESS -2.2 mmol/L; ARTERIAL BLOOD H2CO3 0.94 mmol/L (1.05-1.35); ARTERIAL BLOOD O2 SATURATION 98.2 % (94-98); ARTERIAL BLOOD PCO2 31.2 mmHg (35-45); ARTERIAL BLOOD PH 7.45 (7.35-7.45); ARTERIAL BLOOD PO2 108.5 mmHg (80-100)
[2018-03-03 05:48] LABS: ARTERIAL BLOOD FIO2 30%
[2018-03-03 05:53] LABS: APPEARANCE,URINE CLEAR; BILIRUBIN,URINE NEGATIVE (NEGATIVE); COLOR,URINE YELLOW; GLUCOSE, URINE NEGATIVE (NEGATIVE); KETONES,URINE NEGATIVE (NEGATIVE); LEUKOCYTE ESTERASE,URINE NEGATIVE (NEGATIVE); NITRITE,URINE NEGATIVE (NEGATIVE); PROTEIN,URINE 30 mg/dL (NEGATIVE); URINE SPECIFIC GRAVITY 1.044; UROBILINOGEN,URINE NEGATIVE mg/dL (<2.0)
[2018-03-03 06:04] LABS: ALANINE AMINOTRANSFERASE 20 U/L (9-52); ALBUMIN 1.7 g/dL (3.5-5.0); ALKALINE PHOSPHATASE 43 U/L (38-126); ANION GAP 6 (5-19); ASPARTATE AMINO TRANSFERASE 14 U/L (14-36); BILIRUBIN,DIRECT 0.3 mg/dL (0.0-0.4); BILIRUBIN,TOTAL 0.3 mg/dL (0.2-1.3); BLOOD UREA NITROGEN 18 mg/dL (7-20); CALCIUM 7.3 mg/dL (8.4-10.2); CARBON DIOXIDE 21 mmol/L (22-30); CHLORIDE 112 mmol/L (98-107); GLUCOSE 136 mg/dL (75-110); PHOSPHORUS 2.4 mg/dL (2.5-4.5); POTASSIUM 3.5 mmol/L (3.6-5.0); SODIUM 139.2 mmol/L (137-145); TOTAL PROTEIN 3.7 g/dL (6.3-8.2)
[2018-03-03 06:12] LABS: PREALBUMIN < 3.0 mg/dL (17.6-36.0)
--- NOTE | 2018-03-03 06:50 | RADIOLOGY REPORT (SQ) ---
CLINICAL HISTORY: resp fail COMPARISON: March 02, 2018. TECHNIQUE: XR CHEST 1 VIEW 03/03/2018 6:00 AM INSIDE STEWARD/STEWARDESS FINDINGS: Cardiac silhouette is normal in size. Lungs are clear without consolidation, atelectasis, mass or edema. There may be a small left pleural effusion. There is no pneumothorax. There are no acute osseous findings. Endotracheal tube, nasogastric tube are unchanged. Right subclavian central line tip is in the mid SVC. IMPRESSION: Relatively little change.
[2018-03-03] MEDS: NORMAL SALINE 1000 ML 1,000 ML IV PRN ×2 (09:41→22:00)
--- NOTE | 2018-03-03 09:41 | PDOC PROGRESS REPORT ---
Subjective Progress Note for:: 03/03/18 Subjective:: pt intubated Reason For Visit: ABSCESS OF SIGMOID COLON DUE TO DIVERTICULITIS/ post op transverse colostomy Physical Exam Vital Signs: Temp Pulse Resp BP Pulse Ox 98.3 F 83 19 131/75 H 100 03/03/18 08:00 03/03/18 08:00 03/03/18 08:00 03/03/18 08:00 03/03/18 08:05 Intake & Output 03/02/18 03/03/18 03/04/18 06:59 06:59 06:59 Intake Total 5727 4095 Output Total 440 1305 Balance 5287 2790 Weight 73.6 kg 76.7 kg General appearance: PRESENT: no acute distress, obese GI/Abdominal exam: PRESENT: hypoactive bowel sounds, soft - colostomy pink, not productive nurse reports min flatus Results Laboratory Results: 03/03/18 05:27 03/03/18 05:27 03/02/18 03/03/18 03/03/18 16:24 05:16 05:27 WBC RBC Hgb Hct MCV MCH MCHC RDW Plt Count Seg Neutrophils % Lymphocytes % Monocytes % Eosinophils % Basophils % Absolute Neutrophils Absolute Lymphocytes Absolute Monocytes Absolute Eosinophils Absolute Basophils Carbonic Acid HCO3/H2CO3 Ratio ABG pH ABG pCO2 ABG pO2 ABG HCO3 ABG O2 Saturation ABG Base Excess FiO2 Sodium 138.2 139.2 Potassium 4.0 3.5 L Chloride 111 H 112 H Carbon Dioxide 23 21 L Anion Gap 4 L 6 BUN 15 18 Creatinine 0.76 0.82 Est GFR ( Amer) > 60 > 60 Est GFR (Non-Af Amer) > 60 > 60 Glucose 121 H 136 H Calcium 7.2 L 7.3 L Phosphorus 2.4 L Magnesium 2.1 D 2.4 H Total Bilirubin 0.3 AST 14 ALT 20 Alkaline Phosphatase 43 Total Protein 3.7 L Albumin 1.7 L Prealbumin < 3.0 L Urine Color YELLOW Urine Appearance CLEAR Urine pH 5.0 Ur Specific [place] 1.044 Urine Protein 30 H Urine Glucose (UA) NEGATIVE Urine Ketones NEGATIVE Urine Blood SMALL H Urine Nitrite NEGATIVE Ur Leukocyte Esterase NEGATIVE Urine WBC (Auto) 3 Urine RBC (Auto) 47 03/03/18 03/03/18 05:27 05:27 WBC 10.2 RBC 3.34 L Hgb 9.9 L Hct 30.0 L MCV 90 MCH 29.6 MCHC 33.0 RDW 15.8 H Plt Count 257 Seg Neutrophils % 79.6 H Lymphocytes % 10.3 L Monocytes % 9.4 Eosinophils % 0.4 Basophils % 0.3 Absolute Neutrophils 8.1 Absolute Lymphocytes 1.0 Absolute Monocytes 1.0 Absolute Eosinophils 0.0 Absolute Basophils 0.0 Carbonic Acid 0.94 L HCO3/H2CO3 Ratio 22:1 ABG pH 7.45 ABG pCO2 31.2 L ABG pO2 108.5 H ABG HCO3 21.0 ABG O2 Saturation 98.2 H ABG Base Excess -2.2 FiO2 30% Sodium Potassium Chloride Carbon Dioxide Anion Gap BUN Creatinine Est GFR ( Amer) Est GFR (Non-Af Amer) Glucose Calcium Phosphorus Magnesium Total Bilirubin AST ALT Alkaline Phosphatase Total Protein Albumin Prealbumin Urine Color Urine Appearance Urine pH Ur Specific [place] Urine Protein Urine Glucose (UA) Urine Ketones Urine Blood Urine Nitrite Ur Leukocyte Esterase Urine WBC (Auto) Urine RBC (Auto) Impressions: Abdomen/Pelvis CT 03/01/18 09:07 IMPRESSION: Extravasation of rectal contrast from the distal descending colon, with tracking of contrast into the right pericolic gutter and right subphrenic space. Small amount of free intraperitoneal air. Chest X-Ray 03/03/18 06:00 IMPRESSION: Relatively little change. Assessment & Plan - Time Time Spent with patient: 25-34 minutes - Plan Summary Plan Summary: plan is for possible extubation today electrolyte replacemnt per medical physician will need to replace ng via the nares after extubation await return of bowel function
[2018-03-03] MEDS: FAT EMULSIONS 250 ML IV SCH (09:48)
[2018-03-03] MEDS: ENOXAPARIN SODIUM INJ 40 MG/0.4 ML DISP.SYRIN SUBCUT SCH (09:49)
--- NOTE | 2018-03-03 09:56 | PDOC PROGRESS REPORT ---
Subjective Progress Note for:: 03/03/18 Subjective:: The patient is a 68-year-old female with a past medical history of atrial fibrillation, hyperlipidemia, hypertension, asthma, COPD, sleep apnea, GERD, hiatal hernia, arthritis, depression who was admitted 02/27/18 for a rectosigmoid colon inflammation and pericolonic abscess resulting in perforated bowel; now postop day 1 laparotomy and colostomy. The patient was seen in the ICU on morning rounds. She is currently mechanically ventilated; sedation drip stopped yesterday and has only been provided intermittent as needed pain medications to good effect. She appears to be comfortable this morning. She wakes easily when I say her name and follows commands. ROS is limited secondary to intubation, but the patient shakes her head 'no' when asked if she is in any pain. No concerns per nursing; plans to extubate today. Reason For Visit: ABSCESS OF SIGMOID COLON DUE TO DIVERTICULITIS/ Physical Exam Vital Signs: Temp Pulse Resp BP Pulse Ox 98.3 F 83 19 131/75 H 100 03/03/18 08:00 03/03/18 08:00 03/03/18 08:00 03/03/18 08:00 03/03/18 08:05 Intake & Output 03/02/18 03/03/18 03/04/18 06:59 06:59 06:59 Intake Total 5727 5095 Output Total 440 1305 Balance 5287 3790 Weight 73.6 kg 76.7 kg General appearance: PRESENT: no acute distress, well-developed, well-nourished Head exam: PRESENT: atraumatic, normocephalic Eye exam: PRESENT: conjunctiva pink, EOMI, PERRLA. ABSENT: scleral icterus Ear exam: PRESENT: normal external ear exam Mouth exam: PRESENT: moist, tongue midline Neck exam: ABSENT: carotid bruit, JVD, lymphadenopathy, thyromegaly Respiratory exam: PRESENT: clear to auscultation keren, other - Mechanically ventilated. ABSENT: rales, rhonchi, wheezes Cardiovascular exam: PRESENT: RRR. ABSENT: diastolic murmur, rubs, systolic murmur Pulses: PRESENT: normal dorsalis pedis pul Vascular exam: PRESENT: normal capillary refill GI/Abdominal exam: PRESENT: hypoactive bowel sounds, soft, other - Drains, colostomy. ABSENT: distended, guarding, mass, organolmegaly, rebound, tenderness Rectal exam: PRESENT: deferred Extremities exam: PRESENT: full ROM, pedal edema - +1. ABSENT: calf tenderness, clubbing Neurological exam: PRESENT: CN II-XII grossly intact, other - Arousable, follows commands. ABSENT: motor sensory deficit Psychiatric exam: PRESENT: appropriate affect, normal mood. ABSENT: homicidal ideation, suicidal ideation Skin exam: PRESENT: dry, intact, warm. ABSENT: cyanosis, rash Results Laboratory Results: 03/03/18 05:27 03/03/18 05:27 03/02/18 03/03/18 03/03/18 16:24 05:16 05:27 WBC RBC Hgb Hct MCV MCH MCHC RDW Plt Count Seg Neutrophils % Lymphocytes % Monocytes % Eosinophils % Basophils % Absolute Neutrophils Absolute Lymphocytes Absolute Monocytes Absolute Eosinophils Absolute Basophils Carbonic Acid HCO3/H2CO3 Ratio ABG pH ABG pCO2 ABG pO2 ABG HCO3 ABG O2 Saturation ABG Base Excess FiO2 Sodium 138.2 139.2 Potassium 4.0 3.5 L Chloride 111 H 112 H Carbon Dioxide 23 21 L Anion Gap 4 L 6 BUN 15 18 Creatinine 0.76 0.82 Est GFR ( Amer) > 60 > 60 Est GFR (Non-Af Amer) > 60 > 60 Glucose 121 H 136 H Calcium 7.2 L 7.3 L Phosphorus 2.4 L Magnesium 2.1 D 2.4 H Total Bilirubin 0.3 AST 14 ALT 20 Alkaline Phosphatase 43 Total Protein 3.7 L Albumin 1.7 L Prealbumin < 3.0 L Urine Color YELLOW Urine Appearance CLEAR Urine pH 5.0 Ur Specific [place] 1.044 Urine Protein 30 H Urine Glucose (UA) NEGATIVE Urine Ketones NEGATIVE Urine Blood SMALL H Urine Nitrite NEGATIVE Ur Leukocyte Esterase NEGATIVE Urine WBC (Auto) 3 Urine RBC (Auto) 47 03/03/18 03/03/18 05:27 05:27 WBC 10.2 RBC 3.34 L Hgb 9.9 L Hct 30.0 L MCV 90 MCH 29.6 MCHC 33.0 RDW 15.8 H Plt Count 257 Seg Neutrophils % 79.6 H Lymphocytes % 10.3 L Monocytes % 9.4 Eosinophils % 0.4 Basophils % 0.3 Absolute Neutrophils 8.1 Absolute Lymphocytes 1.0 Absolute Monocytes 1.0 Absolute Eosinophils 0.0 Absolute Basophils 0.0 Carbonic Acid 0.94 L HCO3/H2CO3 Ratio 22:1 ABG pH 7.45 ABG pCO2 31.2 L ABG pO2 108.5 H ABG HCO3 21.0 ABG O2 Saturation 98.2 H ABG Base Excess -2.2 FiO2 30% Sodium Potassium Chloride Carbon Dioxide Anion Gap BUN Creatinine Est GFR ( Amer) Est GFR (Non-Af Amer) Glucose Calcium Phosphorus Magnesium Total Bilirubin AST ALT Alkaline Phosphatase Total Protein Albumin Prealbumin Urine Color Urine Appearance Urine pH Ur Specific [place] Urine Protein Urine Glucose (UA) Urine Ketones Urine Blood Urine Nitrite Ur Leukocyte Esterase Urine WBC (Auto) Urine RBC (Auto) Impressions: Abdomen/Pelvis CT 03/01/18 09:07 IMPRESSION: Extravasation of rectal contrast from the distal descending colon, with tracking of contrast into the right pericolic gutter and right subphrenic space. Small amount of free intraperitoneal air. Chest X-Ray 03/03/18 06:00 IMPRESSION: Relatively little change. Assessment & Plan - Diagnosis (1) Hypotension Is this a current diagnosis for this admission?: Yes Plan: Resolved; likely related to intraoperative Versed and analgesia. Less likely sepsis as the patient has a normal WBC and has remained afebrile. Adrenal insufficiency is ruled out; random cortisol level is appropriate at 43.6 (obtained at 5 AM). Holding Versed. Providing IV maintenance fluids. She did receive IV Solu-Cortef 100 mg x1 yesterday. Now on TPN which will address her hypoalbuminemia. Cultures and antibiotics as addressed below. Levophed drip as needed; titrate per protocol. Fortunately, the patient has not yet required this intervention. (2) Hypomagnesemia Is this a current diagnosis for this admission?: Yes Plan: Replete. Patient has been started on TPN per surgery recommendations. Daily chemistries; adjustments per pharmacy. (3) Hypokalemia Is this a current diagnosis for this admission?: Yes Plan: Replete. Patient has been started on TPN per surgery recommendations. Daily chemistries; adjustments per pharmacy. (4) Chronic obstructive pulmonary disease (COPD) Qualifiers: COPD type: COPD with acute lower respiratory infection Qualified Code(s): J44.0 - Chronic obstructive pulmonary disease with acute lower respiratory infection Is this a current diagnosis for this admission?: Yes Plan: Stable and without exacerbation at this time. She is currently intubated and mechanically ventilated. Nebulizer treatments every 6 hours as needed. Pulmonology is consulted; appreciate Dr. Watts's expert assistance. (5) Perforated bowel Is this a current diagnosis for this admission?: Yes Plan: Blood cultures are negative at 72 hours. Peritoneal fluid growing multiple gram-negative rods. Primary management per surgery; will defer wound care to their expertise. Antibiotics per their recommendations; currently on Unasyn and Flagyl. - Time Time Spent with patient: 15-24 minutes Medications reviewed and adjusted accordingly: Yes
[2018-03-03] MEDS: DILTIAZEM HCL 180 MG CAPSULE.CR PO SCH (11:42)
[2018-03-03] MEDS: MORPHINE SULFATE 10 MG/ML INJ IV PRN ×3 (14:52→23:08)
[2018-03-03] MEDS: AMINO ACIDS 5%/D25W 1,000 ML IV PRN (18:57)
[2018-03-04] MEDS: METRONIDAZOLE 500 MG/NS RTU 500 MG/100 ML RTUPB IV SCH ×3 (02:23→19:43)
[2018-03-04] MEDS: POTASSIUM CHLORIDE 10 MEQ CAPSULE.ER PO SCH ×3 (05:34→21:39)
[2018-03-04] MEDS: MORPHINE SULFATE 10 MG/ML INJ IV PRN ×5 (05:34→23:11)
[2018-03-04] MEDS: METOPROLOL TARTRATE PF/INJ 5 MG/5 ML SDV IV SCH ×4 (05:35→23:49)
[2018-03-04] MEDS: ACETAMINOPHEN 1,000 MG/100 ML RTUPB IV SCH ×4 (05:35→23:50)
[2018-03-04] MEDS: MINERAL OIL 30 ML UDCUP PO SCH ×4 (05:35→23:57)
[2018-03-04] MEDS: AMPICILLIN SODIUM/SULBACTAM NA 3 GM in NORMAL SALINE 100 ML IV SCH ×4 (05:36→23:15)
[2018-03-04 06:26] LABS: ARTERIAL BLOOD BASE EXCESS -0.3 mmol/L; ARTERIAL BLOOD FIO2 ROOM AIR; ARTERIAL BLOOD HCO3 23.1 mmol/L (20-24); ARTERIAL BLOOD O2 SATURATION 96.3 % (94-98); ARTERIAL BLOOD PCO2 33.2 mmHg (35-45); ARTERIAL BLOOD PH 7.46 (7.35-7.45); ARTERIAL BLOOD PO2 78.5 mmHg (80-100); ARTERIAL BLOOD TOTAL CO2 24.1 mmol/L (21-25)
[2018-03-04 06:33] LABS: ABSOLUTE EOSINOPHILS # (AUTO) 0.3 10^3/uL (0.0-0.6); ABSOLUTE LYMPHOCYTES (AUTO) 0.9 10^3/uL (0.5-4.7); ABSOLUTE NEUT (AUTO) 7.1 10^3/uL (1.7-8.2); BASOPHILS % (AUTO) 0.3 % (0-2); EOSINOPHILS % (AUTO) 3.2 % (0-6); HEMATOCRIT 31.5 % (36.0-47.0); HEMOGLOBIN 10.2 g/dL (12.0-15.5); LYMPHOCYTES % (AUTO) 9.3 % (13-45); MEAN CORPUSCULAR HEMOGLOBIN 29.1 pg (27.0-33.4); MEAN CORPUSCULAR HGB CONC 32.4 g/dL (32.0-36.0); MEAN CORPUSCULAR VOLUME 90 fl (80-97); MONOCYTES % (AUTO) 10.9 % (3-13); PLATELET COUNT 243 10^3/uL (150-450); SEGMENTED NEUTROPHILS % (AUTO) 76.3 % (42-78); TOTAL CELLS COUNTED % (AUTO) 100 %; WHITE BLOOD COUNT 9.4 10^3/uL (4.0-10.5)
[2018-03-04 06:44] LABS: ALANINE AMINOTRANSFERASE 19 U/L (9-52); ALBUMIN 1.7 g/dL (3.5-5.0); ALKALINE PHOSPHATASE 54 U/L (38-126); ASPARTATE AMINO TRANSFERASE 11 U/L (14-36); BILIRUBIN,DIRECT 0.4 mg/dL (0.0-0.4); BILIRUBIN,TOTAL 0.4 mg/dL (0.2-1.3); BLOOD UREA NITROGEN 12 mg/dL (7-20); CALCIUM 7.6 mg/dL (8.4-10.2); GLUCOSE 112 mg/dL (75-110); PHOSPHORUS 2.3 mg/dL (2.5-4.5); POTASSIUM 3.4 mmol/L (3.6-5.0); TOTAL PROTEIN 3.8 g/dL (6.3-8.2)
[2018-03-04 06:51] LABS: PREALBUMIN 4.8 mg/dL (17.6-36.0)
[2018-03-04 07:15] LABS: CARBON DIOXIDE 23 mmol/L (22-30); CHLORIDE 112 mmol/L (98-107); SODIUM 140.5 mmol/L (137-145)
[2018-03-04 07:19] LABS: ANION GAP 6 (5-19)
--- NOTE | 2018-03-04 07:42 | OPERATIVE REPORT E ---
Operative Report NAME: CHAKA PATEL : 1950 AGE: 68Y DATE OF SURGERY: 03/01/2018 ROOM: 321 PREOPERATIVE DIAGNOSIS: PERFORATED SIGMOID COLON. POSTOPERATIVE DIAGNOSIS: PERFORATED SIGMOID COLON AT THE ANASTOMOSIS SIDE. OPERATION: 1. Exploratory laparotomy. 2. Extensive lysis of adhesions. 3. Transverse colostomy. 4. Placement of wound VAC. SURGEON: ADELA NORRIS M.D. UNDERCOAT SPRAYER: None. ANESTHESIA: General, plus 30 mL of 0.5% Marcaine with epinephrine. ESTIMATED BLOOD LOSS: 50 mL COMPLICATIONS: None. FLUIDS: 4600 URINE OUTPUT: 200 COMPLICATIONS: None. DRAINS: Two 10 mm flat Peña-Leblanc drains were used. INDICATION AND FINDINGS: This is a 68-year-old female who was admitted on 02/27 with a complaint of lower abdominal pain. The patient has a history of chronic diverticulitis. She underwent a low anterior resection back in December, which was successful. The patient was discharged in satisfactory condition. However, she returned with above symptoms. A CAT scan of the abdomen and pelvis was done, revealing the presence of a little loop of colon with pericolic abscess. Also, the small bowel was found to be dilated around the suspicious area. The patient underwent a CT scan abdomen and pelvis with IV and rectal contrast, which revealed a leak of contrast at the level and just above the stable anastomosis done during the previous surgery. The patient was taken to surgery. The procedure, benefits, and complications explained to the patient and questions were answered, and she decided to proceed. PROCEDURE: The procedure was done in the operating room. The patient was placed in supine position. General anesthesia was induced by general endotracheal intubation. The abdomen prepped and draped in usual fashion. A Morrison catheter and nasogastric tube inserted. An incision was made from just above the umbilicus down to the symphysis pubis. The peritoneal cavity was entered. A moderate amount of adhesions within the greater omentum and anterior abdominal wall were identified. Those were taken down with Bovie. The small bowel was found to be distended, covered by fibrinous material, completely matted to itself and to the anterior lateral abdominal wall as well as to the pelvis bilaterally. With blunt and Bovie and/or ligature action, the small bowel was resected off the anterior abdominal wall and the pelvis and tenacious adhesions were identified within the small bowel loops and the pelvis at the level of the anterior wall. Those were taken down bluntly and with Bovie. Once the bowel was completely relieved and free of adhesions; it took about an hour and a half, the small bowel was retracted with a Bookwalter retractor in the right upper quadrant. Exposure of the pelvis was then obtained and the left colon was found to be pink and viable. However, at the level of the anastomosis, inflammatory changes were identified, which were consistent with the possibility of a perforation at the level of the anastomosis itself on the right posterolateral area of the anastomosis. However, the area of anastomosis could not be correctly identified. At this point, the decision was made to initially try to perform a descending colostomy, and the left colon was then taken off the retroperitoneum using a Bovie, and dissection was continued along the lines of Toldt. However, it was soon apparent that there was not enough laxity of the colon to allow a descending transverse colostomy. A decision was, therefore, made to explore the upper abdomen. The greater omentum was pulled outside the abdominal wound together where the transverse colon was found to be lax. A left upper quadrant transverse colostomy was then performed by making an incision along the midclavicular line. The incision was circumferential, with removal of a core of skin and subcutaneous fat down to the fascia. The anterior sheet fascia was divided in cruciate fashion. The rectus fibers were split longitudinally and the rectus sheath was divided with Bovie. Two fingers were entered through the opening. The transverse colon was then slowly pulled outside the surgical wound and a 17-K[place] red rubber catheter was obtained and an opening made in the mesenteric transverse colon, and the transverse colon was therefore kept eviscerated using the red rubber catheter. At this point, the peritoneal cavity was irrigated with a total of 6 L of warm normal saline, which was fully aspirated. The small bowel was examined. Some areas of deserosalization were then repaired with Lembert interrupted 3-0 silk sutures. The small bowel was then replaced within the peritoneal cavity. Two 10 mm flat Peña-Leblanc drains were inserted through the right and left lower quadrant following an opening in the skin and they were both placed in the right and left pelvis and into the rectum respectively. The drains were secured to the skin with 2-0 nylon sutures and connected to bulb suction. The abdominal wall was closed with #1 looped PDS suture. The skin was left open and covered with towel. The colostomy was then secured to the anterior rectus sheath with interrupted Lembert 2-0 Vicryl sutures. The red rubber catheter was secured to the skin with 2-0 running suture and looped through itself and secured to itself with the same 2-0 nylon suture. The colostomy was matured by making a usual incision and the edges were then secured with a 3-point stitch using 3-0 Vicryl to the subcutaneous tissue circumferentially. A piece of cross foam was then divided to length, applied to the wound, and a large piece of Tegaderm was then placed to obtain a vacuum seal. An opening was made on the Tegaderm on top of the cross sponge followed by application of a vacuum cap for the wound VAC, with good seal and negative pressure. A colostomy flange was then divided to size and applied on the transverse colostomy followed by the colostomy bag. Both drains were connected to bulb suction. The patient was left intubated, transferred to the ICU bed, in satisfactory condition. DICTATING PHYSICIAN: ADELA NORRIS M.D. [id number] PHY#: [id number] ID: [id number] JOB#: [id number] ACCT: [id number] cc:ADELA NORRIS M.D. > MTDD
--- NOTE | 2018-03-04 09:04 | PDOC PROGRESS REPORT ---
Subjective Progress Note for:: 03/04/18 Subjective:: Patient has some complaints of abdominal pain; gas in the ostomy yet; has not been out of bed Reason For Visit: ABSCESS OF SIGMOID COLON DUE TO DIVERTICULITIS/ Physical Exam Vital Signs: Temp Pulse Resp BP Pulse Ox 98.3 F 85 18 124/63 99 03/04/18 07:24 03/04/18 07:24 03/04/18 07:24 03/04/18 07:24 03/04/18 07:24 Intake & Output 03/03/18 03/04/18 03/05/18 06:59 06:59 06:59 Intake Total 5295 3350 Output Total 1305 1850 Balance 3990 1500 Weight 76.7 kg 86.3 kg General appearance: PRESENT: no acute distress GI/Abdominal exam: PRESENT: other - Abdomen examined; wound VAC in place with appropriate suction; colostomy appliance bag removed, no gas; loop colostomy with ridge intact; small limb digitalized with pinky finger, patent through fascia. Additional comments: Serosanguineous drains voluminous; left in position. Results Laboratory Results: 03/04/18 06:00 03/04/18 06:00 03/04/18 03/04/18 03/04/18 06:00 06:00 06:15 WBC 9.4 RBC 3.50 L Hgb 10.2 L Hct 31.5 L MCV 90 MCH 29.1 MCHC 32.4 RDW 16.0 H Plt Count 243 Seg Neutrophils % 76.3 Lymphocytes % 9.3 L Monocytes % 10.9 Eosinophils % 3.2 Basophils % 0.3 Absolute Neutrophils 7.1 Absolute Lymphocytes 0.9 Absolute Monocytes 1.0 Absolute Eosinophils 0.3 Absolute Basophils 0.0 Carbonic Acid 1.00 L HCO3/H2CO3 Ratio 23:1 ABG pH 7.46 H ABG pCO2 33.2 L ABG pO2 78.5 L ABG HCO3 23.1 ABG O2 Saturation 96.3 ABG Base Excess -0.3 FiO2 ROOM AIR Sodium 140.5 Potassium 3.4 L Chloride 112 H Carbon Dioxide 23 Anion Gap 6 BUN 12 Creatinine 0.53 Est GFR ( Amer) > 60 Est GFR (Non-Af Amer) > 60 Glucose 112 H Calcium 7.6 L Phosphorus 2.3 L Total Bilirubin 0.4 AST 11 L ALT 19 Alkaline Phosphatase 54 Total Protein 3.8 L Albumin 1.7 L Prealbumin 4.8 L Impressions: Abdomen/Pelvis CT 03/01/18 09:07 IMPRESSION: Extravasation of rectal contrast from the distal descending colon, with tracking of contrast into the right pericolic gutter and right subphrenic space. Small amount of free intraperitoneal air. Chest X-Ray 03/03/18 06:00 IMPRESSION: Relatively little change. Assessment & Plan - Diagnosis (1) Abdominal pain Is this a current diagnosis for this admission?: Yes Plan: Impression: Patient is 3 days status post exploratory laparotomy, pelvic washout for peritonitis, diverting loop transverse colostomy, drain placement, doing well, afebrile, normal white count, on intravenous antibiotics; nasogastric tube minimal output. Recommendations: 1. Remove nasogastric tube 2. Out of bed to chair, increased pulmonary toilet 3. Leave drains in for now. 4. We will get social worker health services involved, ostomy care as well as wound VAC care 5. Replace potassium. (2) Hypokalemia Is this a current diagnosis for this admission?: Yes (3) Smoker Is this a current diagnosis for this admission?: Yes (4) Atrial fibrillation Qualifiers: Is this a current diagnosis for this admission?: Yes
[2018-03-04] MEDS: DILTIAZEM HCL 180 MG CAPSULE.CR PO SCH (10:12)
[2018-03-04] MEDS: POTASSI CL 20 MEQ/50 ML RIDER 20 MEQ/50 ML RTUPB IV SCH ×2 (10:15→11:34)
[2018-03-04] MEDS: ENOXAPARIN SODIUM INJ 40 MG/0.4 ML DISP.SYRIN SUBCUT SCH (10:15)
--- NOTE | 2018-03-04 10:34 | RADIOLOGY REPORT (SQ) ---
EXAM DESCRIPTION: CHEST SINGLE VIEW COMPLETED DATE/TIME: 03/04/2018 10:13 am REASON FOR STUDY: resp failure COMPARISON: Chest films 03/01/2018, 03/02/2018, 03/03/2018 EXAM PARAMETERS: NUMBER OF VIEWS: One view. TECHNIQUE: Single frontal radiographic view of the chest acquired. RADIATION DOSE: NA LIMITATIONS: None. FINDINGS: LUNGS AND PLEURA: Minimal patchy airspace disease at both lung bases. Remainder of the lungs are hyperinflated but clear. No pleural effusion. No pneumothorax. MEDIASTINUM AND HILAR STRUCTURES: No masses. Contour normal. HEART AND VASCULAR STRUCTURES: Heart normal in size. Normal vasculature. BONES: No acute findings. Old bilateral healed rib fractures HARDWARE: Right subclavian central line tip superior vena cava OTHER: No other significant finding. IMPRESSION: Minimal bibasilar atelectasis TECHNICAL DOCUMENTATION: JOB ID: [id number] [employer]- All Rights Reserved Reading location - IP/workstation name: [email or web address]
[2018-03-04] MEDS: ONDANSETRON HCL INJ/PF 4 MG/2 ML SDV IV PRN (12:05)
[2018-03-04] MEDS: NORMAL SALINE 1000 ML 1,000 ML IV PRN (12:55)
--- NOTE | 2018-03-04 18:32 | PDOC PROGRESS REPORT ---
Subjective Progress Note for:: 03/04/18 Subjective:: The patient is a 68-year-old female with a past medical history of atrial fibrillation, hyperlipidemia, hypertension, asthma, COPD, sleep apnea, GERD, hiatal hernia, arthritis, depression who was admitted 02/27/18 for a rectosigmoid colon inflammation and pericolonic abscess resulting in perforated bowel; now postop day 1 laparotomy and colostomy. The patient was seen on morning rounds. She has been extubated, NG tube removed, and she is now resting comfortably on room air. She was sleeping when I entered the room, but did wake easily when I set her name. She denies pain at present. She does report a slightly productive cough which she states is her usual for her COPD; she denies dyspnea and orthopnea. Her only complaint at present is fatigue and intermittent abdominal pain. She denies fever, chills, headache, chest pain, palpitations, dyspnea, nausea and vomiting. She has no questions or concerns at this time. No concerns per nursing. Reason For Visit: ABSCESS OF SIGMOID COLON DUE TO DIVERTICULITIS/ Physical Exam Vital Signs: Temp Pulse Resp BP Pulse Ox 98.3 F 80 18 134/69 H 98 03/04/18 11:03 03/04/18 14:00 03/04/18 11:03 03/04/18 11:03 03/04/18 11:03 Intake & Output 03/03/18 03/04/18 03/05/18 06:59 06:59 06:59 Intake Total 5295 3350 1250 Output Total 1305 1850 830 Balance 3990 1500 420 Weight 76.7 kg 86.3 kg General appearance: PRESENT: no acute distress, well-developed, well-nourished Head exam: PRESENT: atraumatic, normocephalic Eye exam: PRESENT: conjunctiva pink, EOMI, PERRLA. ABSENT: scleral icterus Ear exam: PRESENT: normal external ear exam Mouth exam: PRESENT: moist, tongue midline Neck exam: ABSENT: carotid bruit, JVD, lymphadenopathy, thyromegaly Respiratory exam: PRESENT: clear to auscultation keren, decreased breath sounds - Bibasilar, symmetrical - Overweight, unlabored. ABSENT: rales, rhonchi, wheezes Cardiovascular exam: PRESENT: RRR, +S1, +S2. ABSENT: diastolic murmur, rubs, systolic murmur Pulses: PRESENT: normal dorsalis pedis pul Vascular exam: PRESENT: normal capillary refill GI/Abdominal exam: PRESENT: hypoactive bowel sounds, soft, tenderness, other - Colostomy, wound VAC, ALLISON drains. ABSENT: distended, guarding, mass, organolmegaly, rebound Rectal exam: PRESENT: deferred Extremities exam: PRESENT: full ROM. ABSENT: calf tenderness, clubbing, pedal edema Neurological exam: PRESENT: alert, awake, oriented to person, oriented to place, oriented to time, oriented to situation, CN II-XII grossly intact. ABSENT: motor sensory deficit Psychiatric exam: PRESENT: appropriate affect, normal mood. ABSENT: homicidal ideation, suicidal ideation Skin exam: PRESENT: dry, intact, warm. ABSENT: cyanosis, rash Results Laboratory Results: 03/04/18 06:00 03/04/18 06:00 03/04/18 03/04/18 03/04/18 06:00 06:00 06:15 WBC 9.4 RBC 3.50 L Hgb 10.2 L Hct 31.5 L MCV 90 MCH 29.1 MCHC 32.4 RDW 16.0 H Plt Count 243 Seg Neutrophils % 76.3 Lymphocytes % 9.3 L Monocytes % 10.9 Eosinophils % 3.2 Basophils % 0.3 Absolute Neutrophils 7.1 Absolute Lymphocytes 0.9 Absolute Monocytes 1.0 Absolute Eosinophils 0.3 Absolute Basophils 0.0 Carbonic Acid 1.00 L HCO3/H2CO3 Ratio 23:1 ABG pH 7.46 H ABG pCO2 33.2 L ABG pO2 78.5 L ABG HCO3 23.1 ABG O2 Saturation 96.3 ABG Base Excess -0.3 FiO2 ROOM AIR Sodium 140.5 Potassium 3.4 L Chloride 112 H Carbon Dioxide 23 Anion Gap 6 BUN 12 Creatinine 0.53 Est GFR ( Amer) > 60 Est GFR (Non-Af Amer) > 60 Glucose 112 H Calcium 7.6 L Phosphorus 2.3 L Total Bilirubin 0.4 AST 11 L ALT 19 Alkaline Phosphatase 54 Total Protein 3.8 L Albumin 1.7 L Prealbumin 4.8 L Impressions: Abdomen/Pelvis CT 03/01/18 09:07 IMPRESSION: Extravasation of rectal contrast from the distal descending colon, with tracking of contrast into the right pericolic gutter and right subphrenic space. Small amount of free intraperitoneal air. Chest X-Ray 03/04/18 06:00 IMPRESSION: Minimal bibasilar atelectasis Assessment & Plan - Diagnosis (1) Hypotension Is this a current diagnosis for this admission?: Yes Plan: Resolved; likely related to intraoperative Versed and analgesia. Less likely sepsis as the patient has a normal WBC and has remained afebrile. Adrenal insufficiency is ruled out; random cortisol level is appropriate at 43.6 (obtained at 5 AM). Providing IV maintenance fluids. Now on TPN which will address her hypoalbuminemia. Cultures and antibiotics as addressed below. (2) Hypomagnesemia Is this a current diagnosis for this admission?: Yes Plan: Replete. Patient has been started on TPN per surgery recommendations. Daily chemistries; adjustments per pharmacy. (3) Hypokalemia Is this a current diagnosis for this admission?: Yes Plan: Replete. Patient has been started on TPN per surgery recommendations. Daily chemistries; adjustments per pharmacy. (4) Chronic obstructive pulmonary disease (COPD) Qualifiers: COPD type: COPD with acute lower respiratory infection Qualified Code(s): J44.0 - Chronic obstructive pulmonary disease with acute lower respiratory infection Is this a current diagnosis for this admission?: Yes Plan: Stable and without exacerbation at this time. She is currently intubated and mechanically ventilated. Nebulizer treatments every 6 hours as needed. Resume patient's home dose Combivent. Pulmonology is consulted; appreciate Dr. Watts's expert assistance. (5) Perforated bowel Is this a current diagnosis for this admission?: Yes Plan: Blood cultures are negative at 72 hours. Peritoneal fluid growing multiple gram-negative rods. Primary management per surgery; will defer wound care to their expertise. Antibiotics per their recommendations; currently on Unasyn and Flagyl. Discharge planning is consulted. - Time Time Spent with patient: 15-24 minutes Medications reviewed and adjusted accordingly: Yes
[2018-03-04] MEDS: AMINO ACIDS 5%/D25W 1,000 ML IV PRN (20:24)
[2018-03-04] MEDS: IPRATROPIUM/ALBUTEROL 120 PUFF/4 GM MDI IH SCH (23:50)
[2018-03-05] MEDS: MORPHINE SULFATE 10 MG/ML INJ IV PRN ×9 (02:17→23:30)
[2018-03-05] MEDS: METRONIDAZOLE 500 MG/NS RTU 500 MG/100 ML RTUPB IV SCH ×3 (02:19→18:16)
[2018-03-05] MEDS: POTASSIUM CHLORIDE 10 MEQ CAPSULE.ER PO SCH ×3 (05:05→21:40)
[2018-03-05] MEDS: MINERAL OIL 30 ML UDCUP PO SCH (05:06)
[2018-03-05] MEDS: METOPROLOL TARTRATE PF/INJ 5 MG/5 ML SDV IV SCH ×4 (05:48→23:46)
[2018-03-05] MEDS: IPRATROPIUM/ALBUTEROL 120 PUFF/4 GM MDI IH SCH ×4 (05:49→23:46)
[2018-03-05] MEDS: AMPICILLIN SODIUM/SULBACTAM NA 3 GM in NORMAL SALINE 100 ML IV SCH (05:49)
[2018-03-05] MEDS: ACETAMINOPHEN 1,000 MG/100 ML RTUPB IV SCH (05:51)
[2018-03-05 06:44] LABS: HEMATOCRIT 27.5 % (36.0-47.0); MEAN CORPUSCULAR HEMOGLOBIN 29.1 pg (27.0-33.4); MEAN CORPUSCULAR HGB CONC 32.6 g/dL (32.0-36.0); MEAN CORPUSCULAR VOLUME 89 fl (80-97); PLATELET COUNT 220 10^3/uL (150-450); RED BLOOD COUNT 3.08 10^6/uL (3.72-5.28); RED CELL DISTRIBUTION WIDTH 16.3 % (11.5-14.0); WHITE BLOOD COUNT 7.5 10^3/uL (4.0-10.5)
[2018-03-05 06:56] LABS: ALANINE AMINOTRANSFERASE 19 U/L (9-52); ALBUMIN 1.6 g/dL (3.5-5.0); ALKALINE PHOSPHATASE 52 U/L (38-126); ASPARTATE AMINO TRANSFERASE 9 U/L (14-36); BILIRUBIN,DIRECT 0.3 mg/dL (0.0-0.4); BILIRUBIN,TOTAL 0.3 mg/dL (0.2-1.3); BLOOD UREA NITROGEN 10 mg/dL (7-20); CALCIUM 7.4 mg/dL (8.4-10.2); CHLORIDE 112 mmol/L (98-107); GLUCOSE 130 mg/dL (75-110); PHOSPHORUS 2.9 mg/dL (2.5-4.5); POTASSIUM 3.8 mmol/L (3.6-5.0); TOTAL PROTEIN 3.4 g/dL (6.3-8.2)
[2018-03-05 07:01] LABS: CARBON DIOXIDE 25 mmol/L (22-30); SODIUM 139.2 mmol/L (137-145)
[2018-03-05 07:03] LABS: ABSOLUTE LYMPHOCYTES# (MANUAL) 1.8 10^3/uL (0.5-4.7); ABSOLUTE MONOCYTES # (MANUAL) 0.8 10^3/uL (0.1-1.4); ABSOLUTE NEUTROPHILS# (MANUAL) 4.7 10^3/uL (1.7-8.2); ANISOCYTOSIS 1+; BASOPHILS % (MANUAL) 0 % (0-2); EOSINOPHILS % (MANUAL) 3 % (0-6); LYMPHOCYTES % (MANUAL) 24 % (13-45); MONOCYTES % (MANUAL) 10 % (3-13); PLATELET COMMENT ADEQUATE; POLYCHROMASIA 1+; PREALBUMIN 6.2 mg/dL (17.6-36.0); SEGMENTED NEUTROPHILS % (MAN) 63 % (42-78); TOTAL CELLS COUNTED 100
[2018-03-05 07:09] LABS: ANION GAP 2 (5-19)
[2018-03-05] MEDS: NORMAL SALINE 1000 ML 1,000 ML IV PRN ×2 (09:32→23:47)
[2018-03-05] MEDS: ENOXAPARIN SODIUM INJ 40 MG/0.4 ML DISP.SYRIN SUBCUT SCH (09:33)
--- NOTE | 2018-03-05 12:24 | PDOC PROGRESS REPORT ---
Subjective Reason For Visit: ABSCESS OF SIGMOID COLON DUE TO DIVERTICULITIS/ Physical Exam Vital Signs: Temp Pulse Resp BP Pulse Ox 99.1 F 94 16 124/73 97 03/05/18 07:37 03/05/18 07:37 03/05/18 07:37 03/05/18 07:37 03/05/18 07:37 Intake & Output 03/04/18 03/05/18 03/06/18 06:59 06:59 06:59 Intake Total 3350 3859 Output Total 1850 1825 Balance 1500 2034 Weight 86.3 kg 85.8 kg Results Laboratory Results: 03/05/18 06:27 03/05/18 06:27 03/05/18 03/05/18 06:27 06:27 WBC 7.5 RBC 3.08 L Hgb 9.0 L Hct 27.5 L MCV 89 MCH 29.1 MCHC 32.6 RDW 16.3 H Plt Count 220 Seg Neutrophils % Not Reportable Lymphocytes % Not Reportable Monocytes % Not Reportable Eosinophils % Not Reportable Basophils % Not Reportable Absolute Neutrophils Not Reportable Absolute Lymphocytes Not Reportable Absolute Monocytes Not Reportable Absolute Eosinophils Not Reportable Absolute Basophils Not Reportable Sodium 139.2 Potassium 3.8 Chloride 112 H Carbon Dioxide 25 Anion Gap 2 L BUN 10 Creatinine 0.52 Est GFR ( Amer) > 60 Est GFR (Non-Af Amer) > 60 Glucose 130 H Calcium 7.4 L Phosphorus 2.9 Total Bilirubin 0.3 AST 9 L ALT 19 Alkaline Phosphatase 52 Total Protein 3.4 L Albumin 1.6 L Prealbumin 6.2 L 02/27/18 19:10 Blood Blood Culture - Final NO GROWTH IN 5 DAYS 02/27/18 19:00 Blood Blood Culture - Final NO GROWTH IN 5 DAYS Impressions: Abdomen/Pelvis CT 03/01/18 09:07 IMPRESSION: Extravasation of rectal contrast from the distal descending colon, with tracking of contrast into the right pericolic gutter and right subphrenic space. Small amount of free intraperitoneal air. Chest X-Ray 03/04/18 06:00 IMPRESSION: Minimal bibasilar atelectasis Assessment & Plan - Diagnosis (1) Colon perforation Is this a current diagnosis for this admission?: Yes - Plan Summary Plan Summary: This is a 68-year-old female admitted with colonic perforation. She is status post washout with diverting colostomy. She is doing well today. She reports that her pain is controlled. She denies any flatus or stool in her colostomy bag. The colostomy is pink, without signs of necrosis. Continue TPN for now. Ice chips and popsicles p.o. Okay for medications p.o. Out of bed. Aggressive pulmonary toilet.
[2018-03-05] MEDS: DILTIAZEM HCL 180 MG CAPSULE.CR PO SCH (12:28)
[2018-03-05] MEDS: CIPROFLOXACIN 400 MG/D5W RTU 400 MG/200 ML RTUPB IV SCH ×2 (12:29→21:40)
--- NOTE | 2018-03-05 14:15 | PDOC PROGRESS REPORT ---
Subjective Progress Note for:: 03/05/18 Subjective:: The patient is a 68-year-old female with a past medical history of atrial fibrillation, hyperlipidemia, hypertension, asthma, COPD, sleep apnea, GERD, hiatal hernia, arthritis, depression who was admitted 02/27/18 for a rectosigmoid colon inflammation and pericolonic abscess resulting in perforated bowel; now postop day 1 laparotomy and colostomy. The patient was seen on morning rounds. She was found resting comfortably on room air. She reports that her abdominal pain is very well controlled, but she has been having difficulty with her chronic back pain. She also states that she is thirsty and is hopeful that she will be allowed to eat ice chips or drink f luids today. Overall, she states that she is doing well and denies denies fever, chills, headache, chest pain, palpitations, dyspnea, nausea and vomiting. She has no new questions or concerns at this time. No concerns per nursing. Reason For Visit: ABSCESS OF SIGMOID COLON DUE TO DIVERTICULITIS/ Physical Exam Vital Signs: Temp Pulse Resp BP Pulse Ox 99.0 F 109 H 20 148/78 H 97 03/05/18 12:10 03/05/18 12:10 03/05/18 12:10 03/05/18 12:10 03/05/18 12:10 Intake & Output 03/04/18 03/05/18 03/06/18 06:59 06:59 06:59 Intake Total 3350 3859 Output Total 1850 1825 400 Balance 1500 2034 -400 Weight 86.3 kg 85.8 kg General appearance: PRESENT: no acute distress, well-developed, well-nourished - Overweight Head exam: PRESENT: atraumatic, normocephalic Eye exam: PRESENT: conjunctiva pink, EOMI, PERRLA. ABSENT: scleral icterus Ear exam: PRESENT: normal external ear exam Mouth exam: PRESENT: moist, tongue midline Neck exam: ABSENT: carotid bruit, JVD, lymphadenopathy, thyromegaly Respiratory exam: PRESENT: symmetrical, unlabored, wheezes. ABSENT: rales, rhonchi Cardiovascular exam: PRESENT: RRR. ABSENT: diastolic murmur, rubs, systolic murmur Pulses: PRESENT: normal dorsalis pedis pul Vascular exam: PRESENT: normal capillary refill GI/Abdominal exam: PRESENT: hypoactive bowel sounds, soft, tenderness, other - Colostomy, midline incision with wound VAC in place, ALLISON drains. ABSENT: distended, guarding, mass, organolmegaly, rebound Rectal exam: PRESENT: deferred Extremities exam: PRESENT: full ROM. ABSENT: calf tenderness, clubbing, pedal edema Neurological exam: PRESENT: alert, awake, oriented to person, oriented to place, oriented to time, oriented to situation, CN II-XII grossly intact. ABSENT: motor sensory deficit Psychiatric exam: PRESENT: appropriate affect, normal mood. ABSENT: homicidal ideation, suicidal ideation Skin exam: PRESENT: dry, intact, warm. ABSENT: cyanosis, rash Results Laboratory Results: 03/05/18 06:27 03/05/18 06:27 03/05/18 03/05/18 06:27 06:27 WBC 7.5 RBC 3.08 L Hgb 9.0 L Hct 27.5 L MCV 89 MCH 29.1 MCHC 32.6 RDW 16.3 H Plt Count 220 Seg Neutrophils % Not Reportable Lymphocytes % Not Reportable Monocytes % Not Reportable Eosinophils % Not Reportable Basophils % Not Reportable Absolute Neutrophils Not Reportable Absolute Lymphocytes Not Reportable Absolute Monocytes Not Reportable Absolute Eosinophils Not Reportable Absolute Basophils Not Reportable Sodium 139.2 Potassium 3.8 Chloride 112 H Carbon Dioxide 25 Anion Gap 2 L BUN 10 Creatinine 0.52 Est GFR ( Amer) > 60 Est GFR (Non-Af Amer) > 60 Glucose 130 H Calcium 7.4 L Phosphorus 2.9 Total Bilirubin 0.3 AST 9 L ALT 19 Alkaline Phosphatase 52 Total Protein 3.4 L Albumin 1.6 L Prealbumin 6.2 L 02/27/18 19:10 Blood Blood Culture - Final NO GROWTH IN 5 DAYS 02/27/18 19:00 Blood Blood Culture - Final NO GROWTH IN 5 DAYS Impressions: Abdomen/Pelvis CT 03/01/18 09:07 IMPRESSION: Extravasation of rectal contrast from the distal descending colon, with tracking of contrast into the right pericolic gutter and right subphrenic space. Small amount of free intraperitoneal air. Chest X-Ray 03/04/18 06:00 IMPRESSION: Minimal bibasilar atelectasis Assessment & Plan - Diagnosis (1) Hypotension Is this a current diagnosis for this admission?: Yes Plan: Resolved; patient now with slightly elevated BP (148/78) Likely related to intraoperative Versed and analgesia. Less likely sepsis as the patient has a normal WBC and has remained afebrile. Adrenal insufficiency is ruled out; random cortisol level is appropriate at 43.6 (obtained at 5 AM). Cardizem CD 180 mg daily with metoprolol 5 mg IV every 6 hours as needed blood pressure control Providing IV maintenance fluids. Now on TPN which will address her hypoalbuminemia. Cultures and antibiotics as addressed below. (2) Hypomagnesemia Is this a current diagnosis for this admission?: Yes Plan: Replete. Patient has been started on TPN per surgery recommendations. Daily chemistries; adjustments per pharmacy. (3) Hypokalemia Is this a current diagnosis for this admission?: Yes Plan: Replete. Patient has been started on TPN per surgery recommendations. Daily chemistries; adjustments per pharmacy. (4) Chronic obstructive pulmonary disease (COPD) Qualifiers: COPD type: COPD with acute lower respiratory infection Qualified Code(s): J44.0 - Chronic obstructive pulmonary disease with acute lower respiratory infection Is this a current diagnosis for this admission?: Yes Plan: Stable and without exacerbation at this time, though slight wheezing noted today. Patient denies dyspnea, orthopnea, or cough at present. Continue scheduled and as needed nebulizer treatments. Resume patient's home dose Combivent. Aggressive pulmonary toilet; incentive spirometer, flutter valve, out of bed daily. (5) Perforated bowel Is this a current diagnosis for this admission?: Yes Plan: Blood cultures are negative at 5 days. Peritoneal fluid growing multiple gram-negative organisms; E. coli, Klebsiella, Enterobacter cloaca, Pseudomonas aeruginosa. Primary management per surgery; will defer wound care to their expertise. Antibiotics per surgery; Unasyn was discontinued; placed on IV Cipro, continues IV metronidazole. Discharge planning is consulted. (6) Opiate dependence, continuous Is this a current diagnosis for this admission?: Yes Plan: The patient has a history of chronic back pain; utilizes Percocet 10/325 every 8 hours as needed for pain. Now that she is approved for all medications; will resume oral analgesics. Percocet 5/325 every 6 hours as needed pain. Continue IV morphine every 2 hours as needed for breakthrough pain. (7) Chronic back pain Qualifiers: Back pain location: low back pain Is this a current diagnosis for this admission?: Yes Plan: Management as above. - Time Time Spent with patient: 15-24 minutes Medications reviewed and adjusted accordingly: Yes
[2018-03-05] MEDS: OXYCODONE-ACETAMINOPHEN 5-325 MG TABLET PO PRN ×2 (14:50→21:40)
[2018-03-05] MEDS: AMINO ACIDS 5%/D25W 1,000 ML IV PRN (21:51)
[2018-03-06] MEDS: METRONIDAZOLE 500 MG/NS RTU 500 MG/100 ML RTUPB IV SCH ×3 (01:58→18:14)
[2018-03-06] MEDS: MORPHINE SULFATE 10 MG/ML INJ IV PRN ×4 (01:58→22:29)
[2018-03-06] MEDS: METOPROLOL TARTRATE PF/INJ 5 MG/5 ML SDV IV SCH ×4 (06:15→23:39)
[2018-03-06] MEDS: POTASSIUM CHLORIDE 10 MEQ CAPSULE.ER PO SCH ×4 (06:15→22:51)
[2018-03-06] MEDS: IPRATROPIUM/ALBUTEROL 120 PUFF/4 GM MDI IH SCH ×4 (06:16→23:39)
[2018-03-06] MEDS: OXYCODONE-ACETAMINOPHEN 5-325 MG TABLET PO PRN (06:16)
[2018-03-06 07:11] LABS: HEMATOCRIT 26.2 % (36.0-47.0); HEMOGLOBIN 8.5 g/dL (12.0-15.5); MEAN CORPUSCULAR HEMOGLOBIN 29.4 pg (27.0-33.4); MEAN CORPUSCULAR HGB CONC 32.6 g/dL (32.0-36.0); MEAN CORPUSCULAR VOLUME 90 fl (80-97); PLATELET COUNT 250 10^3/uL (150-450); WHITE BLOOD COUNT 7.3 10^3/uL (4.0-10.5)
[2018-03-06 07:24] LABS: ALANINE AMINOTRANSFERASE 19 U/L (9-52); ALBUMIN 1.6 g/dL (3.5-5.0); ALKALINE PHOSPHATASE 48 U/L (38-126); ASPARTATE AMINO TRANSFERASE 7 U/L (14-36); BILIRUBIN,DIRECT 0.2 mg/dL (0.0-0.4); BILIRUBIN,TOTAL 0.3 mg/dL (0.2-1.3); BLOOD UREA NITROGEN 8 mg/dL (7-20); CHLORIDE 113 mmol/L (98-107); GLUCOSE 105 mg/dL (75-110); POTASSIUM 4.2 mmol/L (3.6-5.0); TOTAL PROTEIN 3.5 g/dL (6.3-8.2)
[2018-03-06 07:37] LABS: ABSOLUTE LYMPHOCYTES# (MANUAL) 1.2 10^3/uL (0.5-4.7); ABSOLUTE MONOCYTES # (MANUAL) 0.7 10^3/uL (0.1-1.4); ABSOLUTE NEUTROPHILS# (MANUAL) 5.3 10^3/uL (1.7-8.2); BASOPHILS % (MANUAL) 0 % (0-2); EOSINOPHILS % (MANUAL) 3 % (0-6); LYMPHOCYTES % (MANUAL) 16 % (13-45); MONOCYTES % (MANUAL) 9 % (3-13); SEGMENTED NEUTROPHILS % (MAN) 72 % (42-78); TOTAL CELLS COUNTED 100
[2018-03-06 07:38] LABS: TOXIC GRANULATION 1+
[2018-03-06 07:39] LABS: ANISOCYTOSIS 1+; OVALOCYTES 1+; PLATELET COMMENT ADEQUATE; POIKILOCYTOSIS 1+
[2018-03-06 07:41] LABS: CARBON DIOXIDE 24 mmol/L (22-30); SODIUM 140.1 mmol/L (137-145)
[2018-03-06 07:44] LABS: ANION GAP 3 (5-19)
[2018-03-06 07:46] LABS: CALCIUM 6.6 mg/dL (8.4-10.2)
[2018-03-06] MEDS ORDERED: MORPHINE SULFATE 10 MG/ML INJ IV PRN (08:50)
[2018-03-06] MEDS: CIPROFLOXACIN 400 MG/D5W RTU 400 MG/200 ML RTUPB IV SCH ×2 (09:31→22:27)
[2018-03-06] MEDS: ONDANSETRON HCL INJ/PF 4 MG/2 ML SDV IV PRN ×3 (09:31→22:32)
[2018-03-06] MEDS: ENOXAPARIN SODIUM INJ 40 MG/0.4 ML DISP.SYRIN SUBCUT SCH (09:32)
[2018-03-06] MEDS: DILTIAZEM HCL 180 MG CAPSULE.CR PO SCH (09:32)
[2018-03-06] MEDS ORDERED: (PENDING PHARMACY ID) (Oxycodone Hcl/Acetaminophen [Percocet 10-325 Mg Tablet] 1 EACH) PO PRN (09:45)
[2018-03-06] MEDS ORDERED: MAG HYDROX/AL HYDROX/SIMETH SUSP 30 ML UDCUP PO PRN (10:43)
[2018-03-06] MEDS ORDERED: OXYCODONE HCL SR 10 MG TABLET PO PRN (12:12)
[2018-03-06] MEDS ORDERED: ACETAMINOPHEN 325 MG TABLET PO PRN (12:17)
--- NOTE | 2018-03-06 12:19 | PDOC PROGRESS REPORT ---
Subjective Progress Note for:: 03/06/18 Subjective:: The patient is a 68-year-old female with a past medical history of atrial fibrillation, hyperlipidemia, hypertension, asthma, COPD, sleep apnea, GERD, hiatal hernia, arthritis, depression who was admitted 02/27/18 for a rectosigmoid colon inflammation and pericolonic abscess resulting in perforated bowel; now postop day 1 laparotomy and colostomy. The patient was seen on morning rounds. She was found resting comfortably on room air. She was noted to be sleeping, but woke easily when I said her name. She reports that her abdominal pain is very well controlled, but again reports difficulty with her chronic back pain. She asks to resume her home medication r egiment of oxycodone/apap 10/325 q8hp. Overall, she states that she is doing well and denies denies fever, chills, headache, chest pain, palpitations, dyspnea, nausea and vomiting. She has no other questions or concerns at this time. She is encouraged to get out of bed to the recliner today. No concerns per nursing; request PT consultation. Reason For Visit: ABSCESS OF SIGMOID COLON DUE TO DIVERTICULITIS/ Physical Exam Vital Signs: Temp Pulse Resp BP Pulse Ox 98.8 F 79 20 125/58 L 96 03/06/18 07:24 03/06/18 07:24 03/06/18 07:24 03/06/18 07:24 03/06/18 07:24 Intake & Output 03/05/18 03/06/18 03/07/18 06:59 06:59 06:59 Intake Total 3859 2700 Output Total 1825 440 Balance 2034 2260 Weight 85.8 kg 83.1 kg General appearance: PRESENT: no acute distress, obese, well-developed, well- nourished Head exam: PRESENT: atraumatic, normocephalic Eye exam: PRESENT: conjunctiva pink, EOMI, PERRLA. ABSENT: scleral icterus Ear exam: PRESENT: normal external ear exam Mouth exam: PRESENT: moist, tongue midline Neck exam: ABSENT: carotid bruit, JVD, lymphadenopathy, thyromegaly Respiratory exam: PRESENT: clear to auscultation keren, symmetrical, unlabored. ABSENT: rales, rhonchi, wheezes Cardiovascular exam: PRESENT: RRR. ABSENT: diastolic murmur, rubs, systolic murmur Pulses: PRESENT: normal dorsalis pedis pul Vascular exam: PRESENT: normal capillary refill GI/Abdominal exam: PRESENT: normal bowel sounds, soft, tenderness, other - Colostomy, midline incision with wound VAC, ALLISON drains. ABSENT: distended, guarding, mass, organolmegaly, rebound Rectal exam: PRESENT: deferred Extremities exam: PRESENT: full ROM. ABSENT: calf tenderness, clubbing, pedal edema Neurological exam: PRESENT: alert, awake, oriented to person, oriented to place, oriented to time, oriented to situation, CN II-XII grossly intact. ABSENT: motor sensory deficit Psychiatric exam: PRESENT: appropriate affect, normal mood. ABSENT: homicidal ideation, suicidal ideation Skin exam: PRESENT: dry, intact, warm. ABSENT: cyanosis, rash Results Laboratory Results: 03/06/18 06:45 03/06/18 06:45 03/06/18 03/06/18 06:45 06:45 WBC 7.3 RBC 2.90 L Hgb 8.5 L Hct 26.2 L MCV 90 MCH 29.4 MCHC 32.6 RDW 16.0 H Plt Count 250 Seg Neutrophils % Not Reportable Lymphocytes % Not Reportable Monocytes % Not Reportable Eosinophils % Not Reportable Basophils % Not Reportable Absolute Neutrophils Not Reportable Absolute Lymphocytes Not Reportable Absolute Monocytes Not Reportable Absolute Eosinophils Not Reportable Absolute Basophils Not Reportable Sodium 140.1 Potassium 4.2 Chloride 113 H Carbon Dioxide 24 Anion Gap 3 L BUN 8 Creatinine 0.49 L Est GFR ( Amer) > 60 Est GFR (Non-Af Amer) > 60 Glucose 105 Calcium 6.6 L* Total Bilirubin 0.3 AST 7 L ALT 19 Alkaline Phosphatase 48 Total Protein 3.5 L Albumin 1.6 L Impressions: Abdomen/Pelvis CT 03/01/18 09:07 IMPRESSION: Extravasation of rectal contrast from the distal descending colon, with tracking of contrast into the right pericolic gutter and right subphrenic space. Small amount of free intraperitoneal air. Chest X-Ray 03/04/18 06:00 IMPRESSION: Minimal bibasilar atelectasis Assessment & Plan - Diagnosis (1) Hypotension Is this a current diagnosis for this admission?: Yes Plan: Resolved; now with acceptable blood pressures. Likely related to intraoperative Versed and analgesia. Less likely sepsis as the patient has a normal WBC and has remained afebrile. Adrenal insufficiency is ruled out; random cortisol level is appropriate at 43.6 (obtained at 5 AM). Cardizem CD 180 mg daily with metoprolol 5 mg IV every 6 hours as needed blood pressure control Providing IV maintenance fluids. Now on TPN which will help to address her hypoalbuminemia. Cultures and antibiotics as addressed below. (2) Hypomagnesemia Is this a current diagnosis for this admission?: Yes Plan: Replete. Patient has been started on TPN per surgery recommendations. Daily chemistries; adjustments per pharmacy. (3) Hypokalemia Is this a current diagnosis for this admission?: Yes Plan: Replete. Patient has been started on TPN per surgery recommendations. Daily chemistries; adjustments per pharmacy. (4) Chronic obstructive pulmonary disease (COPD) Qualifiers: COPD type: COPD with acute lower respiratory infection Qualified Code(s): J44.0 - Chronic obstructive pulmonary disease with acute lower respiratory infection Is this a current diagnosis for this admission?: Yes Plan: Stable and without exacerbation at this time. Patient denies dyspnea, orthopnea, or cough at present. Continue scheduled and as needed nebulizer treatments. Resume patient's home dose Combivent. Aggressive pulmonary toilet; incentive spirometer, flutter valve, out of bed daily. (5) Perforated bowel Is this a current diagnosis for this admission?: Yes Plan: Blood cultures are negative at 5 days. Peritoneal fluid growing multiple gram-negative organisms; E. coli, Klebsiella, Enterobacter cloaca, Pseudomonas aeruginosa. Primary management per surgery; will defer wound care to their expertise. Antibiotics per surgery; Unasyn was discontinued; placed on IV Cipro, continues IV metronidazole. Discharge planning is consulted. (6) Opiate dependence, continuous Is this a current diagnosis for this admission?: Yes Plan: The patient has a history of chronic back pain; utilizes Percocet 10/325 every 8 hours as needed for pain. Tylenol 650 mg every 4 hours as needed for mild discomfort. Oxycodone 10 mg every 8 hours as needed pain. Continue IV morphine every 4 hours as needed for breakthrough pain. (7) Chronic back pain Qualifiers: Back pain location: low back pain Is this a current diagnosis for this admission?: Yes Plan: Management as above. - Time Time Spent with patient: 15-24 minutes Medications reviewed and adjusted accordingly: Yes Anticipated discharge: Home with Homehealth - vs SNF Within: Other - at Surgery's discretion.
[2018-03-06] MEDS: NORMAL SALINE 1000 ML 1,000 ML IV PRN (14:33)
[2018-03-06] MEDS ORDERED: OXYCODONE HCL IR 5 MG TABLET PO PRN (15:36)
[2018-03-06] MEDS ORDERED: MORPHINE SULFATE 10 MG/ML INJ IV ONE (16:31)
[2018-03-06] MEDS ORDERED: PANTOPRAZOLE SODIUM 40 MG VIAL IV ONE (17:00)
[2018-03-06] MEDS: AMINO ACIDS 5%/D25W 1,000 ML IV PRN (20:27)
[2018-03-07] MEDS: METRONIDAZOLE 500 MG/NS RTU 500 MG/100 ML RTUPB IV SCH ×3 (01:05→18:42)
[2018-03-07] MEDS: MORPHINE SULFATE 10 MG/ML INJ IV PRN ×6 (04:41→22:57)
[2018-03-07] MEDS: NORMAL SALINE 1000 ML 1,000 ML IV PRN (04:56)
[2018-03-07] MEDS: METOPROLOL TARTRATE PF/INJ 5 MG/5 ML SDV IV SCH ×4 (05:25→23:44)
[2018-03-07] MEDS: IPRATROPIUM/ALBUTEROL 120 PUFF/4 GM MDI IH SCH ×4 (05:26→23:43)
[2018-03-07] MEDS: POTASSIUM CHLORIDE 10 MEQ CAPSULE.ER PO SCH (05:28)
[2018-03-07 05:37] LABS: HEMATOCRIT 26.6 % (36.0-47.0); HEMOGLOBIN 8.8 g/dL (12.0-15.5); MEAN CORPUSCULAR HEMOGLOBIN 29.6 pg (27.0-33.4); MEAN CORPUSCULAR HGB CONC 33.1 g/dL (32.0-36.0); MEAN CORPUSCULAR VOLUME 89 fl (80-97); PLATELET COUNT 342 10^3/uL (150-450); RED BLOOD COUNT 2.98 10^6/uL (3.72-5.28); RED CELL DISTRIBUTION WIDTH 15.8 % (11.5-14.0); WHITE BLOOD COUNT 8.5 10^3/uL (4.0-10.5)
[2018-03-07 06:02] LABS: ABSOLUTE MONOCYTES # (MANUAL) 0.8 10^3/uL (0.1-1.4); ABSOLUTE NEUTROPHILS# (MANUAL) 6.5 10^3/uL (1.7-8.2); BASOPHILS % (MANUAL) 0 % (0-2); EOSINOPHILS % (MANUAL) 2 % (0-6); LYMPHOCYTES % (MANUAL) 12 % (13-45); MONOCYTES % (MANUAL) 9 % (3-13); SEGMENTED NEUTROPHILS % (MAN) 77 % (42-78); TOTAL CELLS COUNTED 100
[2018-03-07 06:03] LABS: PHOSPHORUS 3.5 mg/dL (2.5-4.5)
[2018-03-07 06:05] LABS: HELMET CELLS 1+; POIKILOCYTOSIS 1+; TOXIC GRANULATION SLIGHT; TOXIC VACUOLATION PRESENT
[2018-03-07 06:06] LABS: PLATELET COMMENT ADEQUATE; TEAR DROP CELLS 1+
[2018-03-07 06:10] LABS: PREALBUMIN 9.7 mg/dL (17.6-36.0)
[2018-03-07 06:35] LABS: ALANINE AMINOTRANSFERASE 16 U/L (9-52); ALBUMIN 1.9 g/dL (3.5-5.0); ALKALINE PHOSPHATASE 50 U/L (38-126); ANION GAP 5 (5-19); ASPARTATE AMINO TRANSFERASE 15 U/L (14-36); BILIRUBIN,DIRECT 0.4 mg/dL (0.0-0.4); BILIRUBIN,TOTAL 0.4 mg/dL (0.2-1.3); BLOOD UREA NITROGEN 9 mg/dL (7-20); CALCIUM 8.1 mg/dL (8.4-10.2); CARBON DIOXIDE 24 mmol/L (22-30); CHLORIDE 108 mmol/L (98-107); GLUCOSE 114 mg/dL (75-110); SODIUM 136.7 mmol/L (137-145); TOTAL PROTEIN 4.2 g/dL (6.3-8.2)
[2018-03-07 06:43] LABS: POTASSIUM 5.2 mmol/L (3.6-5.0)
[2018-03-07 08:08] LABS: INTERNATIONAL RATION (INR) 1.16; PROTHROMBIN TIME 15.4 SEC (11.4-15.4)
--- NOTE | 2018-03-07 09:32 | RADIOLOGY REPORT (SQ) ---
EXAM DESCRIPTION: KUB/ABDOMEN (SINGLE VIEW) COMPLETED DATE/TIME: 03/07/2018 9:21 am REASON FOR STUDY: abdominal distention COMPARISON: 01/17/2018 NUMBER OF VIEWS: One view. TECHNIQUE: Supine radiographic image of the abdomen acquired. LIMITATIONS: None. FINDINGS: BOWEL GAS PATTERN: Multiple dilated loops of proximal small bowel with less marked distent ion of the distal small bowel and colon. Differential includes resolving ileus and small bowel obstr uction. No free air. CALCIFICATIONS: No suspicious calcifications. SOFT TISSUES: No gross mass or suggestion of organomegaly. HARDWARE: 2 surgical drains in the pelvis. Multiple surgical clips in the right upper quadrant. BONES: No acute fracture. No worrisome bone lesions. OTHER: No other significant finding. IMPRESSION: Small bowel obstruction versus ileus. TECHNICAL DOCUMENTATION: JOB ID: [id number] Consulted- All Rights Reserved Reading location - IP/workstation name: [email or web address]
[2018-03-07] MEDS ORDERED: PANTOPRAZOLE SODIUM 40 MG VIAL IV SCH (10:00)
--- NOTE | 2018-03-07 10:06 | PDOC PROGRESS REPORT ---
Subjective Progress Note for:: 03/07/18 Subjective:: This is complaining of abdominal distention nausea and vomiting Reason For Visit: ABSCESS OF SIGMOID COLON DUE TO DIVERTICULITIS/ Still is status post an exploratory laparotomy with transverse colostomy secondary to a perforation of her previous low anterior anastomotic perforation. She underwent the transverse colostomy and abdominal washout on 01 April and has been the hospital since initially she was intubated from sepsis however that is resolved and she was extubated now is on the nursing floor made n.p.o. secondary to an ileus and the abdominal distention Physical Exam Vital Signs: Temp Pulse Resp BP Pulse Ox 99.1 F 100 18 140/69 H 98 03/07/18 07:49 03/07/18 07:49 03/07/18 07:49 03/07/18 07:49 03/07/18 07:49 Intake & Output 03/06/18 03/07/18 03/08/18 06:59 06:59 06:59 Intake Total 2700 3419 Output Total 440 Balance 2260 3419 Weight 83.1 kg 79.2 kg General appearance: PRESENT: no acute distress, cooperative, mild distress GI/Abdominal exam: PRESENT: diminished bowel sounds, distended - Her abdomen is softly distended and tympanitic to palpation there is a stoma on the left side of the abdominal with a bridge holding a double neural transverse colostomy both limbs were digitalized this morning by me and there was some thick weakness within the lumen no palpable stool within either lumen and there is no palpable obstruction at the fascial defect, tenderness - Some mild diffuse tenderness to palpation secondary to a distention there is no obvious peritoneal signs Results Laboratory Results: 03/07/18 04:50 03/07/18 04:50 03/07/18 03/07/18 03/07/18 04:50 04:50 04:50 WBC 8.5 RBC 2.98 L Hgb 8.8 L Hct 26.6 L MCV 89 MCH 29.6 MCHC 33.1 RDW 15.8 H Plt Count 342 Seg Neutrophils % Not Reportable Lymphocytes % Not Reportable Monocytes % Not Reportable Eosinophils % Not Reportable Basophils % Not Reportable Absolute Neutrophils Not Reportable Absolute Lymphocytes Not Reportable Absolute Monocytes Not Reportable Absolute Eosinophils Not Reportable Absolute Basophils Not Reportable Sodium 136.7 L Potassium 5.2 H D Chloride 108 H Carbon Dioxide 24 Anion Gap 5 BUN 9 Creatinine 0.47 L Est GFR ( Amer) > 60 Est GFR (Non-Af Amer) > 60 Glucose 114 H Calcium 8.1 L Phosphorus 3.5 Magnesium 2.1 Total Bilirubin 0.4 AST 15 ALT 16 Alkaline Phosphatase 50 Total Protein 4.2 L Albumin 1.9 L Prealbumin 9.7 L Impressions: Abdomen/Pelvis CT 03/01/18 09:07 IMPRESSION: Extravasation of rectal contrast from the distal descending colon, with tracking of contrast into the right pericolic gutter and right subphrenic space. Small amount of free intraperitoneal air. Chest X-Ray 03/04/18 06:00 IMPRESSION: Minimal bibasilar atelectasis KUB X-Ray 03/07/18 06:00 IMPRESSION: Small bowel obstruction versus ileus. Status: Image reviewed by me - The KUB done this morning was reviewed by me and it does show some dilated small bowel loops there is not an obvious point of obstruction appears more secondary to an ileus related to her previous surgery Assessment & Plan - Time Time Spent with patient: 25-34 minutes - Plans are to continue her activity remain n.p.o. until she has return of bowel function to be this morning was evaluated as stated above
[2018-03-07] MEDS ORDERED: MORPHINE SULFATE 10 MG/ML INJ IV PRN ×3 (10:34→11:34)
[2018-03-07] MEDS: DILTIAZEM HCL 180 MG CAPSULE.CR PO SCH (11:30)
[2018-03-07] MEDS: CIPROFLOXACIN 400 MG/D5W RTU 400 MG/200 ML RTUPB IV SCH ×2 (11:35→22:56)
[2018-03-07] MEDS: ENOXAPARIN SODIUM INJ 40 MG/0.4 ML DISP.SYRIN SUBCUT SCH (11:37)
[2018-03-07] MEDS: FAT EMULSIONS 250 ML IV SCH (11:54)
--- NOTE | 2018-03-07 15:25 | PDOC PROGRESS REPORT ---
Subjective Progress Note for:: 03/07/18 Subjective:: The patient is a 68-year-old female with a past medical history of atrial fibrillation, hyperlipidemia, hypertension, asthma, COPD, sleep apnea, GERD, hiatal hernia, arthritis, depression who was admitted 02/27/18 for a rectosigmoid colon inflammation and pericolonic abscess resulting in perforated bowel; now postop day 5 laparotomy and colostomy. The patient was seen on morning rounds while the attending surgeon was present. She was found resting comfortably on room air. She reports continued abdominal discomfort, nausea, and small volume emesis overnight. She does report that she was ambulatory twice yesterday. She is again encouraged to get out of bed and move around as much as possible. She is utilizing her incentive spirometer and flutter valve frequently. She denies fever, chills, headache, chest pain, palpitations, dyspnea, orthopnea, and cough. She has no new questions or concerns at this time. No concerns per nursing. Reason For Visit: ABSCESS OF SIGMOID COLON DUE TO DIVERTICULITIS/ Physical Exam Vital Signs: Temp Pulse Resp BP Pulse Ox 98.7 F 93 18 136/80 H 97 03/07/18 11:48 03/07/18 11:48 03/07/18 11:48 03/07/18 11:48 03/07/18 11:48 Intake & Output 03/06/18 03/07/18 03/08/18 06:59 06:59 06:59 Intake Total 2700 3419 0 Output Total 440 Balance 2260 3419 0 Weight 83.1 kg 79.2 kg General appearance: PRESENT: no acute distress, obese, well-developed, well- nourished Head exam: PRESENT: atraumatic, normocephalic Eye exam: PRESENT: conjunctiva pink, EOMI, PERRLA. ABSENT: scleral icterus Ear exam: PRESENT: normal external ear exam Mouth exam: PRESENT: moist, tongue midline Neck exam: ABSENT: carotid bruit, JVD, lymphadenopathy, thyromegaly Respiratory exam: PRESENT: clear to auscultation keren, symmetrical, unlabored. ABSENT: rales, rhonchi, wheezes Cardiovascular exam: PRESENT: RRR, +S1, +S2. ABSENT: diastolic murmur, rubs, systolic murmur Pulses: PRESENT: normal dorsalis pedis pul Vascular exam: PRESENT: normal capillary refill GI/Abdominal exam: PRESENT: distended, hypoactive bowel sounds, normal bowel s ounds, soft, tenderness, other - Colostomy, ALLISON drains, surgical incision now with clean dry dressing.. ABSENT: guarding, mass, organolmegaly, rebound Rectal exam: PRESENT: deferred Extremities exam: PRESENT: full ROM. ABSENT: calf tenderness, clubbing, pedal edema Neurological exam: PRESENT: alert, awake, oriented to person, oriented to place, oriented to time, oriented to situation, CN II-XII grossly intact. ABSENT: m otor sensory deficit Psychiatric exam: PRESENT: appropriate affect, normal mood. ABSENT: homicidal ideation, suicidal ideation Skin exam: PRESENT: dry, intact, warm. ABSENT: cyanosis, rash Results Laboratory Results: 03/07/18 04:50 03/07/18 04:50 03/07/18 03/07/18 03/07/18 04:50 04:50 04:50 WBC 8.5 RBC 2.98 L Hgb 8.8 L Hct 26.6 L MCV 89 MCH 29.6 MCHC 33.1 RDW 15.8 H Plt Count 342 Seg Neutrophils % Not Reportable Lymphocytes % Not Reportable Monocytes % Not Reportable Eosinophils % Not Reportable Basophils % Not Reportable Absolute Neutrophils Not Reportable Absolute Lymphocytes Not Reportable Absolute Monocytes Not Reportable Absolute Eosinophils Not Reportable Absolute Basophils Not Reportable Sodium 136.7 L Potassium 5.2 H D Chloride 108 H Carbon Dioxide 24 Anion Gap 5 BUN 9 Creatinine 0.47 L Est GFR ( Amer) > 60 Est GFR (Non-Af Amer) > 60 Glucose 114 H Calcium 8.1 L Phosphorus 3.5 Magnesium 2.1 Total Bilirubin 0.4 AST 15 ALT 16 Alkaline Phosphatase 50 Total Protein 4.2 L Albumin 1.9 L Prealbumin 9.7 L 03/01/18 18:21 Peritoneal Gram Stain - Final 03/01/18 18:21 Peritoneal Body Fluid Culture - Final Escherichia Coli Klebsiella Pneumoniae Enterobacter Cloacae Pseudomonas Aeruginosa Bacteroides Fragilis Group Prevotella Species Veillonella Species Eggerthella Lentum Impressions: Abdomen/Pelvis CT 03/01/18 09:07 IMPRESSION: Extravasation of rectal contrast from the distal descending colon, with tracking of contrast into the right pericolic gutter and right subphrenic space. Small amount of free intraperitoneal air. Chest X-Ray 03/04/18 06:00 IMPRESSION: Minimal bibasilar atelectasis KUB X-Ray 03/07/18 06:00 IMPRESSION: Small bowel obstruction versus ileus. Assessment & Plan - Diagnosis (1) Hypotension Is this a current diagnosis for this admission?: Yes Plan: Resolved; now with acceptable blood pressures. Likely related to intraoperative Versed and analgesia. Less likely sepsis as the patient has a normal WBC and has remained afebrile. Adrenal insufficiency is ruled out; random cortisol level is appropriate at 43.6 (obtained at 5 AM). Cardizem CD 180 mg daily with metoprolol 5 mg IV every 6 hours as needed blood pressure control On TPN which will help to address her hypoalbuminemia. Cultures and antibiotics as addressed below. (2) Hypomagnesemia Is this a current diagnosis for this admission?: Yes Plan: Replete. Patient has been started on TPN per surgery recommendations. Daily chemistries; adjustments per pharmacy. (3) Hypokalemia Is this a current diagnosis for this admission?: Yes Plan: Replete; actually slightly elevated today (5.2). Continue TPN per surgery recommendations; discussed dose adjustments with pharmacy. Daily chemistries; adjustments per pharmacy. (4) Chronic obstructive pulmonary disease (COPD) Qualifiers: COPD type: COPD with acute lower respiratory infection Qualified Code(s): J44.0 - Chronic obstructive pulmonary disease with acute lower respiratory i nfection Is this a current diagnosis for this admission?: Yes Plan: Stable and without exacerbation at this time. Patient denies dyspnea, orth opnea, or cough at present. Lung sounds are clear. Continue scheduled and as needed nebulizer treatments. Resume patient's home dose Combivent. Aggressive pulmonary toilet; incentive spirometer, flutter valve, out of bed daily. (5) Perforated bowel Is this a current diagnosis for this admission?: Yes Plan: Blood cultures are negative at 5 days. Peritoneal fluid growing multiple gram-negative organisms; E. coli, Klebsiella, Enterobacter cloaca, Pseudomonas aeruginosa. Primary management per surgery; will defer wound care to their expertise. Antibiotics per surgery; Unasyn was discontinued; placed on IV Cipro, continues IV metronidazole. Discharge planning is consulted. (6) Opiate dependence, continuous Is this a current diagnosis for this admission?: Yes Plan: The patient has a history of chronic back pain; utilizes Percocet 10/325 every 8 hours as needed for pain. P.o. medications on hold secondary to n.p.o. status. Continue IV morphine 2 mg every 2 hours as needed for breakthrough pain. (7) Chronic back pain Qualifiers: Back pain location: low back pain Is this a current diagnosis for this admission?: Yes Plan: The patient endorses chronic back pain; managed with oxycodone 10/325 every 8 hours as an outpatient. Lidoderm patches. Management as above. - Time Time Spent with patient: 15-24 minutes Medications reviewed and adjusted accordingly: Yes Anticipated discharge: Home with Homehealth Within: Other - Per Surgery's discretion
[2018-03-07] MEDS: ONDANSETRON HCL INJ/PF 4 MG/2 ML SDV IV PRN (16:30)
[2018-03-07] MEDS ORDERED: LIDOCAINE 5% (700 MG) TRANSDERMAL ADH..PATCH TP ONE (17:00)
[2018-03-07] MEDS: AMINO ACIDS 5%/D25W 1,000 ML IV PRN (23:43)
[2018-03-08] MEDS: MORPHINE SULFATE 10 MG/ML INJ IV PRN ×8 (00:38→22:45)
[2018-03-08] MEDS: METRONIDAZOLE 500 MG/NS RTU 500 MG/100 ML RTUPB IV SCH ×3 (02:51→18:22)
[2018-03-08] MEDS: IPRATROPIUM/ALBUTEROL 120 PUFF/4 GM MDI IH SCH ×4 (06:34→23:54)
[2018-03-08] MEDS: METOPROLOL TARTRATE PF/INJ 5 MG/5 ML SDV IV SCH ×4 (06:36→23:53)
[2018-03-08 06:52] LABS: ABSOLUTE EOSINOPHILS # (AUTO) 0.1 10^3/uL (0.0-0.6); ABSOLUTE MONOCYTES (AUTO) 1.2 10^3/uL (0.1-1.4); ABSOLUTE NEUT (AUTO) 5.9 10^3/uL (1.7-8.2); BASOPHILS % (AUTO) 0.1 % (0-2); EOSINOPHILS % (AUTO) 1.5 % (0-6); HEMATOCRIT 27.7 % (36.0-47.0); HEMOGLOBIN 9.2 g/dL (12.0-15.5); LYMPHOCYTES % (AUTO) 12.5 % (13-45); MEAN CORPUSCULAR HEMOGLOBIN 28.9 pg (27.0-33.4); MEAN CORPUSCULAR VOLUME 88 fl (80-97); MONOCYTES % (AUTO) 14.3 % (3-13); PLATELET COUNT 398 10^3/uL (150-450); RED BLOOD COUNT 3.17 10^6/uL (3.72-5.28); RED CELL DISTRIBUTION WIDTH 15.5 % (11.5-14.0); SEGMENTED NEUTROPHILS % (AUTO) 71.6 % (42-78); TOTAL CELLS COUNTED % (AUTO) 100 %; WHITE BLOOD COUNT 8.3 10^3/uL (4.0-10.5)
[2018-03-08 07:13] LABS: ALANINE AMINOTRANSFERASE 16 U/L (9-52); ALBUMIN 1.9 g/dL (3.5-5.0); ALKALINE PHOSPHATASE 53 U/L (38-126); ASPARTATE AMINO TRANSFERASE 14 U/L (14-36); BILIRUBIN,DIRECT 0.2 mg/dL (0.0-0.4); BILIRUBIN,TOTAL 0.2 mg/dL (0.2-1.3); BLOOD UREA NITROGEN 8 mg/dL (7-20); CALCIUM 8.2 mg/dL (8.4-10.2); CARBON DIOXIDE 28 mmol/L (22-30); GLUCOSE 115 mg/dL (75-110); POTASSIUM 4.7 mmol/L (3.6-5.0); TOTAL PROTEIN 4.4 g/dL (6.3-8.2)
[2018-03-08 07:19] LABS: CHLORIDE 106 mmol/L (98-107); SODIUM 138.7 mmol/L (137-145)
[2018-03-08 07:25] LABS: ANION GAP 5 (5-19)
--- NOTE | 2018-03-08 08:59 | PDOC PROGRESS REPORT ---
Subjective Progress Note for:: 03/08/18 Reason For Visit: ABSCESS OF SIGMOID COLON DUE TO DIVERTICULITIS/ Physical Exam Vital Signs: Temp Pulse Resp BP Pulse Ox 98.3 F 105 H 18 140/87 H 96 03/08/18 03:10 03/08/18 03:10 03/08/18 03:10 03/08/18 03:10 03/08/18 03:10 Intake & Output 03/07/18 03/08/18 03/09/18 06:59 06:59 06:59 Intake Total 3419 1950 Output Total 340 Balance 3419 1610 Weight 79.2 kg 74.4 kg GI/Abdominal exam: PRESENT: other - On examination of her abdomen this morning there is minimal distention the stoma appears to be pink there is gas in the colostomy bag no evidence of any stool as yet. Results Laboratory Results: 03/08/18 05:42 03/08/18 05:42 03/08/18 03/08/18 03/08/18 01:00 05:42 05:42 WBC 8.3 RBC 3.17 L Hgb 9.2 L Hct 27.7 L MCV 88 MCH 28.9 MCHC 33.0 RDW 15.5 H Plt Count 398 Seg Neutrophils % 71.6 Lymphocytes % 12.5 L Monocytes % 14.3 H Eosinophils % 1.5 Basophils % 0.1 Absolute Neutrophils 5.9 Absolute Lymphocytes 1.0 Absolute Monocytes 1.2 Absolute Eosinophils 0.1 Absolute Basophils 0.0 Sodium 138.7 Potassium 4.7 Chloride 106 Carbon Dioxide 28 Anion Gap 5 BUN 8 Creatinine 0.55 Est GFR ( Amer) > 60 Est GFR (Non-Af Amer) > 60 Glucose 115 H Calcium 8.2 L Total Bilirubin 0.2 AST 14 ALT 16 Alkaline Phosphatase 53 Total Protein 4.4 L Albumin 1.9 L Triglycerides 60 03/01/18 18:21 Peritoneal Gram Stain - Final 03/01/18 18:21 Peritoneal Body Fluid Culture - Final Escherichia Coli Klebsiella Pneumoniae Enterobacter Cloacae Pseudomonas Aeruginosa Bacteroides Fragilis Group Prevotella Species Veillonella Species Eggerthella Lentum Impressions: Abdomen/Pelvis CT 03/01/18 09:07 IMPRESSION: Extravasation of rectal contrast from the distal descending colon, with tracking of contrast into the right pericolic gutter and right subphrenic space. Small amount of free intraperitoneal air. Chest X-Ray 03/04/18 06:00 IMPRESSION: Minimal bibasilar atelectasis KUB X-Ray 03/07/18 06:00 IMPRESSION: Small bowel obstruction versus ileus. Assessment & Plan - Time Time Spent with patient: 15-24 minutes - Plan Summary Plan Summary: I had a long discussion with the patient yesterday about increasing her mobility and activity in order to stimulate her bowel function. This morning we spoke about it again she did not get out of bed yesterday receiving 2 mg of morphine every 2 hours this will be decreased to 2 mg every 3 hours and she is encouraged to get out of bed again today.
[2018-03-08] MEDS: ENOXAPARIN SODIUM INJ 40 MG/0.4 ML DISP.SYRIN SUBCUT SCH (09:41)
[2018-03-08] MEDS: DILTIAZEM HCL 180 MG CAPSULE.CR PO SCH (09:45)
[2018-03-08] MEDS: LIDOCAINE 5% (700 MG) TRANSDERMAL ADH..PATCH TP SCH (09:56)
[2018-03-08] MEDS: CIPROFLOXACIN 400 MG/D5W RTU 400 MG/200 ML RTUPB IV SCH ×2 (11:39→22:41)
--- NOTE | 2018-03-08 14:06 | PDOC PROGRESS REPORT ---
Subjective Progress Note for:: 03/08/18 Subjective:: The patient is a 68-year-old female with a past medical history of atrial fibrillation, hyperlipidemia, hypertension, asthma, COPD, sleep apnea, GERD, hiatal hernia, arthritis, depression who was admitted 02/27/18 for a rectosigmoid colon inflammation and pericolonic abscess resulting in perforated bowel; now postop day 5 laparotomy and colostomy. At the time of my evaluation she has already seen general surgery, and is oob in the chair with two pillows laid across her stomach. She reports daily improvement, but continues to have abd pain. She reports continued to efforts to get oob. She's had some gas passed in the last 24h in her colostomy bag but still no stool. Overall she looks and reports being stable with no acute issues. She verbalizes understanding of the importance of her increasing her acitivity level. She denies F/C or other acute issues. She also voluntarily denies the need for rehab on d/c. Reason For Visit: anastomotic leak s/p colon resection and abscess of sigmoid colon, all of which is relate to diverticulitis Physical Exam Vital Signs: Temp Pulse Resp BP Pulse Ox 99.2 F 93 22 H 146/74 H 98 03/08/18 07:45 03/08/18 07:45 03/08/18 07:45 03/08/18 07:45 03/08/18 07:45 Intake & Output 03/07/18 03/08/18 03/09/18 06:59 06:59 06:59 Intake Total 3419 1950 100 Output Total 340 Balance 3419 1610 100 Weight 79.2 kg 74.4 kg General appearance: PRESENT: no acute distress Head exam: PRESENT: atraumatic Ear exam: PRESENT: normal external ear exam Mouth exam: PRESENT: moist, neck supple, tongue midline Respiratory exam: PRESENT: clear to auscultation keren. ABSENT: rales, rhonchi, wheezes Cardiovascular exam: PRESENT: RRR. ABSENT: diastolic murmur, rubs, systolic murmur GI/Abdominal exam: PRESENT: soft, tenderness, other - non-distended. colostomy Rectal exam: PRESENT: deferred Extremities exam: PRESENT: other - minimal edema BLLE Musculoskeletal exam: PRESENT: normal inspection Neurological exam: PRESENT: alert, awake, oriented to person, oriented to place, oriented to time, oriented to situation, CN II-XII grossly intact. ABSENT: motor sensory deficit Psychiatric exam: PRESENT: appropriate affect, normal mood. ABSENT: homicidal ideation, suicidal ideation Skin exam: PRESENT: dry, intact, warm. ABSENT: cyanosis, rash Results Laboratory Results: 03/08/18 05:42 03/08/18 05:42 03/08/18 03/08/18 03/08/18 01:00 05:42 05:42 WBC 8.3 RBC 3.17 L Hgb 9.2 L Hct 27.7 L MCV 88 MCH 28.9 MCHC 33.0 RDW 15.5 H Plt Count 398 Seg Neutrophils % 71.6 Lymphocytes % 12.5 L Monocytes % 14.3 H Eosinophils % 1.5 Basophils % 0.1 Absolute Neutrophils 5.9 Absolute Lymphocytes 1.0 Absolute Monocytes 1.2 Absolute Eosinophils 0.1 Absolute Basophils 0.0 Sodium 138.7 Potassium 4.7 Chloride 106 Carbon Dioxide 28 Anion Gap 5 BUN 8 Creatinine 0.55 Est GFR ( Amer) > 60 Est GFR (Non-Af Amer) > 60 Glucose 115 H Calcium 8.2 L Total Bilirubin 0.2 AST 14 ALT 16 Alkaline Phosphatase 53 Total Protein 4.4 L Albumin 1.9 L Triglycerides 60 03/01/18 18:21 Peritoneal Gram Stain - Final 03/01/18 18:21 Peritoneal Body Fluid Culture - Final Escherichia Coli Klebsiella Pneumoniae Enterobacter Cloacae Pseudomonas Aeruginosa Bacteroides Fragilis Group Prevotella Species Veillonella Species Eggerthella Lentum Impressions: Abdomen/Pelvis CT 03/01/18 09:07 IMPRESSION: Extravasation of rectal contrast from the distal descending colon, with tracking of contrast into the right pericolic gutter and right subphrenic space. Small amount of free intraperitoneal air. Chest X-Ray 03/04/18 06:00 IMPRESSION: Minimal bibasilar atelectasis KUB X-Ray 03/07/18 06:00 IMPRESSION: Small bowel obstruction versus ileus. Assessment & Plan - Diagnosis (2) Chronic back pain Qualifiers: Back pain location: low back pain Is this a current diagnosis for this admission?: Yes (3) Colon perforation Is this a current diagnosis for this admission?: Yes (4) Constipation Qualifiers: Constipation type: drug induced constipation Qualified Code(s): K59.03 - Drug induced constipation Is this a current diagnosis for this admission?: Yes (5) Hypokalemia Is this a current diagnosis for this admission?: Yes (6) Hypomagnesemia Is this a current diagnosis for this admission?: Yes (7) Atrial fibrillation Qualifiers: Is this a current diagnosis for this admission?: Yes (8) Status post colectomy Is this a current diagnosis for this admission?: Yes - Time Time Spent with patient: 25-34 minutes Medications reviewed and adjusted accordingly: Yes - Inpatient Certification Based on my medical assessment, after consideration of the patient's comorbidities, presenting symptoms, or acuity I expect that the services needed warrant INPATIENT care.: Yes I certify that my determination is in accordance with my understanding of Medicare's requirements for reasonable and necessary INPATIENT services [42 CFR 412.3e].: Yes Medical Necessity: Significant Comorbidiites Make Outpatient Treatment Too Risky, Need for Pain Control, Need for IV Antibiotics, Risk of Complication if Not Cared For in Hospital - Plan Summary Plan Summary: (1) Hypotension Is this a current diagnosis for this admission?: Yes Plan: -no recent issues. BP has consistently been upper limits of normal to slightly elevated. -Likely related to intraoperative Versed and analgesia. Less likely sepsis as the patient has a normal WBC and has remained afebrile. -Adrenal insufficiency is ruled out; random cortisol level is appropriate at 43.6 (obtained at 5 AM). -Cardizem CD 180 mg daily with metoprolol 5 mg IV every 6 hours as needed blood pressure control (2) Hypomagnesemia Is this a current diagnosis for this admission?: Yes Plan: -WNL 03/07 -Continue TPN per surgery recommendations -daily monitoring. adjustments per pharmacy. (3) Hypokalemia Is this a current diagnosis for this admission?: Yes Plan: -WNL 03/08 -Continue TPN per surgery recommendations -Daily labs adjustments per pharmacy. (4) Chronic obstructive pulmonary disease (COPD) Qualifiers: COPD type: COPD with acute lower respiratory infection Qualified Code(s): J44.0 - Chronic obstructive pulmonary disease with acute lower respiratory infection Is this a current diagnosis for this admission?: Yes Plan: -currently stable and without exacerbation at this time. monitoring -continue scheduled and as needed nebulizer treatments as well as home dose combivent -Aggressive pulmonary toilet; incentive spirometer, flutter valve, out of bed daily. (5) Perforated bowel. (secondary to anastomotic leak and abscess formation s/p colonic re-section due to diverticulitis) Is this a current diagnosis for this admission?: Yes Plan: -s/p colostomy -Blood cultures are negative at 5 days. -Peritoneal fluid growing multiple gram-negative organisms; E. coli, Klebsiella, Enterobacter cloaca, Pseudomonas aeruginosa. -Primary management per surgery; wound care per their recommendations -Antibiotics per surgery; previously on unasyn and cipro. continues IV metronidazole. -Discharge planning involved (6) Opiate dependence, continuous Is this a current diagnosis for this admission?: Yes Plan: -The patient has a history of chronic back pain; utilizes Percocet 10/325 every 8 hours as needed for pain @ home. However her p.o. pain medications on hold secondary to n.p.o. status. -IV morphine 2 mg frequency lowered to every 3 hours as needed for breakthrough pain. (7) Chronic back pain Qualifiers: Back pain location: low back pain Is this a current diagnosis for this admission?: Yes Plan: -managed with oxycodone 10/325 every 8 hours as an outpatient. -Lidoderm patches. -Management as above. (7) AFib -no issues reported. monitor Disposition: OOB activity continues to be encouraged. Overall seems to have improved since I saw her Wednesday.
[2018-03-08] MEDS: AMINO ACIDS 5%/D25W 1,000 ML IV PRN (19:10)
[2018-03-09] MEDS: MORPHINE SULFATE 10 MG/ML INJ IV PRN ×7 (01:36→21:09)
[2018-03-09] MEDS: ONDANSETRON HCL INJ/PF 4 MG/2 ML SDV IV PRN ×2 (04:38→21:09)
[2018-03-09 05:44] LABS: HEMATOCRIT 29.1 % (36.0-47.0); HEMOGLOBIN 9.7 g/dL (12.0-15.5); MEAN CORPUSCULAR HEMOGLOBIN 29.2 pg (27.0-33.4); MEAN CORPUSCULAR HGB CONC 33.3 g/dL (32.0-36.0); MEAN CORPUSCULAR VOLUME 88 fl (80-97); PLATELET COUNT 490 10^3/uL (150-450); RED BLOOD COUNT 3.31 10^6/uL (3.72-5.28); RED CELL DISTRIBUTION WIDTH 15.4 % (11.5-14.0); WHITE BLOOD COUNT 8.4 10^3/uL (4.0-10.5)
[2018-03-09 05:49] LABS: ALANINE AMINOTRANSFERASE 18 U/L (9-52); ALBUMIN 2.3 g/dL (3.5-5.0); ALKALINE PHOSPHATASE 63 U/L (38-126); ANION GAP 8 (5-19); ASPARTATE AMINO TRANSFERASE 21 U/L (14-36); BILIRUBIN,DIRECT 0.3 mg/dL (0.0-0.4); BILIRUBIN,TOTAL 0.3 mg/dL (0.2-1.3); BLOOD UREA NITROGEN 9 mg/dL (7-20); CALCIUM 8.2 mg/dL (8.4-10.2); CARBON DIOXIDE 29 mmol/L (22-30); CHLORIDE 104 mmol/L (98-107); GLUCOSE 120 mg/dL (75-110); POTASSIUM 4.9 mmol/L (3.6-5.0); SODIUM 140.8 mmol/L (137-145); TOTAL PROTEIN 5.1 g/dL (6.3-8.2)
[2018-03-09 06:11] LABS: ABSOLUTE LYMPHOCYTES# (MANUAL) 1.6 10^3/uL (0.5-4.7); ABSOLUTE MONOCYTES # (MANUAL) 0.3 10^3/uL (0.1-1.4); ABSOLUTE NEUTROPHILS# (MANUAL) 6.3 10^3/uL (1.7-8.2); BAND NEUTROPHILS % (MANUAL) 1 % (3-5); BASOPHILS % (MANUAL) 0 % (0-2); EOSINOPHILS % (MANUAL) 2 % (0-6); LYMPHOCYTES % (MANUAL) 19 % (13-45); MONOCYTES % (MANUAL) 4 % (3-13); SEGMENTED NEUTROPHILS % (MAN) 74 % (42-78); TOTAL CELLS COUNTED 100
[2018-03-09 06:12] LABS: ANISOCYTOSIS SLIGHT; HYPERSEGMENTED NEUTROPHILS PRESENT; PLATELET COMMENT INCREASED
[2018-03-09] MEDS: METOPROLOL TARTRATE PF/INJ 5 MG/5 ML SDV IV SCH ×4 (06:51→23:57)
[2018-03-09] MEDS: IPRATROPIUM/ALBUTEROL 120 PUFF/4 GM MDI IH SCH ×3 (06:52→17:50)
[2018-03-09] MEDS: CIPROFLOXACIN 400 MG/D5W RTU 400 MG/200 ML RTUPB IV SCH ×2 (10:59→21:08)
[2018-03-09] MEDS: ENOXAPARIN SODIUM INJ 40 MG/0.4 ML DISP.SYRIN SUBCUT SCH (10:59)
[2018-03-09] MEDS: LIDOCAINE 5% (700 MG) TRANSDERMAL ADH..PATCH TP SCH (11:00)
--- NOTE | 2018-03-09 11:56 | PDOC PROGRESS REPORT ---
Subjective Progress Note for:: 03/09/18 Subjective:: The patient is a 68-year-old female with a past medical history of atrial fibrillation, hyperlipidemia, hypertension, asthma, COPD, sleep apnea, GERD, hiatal hernia, arthritis, depression who was admitted 02/27/18 for a rectosigmoid colon inflammation and kyung-colonic abscess resulting in perforated bowel; now postop day 5 laparotomy and colostomy. Ms Brian seems to be in better spirits today. She has started having output in her colostomy over the past 24 hours. She continues to get oob to chair, but has not been walking due to abd discomfort on exertion. Surgery discussed starting po foods such as jello/pudding today. She denies F/C or acute changes in her abdomen. Overall seems to be improving. Continues to be on TPN. Reason For Visit: S/P colostomy secondary to ABSCESS/leaking of the antasmosis site OF SIGMOID COLON DUE TO DIVERTICULITIS Physical Exam Vital Signs: Temp Pulse Resp BP Pulse Ox 98.6 F 101 H 20 155/82 H 98 03/09/18 03:14 03/09/18 07:00 03/09/18 03:14 03/09/18 03:14 03/09/18 03:14 Intake & Output 03/08/18 03/09/18 03/10/18 06:59 06:59 06:59 Intake Total 1950 1573 Output Total 340 10 30 Balance 1610 1563 -30 Weight 74.4 kg 74.1 kg General appearance: PRESENT: no acute distress, cooperative Head exam: PRESENT: atraumatic Eye exam: PRESENT: conjunctiva pink, EOMI, PERRLA. ABSENT: scleral icterus Ear exam: PRESENT: normal external ear exam Mouth exam: PRESENT: moist, neck supple, tongue midline Respiratory exam: PRESENT: clear to auscultation keren Cardiovascular exam: PRESENT: RRR, +S1, +S2 Pulses: PRESENT: normal dorsalis pedis pul Vascular exam: PRESENT: normal capillary refill GI/Abdominal exam: PRESENT: soft, other - non-tender, non-distended Rectal exam: PRESENT: deferred Extremities exam: PRESENT: full ROM. ABSENT: calf tenderness, clubbing, pedal edema Musculoskeletal exam: PRESENT: full ROM Neurological exam: PRESENT: alert, awake, oriented to person, oriented to place, oriented to time, oriented to situation, CN II-XII grossly intact. ABSENT: motor sensory deficit Psychiatric exam: PRESENT: normal mood Results Laboratory Results: 03/09/18 04:37 03/09/18 04:37 03/09/18 03/09/18 03/09/18 04:37 04:37 08:00 WBC 8.4 RBC 3.31 L Hgb 9.7 L Hct 29.1 L MCV 88 MCH 29.2 MCHC 33.3 RDW 15.4 H Plt Count 490 H Seg Neutrophils % Not Reportable Lymphocytes % Not Reportable Monocytes % Not Reportable Eosinophils % Not Reportable Basophils % Not Reportable Absolute Neutrophils Not Reportable Absolute Lymphocytes Not Reportable Absolute Monocytes Not Reportable Absolute Eosinophils Not Reportable Absolute Basophils Not Reportable Sodium 140.8 Potassium 4.9 Chloride 104 Carbon Dioxide 29 Anion Gap 8 BUN 9 Creatinine 0.56 Est GFR ( Amer) > 60 Est GFR (Non-Af Amer) > 60 Glucose 120 H Calcium 8.2 L Total Bilirubin 0.3 AST 21 ALT 18 Alkaline Phosphatase 63 Total Protein 5.1 L Albumin 2.3 L Stool Occult Blood POSITIVE 03/01/18 18:21 Peritoneal Gram Stain - Final 03/01/18 18:21 Peritoneal Body Fluid Culture - Final Escherichia Coli Klebsiella Pneumoniae Enterobacter Cloacae Pseudomonas Aeruginosa Bacteroides Fragilis Group Prevotella Species Veillonella Species Eggerthella Lentum Impressions: Abdomen/Pelvis CT 03/01/18 09:07 IMPRESSION: Extravasation of rectal contrast from the distal descending colon, with tracking of contrast into the right pericolic gutter and right subphrenic space. Small amount of free intraperitoneal air. Chest X-Ray 03/04/18 06:00 IMPRESSION: Minimal bibasilar atelectasis KUB X-Ray 03/07/18 06:00 IMPRESSION: Small bowel obstruction versus ileus. Assessment & Plan - Diagnosis (2) Chronic back pain Qualifiers: Back pain location: low back pain Is this a current diagnosis for this admission?: Yes (3) Colon perforation Is this a current diagnosis for this admission?: Yes (4) Constipation Qualifiers: Constipation type: drug induced constipation Qualified Code(s): K59.03 - Drug induced constipation Is this a current diagnosis for this admission?: Yes (5) Hypokalemia Is this a current diagnosis for this admission?: Yes (6) Hypomagnesemia Is this a current diagnosis for this admission?: Yes (7) Atrial fibrillation Qualifiers: Is this a current diagnosis for this admission?: Yes (8) Status post colectomy Is this a current diagnosis for this admission?: Yes - Time Time Spent with patient: 25-34 minutes Medications reviewed and adjusted accordingly: Yes - Inpatient Certification Based on my medical assessment, after consideration of the patient's comorbidities, presenting symptoms, or acuity I expect that the services needed warrant INPATIENT care.: Yes I certify that my determination is in accordance with my understanding of Medicare's requirements for reasonable and necessary INPATIENT services [42 CFR 412.3e].: Yes - Plan Summary Plan Summary: (1) Hypotension Is this a current diagnosis for this admission?: Yes Plan: -no recent issues. BP has consistently been upper limits of normal to slightly elevated. -Likely related to intraoperative Versed and analgesia. Less likely sepsis as the patient has a normal WBC and has remained afebrile. -Adrenal insufficiency is ruled out; random cortisol level is appropriate at 43.6 (obtained at 5 AM). -Cardizem CD 180 mg daily with metoprolol 5 mg IV every 6 hours as needed blood pressure control (2) Hypomagnesemia Is this a current diagnosis for this admission?: Yes Plan: -Continue TPN per surgery recommendations -daily monitoring. adjustments per pharmacy. (3) Hypokalemia Is this a current diagnosis for this admission?: Yes Plan: -Continue TPN per surgery recommendations -Daily labs adjustments per pharmacy. (4) Chronic obstructive pulmonary disease (COPD) Qualifiers: COPD type: COPD with acute lower respiratory infection Qualified Code(s): J44.0 - Chronic obstructive pulmonary disease with acute lower respiratory infection Is this a current diagnosis for this admission?: Yes Plan: -currently stable and without exacerbation at this time. monitoring -continue scheduled and as needed nebulizer treatments as well as home dose combivent -Aggressive pulmonary toilet; incentive spirometer, flutter valve, out of bed daily. (5) Perforated bowel. (secondary to anastomotic leak and abscess formation s/p colonic re-section due to diverticulitis) Is this a current diagnosis for this admission?: Yes Plan: -s/p colostomy -Blood cultures are negative at 5 days. -Peritoneal fluid grew multiple gram-negative organisms; E. coli, Klebsiella, Enterobacter cloaca, Pseudomonas aeruginosa. -Primary management per surgery; wound care per their recommendations -Antibiotics per surgery; previously on unasyn and cipro. continue IV metronidazole. -Discharge planning involved (6) Opiate dependence, continuous Is this a current diagnosis for this admission?: Yes Plan: -The patient has a history of chronic back pain; utilizes Percocet 10/325 every 8 hours as needed for pain @ home. However her p.o. pain medications on hold secondary to n.p.o. status. -IV morphine 2 mg frequency lowered to every 3 hours as needed for breakthrough pain. (7) Chronic back pain Qualifiers: Back pain location: low back pain Is this a current diagnosis for this admission?: Yes Plan: -managed with oxycodone 10/325 every 8 hours as an outpatient. -Lidoderm patches. -Management as above. (7) AFib -no issues reported. monitoring -Cardizem CD 180 mg daily with metoprolol 5 mg IV prn
[2018-03-09] MEDS: AMINO ACIDS 5%/D25W 1,000 ML IV PRN (12:05)
[2018-03-09] MEDS: DILTIAZEM HCL 180 MG CAPSULE.CR PO SCH (13:17)
--- NOTE | 2018-03-09 18:49 | PDOC PROGRESS REPORT ---
Subjective Reason For Visit: ABSCESS OF SIGMOID COLON DUE TO DIVERTICULITIS/ Physical Exam Vital Signs: Temp Pulse Resp BP Pulse Ox 98.9 F 103 H 18 126/75 H 99 03/09/18 12:07 03/09/18 14:00 03/09/18 12:07 03/09/18 12:07 03/09/18 12:07 Intake & Output 03/08/18 03/09/18 03/10/18 06:59 06:59 06:59 Intake Total 1950 1573 1430 Output Total 340 10 30 Balance 1610 1563 1400 Weight 74.4 kg 74.1 kg Results Laboratory Results: 03/09/18 04:37 03/09/18 04:37 03/09/18 03/09/18 03/09/18 04:37 04:37 08:00 WBC 8.4 RBC 3.31 L Hgb 9.7 L Hct 29.1 L MCV 88 MCH 29.2 MCHC 33.3 RDW 15.4 H Plt Count 490 H Seg Neutrophils % Not Reportable Lymphocytes % Not Reportable Monocytes % Not Reportable Eosinophils % Not Reportable Basophils % Not Reportable Absolute Neutrophils Not Reportable Absolute Lymphocytes Not Reportable Absolute Monocytes Not Reportable Absolute Eosinophils Not Reportable Absolute Basophils Not Reportable Sodium 140.8 Potassium 4.9 Chloride 104 Carbon Dioxide 29 Anion Gap 8 BUN 9 Creatinine 0.56 Est GFR ( Amer) > 60 Est GFR (Non-Af Amer) > 60 Glucose 120 H Calcium 8.2 L Total Bilirubin 0.3 AST 21 ALT 18 Alkaline Phosphatase 63 Total Protein 5.1 L Albumin 2.3 L Stool Occult Blood POSITIVE 03/01/18 18:21 Peritoneal Gram Stain - Final 03/01/18 18:21 Peritoneal Body Fluid Culture - Final Escherichia Coli Klebsiella Pneumoniae Enterobacter Cloacae Pseudomonas Aeruginosa Bacteroides Fragilis Group Prevotella Species Veillonella Species Eggerthella Lentum Impressions: Abdomen/Pelvis CT 03/01/18 09:07 IMPRESSION: Extravasation of rectal contrast from the distal descending colon, with tracking of contrast into the right pericolic gutter and right subphrenic space. Small amount of free intraperitoneal air. Chest X-Ray 03/04/18 06:00 IMPRESSION: Minimal bibasilar atelectasis KUB X-Ray 03/07/18 06:00 IMPRESSION: Small bowel obstruction versus ileus. Assessment & Plan - Diagnosis (1) Colon perforation Is this a current diagnosis for this admission?: Yes - Plan Summary Plan Summary: 68-year-old female status post laparotomy with diverting colostomy for a colonic perforation. The patient reports that she feels better today. Her colostomy is functioning. She denies nausea or vomiting. I will advance the patient to full liquid diet today. I have again encouraged aggressive pulmonary toilet and amb ulation. Continue physical therapy. Continue midline dressing changes. Continue TPN for now.
[2018-03-10] MEDS: IPRATROPIUM/ALBUTEROL 120 PUFF/4 GM MDI IH SCH ×4 (00:08→17:12)
[2018-03-10] MEDS: MORPHINE SULFATE 10 MG/ML INJ IV PRN ×5 (00:09→13:44)
[2018-03-10] MEDS: METOPROLOL TARTRATE PF/INJ 5 MG/5 ML SDV IV SCH ×2 (05:59→13:44)
[2018-03-10 06:15] LABS: ABSOLUTE EOSINOPHILS # (AUTO) 0.2 10^3/uL (0.0-0.6); ABSOLUTE LYMPHOCYTES (AUTO) 1.1 10^3/uL (0.5-4.7); ABSOLUTE MONOCYTES (AUTO) 1.3 10^3/uL (0.1-1.4); ABSOLUTE NEUT (AUTO) 6.3 10^3/uL (1.7-8.2); BASOPHILS % (AUTO) 0.1 % (0-2); EOSINOPHILS % (AUTO) 2.4 % (0-6); HEMATOCRIT 26.7 % (36.0-47.0); HEMOGLOBIN 8.9 g/dL (12.0-15.5); LYMPHOCYTES % (AUTO) 12.6 % (13-45); MEAN CORPUSCULAR HGB CONC 33.5 g/dL (32.0-36.0); MEAN CORPUSCULAR VOLUME 87 fl (80-97); MONOCYTES % (AUTO) 14.6 % (3-13); PLATELET COUNT 427 10^3/uL (150-450); RED BLOOD COUNT 3.08 10^6/uL (3.72-5.28); RED CELL DISTRIBUTION WIDTH 15.4 % (11.5-14.0); SEGMENTED NEUTROPHILS % (AUTO) 70.3 % (42-78); TOTAL CELLS COUNTED % (AUTO) 100 %
[2018-03-10 06:35] LABS: ALANINE AMINOTRANSFERASE 25 U/L (9-52); ALBUMIN 2.2 g/dL (3.5-5.0); ALKALINE PHOSPHATASE 66 U/L (38-126); ASPARTATE AMINO TRANSFERASE 34 U/L (14-36); BILIRUBIN,DIRECT 0.2 mg/dL (0.0-0.4); BILIRUBIN,TOTAL 0.2 mg/dL (0.2-1.3); BLOOD UREA NITROGEN 12 mg/dL (7-20); CALCIUM 8.2 mg/dL (8.4-10.2); CARBON DIOXIDE 29 mmol/L (22-30); GLUCOSE 115 mg/dL (75-110); PHOSPHORUS 4.6 mg/dL (2.5-4.5); POTASSIUM 4.7 mmol/L (3.6-5.0); TOTAL PROTEIN 4.8 g/dL (6.3-8.2)
[2018-03-10 06:43] LABS: PREALBUMIN 18.3 mg/dL (17.6-36.0)
[2018-03-10 07:12] LABS: CHLORIDE 104 mmol/L (98-107); SODIUM 136.7 mmol/L (137-145)
[2018-03-10 07:16] LABS: ANION GAP 4 (5-19)
[2018-03-10] MEDS: AMINO ACIDS 5%/D25W 1,000 ML IV PRN (07:47)
[2018-03-10] MEDS: CIPROFLOXACIN 400 MG/D5W RTU 400 MG/200 ML RTUPB IV SCH (10:36)
[2018-03-10] MEDS: DILTIAZEM HCL 180 MG CAPSULE.CR PO SCH (10:36)
[2018-03-10] MEDS: FAT EMULSIONS 250 ML IV SCH (10:39)
--- NOTE | 2018-03-10 11:02 | PDOC PROGRESS REPORT ---
Subjective Progress Note for:: 03/10/18 Subjective:: Patient getting out of bed into chair; is incontinent; tolerating full liquid; still taking IV pain medication. Still on TPN. Ostomy working. Still has bilateral pelvic drains Reason For Visit: ABSCESS OF SIGMOID COLON DUE TO DIVERTICULITIS/ Physical Exam Vital Signs: Temp Pulse Resp BP Pulse Ox 98.7 F 101 H 16 123/55 L 98 03/10/18 07:21 03/10/18 07:21 03/10/18 07:21 03/10/18 07:21 03/10/18 07:21 Intake & Output 03/09/18 03/10/18 03/11/18 06:59 06:59 06:59 Intake Total 1573 2630 Output Total 10 30 Balance 1563 2600 Weight 74.1 kg 71.1 kg General appearance: PRESENT: no acute distress GI/Abdominal exam: PRESENT: other - Appears comfortable in chair Midline dressing with wound VAC off; wound granulating in some sero-purulent discharge. Colostomy putting out significant amount of gas and stool Results Laboratory Results: 03/10/18 05:07 03/10/18 05:07 03/10/18 03/10/18 05:07 05:07 WBC 9.0 RBC 3.08 L Hgb 8.9 L Hct 26.7 L MCV 87 MCH 29.0 MCHC 33.5 RDW 15.4 H Plt Count 427 Seg Neutrophils % 70.3 Lymphocytes % 12.6 L Monocytes % 14.6 H Eosinophils % 2.4 Basophils % 0.1 Absolute Neutrophils 6.3 Absolute Lymphocytes 1.1 Absolute Monocytes 1.3 Absolute Eosinophils 0.2 Absolute Basophils 0.0 Sodium 136.7 L Potassium 4.7 Chloride 104 Carbon Dioxide 29 Anion Gap 4 L BUN 12 Creatinine 0.56 Est GFR ( Amer) > 60 Est GFR (Non-Af Amer) > 60 Glucose 115 H Calcium 8.2 L Phosphorus 4.6 H Total Bilirubin 0.2 AST 34 ALT 25 Alkaline Phosphatase 66 Total Protein 4.8 L Albumin 2.2 L Prealbumin 18.3 03/01/18 18:21 Peritoneal Gram Stain - Final 03/01/18 18:21 Peritoneal Body Fluid Culture - Final Escherichia Coli Klebsiella Pneumoniae Enterobacter Cloacae Pseudomonas Aeruginosa Bacteroides Fragilis Group Prevotella Species Veillonella Species Eggerthella Lentum Impressions: Abdomen/Pelvis CT 03/01/18 09:07 IMPRESSION: Extravasation of rectal contrast from the distal descending colon, with tracking of contrast into the right pericolic gutter and right subphrenic space. Small amount of free intraperitoneal air. Chest X-Ray 03/04/18 06:00 IMPRESSION: Minimal bibasilar atelectasis KUB X-Ray 03/07/18 06:00 IMPRESSION: Small bowel obstruction versus ileus. Assessment & Plan - Diagnosis (1) Abdominal pain Is this a current diagnosis for this admission?: Yes Plan: Impression: Patient now 9 days status post exploratory laparotomy diverting transverse loop colostomy, drainage of pelvis, doing well, sepsis control, tolerating a diet. Recommendations: 1. We will discontinue right pelvic drain 2. Wean TPN off by: Advance diet as tolerated 3. Start p.o. pain medication. (2) Hypokalemia Is this a current diagnosis for this admission?: Yes (3) Smoker Is this a current diagnosis for this admission?: Yes (4) Atrial fibrillation Qualifiers: Is this a current diagnosis for this admission?: Yes
[2018-03-10] MEDS: LIDOCAINE 5% (700 MG) TRANSDERMAL ADH..PATCH TP SCH (12:32)
[2018-03-10] MEDS: ONDANSETRON HCL INJ/PF 4 MG/2 ML SDV IV PRN (12:32)
[2018-03-10] MEDS: ENOXAPARIN SODIUM INJ 40 MG/0.4 ML DISP.SYRIN SUBCUT SCH (12:33)
[2018-03-10] MEDS: OXYCODONE-ACETAMINOPHEN 5-325 MG TABLET PO PRN ×2 (17:13→23:53)
--- NOTE | 2018-03-10 17:16 | PDOC PROGRESS REPORT ---
Subjective Progress Note for:: 03/10/18 Subjective:: The patient is a 68-year-old female with a past medical history of atrial fibrillation, hyperlipidemia, hypertension, asthma, COPD, sleep apnea, GERD, hiatal hernia, arthritis, depression who was admitted 02/27/18 for a rectosigmoid colon inflammation and kyung-colonic abscess resulting in perforated bowel; now postop day 5 laparotomy and colostomy. Ms Brian reports doing well this morning. She continues to have output in her ostomy bag. She has not worked with physical therapy or walk with nursing. She continues to get out of bed to the chair multiple times a day. Surgery plans to remove 1 of her ALLISON drains today. She denies fever, chills, or other systemic signs of infection. Her abdomen continues to be soft with no localized signs of infection. She continues to be more optimistic about rehab. Reason For Visit: ABSCESS OF SIGMOID COLON DUE TO DIVERTICULITIS/ Physical Exam Vital Signs: Temp Pulse Resp BP Pulse Ox 98.7 F 96 16 121/49 L 94 03/10/18 16:16 03/10/18 16:16 03/10/18 16:16 03/10/18 16:16 03/10/18 16:16 Intake & Output 03/09/18 03/10/18 03/11/18 06:59 06:59 06:59 Intake Total 1573 2630 500 Output Total 10 30 25 Balance 1563 2600 475 Weight 74.1 kg 71.1 kg General appearance: PRESENT: no acute distress Head exam: PRESENT: atraumatic, normocephalic Eye exam: PRESENT: conjunctiva pink, EOMI, PERRLA. ABSENT: scleral icterus Teeth exam: PRESENT: poor dentation Respiratory exam: PRESENT: clear to auscultation keren Cardiovascular exam: PRESENT: RRR, +S1, +S2 Pulses: PRESENT: normal dorsalis pedis pul GI/Abdominal exam: PRESENT: normal bowel sounds, soft, other - Ostomy bag in left lower quadrant. ALLISON drain left lower quadrant.. ABSENT: distended, guarding, mass, organolmegaly, rebound, tenderness Rectal exam: PRESENT: deferred Extremities exam: PRESENT: +1 edema - Bilateral lower extremity edema. Musculoskeletal exam: PRESENT: full ROM Neurological exam: PRESENT: alert, awake, oriented to person, oriented to place, oriented to time, oriented to situation, CN II-XII grossly intact. ABSENT: motor sensory deficit Results Laboratory Results: 03/10/18 05:07 03/10/18 05:07 03/10/18 03/10/18 05:07 05:07 WBC 9.0 RBC 3.08 L Hgb 8.9 L Hct 26.7 L MCV 87 MCH 29.0 MCHC 33.5 RDW 15.4 H Plt Count 427 Seg Neutrophils % 70.3 Lymphocytes % 12.6 L Monocytes % 14.6 H Eosinophils % 2.4 Basophils % 0.1 Absolute Neutrophils 6.3 Absolute Lymphocytes 1.1 Absolute Monocytes 1.3 Absolute Eosinophils 0.2 Absolute Basophils 0.0 Sodium 136.7 L Potassium 4.7 Chloride 104 Carbon Dioxide 29 Anion Gap 4 L BUN 12 Creatinine 0.56 Est GFR ( Amer) > 60 Est GFR (Non-Af Amer) > 60 Glucose 115 H Calcium 8.2 L Phosphorus 4.6 H Total Bilirubin 0.2 AST 34 ALT 25 Alkaline Phosphatase 66 Total Protein 4.8 L Albumin 2.2 L Prealbumin 18.3 03/01/18 18:21 Peritoneal Gram Stain - Final 03/01/18 18:21 Peritoneal Body Fluid Culture - Final Escherichia Coli Klebsiella Pneumoniae Enterobacter Cloacae Pseudomonas Aeruginosa Bacteroides Fragilis Group Prevotella Species Veillonella Species Eggerthella Lentum Impressions: Abdomen/Pelvis CT 03/01/18 09:07 IMPRESSION: Extravasation of rectal contrast from the distal descending colon, with tracking of contrast into the right pericolic gutter and right subphrenic space. Small amount of free intraperitoneal air. Chest X-Ray 03/04/18 06:00 IMPRESSION: Minimal bibasilar atelectasis KUB X-Ray 03/07/18 06:00 IMPRESSION: Small bowel obstruction versus ileus. Assessment & Plan - Diagnosis (2) Chronic back pain Qualifiers: Back pain location: low back pain Is this a current diagnosis for this admission?: Yes (3) Colon perforation Is this a current diagnosis for this admission?: Yes (4) Constipation Qualifiers: Constipation type: drug induced constipation Qualified Code(s): K59.03 - Drug induced constipation Is this a current diagnosis for this admission?: Yes (5) Hypokalemia Is this a current diagnosis for this admission?: Yes (6) Hypomagnesemia Is this a current diagnosis for this admission?: Yes (7) Atrial fibrillation Qualifiers: Is this a current diagnosis for this admission?: Yes (8) Status post colectomy Is this a current diagnosis for this admission?: Yes - Time Time Spent with patient: 25-34 minutes Medications reviewed and adjusted accordingly: Yes - Inpatient Certification Based on my medical assessment, after consideration of the patient's comorbidities, presenting symptoms, or acuity I expect that the services needed warrant INPATIENT care.: Yes I certify that my determination is in accordance with my understanding of Medicare's requirements for reasonable and necessary INPATIENT services [42 CFR 412.3e].: Yes - Plan Summary Plan Summary: (1) Hypotension Is this a current diagnosis for this admission?: Yes Plan: -no recent issues. BP has consistently been upper limits of normal to slightly elevated. -Likely related to intraoperative Versed and analgesia. Less likely sepsis as the patient has a normal WBC and has remained afebrile. -Adrenal insufficiency is ruled out; random cortisol level is appropriate at 43.6 (obtained at 5 AM). -Cardizem CD 180 mg daily with metoprolol 5 mg IV every 6 hours as needed blood pressure control (2) Hypomagnesemia/Hypokalemia/HypoNa+/HypoCa+ Is this a current diagnosis for this admission?: Yes Plan: -Continue TPN per surgery recommendations -daily monitoring. adjustments per pharmacy. -Calcium normal when corrected for albumin. (3) Tachycardia Is this a current diagnosis for this admission?: Yes Plan: -Likely related to pain. Continue to monitor. (4) Chronic obstructive pulmonary disease (COPD) Qualifiers: COPD type: COPD with acute lower respiratory infection Qualified Code(s): J44.0 - Chronic obstructive pulmonary disease with acute lower respiratory infection Is this a current diagnosis for this admission?: Yes Plan: -currently stable and without exacerbation at this time. monitoring -continue scheduled and as needed nebulizer treatments as well as home dose combivent -Aggressive pulmonary toilet; incentive spirometer, flutter valve, out of bed daily. (5) Perforated bowel. (secondary to anastomotic leak and abscess formation s/p colonic re-section due to diverticulitis) Is this a current diagnosis for this admission?: Yes Plan: -s/p colostomy -Blood cultures are negative at 5 days. -Peritoneal fluid grew multiple gram-negative organisms; E. coli, Klebsiella, Enterobacter cloaca, Pseudomonas aeruginosa. -Primary management per surgery; wound care per their recommendations -Antibiotics per surgery; previously on unasyn and cipro. continue IV metronidazole. -Discharge planning involved (6) Opiate dependence, continuous Is this a current diagnosis for this admission?: Yes Plan: -The patient has a history of chronic back pain; utilizes Percocet 10/325 every 8 hours as needed for pain @ home. However her p.o. pain medications on hold s econdary to n.p.o. status. -IV morphine 2 mg frequency lowered to every 3 hours as needed for breakthrough pain. (7) Chronic back pain Qualifiers: Back pain location: low back pain Is this a current diagnosis for this admission?: Yes Plan: -managed with oxycodone 10/325 every 8 hours as an outpatient. -Lidoderm patches. -Management as above. (8) AFib -no issues reported. monitoring -Cardizem CD 180 mg daily with metoprolol 5 mg IV prn
[2018-03-10] MEDS: METOPROLOL TARTRATE 25 MG TABLET PO SCH (22:42)
[2018-03-11] MEDS: IPRATROPIUM/ALBUTEROL 120 PUFF/4 GM MDI IH SCH ×5 (01:00→23:15)
[2018-03-11] MEDS ORDERED: DEXTROSE 10%-WATER 1,000 ML IV PRN (03:00)
[2018-03-11] MEDS: OXYCODONE-ACETAMINOPHEN 5-325 MG TABLET PO PRN ×3 (07:23→21:49)
[2018-03-11 07:29] LABS: ABSOLUTE EOSINOPHILS # (AUTO) 0.2 10^3/uL (0.0-0.6); ABSOLUTE LYMPHOCYTES (AUTO) 1.5 10^3/uL (0.5-4.7); ABSOLUTE MONOCYTES (AUTO) 1.3 10^3/uL (0.1-1.4); ABSOLUTE NEUT (AUTO) 6.8 10^3/uL (1.7-8.2); BASOPHILS % (AUTO) 0.2 % (0-2); EOSINOPHILS % (AUTO) 2.1 % (0-6); HEMATOCRIT 27.7 % (36.0-47.0); HEMOGLOBIN 9.4 g/dL (12.0-15.5); LYMPHOCYTES % (AUTO) 14.9 % (13-45); MEAN CORPUSCULAR HEMOGLOBIN 29.4 pg (27.0-33.4); MEAN CORPUSCULAR HGB CONC 33.9 g/dL (32.0-36.0); MEAN CORPUSCULAR VOLUME 87 fl (80-97); MONOCYTES % (AUTO) 13.1 % (3-13); PLATELET COUNT 503 10^3/uL (150-450); RED BLOOD COUNT 3.19 10^6/uL (3.72-5.28); SEGMENTED NEUTROPHILS % (AUTO) 69.7 % (42-78); TOTAL CELLS COUNTED % (AUTO) 100 %; WHITE BLOOD COUNT 9.8 10^3/uL (4.0-10.5)
[2018-03-11 08:15] LABS: ALANINE AMINOTRANSFERASE 53 U/L (9-52); ALBUMIN 2.4 g/dL (3.5-5.0); ALKALINE PHOSPHATASE 115 U/L (38-126); ANION GAP 8 (5-19); ASPARTATE AMINO TRANSFERASE 85 U/L (14-36); BILIRUBIN,DIRECT 0.3 mg/dL (0.0-0.4); BILIRUBIN,TOTAL 0.3 mg/dL (0.2-1.3); BLOOD UREA NITROGEN 12 mg/dL (7-20); CALCIUM 8.7 mg/dL (8.4-10.2); CARBON DIOXIDE 28 mmol/L (22-30); CHLORIDE 101 mmol/L (98-107); GLUCOSE 95 mg/dL (75-110); POTASSIUM 4.7 mmol/L (3.6-5.0); SODIUM 136.8 mmol/L (137-145); TOTAL PROTEIN 5.2 g/dL (6.3-8.2)
[2018-03-11] MEDS: METOPROLOL TARTRATE 25 MG TABLET PO SCH ×2 (09:13→21:50)
[2018-03-11] MEDS: DILTIAZEM HCL 180 MG CAPSULE.CR PO SCH (09:13)
[2018-03-11] MEDS: ENOXAPARIN SODIUM INJ 40 MG/0.4 ML DISP.SYRIN SUBCUT SCH (09:14)
[2018-03-11] MEDS: LIDOCAINE 5% (700 MG) TRANSDERMAL ADH..PATCH TP SCH (09:14)
[2018-03-11] MEDS: ONDANSETRON HCL INJ/PF 4 MG/2 ML SDV IV PRN ×2 (09:19→18:29)
--- NOTE | 2018-03-11 10:35 | PDOC PROGRESS REPORT ---
Subjective Progress Note for:: 03/11/18 Subjective:: aBDOMINAL PAINS DECREASING Reason For Visit: ABSCESS OF SIGMOID COLON DUE TO DIVERTICULITIS/ Physical Exam Vital Signs: Temp Pulse Resp BP Pulse Ox 98.9 F 95 18 123/43 L 98 03/11/18 07:47 03/11/18 07:47 03/11/18 07:47 03/11/18 07:47 03/11/18 07:47 Intake & Output 03/10/18 03/11/18 03/12/18 06:59 06:59 06:59 Intake Total 2630 1700 Output Total 30 630 Balance 2600 1070 Weight 71.1 kg 70 kg Exam: Abdomen is soft with minimal tenderness. Colostomy functioning well Drain small amount, pulled out. Transverse loop colostomy working. Results Laboratory Results: 03/11/18 07:13 03/11/18 07:13 03/11/18 03/11/18 07:13 07:13 WBC 9.8 RBC 3.19 L Hgb 9.4 L Hct 27.7 L MCV 87 MCH 29.4 MCHC 33.9 RDW 15.0 H Plt Count 503 H Seg Neutrophils % 69.7 Lymphocytes % 14.9 Monocytes % 13.1 H Eosinophils % 2.1 Basophils % 0.2 Absolute Neutrophils 6.8 Absolute Lymphocytes 1.5 Absolute Monocytes 1.3 Absolute Eosinophils 0.2 Absolute Basophils 0.0 Sodium 136.8 L Potassium 4.7 Chloride 101 Carbon Dioxide 28 Anion Gap 8 BUN 12 Creatinine 0.61 Est GFR ( Amer) > 60 Est GFR (Non-Af Amer) > 60 Glucose 95 Calcium 8.7 Total Bilirubin 0.3 AST 85 H ALT 53 H Alkaline Phosphatase 115 Total Protein 5.2 L Albumin 2.4 L 03/01/18 18:21 Peritoneal Gram Stain - Final 03/01/18 18:21 Peritoneal Body Fluid Culture - Final Escherichia Coli Klebsiella Pneumoniae Enterobacter Cloacae Pseudomonas Aeruginosa Bacteroides Fragilis Group Prevotella Species Veillonella Species Eggerthella Lentum Impressions: Abdomen/Pelvis CT 03/01/18 09:07 IMPRESSION: Extravasation of rectal contrast from the distal descending colon, with tracking of contrast into the right pericolic gutter and right subphrenic space. Small amount of free intraperitoneal air. Chest X-Ray 03/04/18 06:00 IMPRESSION: Minimal bibasilar atelectasis KUB X-Ray 03/07/18 06:00 IMPRESSION: Small bowel obstruction versus ileus. Assessment & Plan - Time Time Spent with patient: 15-24 minutes - Plan Summary Plan Summary: Put back on PO pain meds. Wants to resume her pain mx regimen of Percocet 10/325 3x/day. Advised her to see pain mx MD next week. Continue increase po intake Home in 24 hrs.
--- NOTE | 2018-03-11 15:23 | PDOC PROGRESS REPORT ---
Subjective Progress Note for:: 03/11/18 Subjective:: The patient is a 68-year-old female with a past medical history of atrial fibrillation, hyperlipidemia, hypertension, asthma, COPD, sleep apnea, GERD, hiatal hernia, arthritis, depression who was admitted 02/27/18 for a rectosigmoid colon inflammation and kyung-colonic abscess resulting in perforated bowel; now postop day 5 laparotomy and colostomy. Ms Brian is in good spirits this morning. Shortly before my evaluation general surgery removed her second ALLISON drain. So she no longer has a ALLISON drain. It also seems that surgery mention the possibility of going home with home health tomorrow March 12. Discussion had with nursing and the patient about considering rehab. Patient seems closed off to this idea. She was encouraged to walk with nursing or therapy today as she is only been out of bed to the chair. Patient also encouraged to use the incentive spirometer every hour while awake. Patient denies fever, chills, breathing difficulties, signs of systemic infection. She seems to be tolerating p.o. diet, though her appetite remains somewhat poor. Continues to have ostomy output. Reason For Visit: ABSCESS OF SIGMOID COLON DUE TO DIVERTICULITIS/ Physical Exam Vital Signs: Temp Pulse Resp BP Pulse Ox 98.9 F 97 18 105/47 L 97 03/11/18 11:34 03/11/18 14:00 03/11/18 11:34 03/11/18 11:34 03/11/18 11:34 Intake & Output 03/10/18 03/11/18 03/12/18 06:59 06:59 06:59 Intake Total 2630 1700 360 Output Total 30 630 150 Balance 2600 1070 210 Weight 71.1 kg 70 kg General appearance: PRESENT: no acute distress, well-developed, well-nourished Head exam: PRESENT: atraumatic, normocephalic Eye exam: PRESENT: conjunctiva pink, EOMI, PERRLA. ABSENT: scleral icterus Ear exam: PRESENT: normal external ear exam Mouth exam: PRESENT: moist, tongue midline Neck exam: ABSENT: carotid bruit, JVD, lymphadenopathy, thyromegaly Respiratory exam: PRESENT: other - Good airflow bilaterally. Some diminishment at the bases. No wheeze Cardiovascular exam: PRESENT: RRR, +S1, +S2 Pulses: PRESENT: normal dorsalis pedis pul Vascular exam: PRESENT: normal capillary refill GI/Abdominal exam: PRESENT: normal bowel sounds, soft, other - Ostomy bag. No local signs of infection.. ABSENT: distended, guarding, mass, organolmegaly, rebound, tenderness Rectal exam: PRESENT: deferred Extremities exam: PRESENT: other - Minimal edema bilateral lower extremities. Musculoskeletal exam: PRESENT: full ROM Neurological exam: PRESENT: alert, awake, oriented to person, oriented to place, oriented to time, oriented to situation, CN II-XII grossly intact. ABSENT: motor sensory deficit Psychiatric exam: PRESENT: normal mood Results Laboratory Results: 03/11/18 07:13 03/11/18 07:13 03/11/18 03/11/18 07:13 07:13 WBC 9.8 RBC 3.19 L Hgb 9.4 L Hct 27.7 L MCV 87 MCH 29.4 MCHC 33.9 RDW 15.0 H Plt Count 503 H Seg Neutrophils % 69.7 Lymphocytes % 14.9 Monocytes % 13.1 H Eosinophils % 2.1 Basophils % 0.2 Absolute Neutrophils 6.8 Absolute Lymphocytes 1.5 Absolute Monocytes 1.3 Absolute Eosinophils 0.2 Absolute Basophils 0.0 Sodium 136.8 L Potassium 4.7 Chloride 101 Carbon Dioxide 28 Anion Gap 8 BUN 12 Creatinine 0.61 Est GFR ( Amer) > 60 Est GFR (Non-Af Amer) > 60 Glucose 95 Calcium 8.7 Total Bilirubin 0.3 AST 85 H ALT 53 H Alkaline Phosphatase 115 Total Protein 5.2 L Albumin 2.4 L 03/01/18 18:21 Peritoneal Gram Stain - Final 03/01/18 18:21 Peritoneal Body Fluid Culture - Final Escherichia Coli Klebsiella Pneumoniae Enterobacter Cloacae Pseudomonas Aeruginosa Bacteroides Fragilis Group Prevotella Species Veillonella Species Eggerthella Lentum Impressions: Abdomen/Pelvis CT 03/01/18 09:07 IMPRESSION: Extravasation of rectal contrast from the distal descending colon, with tracking of contrast into the right pericolic gutter and right subphrenic space. Small amount of free intraperitoneal air. Chest X-Ray 03/04/18 06:00 IMPRESSION: Minimal bibasilar atelectasis KUB X-Ray 03/07/18 06:00 IMPRESSION: Small bowel obstruction versus ileus. Assessment & Plan - Diagnosis (2) Chronic back pain Qualifiers: Back pain location: low back pain Is this a current diagnosis for this admission?: Yes (3) Colon perforation Is this a current diagnosis for this admission?: Yes (4) Constipation Qualifiers: Constipation type: drug induced constipation Qualified Code(s): K59.03 - Drug induced constipation Is this a current diagnosis for this admission?: Yes (5) Hypokalemia Is this a current diagnosis for this admission?: Yes (6) Hypomagnesemia Is this a current diagnosis for this admission?: Yes (7) Atrial fibrillation Qualifiers: Is this a current diagnosis for this admission?: Yes (8) Status post colectomy Is this a current diagnosis for this admission?: Yes - Time Time Spent with patient: 25-34 minutes Medications reviewed and adjusted accordingly: Yes - Inpatient Certification Based on my medical assessment, after consideration of the patient's comor bidities, presenting symptoms, or acuity I expect that the services needed warrant INPATIENT care.: Yes I certify that my determination is in accordance with my understanding of Medicare's requirements for reasonable and necessary INPATIENT services [42 CFR 412.3e].: Yes - Plan Summary Plan Summary: (1) Hypotension Is this a current diagnosis for this admission?: Yes Plan: -no recent issues. BP has consistently been upper limits of normal to slightly elevated. -Likely related to intraoperative Versed and analgesia. Less likely sepsis as the patient has a normal WBC and has remained afebrile. -Adrenal insufficiency is ruled out; random cortisol level is appropriate at 43.6 (obtained at 5 AM). -Cardizem CD 180 mg daily with metoprolol 5 mg IV every 6 hours as needed blood pressure control (2) Hypomagnesemia/Hypokalemia/HypoNa+/HypoCa+ Is this a current diagnosis for this admission?: Yes Plan: -Continue TPN per surgery recommendations. daily monitoring. adjustments per pharmacy. Calcium normal when corrected for albumin. (3) Tachycardia Is this a current diagnosis for this admission?: Yes Plan: -Likely related to pain. Continue to monitor. (4) Chronic obstructive pulmonary disease (COPD) Qualifiers: COPD type: COPD with acute lower respiratory infection Qualified Code(s): J44.0 - Chronic obstructive pulmonary disease with acute lower respiratory infection Is this a current diagnosis for this admission?: Yes Plan: -currently stable and without exacerbation at this time. monitoring -continue scheduled and as needed nebulizer treatments as well as home dose combivent. -Aggressive pulmonary toilet; incentive spirometer, flutter valve, out of bed daily. (5) Perforated bowel. (secondary to anastomotic leak and abscess formation s/p colonic re-section due to diverticulitis) Is this a current diagnosis for this admission?: Yes Plan: -s/p colostomy -Blood cultures are negative at 5 days. -Peritoneal fluid grew multiple gram-negative organisms; E. coli, Klebsiella, Enterobacter cloaca, Pseudomonas aeruginosa. -Primary management per surgery; wound care per their recommendations -Antibiotics per surgery; previously on unasyn and cipro. continue IV metronidazole. -Discharge planning involved (6) Opiate dependence, continuous Is this a current diagnosis for this admission?: Yes Plan: -The patient has a history of chronic back pain; utilizes Percocet 10/325 every 8 hours as needed for pain @ home. -IV morphine 2 mg frequency lowered to every 3 hours as needed for breakthrough pain. -Lidoderm patches. (7) Chronic back pain Qualifiers: Back pain location: low back pain Is this a current diagnosis for this admission?: Yes Plan: -Management as above. (8) AFib -no issues reported. monitoring -Cardizem CD 180 mg daily with metoprolol 5 mg IV prn Disposition: Surgery advised patient that she may go home tomorrow 03/12. Nursing is actively trying to teach family/friends how to perform ostomy changes. Some concern regarding the patient's motivation level. Patient is fairly adamant that she would like to go home with home health and not to rehab.
[2018-03-12] MEDS: IPRATROPIUM/ALBUTEROL 120 PUFF/4 GM MDI IH SCH ×3 (05:14→18:14)
[2018-03-12] MEDS: OXYCODONE-ACETAMINOPHEN 5-325 MG TABLET PO PRN ×3 (05:14→18:12)
[2018-03-12 09:43] LABS: ALANINE AMINOTRANSFERASE 45 U/L (9-52); ALBUMIN 2.6 g/dL (3.5-5.0); ALKALINE PHOSPHATASE 110 U/L (38-126); ANION GAP 7 (5-19); ASPARTATE AMINO TRANSFERASE 44 U/L (14-36); BILIRUBIN,DIRECT 0.4 mg/dL (0.0-0.4); BILIRUBIN,TOTAL 0.4 mg/dL (0.2-1.3); BLOOD UREA NITROGEN 12 mg/dL (7-20); CALCIUM 8.7 mg/dL (8.4-10.2); CARBON DIOXIDE 29 mmol/L (22-30); CHLORIDE 100 mmol/L (98-107); GLUCOSE 83 mg/dL (75-110); POTASSIUM 4.6 mmol/L (3.6-5.0); TOTAL PROTEIN 5.4 g/dL (6.3-8.2)
--- NOTE | 2018-03-12 09:49 | PDOC PROGRESS REPORT ---
Subjective Progress Note for:: 03/12/18 Subjective:: mild abdominal/incisional pains but more of chronic back pains Tolerating diet well Reason For Visit: ABSCESS OF SIGMOID COLON DUE TO DIVERTICULITIS/ Physical Exam Vital Signs: Temp Pulse Resp BP Pulse Ox 97.3 F 85 20 110/58 L 96 03/12/18 03:21 03/12/18 03:21 03/12/18 03:21 03/12/18 03:21 03/12/18 03:21 Intake & Output 03/11/18 03/12/18 03/13/18 06:59 06:59 06:59 Intake Total 1700 360 Output Total 630 850 Balance 1070 -490 Weight 70 kg 64.7 kg Exam: abdomen is soft. Colostomy functioning Results Laboratory Results: 03/12/18 08:51 03/12/18 08:51 Sodium 136.0 L Potassium 4.6 Chloride 100 Carbon Dioxide 29 Anion Gap 7 BUN 12 Creatinine 0.74 Est GFR ( Amer) > 60 Est GFR (Non-Af Amer) > 60 Glucose 83 Calcium 8.7 Total Bilirubin 0.4 AST 44 H ALT 45 Alkaline Phosphatase 110 Total Protein 5.4 L Albumin 2.6 L Impressions: Abdomen/Pelvis CT 03/01/18 09:07 IMPRESSION: Extravasation of rectal contrast from the distal descending colon, with tracking of contrast into the right pericolic gutter and right subphrenic space. Small amount of free intraperitoneal air. Chest X-Ray 03/04/18 06:00 IMPRESSION: Minimal bibasilar atelectasis KUB X-Ray 03/07/18 06:00 IMPRESSION: Small bowel obstruction versus ileus. Assessment & Plan - Time Time Spent with patient: 15-24 minutes - Inpatient Certification Medical Necessity: Need for Pain Control, Risk of Complication if Not Cared For in Hospital - Plan Summary Plan Summary: Patient agreeable now to go to [facility] Wednesday because she is not comfortable taking care of the colostomy at this time
[2018-03-12 10:25] LABS: ABSOLUTE EOSINOPHILS # (AUTO) 0.2 10^3/uL (0.0-0.6); ABSOLUTE LYMPHOCYTES (AUTO) 1.5 10^3/uL (0.5-4.7); ABSOLUTE MONOCYTES (AUTO) 1.3 10^3/uL (0.1-1.4); ABSOLUTE NEUT (AUTO) 6.8 10^3/uL (1.7-8.2); BASOPHILS % (AUTO) 0.3 % (0-2); EOSINOPHILS % (AUTO) 1.8 % (0-6); HEMATOCRIT 26.9 % (36.0-47.0); HEMOGLOBIN 9.2 g/dL (12.0-15.5); LYMPHOCYTES % (AUTO) 15.5 % (13-45); MEAN CORPUSCULAR HEMOGLOBIN 29.6 pg (27.0-33.4); MEAN CORPUSCULAR HGB CONC 34.3 g/dL (32.0-36.0); MEAN CORPUSCULAR VOLUME 86 fl (80-97); MONOCYTES % (AUTO) 13.2 % (3-13); PLATELET COUNT 551 10^3/uL (150-450); RED BLOOD COUNT 3.12 10^6/uL (3.72-5.28); RED CELL DISTRIBUTION WIDTH 15.1 % (11.5-14.0); SEGMENTED NEUTROPHILS % (AUTO) 69.2 % (42-78); TOTAL CELLS COUNTED % (AUTO) 100 %; WHITE BLOOD COUNT 9.8 10^3/uL (4.0-10.5)
[2018-03-12] MEDS: METOPROLOL TARTRATE 25 MG TABLET PO SCH ×2 (11:08→21:16)
[2018-03-12] MEDS: LIDOCAINE 5% (700 MG) TRANSDERMAL ADH..PATCH TP SCH (11:09)
[2018-03-12] MEDS: DILTIAZEM HCL 180 MG CAPSULE.CR PO SCH (11:09)
[2018-03-12] MEDS: ENOXAPARIN SODIUM INJ 40 MG/0.4 ML DISP.SYRIN SUBCUT SCH (11:09)
--- NOTE | 2018-03-12 13:48 | PDOC PROGRESS REPORT ---
Subjective Progress Note for:: 03/12/18 Subjective:: The patient is a 68-year-old female with a past medical history of atrial fibrillation, hyperlipidemia, hypertension, asthma, COPD, sleep apnea, GERD, hiatal hernia, arthritis, depression who was admitted 02/27/18 for a rectosigmoid colon inflammation and kyung-colonic abscess resulting in perforated bowel; now postop day 5 laparotomy and colostomy. Mrs Brian is again in good spirits today. She has now had her's final ALLISON drain removed. After discussion with her , they have agreed for her to go to [facility] on discharge. Tentatively plan for discharge on Wednesday. She continues to tolerate oral food. She continues to have ostomy output. Yesterday she walked around the unit x1. She also reports using incentive spirometer every hour as instructed. She denies signs or symptoms of infection. Denies fever, chills, chest pain, shortness of breath. No concerns reported by nursing. Reason For Visit: ABSCESS OF SIGMOID COLON DUE TO DIVERTICULITIS/ Physical Exam Vital Signs: Temp Pulse Resp BP Pulse Ox 99.4 F 95 18 109/57 L 96 03/12/18 11:57 03/12/18 11:57 03/12/18 11:57 03/12/18 11:57 03/12/18 11:57 Intake & Output 03/11/18 03/12/18 03/13/18 06:59 06:59 06:59 Intake Total 1700 360 150 Output Total 630 850 Balance 1070 -490 150 Weight 70 kg 64.7 kg General appearance: PRESENT: no acute distress Head exam: PRESENT: atraumatic, normocephalic Eye exam: PRESENT: conjunctiva pink, EOMI, PERRLA. ABSENT: scleral icterus Ear exam: PRESENT: normal external ear exam Mouth exam: PRESENT: moist, tongue midline Respiratory exam: PRESENT: clear to auscultation keren. ABSENT: rales, rhonchi, wheezes Cardiovascular exam: PRESENT: RRR, +S1, +S2 Pulses: PRESENT: normal carotid pulses, normal radial pulses Vascular exam: PRESENT: normal capillary refill GI/Abdominal exam: PRESENT: normal bowel sounds, soft, other - Ostomy bag. ABSENT: distended, guarding, mass, organolmegaly, rebound, tenderness Rectal exam: PRESENT: deferred Neurological exam: PRESENT: alert, awake, oriented to person, oriented to place, oriented to time, oriented to situation, CN II-XII grossly intact. ABSENT: motor sensory deficit Psychiatric exam: PRESENT: normal mood Results Laboratory Results: 03/12/18 08:51 03/12/18 08:51 03/12/18 03/12/18 08:51 08:51 WBC 9.8 RBC 3.12 L Hgb 9.2 L Hct 26.9 L MCV 86 MCH 29.6 MCHC 34.3 RDW 15.1 H Plt Count 551 H Seg Neutrophils % 69.2 Lymphocytes % 15.5 Monocytes % 13.2 H Eosinophils % 1.8 Basophils % 0.3 Absolute Neutrophils 6.8 Absolute Lymphocytes 1.5 Absolute Monocytes 1.3 Absolute Eosinophils 0.2 Absolute Basophils 0.0 Sodium 136.0 L Potassium 4.6 Chloride 100 Carbon Dioxide 29 Anion Gap 7 BUN 12 Creatinine 0.74 Est GFR ( Amer) > 60 Est GFR (Non-Af Amer) > 60 Glucose 83 Calcium 8.7 Total Bilirubin 0.4 AST 44 H ALT 45 Alkaline Phosphatase 110 Total Protein 5.4 L Albumin 2.6 L Impressions: Abdomen/Pelvis CT 03/01/18 09:07 IMPRESSION: Extravasation of rectal contrast from the distal descending colon, with tracking of contrast into the right pericolic gutter and right subphrenic space. Small amount of free intraperitoneal air. Chest X-Ray 03/04/18 06:00 IMPRESSION: Minimal bibasilar atelectasis KUB X-Ray 03/07/18 06:00 IMPRESSION: Small bowel obstruction versus ileus. Assessment & Plan - Diagnosis (2) Chronic back pain Qualifiers: Back pain location: low back pain Is this a current diagnosis for this admission?: Yes (3) Colon perforation Is this a current diagnosis for this admission?: Yes (4) Constipation Qualifiers: Constipation type: drug induced constipation Qualified Code(s): K59.03 - Drug induced constipation Is this a current diagnosis for this admission?: Yes (5) Hypokalemia Is this a current diagnosis for this admission?: Yes (6) Hypomagnesemia Is this a current diagnosis for this admission?: Yes (7) Atrial fibrillation Qualifiers: Is this a current diagnosis for this admission?: Yes (8) Status post colectomy Is this a current diagnosis for this admission?: Yes - Time Time Spent with patient: 15-24 minutes Medications reviewed and adjusted accordingly: Yes - Inpatient Certification Based on my medical assessment, after consideration of the patient's comorbidities, presenting symptoms, or acuity I expect that the services needed warrant INPATIENT care.: Yes I certify that my determination is in accordance with my understanding of Medicare's requirements for reasonable and necessary INPATIENT services [42 CFR 412.3e].: Yes - Plan Summary Plan Summary: (1) Hypotension Is this a current diagnosis for this admission?: Yes Plan: -No recent issues. -Likely related to intraoperative Versed and analgesia. Less likely sepsis as the patient has a normal WBC and has remained afebrile. -Adrenal insufficiency ruled out; random cortisol level is appropriate at 43.6 (obtained at 5 AM). -Remains on Cardizem CD 180 mg daily with metoprolol 25 mg q12h for AFIB/BP control (2) Hypomagnesemia/Hypokalemia/HypoNa+/HypoCa+ Is this a current diagnosis for this admission?: Yes Plan: -Now on oral diet. Monitoring. (3) Tachycardia Is this a current diagnosis for this admission?: Yes Plan: -Resolved. Continue to monitor. (4) Chronic obstructive pulmonary disease (COPD) Qualifiers: COPD type: COPD with acute lower respiratory infection Qualified Code(s): J44.0 - Chronic obstructive pulmonary disease with acute lower respiratory infec tion Is this a current diagnosis for this admission?: Yes Plan: -currently stable and without exacerbation at this time. monitoring -continue scheduled and as needed nebulizer treatments as well as home dose combivent. -Aggressive pulmonary toilet; incentive spirometer every hour while awake, flutter valve, out of bed daily. (5) Perforated bowel. (secondary to anastomotic leak and abscess formation s/p colonic re-section due to diverticulitis) Is this a current diagnosis for this admission?: Yes Plan: -s/p colostomy -Blood cultures are negative at 5 days. -Peritoneal fluid grew multiple gram-negative organisms; E. coli, Klebsiella, Enterobacter cloaca, Pseudomonas aeruginosa. -Primary management per surgery; wound care per their recommendations -Antibiotics per surgery; completed course of Unasyn, Cipro, Flagyl. -Discharge planning involved (6) Opiate dependence, continuous Is this a current diagnosis for this admission?: Yes Plan: -The patient has a history of chronic back pain; utilizes Percocet 10/325 every 8 hours as needed for pain @ home. -IV morphine 2 mg frequency lowered to every 3 hours as needed for breakthrough pain. -Lidoderm patches. (7) Chronic back pain Qualifiers: Back pain location: low back pain Is this a current diagnosis for this admission?: Yes Plan: -c/w Management as above. (8) AFib -Continues to have no issues reported. monitoring -Cardizem CD 180 mg daily with metoprolol 5 mg IV prn Disposition: After discussion with family, patient plans to attend pulmonary rehab on discharge. They do not feel they would be able to adequately manage her ostomy bag and other chronic medical illnesses at this time.
[2018-03-13] MEDS: OXYCODONE-ACETAMINOPHEN 5-325 MG TABLET PO PRN ×4 (00:42→20:30)
[2018-03-13] MEDS: IPRATROPIUM/ALBUTEROL 120 PUFF/4 GM MDI IH SCH ×4 (00:43→17:21)
[2018-03-13 06:46] LABS: ABSOLUTE EOSINOPHILS # (AUTO) 0.1 10^3/uL (0.0-0.6); ABSOLUTE LYMPHOCYTES (AUTO) 1.5 10^3/uL (0.5-4.7); ABSOLUTE MONOCYTES (AUTO) 1.1 10^3/uL (0.1-1.4); ABSOLUTE NEUT (AUTO) 5.5 10^3/uL (1.7-8.2); BASOPHILS % (AUTO) 0.4 % (0-2); EOSINOPHILS % (AUTO) 1.8 % (0-6); HEMATOCRIT 25.7 % (36.0-47.0); HEMOGLOBIN 8.6 g/dL (12.0-15.5); LYMPHOCYTES % (AUTO) 17.8 % (13-45); MEAN CORPUSCULAR HEMOGLOBIN 29.1 pg (27.0-33.4); MEAN CORPUSCULAR HGB CONC 33.4 g/dL (32.0-36.0); MEAN CORPUSCULAR VOLUME 87 fl (80-97); MONOCYTES % (AUTO) 13.7 % (3-13); PLATELET COUNT 593 10^3/uL (150-450); RED BLOOD COUNT 2.95 10^6/uL (3.72-5.28); RED CELL DISTRIBUTION WIDTH 15.7 % (11.5-14.0); SEGMENTED NEUTROPHILS % (AUTO) 66.3 % (42-78); TOTAL CELLS COUNTED % (AUTO) 100 %; WHITE BLOOD COUNT 8.4 10^3/uL (4.0-10.5)
[2018-03-13 07:10] LABS: ALANINE AMINOTRANSFERASE 36 U/L (9-52); ALBUMIN 2.7 g/dL (3.5-5.0); ALKALINE PHOSPHATASE 105 U/L (38-126); ANION GAP 7 (5-19); ASPARTATE AMINO TRANSFERASE 33 U/L (14-36); BILIRUBIN,DIRECT 0.3 mg/dL (0.0-0.4); BILIRUBIN,TOTAL 0.3 mg/dL (0.2-1.3); BLOOD UREA NITROGEN 17 mg/dL (7-20); CALCIUM 8.6 mg/dL (8.4-10.2); CARBON DIOXIDE 28 mmol/L (22-30); CHLORIDE 101 mmol/L (98-107); GLUCOSE 89 mg/dL (75-110); POTASSIUM 4.4 mmol/L (3.6-5.0); SODIUM 135.7 mmol/L (137-145); TOTAL PROTEIN 5.6 g/dL (6.3-8.2)
[2018-03-13] MEDS: DILTIAZEM HCL 180 MG CAPSULE.CR PO SCH (10:55)
[2018-03-13] MEDS: METOPROLOL TARTRATE 25 MG TABLET PO SCH ×2 (10:55→21:46)
[2018-03-13] MEDS: ENOXAPARIN SODIUM INJ 40 MG/0.4 ML DISP.SYRIN SUBCUT SCH (10:55)
[2018-03-13] MEDS: LIDOCAINE 5% (700 MG) TRANSDERMAL ADH..PATCH TP SCH (10:56)
--- NOTE | 2018-03-13 14:19 | PDOC PROGRESS REPORT ---
Subjective Progress Note for:: 03/13/18 Subjective:: no abdominal pains Tolerating diet well Reason For Visit: ABSCESS OF SIGMOID COLON DUE TO DIVERTICULITIS/ Physical Exam Vital Signs: Temp Pulse Resp BP Pulse Ox 98.7 F 92 18 108/62 97 03/13/18 12:08 03/13/18 12:08 03/13/18 12:08 03/13/18 12:08 03/13/18 12:08 Intake & Output 03/12/18 03/13/18 03/14/18 06:59 06:59 06:59 Intake Total 360 450 200 Output Total 850 450 100 Balance -490 0 100 Weight 64.7 kg 63.6 kg Exam: abdomen is soft and non tender. Colostomy functioning well. Incision healing well with some raw areas. No infection Results Laboratory Results: 03/13/18 06:34 03/13/18 06:34 03/13/18 03/13/18 06:34 06:34 WBC 8.4 RBC 2.95 L Hgb 8.6 L Hct 25.7 L MCV 87 MCH 29.1 MCHC 33.4 RDW 15.7 H Plt Count 593 H Seg Neutrophils % 66.3 Lymphocytes % 17.8 Monocytes % 13.7 H Eosinophils % 1.8 Basophils % 0.4 Absolute Neutrophils 5.5 Absolute Lymphocytes 1.5 Absolute Monocytes 1.1 Absolute Eosinophils 0.1 Absolute Basophils 0.0 Sodium 135.7 L Potassium 4.4 Chloride 101 Carbon Dioxide 28 Anion Gap 7 BUN 17 Creatinine 0.73 Est GFR ( Amer) > 60 Est GFR (Non-Af Amer) > 60 Glucose 89 Calcium 8.6 Magnesium 1.9 Total Bilirubin 0.3 AST 33 ALT 36 Alkaline Phosphatase 105 Total Protein 5.6 L Albumin 2.7 L Impressions: Abdomen/Pelvis CT 03/01/18 09:07 IMPRESSION: Extravasation of rectal contrast from the distal descending colon, with tracking of contrast into the right pericolic gutter and right subphrenic space. Small amount of free intraperitoneal air. Chest X-Ray 03/04/18 06:00 IMPRESSION: Minimal bibasilar atelectasis KUB X-Ray 03/07/18 06:00 IMPRESSION: Small bowel obstruction versus ileus. Assessment & Plan - Time Time Spent with patient: 15-24 minutes - Plan Summary Plan Summary: Arrngements being made for transfer to [facility] tomorrow for rehab and [facility] care
[2018-03-13] MEDS ORDERED: NORMAL SALINE 500 ML IV PRN (16:13)
--- NOTE | 2018-03-13 16:15 | PDOC PROGRESS REPORT ---
Subjective Progress Note for:: 03/13/18 Subjective:: The patient is a 68-year-old female with a past medical history of atrial fibrillation, hyperlipidemia, hypertension, asthma, COPD, sleep apnea, GERD, hiatal hernia, arthritis, depression who was admitted 02/27/18 for a rectosigmoid colon inflammation and kyung-colonic abscess resulting in perforated bowel; now postop day 5 laparotomy and colostomy. Mrs Brian is again in good spirits today. She has now had her's final ALLISON drain removed. After discussion with her , they have agreed for her to go to [facility] on discharge. Tentatively plan for discharge on Wednesday. She continues to tolerate oral food. She continues to have ostomy output. Yesterday she walked around the unit x1. She also reports using incentive spirometer every hour as instructed. She denies signs or symptoms of infection. Denies fever, chills, chest pain, shortness of breath. No concerns reported by nursing. Reason For Visit: ABSCESS OF SIGMOID COLON DUE TO DIVERTICULITIS/ Physical Exam Vital Signs: Temp Pulse Resp BP Pulse Ox 99.0 F 93 20 118/52 L 95 03/13/18 03:52 03/13/18 03:52 03/13/18 03:52 03/13/18 03:52 03/13/18 03:52 Intake & Output 03/12/18 03/13/18 03/14/18 06:59 06:59 06:59 Intake Total 360 450 Output Total 850 450 Balance -490 0 Weight 64.7 kg 63.6 kg General appearance: PRESENT: no acute distress, cooperative Head exam: PRESENT: atraumatic, normocephalic Eye exam: PRESENT: conjunctiva pink, EOMI, PERRLA. ABSENT: scleral icterus Ear exam: PRESENT: normal external ear exam Mouth exam: PRESENT: dry mucosa, tongue midline Respiratory exam: PRESENT: clear to auscultation keren. ABSENT: rales, rhonchi, wheezes Cardiovascular exam: PRESENT: RRR, +S1, +S2 Pulses: PRESENT: normal dorsalis pedis pul GI/Abdominal exam: PRESENT: normal bowel sounds, soft, other - Ostomy bag. ABSENT: distended, guarding, mass, organolmegaly, rebound, tenderness Rectal exam: PRESENT: deferred Extremities exam: PRESENT: other - Bilateral lower extremities no edema. Musculoskeletal exam: PRESENT: full ROM, normal inspection Neurological exam: PRESENT: alert, awake, oriented to person, oriented to place, oriented to time, oriented to situation, CN II-XII grossly intact. ABSENT: motor sensory deficit Psychiatric exam: PRESENT: normal mood Results Laboratory Results: 03/13/18 06:34 03/13/18 06:34 03/12/18 03/12/18 03/13/18 08:51 08:51 06:34 WBC 9.8 8.4 RBC 3.12 L 2.95 L Hgb 9.2 L 8.6 L Hct 26.9 L 25.7 L MCV 86 87 MCH 29.6 29.1 MCHC 34.3 33.4 RDW 15.1 H 15.7 H Plt Count 551 H 593 H Seg Neutrophils % 69.2 66.3 Lymphocytes % 15.5 17.8 Monocytes % 13.2 H 13.7 H Eosinophils % 1.8 1.8 Basophils % 0.3 0.4 Absolute Neutrophils 6.8 5.5 Absolute Lymphocytes 1.5 1.5 Absolute Monocytes 1.3 1.1 Absolute Eosinophils 0.2 0.1 Absolute Basophils 0.0 0.0 Sodium 136.0 L Potassium 4.6 Chloride 100 Carbon Dioxide 29 Anion Gap 7 BUN 12 Creatinine 0.74 Est GFR ( Amer) > 60 Est GFR (Non-Af Amer) > 60 Glucose 83 Calcium 8.7 Magnesium Total Bilirubin 0.4 AST 44 H ALT 45 Alkaline Phosphatase 110 Total Protein 5.4 L Albumin 2.6 L 03/13/18 06:34 WBC RBC Hgb Hct MCV MCH MCHC RDW Plt Count Seg Neutrophils % Lymphocytes % Monocytes % Eosinophils % Basophils % Absolute Neutrophils Absolute Lymphocytes Absolute Monocytes Absolute Eosinophils Absolute Basophils Sodium 135.7 L Potassium 4.4 Chloride 101 Carbon Dioxide 28 Anion Gap 7 BUN 17 Creatinine 0.73 Est GFR ( Amer) > 60 Est GFR (Non-Af Amer) > 60 Glucose 89 Calcium 8.6 Magnesium 1.9 Total Bilirubin 0.3 AST 33 ALT 36 Alkaline Phosphatase 105 Total Protein 5.6 L Albumin 2.7 L Impressions: Abdomen/Pelvis CT 03/01/18 09:07 IMPRESSION: Extravasation of rectal contrast from the distal descending colon, with tracking of contrast into the right pericolic gutter and right subphrenic space. Small amount of free intraperitoneal air. Chest X-Ray 03/04/18 06:00 IMPRESSION: Minimal bibasilar atelectasis KUB X-Ray 03/07/18 06:00 IMPRESSION: Small bowel obstruction versus ileus. Assessment & Plan - Diagnosis (2) Chronic back pain Qualifiers: Back pain location: low back pain Is this a current diagnosis for this admission?: Yes (3) Colon perforation Is this a current diagnosis for this admission?: Yes (4) Constipation Qualifiers: Constipation type: drug induced constipation Qualified Code(s): K59.03 - Drug induced constipation Is this a current diagnosis for this admission?: Yes (5) Hypokalemia Is this a current diagnosis for this admission?: Yes (6) Hypomagnesemia Is this a current diagnosis for this admission?: Yes (7) Atrial fibrillation Qualifiers: Is this a current diagnosis for this admission?: Yes (8) Status post colectomy Is this a current diagnosis for this admission?: Yes - Time Time Spent with patient: 25-34 minutes Smoking Cessation Education: 3 to 10 minutes Medications reviewed and adjusted accordingly: Yes - Inpatient Certification Based on my medical assessment, after consideration of the patient's comorbidities, presenting symptoms, or acuity I expect that the services needed warrant INPATIENT care.: Yes I certify that my determination is in accordance with my understanding of Medicare's requirements for reasonable and necessary INPATIENT services [42 CFR 412.3e].: Yes - Plan Summary Plan Summary: (1) Hypotension Is this a current diagnosis for this admission?: Yes Plan: -No recent issues. -Likely related to intraoperative Versed and analgesia. Less likely sepsis as the patient has a normal WBC and has remained afebrile. -Adrenal insufficiency ruled out; random cortisol level is appropriate at 43.6 (obtained at 5 AM). -Remains on Cardizem CD 180 mg daily with metoprolol 25 mg q12h for AFIB/BP control (2) Hypomagnesemia/Hypokalemia/HypoNa+/HypoCa+ Is this a current diagnosis for this admission?: Yes Plan: -Outside a normal range when on TPN. Now on oral diet. Monitoring. (3) Tachycardia Is this a current diagnosis for this admission?: Yes Plan: -Resolved. Continue to monitor. (4) Chronic obstructive pulmonary disease (COPD) Qualifiers: COPD type: COPD with acute lower respiratory infection Qualified Code(s): J44.0 - Chronic obstructive pulmonary disease with acute lower respiratory infection Is this a current diagnosis for this admission?: Yes Plan: -currently stable and without exacerbation at this time. monitoring -continue scheduled and as needed nebulizer treatments as well as home dose combivent. -Aggressive pulmonary toilet; incentive spirometer every hour while awake, flutter valve, out of bed daily. (5) Perforated bowel. (secondary to anastomotic leak and abscess formation s/p colonic re-section due to diverticulitis) Is this a current diagnosis for this admission?: Yes Plan: -s/p colostomy -Blood cultures are negative at 5 days. -Peritoneal fluid grew multiple gram-negative organisms; E. coli, Klebsiella, Enterobacter cloaca, Pseudomonas aeruginosa. -Primary management per surgery; wound care per their recommendations -Antibiotics per surgery; completed course of Unasyn, Cipro, Flagyl. -Discharge planning involved (6) Opiate dependence, continuous Is this a current diagnosis for this admission?: Yes Plan: -The patient has a history of chronic back pain; utilizes Percocet 10/325 every 8 hours as needed for pain @ home. -IV morphine 2 mg frequency lowered to every 3 hours as needed for breakthrough pain. -Lidoderm patches. (7) Chronic back pain Qualifiers: Back pain location: low back pain Is this a current diagnosis for this admission?: Yes Plan: -c/w Management as above. (8) AFib -Continues to have no issues reported. monitoring -Cardizem CD 180 mg daily with metoprolol 5 mg IV prn (9) dehydration -Likely cause of thrombocytosis. Encourage p.o. hydration. Give 1/2 L of normal saline x1. Disposition: Plan is to [facility] the patient Wednesday [facility].
[2018-03-14] MEDS: IPRATROPIUM/ALBUTEROL 120 PUFF/4 GM MDI IH SCH ×4 (00:50→17:23)
[2018-03-14] MEDS: OXYCODONE-ACETAMINOPHEN 5-325 MG TABLET PO PRN ×4 (04:08→22:22)
[2018-03-14] MEDS: ONDANSETRON HCL INJ/PF 4 MG/2 ML SDV IV PRN (04:08)
[2018-03-14 06:03] LABS: ABSOLUTE EOSINOPHILS # (AUTO) 0.2 10^3/uL (0.0-0.6); ABSOLUTE LYMPHOCYTES (AUTO) 1.3 10^3/uL (0.5-4.7); ABSOLUTE MONOCYTES (AUTO) 1.2 10^3/uL (0.1-1.4); ABSOLUTE NEUT (AUTO) 6.5 10^3/uL (1.7-8.2); BASOPHILS % (AUTO) 0.3 % (0-2); EOSINOPHILS % (AUTO) 1.6 % (0-6); HEMATOCRIT 27.5 % (36.0-47.0); HEMOGLOBIN 9.3 g/dL (12.0-15.5); LYMPHOCYTES % (AUTO) 14.5 % (13-45); MEAN CORPUSCULAR HEMOGLOBIN 29.4 pg (27.0-33.4); MEAN CORPUSCULAR HGB CONC 33.9 g/dL (32.0-36.0); MEAN CORPUSCULAR VOLUME 87 fl (80-97); MONOCYTES % (AUTO) 13.3 % (3-13); PLATELET COUNT 674 10^3/uL (150-450); RED BLOOD COUNT 3.16 10^6/uL (3.72-5.28); SEGMENTED NEUTROPHILS % (AUTO) 70.3 % (42-78); TOTAL CELLS COUNTED % (AUTO) 100 %; WHITE BLOOD COUNT 9.3 10^3/uL (4.0-10.5)
[2018-03-14 06:30] LABS: ALANINE AMINOTRANSFERASE 30 U/L (9-52); ALBUMIN 2.9 g/dL (3.5-5.0); ALKALINE PHOSPHATASE 102 U/L (38-126); ANION GAP 8 (5-19); ASPARTATE AMINO TRANSFERASE 31 U/L (14-36); BILIRUBIN,DIRECT 0.3 mg/dL (0.0-0.4); BILIRUBIN,TOTAL 0.4 mg/dL (0.2-1.3); BLOOD UREA NITROGEN 15 mg/dL (7-20); CALCIUM 8.7 mg/dL (8.4-10.2); CARBON DIOXIDE 28 mmol/L (22-30); CHLORIDE 102 mmol/L (98-107); GLUCOSE 86 mg/dL (75-110); PHOSPHORUS 4.6 mg/dL (2.5-4.5); POTASSIUM 4.6 mmol/L (3.6-5.0); SODIUM 137.5 mmol/L (137-145); TOTAL PROTEIN 6.1 g/dL (6.3-8.2)
[2018-03-14 06:37] LABS: PREALBUMIN 21.5 mg/dL (17.6-36.0)
--- NOTE | 2018-03-14 07:45 | TRANSFER SUMMARY E ---
Transfer Summary NAME: CHAKA PATEL : 1950 AGE: 68Y ADMITTED: 02/27/2018 TRANSFERRED: 03/14/2018 DISCHARGE: Discharged 03/14/2018 to [facility] for rehab. PROCEDURE DONE: 03/02/2018 Transverse colostomy and drainage of pelvis. SURGEON: Dr. Rylan Park. HOSPITAL COURSE: This is a 68-year-old female who first underwent sigmoid colectomy on 12/22/[address] Ralph. Patient did well postoperatively. However, on 02/27/2018 developed abdominal pains and then was admitted and a CT scan of the abdomen in the ED showed a sigmoid colon abscess around the area of the anastomosis. The patient was given IV antibiotics but did not improved and therefore patient was then taken to the OR on 03/02/2018 for exploratory laparotomy, transverse colostomy with drainage placement by Dr. Park. Postoperatively patient did relatively well. She was able to eat regular food on 03/13/2018. The colostomy has been functioning well. Incision has been healing fairly well. The lower incision, there is a small area of raw site but no evidence of abscess. Wet-to-dry dressings were used to dress the wound. Patient had also history of chronic back pains and takes Percocet 10/325 3 times a day and under the supervision of pain management. Patient was then discharged to [facility] on 03/14/2018 with a final diagnosis of: 1. SIGMOID COLOSTOMY ABSCESS SITE. 2. TRANSVERSE COLOSTOMY ON 03/02/2018. 3. HISTORY OF CHRONIC BACK PAINS, ON PERCOCET 3/325 3 TIMES A DAY UNDER PAIN MANAGEMENT SUPERVISION. 4. PATIENT ALSO HAS HISTORY OF CHRONIC SMOKING. DICTATING PHYSICIAN: LOUIE JEONG M.D. [id number] PHY#: [id number] ID: [id number] JOB#: [id number] ACCT: [id number] cc:LOUIE JEONG M.D. >
[2018-03-14] MEDS: ENOXAPARIN SODIUM INJ 40 MG/0.4 ML DISP.SYRIN SUBCUT SCH (10:13)
[2018-03-14] MEDS: DILTIAZEM HCL 180 MG CAPSULE.CR PO SCH (10:13)
[2018-03-14] MEDS: METOPROLOL TARTRATE 25 MG TABLET PO SCH ×2 (10:13→22:23)
[2018-03-14] MEDS: LIDOCAINE 5% (700 MG) TRANSDERMAL ADH..PATCH TP SCH (10:14)
[2018-03-14 15:34] LABS: INTERNATIONAL RATION (INR) 1.07; PROTHROMBIN TIME 14.4 SEC (11.4-15.4)
--- NOTE | 2018-03-14 18:12 | PDOC PROGRESS REPORT ---
Subjective Progress Note for:: 03/14/18 Subjective:: 03/14/2018-no acute events in the last 24 hours. The last 24 hours. He is afebrile. Temperature is 98.5. She was planned to go to the [facility] today. No complaints from the patient. Denies any fevers denies any chest pains or shortness of breath. Reason For Visit: ABSCESS OF SIGMOID COLON DUE TO DIVERTICULITIS/ Physical Exam Vital Signs: Temp Pulse Resp BP Pulse Ox 98.5 F 106 H 18 122/58 L 97 03/14/18 03:52 03/14/18 14:00 03/14/18 07:07 03/14/18 07:07 03/14/18 07:07 Intake & Output 03/13/18 03/14/18 03/15/18 06:59 06:59 06:59 Intake Total 450 1175 375 Output Total 450 350 100 Balance 0 825 275 Weight 63.6 kg 64.4 kg General appearance: PRESENT: no acute distress Head exam: PRESENT: atraumatic, normocephalic Eye exam: PRESENT: PERRLA Neck exam: ABSENT: carotid bruit, JVD, lymphadenopathy, thyromegaly Respiratory exam: PRESENT: clear to auscultation keren. ABSENT: rales, rhonchi, wheezes Cardiovascular exam: PRESENT: RRR. ABSENT: diastolic murmur, rubs, systolic murmur GI/Abdominal exam: PRESENT: normal bowel sounds, soft, other - Ostomy bag is present.. ABSENT: distended, guarding, mass, organolmegaly, rebound, tenderness Extremities exam: PRESENT: full ROM. ABSENT: calf tenderness, clubbing, pedal edema Neurological exam: PRESENT: alert, awake, oriented to person, oriented to place, oriented to time, oriented to situation, CN II-XII grossly intact. ABSENT: motor sensory deficit Psychiatric exam: PRESENT: appropriate affect, normal mood. ABSENT: homicidal ideation, suicidal ideation Results Laboratory Results: 03/14/18 05:49 03/14/18 05:49 03/14/18 03/14/18 05:49 05:49 WBC 9.3 RBC 3.16 L Hgb 9.3 L Hct 27.5 L MCV 87 MCH 29.4 MCHC 33.9 RDW 15.0 H Plt Count 674 H Seg Neutrophils % 70.3 Lymphocytes % 14.5 Monocytes % 13.3 H Eosinophils % 1.6 Basophils % 0.3 Absolute Neutrophils 6.5 Absolute Lymphocytes 1.3 Absolute Monocytes 1.2 Absolute Eosinophils 0.2 Absolute Basophils 0.0 Sodium 137.5 Potassium 4.6 Chloride 102 Carbon Dioxide 28 Anion Gap 8 BUN 15 Creatinine 0.74 Est GFR ( Amer) > 60 Est GFR (Non-Af Amer) > 60 Glucose 86 Calcium 8.7 Phosphorus 4.6 H Magnesium 2.0 Total Bilirubin 0.4 AST 31 ALT 30 Alkaline Phosphatase 102 Total Protein 6.1 L Albumin 2.9 L Prealbumin 21.5 Impressions: Abdomen/Pelvis CT 03/01/18 09:07 IMPRESSION: Extravasation of rectal contrast from the distal descending colon, with tracking of contrast into the right pericolic gutter and right subphrenic space. Small amount of free intraperitoneal air. Chest X-Ray 03/04/18 06:00 IMPRESSION: Minimal bibasilar atelectasis KUB X-Ray 03/07/18 06:00 IMPRESSION: Small bowel obstruction versus ileus. Assessment & Plan - Diagnosis (1) Perforated bowel Is this a current diagnosis for this admission?: Yes Plan: -s/p colostomy -Blood cultures are negative at 5 days. -Peritoneal fluid grew multiple gram-negative organisms; E. coli, Klebsiella, Enterobacter cloaca, Pseudomonas aeruginosa. -Primary management per surgery; wound care per their recommendations -Antibiotics per surgery; completed course of Unasyn, Cipro, Flagyl. -Discharge planning involved 03/14/2018-cultures are negative patient is off the antibiotics. Did the course of Unasyn, Cipro, Flagyl. Waiting for placement. (2) COPD (chronic obstructive pulmonary disease) Is this a current diagnosis for this admission?: Yes Plan: -currently stable and without exacerbation at this time. monitoring -continue scheduled and as needed nebulizer treatments as well as home dose combivent. -Aggressive pulmonary toilet; incentive spirometer every hour while awake, flutter valve, out of bed daily. 03/14/2018-patient denies any problems shortness of breath. Plan is to continue the present management. (3) Hypotension Is this a current diagnosis for this admission?: Yes Plan: 03/14/2018 blood pressure today is 122/58. Patient is asymptomatic.- She is on Cardizem CD 180 mg p.o. daily and metoprolol 25 mg every 12 hours. -Likely related to intraoperative Versed and analgesia. Less likely sepsis as the patient has a normal WBC and has remained afebrile. -Adrenal insufficiency ruled out; random cortisol level is appropriate at 43.6 (obtained at 5 AM). -Remains on Cardizem CD 180 mg daily with metoprolol 25 mg q12h for AFIB/BP control (4) Atrial fibrillation Qualifiers: Is this a current diagnosis for this admission?: Yes Plan: -Continues to have no issues reported. monitoring -Cardizem CD 180 mg daily with metoprolol 5 mg IV prn 03/14/2018-patient is on Cardizem CD 180 mg p.o. daily, Toprol 25 mg every 12 hours, and metoprolol 5 mg IV as needed. He is to continue the present management. - Time Time Spent with patient: 15-24 minutes Medications reviewed and adjusted accordingly: Yes Anticipated discharge: SNF
[2018-03-15] MEDS: IPRATROPIUM/ALBUTEROL 120 PUFF/4 GM MDI IH SCH ×4 (00:06→21:45)
[2018-03-15] MEDS: MORPHINE SULFATE 10 MG/ML INJ IV PRN (03:43)
[2018-03-15] MEDS: OXYCODONE-ACETAMINOPHEN 5-325 MG TABLET PO PRN ×3 (05:52→18:01)
[2018-03-15 06:10] LABS: ABSOLUTE BASOPHILS # (AUTO) 0.1 10^3/uL (0.0-0.2); ABSOLUTE EOSINOPHILS # (AUTO) 0.2 10^3/uL (0.0-0.6); ABSOLUTE LYMPHOCYTES (AUTO) 1.7 10^3/uL (0.5-4.7); ABSOLUTE MONOCYTES (AUTO) 1.1 10^3/uL (0.1-1.4); ABSOLUTE NEUT (AUTO) 4.3 10^3/uL (1.7-8.2); BASOPHILS % (AUTO) 0.7 % (0-2); EOSINOPHILS % (AUTO) 2.3 % (0-6); HEMATOCRIT 25.2 % (36.0-47.0); HEMOGLOBIN 8.4 g/dL (12.0-15.5); MEAN CORPUSCULAR HEMOGLOBIN 29.1 pg (27.0-33.4); MEAN CORPUSCULAR HGB CONC 33.3 g/dL (32.0-36.0); MEAN CORPUSCULAR VOLUME 87 fl (80-97); MONOCYTES % (AUTO) 14.9 % (3-13); PLATELET COUNT 594 10^3/uL (150-450); RED BLOOD COUNT 2.88 10^6/uL (3.72-5.28); RED CELL DISTRIBUTION WIDTH 15.5 % (11.5-14.0); SEGMENTED NEUTROPHILS % (AUTO) 59.1 % (42-78); TOTAL CELLS COUNTED % (AUTO) 100 %; WHITE BLOOD COUNT 7.3 10^3/uL (4.0-10.5)
[2018-03-15 06:24] LABS: ALANINE AMINOTRANSFERASE 33 U/L (9-52); ALBUMIN 2.8 g/dL (3.5-5.0); ALKALINE PHOSPHATASE 93 U/L (38-126); ANION GAP 5 (5-19); ASPARTATE AMINO TRANSFERASE 28 U/L (14-36); BILIRUBIN,DIRECT 0.2 mg/dL (0.0-0.4); BILIRUBIN,TOTAL 0.2 mg/dL (0.2-1.3); BLOOD UREA NITROGEN 17 mg/dL (7-20); CALCIUM 8.4 mg/dL (8.4-10.2); CARBON DIOXIDE 29 mmol/L (22-30); CHLORIDE 103 mmol/L (98-107); GLUCOSE 92 mg/dL (75-110); SODIUM 137.1 mmol/L (137-145); TOTAL PROTEIN 5.7 g/dL (6.3-8.2)
[2018-03-15] MEDS: LIDOCAINE 5% (700 MG) TRANSDERMAL ADH..PATCH TP SCH (10:17)
[2018-03-15] MEDS: METOPROLOL TARTRATE 25 MG TABLET PO SCH ×2 (10:19→21:46)
[2018-03-15] MEDS: DILTIAZEM HCL 180 MG CAPSULE.CR PO SCH (10:19)
[2018-03-15] MEDS: ENOXAPARIN SODIUM INJ 40 MG/0.4 ML DISP.SYRIN SUBCUT SCH (10:20)
--- NOTE | 2018-03-15 11:13 | PDOC PROGRESS REPORT ---
Subjective Subjective:: No complaints; getting up with walker; still unsteady; wearing adult diaper; transfer to residential facility delayed due to insurance issues Reason For Visit: ABSCESS OF SIGMOID COLON DUE TO DIVERTICULITIS/ Physical Exam Vital Signs: Temp Pulse Resp BP Pulse Ox 98.4 F 75 16 122/43 L 99 03/15/18 07:29 03/15/18 07:29 03/15/18 07:29 03/15/18 07:29 03/15/18 07:29 Intake & Output 03/14/18 03/15/18 03/16/18 06:59 06:59 06:59 Intake Total 1175 1362 Output Total 350 200 Balance 825 1162 Weight 64.4 kg 61.7 kg General appearance: PRESENT: no acute distress Neck exam: PRESENT: other - Central line in place GI/Abdominal exam: PRESENT: other - Midline dressing with minimal drainage Results Laboratory Results: 03/15/18 05:45 03/15/18 05:45 03/15/18 03/15/18 05:45 05:45 WBC 7.3 RBC 2.88 L Hgb 8.4 L Hct 25.2 L MCV 87 MCH 29.1 MCHC 33.3 RDW 15.5 H Plt Count 594 H Seg Neutrophils % 59.1 Lymphocytes % 23.0 Monocytes % 14.9 H Eosinophils % 2.3 Basophils % 0.7 Absolute Neutrophils 4.3 Absolute Lymphocytes 1.7 Absolute Monocytes 1.1 Absolute Eosinophils 0.2 Absolute Basophils 0.1 Sodium 137.1 Potassium 4.0 Chloride 103 Carbon Dioxide 29 Anion Gap 5 BUN 17 Creatinine 0.66 Est GFR ( Amer) > 60 Est GFR (Non-Af Amer) > 60 Glucose 92 Calcium 8.4 Total Bilirubin 0.2 AST 28 ALT 33 Alkaline Phosphatase 93 Total Protein 5.7 L Albumin 2.8 L Impressions: Abdomen/Pelvis CT 03/01/18 09:07 IMPRESSION: Extravasation of rectal contrast from the distal descending colon, with tracking of contrast into the right pericolic gutter and right subphrenic space. Small amount of free intraperitoneal air. Chest X-Ray 03/04/18 06:00 IMPRESSION: Minimal bibasilar atelectasis KUB X-Ray 03/07/18 06:00 IMPRESSION: Small bowel obstruction versus ileus. Assessment & Plan - Diagnosis (1) Abdominal pain Is this a current diagnosis for this admission?: Yes Plan: Impression: Patient nearly 2 weeks status post exploratory laparotomy, damage control: Drainage, colostomy, doing well, awaiting transfer to residential facility Recommendations: 1. Discontinue central line 2. Continue physical therapy, ambulation (2) Hypokalemia Is this a current diagnosis for this admission?: Yes (3) Smoker Is this a current diagnosis for this admission?: Yes (4) Atrial fibrillation Qualifiers: Is this a current diagnosis for this admission?: Yes
[2018-03-15] MEDS ORDERED: ONDANSETRON 4 MG TAB.RAPDIS PO PRN (12:12)
--- NOTE | 2018-03-15 14:17 | PDOC PROGRESS REPORT ---
Subjective Progress Note for:: 03/15/18 Subjective:: The patient is a 68-year-old female with a past medical history of atrial fibrillation, hyperlipidemia, hypertension, asthma, COPD, sleep apnea, GERD, hiatal hernia, arthritis, depression who was admitted 02/27/18 for a rectosigmoid colon inflammation and pericolonic abscess resulting in perforated bowel; now 2 weeks postop laparotomy and colostomy. The patient was seen on morning rounds, sitting up to the edge of the bed eating her breakfast, while on room air. The patient states that she is feeling well today; only intermittent, mild, abdominal discomfort and her chronic arthritic pain which is well controlled with her current pain medication regiment. HEENT patient reports good appetite without nausea or vomiting. She is optimistic about her discharge to SNF and expresses that she hopes to learn how to manage her colostomy so that she can be discharged home in the near future. She denies fever, chills, headache, chest pain, palpitations, orthopnea, dyspnea, cough, abdominal pain, nausea vomiting. She has no new questions or concerns today. No concerns per nursing. Reason For Visit: ABSCESS OF SIGMOID COLON DUE TO DIVERTICULITIS/ Physical Exam Vital Signs: Temp Pulse Resp BP Pulse Ox 98.9 F 84 16 104/46 L 96 03/15/18 12:00 03/15/18 12:00 03/15/18 12:00 03/15/18 12:00 03/15/18 12:00 Intake & Output 03/14/18 03/15/18 03/16/18 06:59 06:59 06:59 Intake Total 1175 1362 237 Output Total 350 200 Balance 825 1162 237 Weight 64.4 kg 61.7 kg General appearance: PRESENT: no acute distress, cooperative, well-developed, well-nourished - Overweight Head exam: PRESENT: atraumatic, normocephalic Eye exam: PRESENT: conjunctiva pink, EOMI, PERRLA. ABSENT: scleral icterus Ear exam: PRESENT: normal external ear exam Mouth exam: PRESENT: moist, tongue midline Neck exam: ABSENT: carotid bruit, JVD, lymphadenopathy, thyromegaly Respiratory exam: PRESENT: clear to auscultation keren, symmetrical, unlabored. ABSENT: rales, rhonchi, wheezes Cardiovascular exam: PRESENT: RRR, +S1, +S2. ABSENT: diastolic murmur, rubs, systolic murmur Vascular exam: PRESENT: normal capillary refill GI/Abdominal exam: PRESENT: normal bowel sounds, soft, tenderness, other - Midline abdominal dressing; colostomy. ABSENT: distended, guarding, mass, organolmegaly, rebound Rectal exam: PRESENT: deferred Extremities exam: PRESENT: full ROM. ABSENT: calf tenderness, clubbing, pedal edema Neurological exam: PRESENT: alert, awake, oriented to person, oriented to place, oriented to time, oriented to situation, CN II-XII grossly intact. ABSENT: motor sensory deficit Psychiatric exam: PRESENT: appropriate affect, normal mood. ABSENT: homicidal ideation, suicidal ideation Skin exam: PRESENT: dry, warm. ABSENT: cyanosis, rash Results Laboratory Results: 03/15/18 05:45 03/15/18 05:45 03/15/18 03/15/18 05:45 05:45 WBC 7.3 RBC 2.88 L Hgb 8.4 L Hct 25.2 L MCV 87 MCH 29.1 MCHC 33.3 RDW 15.5 H Plt Count 594 H Seg Neutrophils % 59.1 Lymphocytes % 23.0 Monocytes % 14.9 H Eosinophils % 2.3 Basophils % 0.7 Absolute Neutrophils 4.3 Absolute Lymphocytes 1.7 Absolute Monocytes 1.1 Absolute Eosinophils 0.2 Absolute Basophils 0.1 Sodium 137.1 Potassium 4.0 Chloride 103 Carbon Dioxide 29 Anion Gap 5 BUN 17 Creatinine 0.66 Est GFR ( Amer) > 60 Est GFR (Non-Af Amer) > 60 Glucose 92 Calcium 8.4 Total Bilirubin 0.2 AST 28 ALT 33 Alkaline Phosphatase 93 Total Protein 5.7 L Albumin 2.8 L Impressions: Abdomen/Pelvis CT 03/01/18 09:07 IMPRESSION: Extravasation of rectal contrast from the distal descending colon, with tracking of contrast into the right pericolic gutter and right subphrenic space. Small amount of free intraperitoneal air. Chest X-Ray 03/04/18 06:00 IMPRESSION: Minimal bibasilar atelectasis KUB X-Ray 03/07/18 06:00 IMPRESSION: Small bowel obstruction versus ileus. Assessment & Plan - Diagnosis (1) Hypotension Is this a current diagnosis for this admission?: Yes Plan: Resolved; now with acceptable blood pressures With scheduled diltiazem and metoprolol for blood pressure control. Likely related to intraoperative Versed and analgesia. Less likely sepsis as the patient has a normal WBC and has remained afebrile throughout her admission. Adrenal insufficiency is ruled out; random cortisol level is appropriate at 43.6 (obtained at 5 AM). Cardizem CD 180 mg daily with metoprolol 25 mg twice daily. (2) Hypomagnesemia Is this a current diagnosis for this admission?: Yes Plan: Replete. (3) Hypokalemia Is this a current diagnosis for this admission?: Yes Plan: Replete. (4) Chronic obstructive pulmonary disease (COPD) Qualifiers: COPD type: COPD with acute lower respiratory infection Qualified Code(s): J44.0 - Chronic obstructive pulmonary disease with acute lower respiratory infection Is this a current diagnosis for this admission?: Yes Plan: Stable and without exacerbation at this time. Patient denies dyspnea, orthopnea, or cough at present. Lung sounds are clear. Continue scheduled and as needed nebulizer treatments. Incentive spirometer, flutter valve, out of bed daily. (5) Perforated bowel Is this a current diagnosis for this admission?: Yes Plan: Status post exploratory laparotomy and colostomy. Blood cultures are negative at 5 days. Peritoneal fluid growing multiple gram-negative organisms; E. coli, Klebsiella, Enterobacter cloaca, Pseudomonas aeruginosa. Primary management per surgery; will defer wound care to their expertise. The patient is completed a full course of Unasyn, Cipro, Flagyl. Discharge planning is consulted; awaiting insurance approval for discharge to [place]. (6) Opiate dependence, continuous Is this a current diagnosis for this admission?: Yes Plan: The patient has a history of chronic back pain; utilizes Percocet 10/325 every 8 hours as needed for pain. The patient's home medication regimen is continued. (7) Chronic back pain Qualifiers: Back pain location: low back pain Is this a current diagnosis for this admission?: Yes Plan: The patient endorses chronic back pain; managed with oxycodone 10/325 every 8 hours as an outpatient. Lidoderm patches. Management as above. (8) Atrial fibrillation Qualifiers: Is this a current diagnosis for this admission?: Yes Plan: Rate controlled; continue Cardizem CD 180 mg p.o. daily, Toprol 25 mg every 12 hours - Time Time Spent with patient: Less than 15 minutes Medications reviewed and adjusted accordingly: Yes Anticipated discharge: SNF Within: Other - Pending insurance approval. - Plan Summary Plan Summary: The patient is [facility] pending long-term insurance approval. Reference transfer summary by Dr. Roland 03/14/2018. The patient is stable and medically cleared for discharge at the discretion of the Surgicalist. Will sign off; please re-consult if the medicine team can be of any further assistance.
[2018-03-16] MEDS: OXYCODONE-ACETAMINOPHEN 5-325 MG TABLET PO PRN ×3 (03:22→15:30)
--- NOTE | 2018-03-16 10:35 | PDOC PROGRESS REPORT ---
Subjective Progress Note for:: 03/16/18 Reason For Visit: ABSCESS OF SIGMOID COLON DUE TO DIVERTICULITIS/ Physical Exam Vital Signs: Temp Pulse Resp BP Pulse Ox 98.7 F 84 12 125/58 L 97 03/16/18 07:19 03/16/18 07:19 03/16/18 07:19 03/16/18 07:19 03/16/18 07:19 Intake & Output 03/15/18 03/16/18 03/17/18 06:59 06:59 06:59 Intake Total 1362 827 Output Total 200 150 Balance 1162 677 Weight 61.7 kg 62 kg Results Laboratory Results: 03/15/18 05:45 03/15/18 05:45 Impressions: Abdomen/Pelvis CT 03/01/18 09:07 IMPRESSION: Extravasation of rectal contrast from the distal descending colon, with tracking of contrast into the right pericolic gutter and right subphrenic space. Small amount of free intraperitoneal air. Chest X-Ray 03/04/18 06:00 IMPRESSION: Minimal bibasilar atelectasis KUB X-Ray 03/07/18 06:00 IMPRESSION: Small bowel obstruction versus ileus. Assessment & Plan - Diagnosis (2) Colon perforation Is this a current diagnosis for this admission?: Yes - Plan Summary Plan Summary: Patient seen today for surgical follow-up. Status post colectomy with a transverse loop colostomy. He has had return of bowel function and has been discharged to a [facility]pc facility. Without complaints this morning. Is tolerating a regular diet and her is her stoma is functioning normally. She has a red [place] catheter as a bridge for her colostomy She will be seen in the [facility] surgical clinic in a week removal of that catheter.
[2018-03-16] MEDS: METOPROLOL TARTRATE 25 MG TABLET PO SCH (12:08)
[2018-03-16] MEDS: DILTIAZEM HCL 180 MG CAPSULE.CR PO SCH (12:08)
[2018-03-16 12:10] LABS: ABSOLUTE EOSINOPHILS # (AUTO) 0.1 10^3/uL (0.0-0.6); ABSOLUTE LYMPHOCYTES (AUTO) 1.1 10^3/uL (0.5-4.7); ABSOLUTE MONOCYTES (AUTO) 1.1 10^3/uL (0.1-1.4); ABSOLUTE NEUT (AUTO) 5.4 10^3/uL (1.7-8.2); BASOPHILS % (AUTO) 0.6 % (0-2); EOSINOPHILS % (AUTO) 1.6 % (0-6); HEMATOCRIT 26.6 % (36.0-47.0); HEMOGLOBIN 8.8 g/dL (12.0-15.5); MEAN CORPUSCULAR HEMOGLOBIN 29.1 pg (27.0-33.4); MEAN CORPUSCULAR HGB CONC 33.2 g/dL (32.0-36.0); MEAN CORPUSCULAR VOLUME 88 fl (80-97); MONOCYTES % (AUTO) 13.8 % (3-13); PLATELET COUNT 609 10^3/uL (150-450); RED BLOOD COUNT 3.04 10^6/uL (3.72-5.28); RED CELL DISTRIBUTION WIDTH 15.4 % (11.5-14.0); TOTAL CELLS COUNTED % (AUTO) 100 %; WHITE BLOOD COUNT 7.8 10^3/uL (4.0-10.5)
[2018-03-16] MEDS: IPRATROPIUM/ALBUTEROL 120 PUFF/4 GM MDI IH SCH (12:10)
[2018-03-16] MEDS: ENOXAPARIN SODIUM INJ 40 MG/0.4 ML DISP.SYRIN SUBCUT SCH (12:11)
[2018-03-16 12:43] LABS: ALANINE AMINOTRANSFERASE 33 U/L (9-52); ALKALINE PHOSPHATASE 92 U/L (38-126); ANION GAP 7 (5-19); ASPARTATE AMINO TRANSFERASE 34 U/L (14-36); BILIRUBIN,DIRECT 0.3 mg/dL (0.0-0.4); BILIRUBIN,TOTAL 0.3 mg/dL (0.2-1.3); BLOOD UREA NITROGEN 16 mg/dL (7-20); CARBON DIOXIDE 29 mmol/L (22-30); CHLORIDE 103 mmol/L (98-107); GLUCOSE 102 mg/dL (75-110); POTASSIUM 4.1 mmol/L (3.6-5.0); SODIUM 138.6 mmol/L (137-145); TOTAL PROTEIN 6.2 g/dL (6.3-8.2)
[2018-03-16] MEDS: LIDOCAINE 5% (700 MG) TRANSDERMAL ADH..PATCH TP SCH (15:34)
[2018-03-16 15:35] VITALS: BP 115/52
--- NOTE | 2018-03-16 16:18 | PDOC TRANSFER SUMMARY ---
General Admission Date/PCP: 02/27/18 23:12 DASIA URBINA DO Resuscitation Status: Full Code - Transfer Diagnosis (2) Colon perforation Is this a current diagnosis for this admission?: Yes - Transfer Medications Home Medications: Atorvastatin Calcium [Lipitor 20 mg Tablet] 20 mg PO QHS 02/27/18 Metoprolol Tartrate [Lopressor 25 mg Tablet] 25 mg PO Q12 02/27/18 Pantoprazole Sodium 40 mg PO DAILY 02/27/18 Spironolactone 50 mg PO DAILY 02/27/18 Ipratropium/Albuterol Sulfate [Combivent Respimat 4 gm Mdi] 1 puff IH Q6 MDD 6 PUFFS 02/28/18 Transfer Medications: Current Medications Acetaminophen (Tylenol 325 Mg Tablet) 650 mg PO Q4HP PRN PRN Reason: FOR PAIN OR TEMP Stop: 04/05/18 12:16 Al Hydrox/Mg Hydrox/Simethicone (Maalox Plus Susp 30 Udcup) 30 ml PO Q6HP PRN PRN Reason: FOR HEARTBURN Stop: 04/05/18 10:42 Last Admin: 03/06/18 11:44 Dose: 30 ml Documented by: Albuterol/Ipratropium (Duoneb 3 Ml Ampul) 3 ml NEB RTQ6HP PRN PRN Reason: FOR WHEEZING Stop: 03/30/18 08:11 Albuterol/Ipratropium (Combivent Respimat 4 Gm Mdi) 1 puff IH Q12 JOANNA Stop: 04/14/18 09:59 Last Admin: 03/16/18 12:10 Dose: 1 inhaler Documented by: Dextrose (Dextrose Inj 50% Syringe (25 Gm/50 Ml)) 12.5 gm IV PRN PRN; Protocol PRN Reason: FOR BG 50-69 IN ALERT PATIENT Stop: 04/01/18 13:29 Dextrose (Dextrose Inj 50% Syringe (25 Gm/50 Ml)) 25 gm IV PRN PRN; Protocol PRN Reason: PER PROTOCOL Stop: 04/01/18 13:29 Diltiazem HCl (Cardizem Cd 180 Mg Capsule) 180 mg PO DAILY JOANNA Stop: 03/30/18 10:59 Last Admin: 03/16/18 12:08 Dose: 180 mg Documented by: Enoxaparin Sodium (Lovenox Inj 40 Mg/0.4 Ml Disp.Syrin) 40 mg SUBCUT DAILY [facility] Stop: 04/01/18 09:59 Last Admin: 03/16/18 12:11 Dose: 40 mg Documented by: Glucagon (Glucagen Inj 1 Mg Vial) 1 mg IM PRN PRN; Protocol PRN Reason: EVALUATE FOR BG < 70 Stop: 04/01/18 13:29 Glucose (Glutose 40% Gel 15 Gm Tube) 15 gm PO PRN PRN; Protocol PRN Reason: FOR BG 50-69 IN ALERT PATIENT Stop: 04/01/18 13:29 Glucose (Glutose 40% Gel 15 Gm Tube) 30 gm PO PRN PRN; Protocol PRN Reason: FOR BG < 50 IN ALERT PATIENT Stop: 04/01/18 13:29 Heparin Sodium (Porcine) (Heparin Flush 10 Unit/Ml 5 Ml Disp.Syrg) 30 unit IV Q8 JOANNA Stop: 04/05/18 13:59 Last Admin: 03/16/18 15:32 Dose: Not Given Documented by: Heparin Sodium (Porcine) (Heparin Flush 10 Unit/Ml 5 Ml Disp.Syrg) 30 unit IV .AFTER EACH USE PRN PRN Reason: AFTER EACH INTERMITTENT USE Stop: 04/05/18 10:59 Last Admin: 03/10/18 06:42 Dose: 30 unit Documented by: Insulin Human Regular (Humulin R (Pyxis) Insulin 100 Unit/Ml 3ml) 0 - 12 unit SUBCUT Q6HP PRN; Protocol PRN Reason: PER PROTOCOL Stop: 04/01/18 13:29 Last Admin: 03/03/18 00:11 Dose: 4 unit Documented by: Lidocaine (Lidoderm 5% (700 Mg) Transdermal Patch) 1 patch TP DAILY [facility] Stop: 04/07/18 09:59 Last Admin: 03/16/18 15:34 Dose: 1 patch Documented by: Metoprolol Tartrate (Lopressor 25 Mg Tablet) 25 mg PO Q12 [facility] Stop: 04/09/18 21:59 Last Admin: 03/16/18 12:08 Dose: 25 mg Documented by: Ondansetron HCl (Zofran Odt 4 Mg Tablet) 8 mg PO Q6HP PRN PRN Reason: FOR NAUSEA/VOMITING Stop: 04/14/18 12:11 Oxycodone/Acetaminophen (Percocet 5-325 Mg Tablet) 2 tab PO Q6HP PRN PRN Reason: PAIN Stop: 03/17/18 12:56 Last Admin: 03/16/18 15:30 Dose: 2 tab Documented by: - Allergies Allergies/Adverse Reactions: nickel Allergy (Severe, Verified 02/27/18 17:14) RASH adhesive tape [Adhesive Tape] Allergy (Mild, Verified 02/27/18 17:14) RASH/BLISTER ketorolac [From Toradol] Allergy (Verified 02/28/18 09:57) Vomiting tramadol Allergy (Verified 02/28/18 09:57) Vomiting roflumilast Adverse Reaction (Unknown, Verified 02/27/18 17:14) N/V, diarrhea Hospital Course Hospital Course: Ms. Arabella Brian is being transferred today 03/16/2018 to [facility]. Fraught for her hospital course please refer to Dr. Patel's transfer summary initially dictated. Current discharge date is 03/16/2018. Physical Exam Vital Signs: Temp Pulse Resp BP Pulse Ox 98.9 F 83 16 115/52 L 96 03/16/18 15:34 03/16/18 15:34 03/16/18 15:34 03/16/18 15:34 03/16/18 15:34 Intake & Output 03/15/18 03/16/18 03/17/18 06:59 06:59 06:59 Intake Total 1362 827 237 Output Total 200 150 Balance 1162 677 237 Weight 61.7 kg 62 kg General appearance: PRESENT: no acute distress Head exam: PRESENT: atraumatic Eye exam: PRESENT: EOMI, PERRLA GI/Abdominal exam: PRESENT: soft - Emanation of her abdomen today shows it to be soft nontender the wound is clean healing well she has a colostomy left lower quadrant with a red rubber Arri[place] bridge that will be removed next week and or in the surgery clinic. Results Laboratory Results: 03/16/18 11:53 03/16/18 11:53 03/16/18 03/16/18 11:53 11:53 WBC 7.8 RBC 3.04 L Hgb 8.8 L Hct 26.6 L MCV 88 MCH 29.1 MCHC 33.2 RDW 15.4 H Plt Count 609 H Seg Neutrophils % 70.0 Lymphocytes % 14.0 Monocytes % 13.8 H Eosinophils % 1.6 Basophils % 0.6 Absolute Neutrophils 5.4 Absolute Lymphocytes 1.1 Absolute Monocytes 1.1 Absolute Eosinophils 0.1 Absolute Basophils 0.0 Sodium 138.6 Potassium 4.1 Chloride 103 Carbon Dioxide 29 Anion Gap 7 BUN 16 Creatinine 0.60 Est GFR ( Amer) > 60 Est GFR (Non-Af Amer) > 60 Glucose 102 Calcium 9.0 Total Bilirubin 0.3 AST 34 ALT 33 Alkaline Phosphatase 92 Total Protein 6.2 L Albumin 3.0 L Impressions: Abdomen/Pelvis CT 03/01/18 09:07 IMPRESSION: Extravasation of rectal contrast from the distal descending colon, with tracking of contrast into the right pericolic gutter and right subphrenic space. Small amount of free intraperitoneal air. Chest X-Ray 03/04/18 06:00 IMPRESSION: Minimal bibasilar atelectasis KUB X-Ray 03/07/18 06:00 IMPRESSION: Small bowel obstruction versus ileus. Plan Discharge Plan: Transfer discharge today to extended care facility she will follow-up in surgery clinic in a week for removal of the stoma bridge. Time Spent: Less than 30 Minutes
== END 2018-03-16 17:00 | DRG 329 ==
LOC: ER 15:12 → EH 23:12 → 4S 02-28 05:05 → ICU 03-01 19:34 → 3W 03-04 00:25
PROVIDERS: ADMIT Surgery; ATTEND Surgery
PROC: 0DN80ZZ Release Small Intestine, Open Approach (ICD-10-PCS; 2018-03-01)
PROC: 0W9G00Z Drainage of Peritoneal Cavity with Drainage Device, Open Approach (ICD-10-PCS; 2018-03-01)
PROC: 3E1M38Z Irrigation of Peritoneal Cavity using Irrigating Substance, Percutaneous Approach (ICD-10-PCS; 2018-03-01)
PROC: 0D1L0Z4 Bypass Transverse Colon to Cutaneous, Open Approach (ICD-10-PCS; principal; 2018-03-01 17:00)
PROC: 02HV33Z Insertion of Infusion Device into Superior Vena Cava, Percutaneous Approach (ICD-10-PCS; 2018-03-02)
PROC: 3E0436Z Introduction of Nutritional Substance into Central Vein, Percutaneous Approach (ICD-10-PCS; 2018-03-02)
DX: K91.89 Other postprocedural complications and disorders of digestive system (principal); K63.1 Perforation of intestine (nontraumatic); F11.20 Opioid dependence, uncomplicated; K63.0 Abscess of intestine; E87.1 Hypo-osmolality and hyponatremia; J44.0 Chronic obstructive pulmonary disease with (acute) lower respiratory infection; K56.7 Ileus, unspecified; K66.0 Peritoneal adhesions (postprocedural) (postinfection); I48.91 Unspecified atrial fibrillation; I10 Essential (primary) hypertension; J44.9 Chronic obstructive pulmonary disease, unspecified; G47.30 Sleep apnea, unspecified; K21.9 Gastro-esophageal reflux disease without esophagitis; K44.9 Diaphragmatic hernia without obstruction or gangrene; M19.90 Unspecified osteoarthritis, unspecified site; F32.9 Major depressive disorder, single episode, unspecified; F17.200 Nicotine dependence, unspecified, uncomplicated; E87.6 Hypokalemia; Y83.2 Surgical operation with anastomosis, bypass or graft as the cause of abnormal reaction of the patient, or of later complication, without mention of misadventure at the time of the procedure; K59.03 Drug induced constipation; E83.42 Hypomagnesemia; E86.0 Dehydration; I95.2 Hypotension due to drugs; T40.605A Adverse effect of unspecified narcotics, initial encounter; E88.09 Other disorders of plasma-protein metabolism, not elsewhere classified; B96.1 Klebsiella pneumoniae [K. pneumoniae] as the cause of diseases classified elsewhere; B96.89 Other specified bacterial agents as the cause of diseases classified elsewhere; B96.5 Pseudomonas (aeruginosa) (mallei) (pseudomallei) as the cause of diseases classified elsewhere; E83.51 Hypocalcemia; M54.5 Low back pain; G89.29 Other chronic pain; B96.20 Unspecified Escherichia coli [E. coli] as the cause of diseases classified elsewhere; Z90.49 Acquired absence of other specified parts of digestive tract; Z98.51 Tubal ligation status; Z88.8 Allergy status to other drugs, medicaments and biological substances
CPT/HCPCS: 00790; 36415; 71045; 74018; 74177; 80048; 80053; 81001; 82272; 82533; 82803; 82962; 83605; 83690; 83735; 84100; 84134; 84478; 85025; 85027; 85610; 85730; 87040; 87070; 87075; 87077; 87186; 87205; 93005; 93010; 94002; 94003; 94667; 94799; 96361; 96365; 96375; 99285; C1751; J0131; J0295; J0330; J0744; J1170; J1642; J1650; J1720; J1815; J1885; J2250; J2270; J2405; J2543; J2704; J3010; J3475; J3480; J3490; J7030; J7040; J7120; S0028; S0164

== ENCOUNTER → 2018-04-26 | Outpatient (CLI) | payer MEDICARE, MEDICAID ==
--- NOTE | 2018-04-26 15:45 | RADIOLOGY REPORT (SQ) ---
EXAM DESCRIPTION: BARIUM ENEMA COMPLETED DATE/TIME: 04/26/2018 12:16 pm REASON FOR STUDY: INTESTINAL PERFORATION K63.1 PERFORATION OF INTESTINE (NONTRAUMATIC) COMPARISON: None. FLUOROSCOPY TIME: 4.7 minutes 19 images saved to PACS. TECHNIQUE: Following retrograde filling of the colon with water-soluble contrast, fluoroscopic spot and overhead imaging of the colon was obtained and saved to PACS. LIMITATIONS: None. FINDINGS: RESIDENT SERVICES DIRECTOR KUB: Non obstructive bowel gas pattern. Abundant feces seen in the right colon. Co lostomy in the left upper quadrant. CECUM: Not assessed. ASCENDING COLON: Not assessed TRANSVERSE COLON: Not assessed. DESCENDING COLON: Nondilated descending colon visualized up to the level of the transverse colon colo stomy. A few scattered diverticuli are seen. SIGMOID COLON: Surgical changes noted. A few scattered diverticuli identified. No evidence for anas tomotic leak. RECTUM: No masses, strictures, or perforations. POST EVAC: Near complete evacuation of contrast. OTHER: Retrograde fill of contrast is seen in the ostomy bag. IMPRESSION: WATER-SOLUBLE CONTRAST ENEMA DEMONSTRATING PATENT LEFT COLON TO THE LEVEL OF THE COLOSTO MY. NO EVIDENCE FOR CONTRAST EXTRAVASATION. COMMENT: None Quality ID [id number]: Final reports for procedures using fluoroscopy that document radiation exposure oksana britt, or exposure time and number of fluorographic images (if radiation exposure indices are not avail able) TECHNICAL DOCUMENTATION: JOB ID: [id number] [employer]- All Rights Reserved Reading location - IP/workstation name: [email or web address]
== END ==
LOC: RAD 09:39
PROVIDERS: ATTEND Surgery
DX: K63.1 Perforation of intestine (nontraumatic) (principal)
CPT/HCPCS: 74270

== ENCOUNTER 2018-06-17 08:08 | Inpatient (IN) | payer MEDICARE, MEDICAID ==
[2018-06-10 11:00] LABS: HEMATOCRIT 36.7 % (36.0-47.0); HEMOGLOBIN 12.6 g/dL (12.0-15.5); MEAN CORPUSCULAR HEMOGLOBIN 29.7 pg (27.0-33.4); MEAN CORPUSCULAR HGB CONC 34.3 g/dL (32.0-36.0); MEAN CORPUSCULAR VOLUME 87 fl (80-97); PLATELET COUNT 223 10^3/uL (150-450); RED BLOOD COUNT 4.24 10^6/uL (3.72-5.28); WHITE BLOOD COUNT 7.4 10^3/uL (4.0-10.5)
[2018-06-10 11:24] LABS: ANION GAP 11 (5-19); BLOOD UREA NITROGEN 17 mg/dL (7-20); CALCIUM 10.3 mg/dL (8.4-10.2); CARBON DIOXIDE 29 mmol/L (22-30); CHLORIDE 99 mmol/L (98-107); GLUCOSE 88 mg/dL (75-110); POTASSIUM 4.4 mmol/L (3.6-5.0); SODIUM 139.4 mmol/L (137-145)
--- NOTE | 2018-06-10 11:26 | RADIOLOGY REPORT (SQ) ---
EXAM DESCRIPTION: CHEST PA/LATERAL COMPLETED DATE/TIME: 06/10/2018 11:20 am REASON FOR STUDY: PRE-OP COMPARISON: None. EXAM PARAMETERS: NUMBER OF VIEWS: two views TECHNIQUE: Digital Frontal and Lateral radiographic views of the chest acquired. RADIATION DOSE: NA LIMITATIONS: none FINDINGS: LUNGS AND PLEURA: The lungs are hyperexpanded. There is no infiltrate, effusion, or mass. MEDIASTINUM AND HILAR STRUCTURES: No masses or contour abnormalities. HEART AND VASCULAR STRUCTURES: Heart normal size. No evidence for failure. BONES: No acute findings. HARDWARE: None in the chest. OTHER: No other significant finding. IMPRESSION: Chronic lung changes with no acute cardiopulmonary findings. TECHNICAL DOCUMENTATION: JOB ID: [id number] [employer]- All Rights Reserved Reading location - IP/workstation name: [email or web address]
--- NOTE | 2018-06-10 21:03 | EKG REPORT ---
SEVERITY:- NORMAL ECG - SINUS RHYTHM : Confirmed by: Analy Mena MD 10-Jun-2018 21:02:21
[~2018-06-17 08:08] MED LIST changes: -BUPIVACAINE HCL 0.5 % INJ/PF 30 ML SDV ONE; +CEFOXITIN SODIUM 2 GM in DEXTROSE 5%-WATER 100 ML IV PRN; +IBUPROFEN 800 MG in NORMAL SALINE 250 ML IV PRN; +LACTATED RINGERS 1000 ML IV PRN; +LIDOCAINE 0.5% INJ-PF (5 MG/ML) 50 ML SDV SUBCUT PRN; -LIDOCAINE 1% INJ-PF (10 MG/ML) 30 ML SDV ONE
[2018-06-17] MEDS ORDERED: BUPIVACAINE HCL 0.25 % INJ/PF (2.5 MG/1 ML) 30 ML VIAL ONE (09:33)
[2018-06-17 09:50] LABS: INTERNATIONAL RATION (INR) 1.06; PROTHROMBIN TIME 14.4 SEC (11.4-15.4)
[2018-06-17 09:51] LABS: PARTIAL THROMBOPLASTIN TIME 33.8 SEC (23.5-35.8)
[2018-06-17] MEDS ORDERED: ALBUTEROL SULFATE 0.083% NEB 2.5 MG/3 ML AMPUL NEB ONE (10:03)
[2018-06-17] MEDS ORDERED: FENTANYL CITRATE INJ/PF 100 MCG/2 ML AMPUL ONE (10:04)
[2018-06-17] MEDS ORDERED: MIDAZOLAM 2 MG/2 ML INJ ONE ×2 (10:04→10:39)
[2018-06-17] MEDS ORDERED: HYDROMORPHONE HCL INJ/PF 2 MG/ML AMPULE ONE (10:04)
[2018-06-17] MEDS ORDERED: PROPOFOL INJ 200 MG/20 ML VIAL IV ONE (10:05)
[2018-06-17] MEDS ORDERED: ACETAMINOPHEN 1,000 MG/100 ML RTUPB IV ONE (10:05)
[2018-06-17] MEDS ORDERED: RINGERS SOLUTION,LACTATED 500 ML IV ONE (10:45)
[2018-06-17] MEDS ORDERED: ONDANSETRON HCL INJ/PF 4 MG/2 ML SDV IV PRN ×2 (12:13→12:48)
[2018-06-17] MEDS ORDERED: DIPHENHYDRAMINE HCL 50 MG/ML VIAL IV PRN (12:13)
[2018-06-17] MEDS ORDERED: FENTANYL CITRATE INJ/PF 100 MCG/2 ML AMPUL IV PRN ×3 (12:13)
[2018-06-17] MEDS ORDERED: MEPERIDINE HCL/PF INJ 25 MG/1 ML DISP.SYRIN IV PRN (12:13)
[2018-06-17] MEDS ORDERED: MORPHINE SULFATE 10 MG/ML INJ IV PRN (12:13)
[2018-06-17] MEDS ORDERED: PROMETHAZINE HCL INJ 25 MG/1 ML VIAL IV PRN (12:13)
[2018-06-17] MEDS ORDERED: DEXTROSE 5%-LACTATED RINGERS 1,000 ML IV PRN (12:48)
[2018-06-17] MEDS ORDERED: IPRATROPIUM/ALBUTEROL 0.5-2.5 MG/3 ML AMPUL NEB PRN (12:57)
[2018-06-17] MEDS: FENTANYL CITRATE INJ/PF 100 MCG/2 ML AMPUL ONE ×6 (12:58→14:15)
[2018-06-17] MEDS: HYDROMORPHONE HCL INJ/PF 2 MG/ML AMPULE ONE ×8 (13:30→14:55)
[2018-06-17] MEDS ORDERED: DEXAMETHASONE SOD PHOSPHATE INJ 4 MG/1 ML VIAL ONE (14:17)
[2018-06-17] MEDS ORDERED: LIDOCAINE 2% INJ-PF (20 MG/ML) 2 ML AMPUL ONE (14:17)
[2018-06-17] MEDS ORDERED: VECURONIUM BROMIDE INJ 10 MG VIAL IV ONE (14:17)
[2018-06-17] MEDS ORDERED: SUCCINYLCHOLINE CHLORIDE INJ 200 MG/10 ML VIAL ONE (14:17)
[2018-06-17] MEDS ORDERED: ONDANSETRON HCL INJ/PF 4 MG/2 ML SDV ONE (14:17)
[2018-06-17] MEDS: LORAZEPAM INJ 2 MG/1 ML VIAL ONE ×2 (15:00→15:30)
[2018-06-17] MEDS: OXYCODONE-ACETAMINOPHEN 5-325 MG TABLET PO PRN (15:50)
[2018-06-17] MEDS ORDERED: OXYCODONE-ACETAMINOPHEN 5-325 MG TABLET ONE (15:51)
[2018-06-17] MEDS: HYDROMORPHONE HCL INJ/PF 2 MG/ML AMPULE IV PRN (17:47)
[2018-06-17] MEDS: IPRATROPIUM/ALBUTEROL 120 PUFF/4 GM MDI IH SCH (19:02)
[2018-06-17] MEDS: CEFOXITIN SODIUM 2 GM in DEXTROSE 5%-WATER 100 ML IV SCH (19:44)
[2018-06-17] MEDS: FAMOTIDINE INJ/PF 20 MG/2 ML SDV IV SCH (21:18)
[2018-06-17] MEDS: ATORVASTATIN CALCIUM 20 MG TABLET PO SCH (21:18)
[2018-06-17] MEDS: METOPROLOL TARTRATE 25 MG TABLET PO SCH (21:18)
[2018-06-18] MEDS: IPRATROPIUM/ALBUTEROL 120 PUFF/4 GM MDI IH SCH ×4 (01:03→17:17)
[2018-06-18] MEDS: HYDROMORPHONE HCL INJ/PF 2 MG/ML AMPULE IV PRN ×4 (01:04→20:40)
[2018-06-18] MEDS: CEFOXITIN SODIUM 2 GM in DEXTROSE 5%-WATER 100 ML IV SCH (01:05)
[2018-06-18] MEDS: OXYCODONE-ACETAMINOPHEN 5-325 MG TABLET PO PRN ×3 (05:59→18:53)
[2018-06-18 06:24] LABS: ABSOLUTE LYMPHOCYTES (AUTO) 0.7 10^3/uL (0.5-4.7); ABSOLUTE MONOCYTES (AUTO) 0.8 10^3/uL (0.1-1.4); ABSOLUTE NEUT (AUTO) 10.4 10^3/uL (1.7-8.2); BASOPHILS % (AUTO) 0.1 % (0-2); HEMATOCRIT 32.5 % (36.0-47.0); HEMOGLOBIN 10.8 g/dL (12.0-15.5); LYMPHOCYTES % (AUTO) 5.8 % (13-45); MEAN CORPUSCULAR HEMOGLOBIN 29.1 pg (27.0-33.4); MEAN CORPUSCULAR HGB CONC 33.3 g/dL (32.0-36.0); MEAN CORPUSCULAR VOLUME 87 fl (80-97); MONOCYTES % (AUTO) 6.8 % (3-13); PLATELET COUNT 159 10^3/uL (150-450); RED BLOOD COUNT 3.71 10^6/uL (3.72-5.28); RED CELL DISTRIBUTION WIDTH 14.8 % (11.5-14.0); SEGMENTED NEUTROPHILS % (AUTO) 87.3 % (42-78); TOTAL CELLS COUNTED % (AUTO) 100 %; WHITE BLOOD COUNT 11.9 10^3/uL (4.0-10.5)
[2018-06-18 06:36] LABS: ANION GAP 7 (5-19); BLOOD UREA NITROGEN 13 mg/dL (7-20); CALCIUM 9.9 mg/dL (8.4-10.2); CARBON DIOXIDE 25 mmol/L (22-30); CHLORIDE 107 mmol/L (98-107); GLUCOSE 163 mg/dL (75-110); POTASSIUM 4.2 mmol/L (3.6-5.0); SODIUM 138.5 mmol/L (137-145)
[2018-06-18] MEDS: ENOXAPARIN SODIUM INJ 40 MG/0.4 ML DISP.SYRIN SUBCUT SCH (10:02)
[2018-06-18] MEDS: METOPROLOL TARTRATE 25 MG TABLET PO SCH ×2 (10:03→21:24)
[2018-06-18] MEDS: DILTIAZEM HCL 180 MG CAPSULE.CR PO SCH (10:03)
[2018-06-18] MEDS: FAMOTIDINE INJ/PF 20 MG/2 ML SDV IV SCH ×2 (10:03→21:24)
[2018-06-18] MEDS: PANTOPRAZOLE SODIUM 40 MG TABLET.DR PO SCH (10:03)
--- NOTE | 2018-06-18 10:27 | PDOC PROGRESS REPORT ---
Subjective Progress Note for:: 06/18/18 Reason For Visit: S/P COLOSTOMY REVERSAL Physical Exam Vital Signs: Temp Pulse Resp BP Pulse Ox 98.2 F 103 H 17 123/60 96 06/18/18 08:50 06/18/18 08:50 06/18/18 08:50 06/18/18 08:50 06/18/18 08:50 Intake & Output 06/17/18 06/18/18 06/19/18 06:59 06:59 06:59 Intake Total 2836 1100 Output Total 1150 Balance 1686 1100 Weight 66.6 kg Results Laboratory Results: 06/18/18 05:57 06/18/18 05:57 06/17/18 06/18/18 06/18/18 10:55 05:57 05:57 WBC 11.9 H RBC 3.71 L Hgb 10.8 L Hct 32.5 L MCV 87 MCH 29.1 MCHC 33.3 RDW 14.8 H Plt Count 159 Seg Neutrophils % 87.3 H Lymphocytes % 5.8 L Monocytes % 6.8 Eosinophils % 0.0 Basophils % 0.1 Absolute Neutrophils 10.4 H Absolute Lymphocytes 0.7 Absolute Monocytes 0.8 Absolute Eosinophils 0.0 Absolute Basophils 0.0 Sodium 138.5 Potassium 4.2 Chloride 107 Carbon Dioxide 25 Anion Gap 7 BUN 13 Creatinine 0.77 Est GFR ( Amer) > 60 Est GFR (Non-Af Amer) > 60 Glucose 163 H Calcium 9.9 Blood Type O POSITIVE Antibody Screen NEGATIVE Impressions: Chest X-Ray 06/10/18 10:59 IMPRESSION: Chronic lung changes with no acute cardiopulmonary findings. Assessment & Plan - Diagnosis (1) History of diverticulitis Is this a current diagnosis for this admission?: Yes (2) Colostomy present Is this a current diagnosis for this admission?: Yes - Plan Summary Plan Summary: This is a 68-year-old female status post colostomy reversal. She reports passing flatus today. She is tolerating her liquids. I have recommended that the patient get out of bed today and ambulate in the hallways. I will have the staff bring an incentive spirometer to bedside. She is to use it 10 times every hour, while awake. Continue full liquids for today. If she tolerates these, she may have regular diet tomorrow. Continue supportive care.
--- NOTE | 2018-06-18 10:36 | Operative Report ---
Nonrecallable Operative Report DATE OF SURGERY: 06/17/18 PREOPERATIVE DIAGNOSIS: Unwanted colostomy. History of severe diverticulitis and pelvic abscess. POSTOPERATIVE DIAGNOSIS: Same as above. OPERATION: 1. Takedown of left upper quadrant colostomy. 2. Side to side s tapled transverse colon anastomosis (colocolostomy). 3. Implantation of [place] Bio-A hernia mesh in the left upper quadrant. SURGEON: SAQIB CARPIO 1ST SHARPLES MACHINE OPERATOR: ADELA NORRIS ANESTHESIA: GA TISSUE REMOVED OR ALTERED: Colostomy COMPLICATIONS: None apparent ESTIMATED BLOOD LOSS: 30 cc PROCEDURE: Drains/implants: None. Procedure in detail: After informed consent was obtained, the patient was brought to the operating room and laid in the supine position. The left upper quadrant colostomy was closed using a 0 silk suture in running, locking fashion (baseball stitch). Once this was completed, the abdomen was prepped and draped in a normal sterile fashion. An elliptical incision was created around the colostomy using a 15 blade scalpel. Dissection was carried through the subcutaneous tissue using sharp dissection, blunt dissection, and electrocautery. The colostomy was freed completely from the anterior abdominal wall. Once the transverse colon was completely freed it was mobilized and pulled out of the incision. The colon was opened and a side to side stapled anastomosis was created with a YASSINE 75 stapler. The resulting defect was also closed using the YASSINE-75 stapler. 2 crotch stitches of 3-0 Vicryl suture were used to buttress the anastomosis. The anastomosis was then tested. It was found to be free of any leakage of stool or air. The abdomen was inspected. Hemostasis was achieved. Attention was then turned to placement of the Denver Bio-A hernia mesh. A 9 x 15 cm Denver Bio-A hernia mesh was placed into the abdomen. The mesh was sewn to the anterior abdominal fascia using #1 Prolene suture in interrupted mattress fashion. Next, the abdominal wall was sutured closed using #1 Prolene suture in simple running fashion. The overlying skin was closed using skin rianna, leaving a Xeroform gauze within the wound as packing. A dressing was placed, and the procedure was concluded. All sponge, instrument, and needle counts were correct x2. Condition: Stable. Dr. Norris was present the entirety of the procedure. He assisted with all portions of the procedure including opening the skin, dissection of the colon, creation of the anastomosis, placement of the hernia mesh, closure of the abdomen, and closure of the skin.
[2018-06-18] MEDS: ATORVASTATIN CALCIUM 20 MG TABLET PO SCH (21:24)
[2018-06-19] MEDS: HYDROMORPHONE HCL INJ/PF 2 MG/ML AMPULE IV PRN ×5 (01:10→23:39)
[2018-06-19] MEDS: IPRATROPIUM/ALBUTEROL 120 PUFF/4 GM MDI IH SCH ×4 (01:15→17:37)
[2018-06-19] MEDS: OXYCODONE-ACETAMINOPHEN 5-325 MG TABLET PO PRN ×5 (03:31→22:39)
--- NOTE | 2018-06-19 07:47 | PDOC PROGRESS REPORT ---
Subjective Progress Note for:: 06/19/18 Subjective:: no c/o, no flatus or stools Reason For Visit: S/P COLOSTOMY REVERSAL Physical Exam Vital Signs: Temp Pulse Resp BP Pulse Ox 97.9 F 70 20 132/62 H 97 06/18/18 23:46 06/19/18 03:48 06/19/18 03:48 06/19/18 03:48 06/19/18 03:48 Intake & Output 06/18/18 06/19/18 06/20/18 06:59 06:59 06:59 Intake Total 2836 1540 Output Total 1150 Balance 1686 1540 Weight 66.6 kg 65.4 kg General appearance: PRESENT: no acute distress Respiratory exam: PRESENT: clear to auscultation keren Cardiovascular exam: PRESENT: RRR GI/Abdominal exam: PRESENT: hypoactive bowel sounds, soft, other - wound clean, minimal serosanguinous drainage, no odor, no cellulitis, minimal edema around wound edges, packing on place Results Laboratory Results: 06/18/18 05:57 06/18/18 05:57 Impressions: Chest X-Ray 06/10/18 10:59 IMPRESSION: Chronic lung changes with no acute cardiopulmonary findings. Assessment & Plan - Diagnosis (1) S/P colostomy takedown Is this a current diagnosis for this admission?: Yes - Plan Summary Plan Summary: A/ POD#2 after colostomy takedown No flatus yet, full liquid diet tolerated VSS, AF old colostomy site healing w/o signs of cellulitis P/ Advance to soft diet today OOB, up in chair stop IV narcotics start IV Tylenol as needed
[2018-06-19] MEDS: PANTOPRAZOLE SODIUM 40 MG TABLET.DR PO SCH (10:18)
[2018-06-19] MEDS: METOPROLOL TARTRATE 25 MG TABLET PO SCH ×2 (10:18→22:41)
[2018-06-19] MEDS: ENOXAPARIN SODIUM INJ 40 MG/0.4 ML DISP.SYRIN SUBCUT SCH (10:18)
[2018-06-19] MEDS: DILTIAZEM HCL 180 MG CAPSULE.CR PO SCH (10:18)
[2018-06-19] MEDS: ATORVASTATIN CALCIUM 20 MG TABLET PO SCH (22:40)
[2018-06-20] MEDS: IPRATROPIUM/ALBUTEROL 120 PUFF/4 GM MDI IH SCH ×3 (01:16→13:19)
[2018-06-20] MEDS: OXYCODONE-ACETAMINOPHEN 5-325 MG TABLET PO PRN ×2 (03:59→10:25)
[2018-06-20] MEDS: HYDROMORPHONE HCL INJ/PF 2 MG/ML AMPULE IV PRN ×2 (06:12→13:14)
[2018-06-20] MEDS: DILTIAZEM HCL 180 MG CAPSULE.CR PO SCH (10:24)
[2018-06-20] MEDS: METOPROLOL TARTRATE 25 MG TABLET PO SCH (10:25)
[2018-06-20] MEDS: PANTOPRAZOLE SODIUM 40 MG TABLET.DR PO SCH (10:27)
[2018-06-20] MEDS: ENOXAPARIN SODIUM INJ 40 MG/0.4 ML DISP.SYRIN SUBCUT SCH (10:27)
--- NOTE | 2018-06-20 12:09 | PDOC DISCHARGE SUMMARY ---
General - Admit/Disc Date/PCP Admission Date/Primary Care Provider: 06/17/18 08:08 DASIA URBINA DO Discharge Date: 06/20/18 - Discharge Diagnosis (1) History of diverticulitis Is this a current diagnosis for this admission?: Yes (2) Colostomy present Is this a current diagnosis for this admission?: Yes - Additional Information Discharge Diet: As Tolerated Discharge Activity: No Lifting Over 10 Pounds Home Medications: Atorvastatin Calcium [Lipitor 20 mg Tablet] 20 mg PO QHS 02/27/18 Metoprolol Tartrate [Lopressor 25 mg Tablet] 25 mg PO Q12 02/27/18 Pantoprazole Sodium 40 mg PO DAILY 02/27/18 Ipratropium/Albuterol Sulfate [Combivent Respimat 4 gm Mdi] 1 puff IH Q6 MDD 6 PUFFS 02/28/18 Apixaban [Eliquis 5 mg Tablet] 5 mg PO BID #60 tablet 03/16/18 Oxycodone HCl/Acetaminophen [Percocet 5-325 mg Tablet] 2 tab PO Q6HP PRN #20 tablet 03/16/18 Diltiazem HCl [Dilacor Xr] 180 mg PO DAILY 06/10/18 Ipratropium/Albuterol Sulfate [Duoneb 3 ml Ampul] 3 ml NEB RTQ6HP PRN 06/10/18 Ipratropium/Albuterol Sulfate [Duoneb 3 ml Ampul] 3 ml NEB RTQ8HP PRN 06/10/18 History of Present Illness History of Present Illness: CHAKA PATEL is a 68 year old female with a diverting loop colostomy due to perforated diverticulitis. The patient presented to the hospital for reversal of her colostomy. She underwent the procedure on 06/17/2018. The patient did well from the procedure and was taken to the floor in stable condition. Hospital Course Hospital Course: The patient was taken to the floor in stable condition. She began tolerating a diet. Her bowels began working. By 06/20/2018 the patient was ambulating, tolerating a diet, taking oral pain medications, and feeling well. At this time it was felt that she had reached maximal hospital benefit, and was fit for discharge. Physical Exam Vital Signs: Temp Pulse Resp BP Pulse Ox 98.2 F 61 18 93/42 L 96 06/20/18 07:54 04/08/19 07:54 06/20/18 07:54 06/20/18 07:54 06/20/18 07:54 Intake & Output 06/19/18 06/20/18 06/21/18 06:59 06:59 06:59 Intake Total 1540 750 Balance 1540 750 Weight 65.4 kg 67.9 kg Results Laboratory Results: 06/18/18 05:57 06/18/18 05:57 Impressions: Chest X-Ray 06/10/18 10:59 IMPRESSION: Chronic lung changes with no acute cardiopulmonary findings. Qualifiers - * PATIENT BEING DISCHARGED WITH ANY OF THE FOLLOWING DIAGNOSIS: No Plan Discharge Plan: Discharge home. Diet as tolerated. Activity: No lifting greater than 10 pounds x 6 weeks. Follow-up with me in 1 week. Okay to shower. No tub baths or swimming pools times 2 weeks. Change left upper quadrant dressing twice daily. Percocet 10/325 mg p.o. every 6 hours as needed for pain. Time Spent: Less than 30 Minutes
[2018-06-20 14:45] VITALS: BP 139/62
== END 2018-06-20 14:53 | disposition home or self-care (01) | DRG 346 ==
LOC: INOR 08:08 → EDSTATUS 13:30 → 5 16:44
PROVIDERS: ADMIT Surgery; ATTEND Surgery
PROC: 0WUF0JZ Supplement Abdominal Wall with Synthetic Substitute, Open Approach (ICD-10-PCS; 2018-06-17)
PROC: 0DSL0ZZ Reposition Transverse Colon, Open Approach (ICD-10-PCS; principal; 2018-06-17 10:00)
DX: Z43.3 Encounter for attention to colostomy (principal); K21.9 Gastro-esophageal reflux disease without esophagitis; I48.91 Unspecified atrial fibrillation; J44.9 Chronic obstructive pulmonary disease, unspecified; I25.10 Atherosclerotic heart disease of native coronary artery without angina pectoris; F32.9 Major depressive disorder, single episode, unspecified; I10 Essential (primary) hypertension; F17.210 Nicotine dependence, cigarettes, uncomplicated; Z79.899 Other long term (current) drug therapy; Z86.010 Personal history of colon polyps; Z79.01 Long term (current) use of anticoagulants
CPT/HCPCS: 36415; 700; 71046; 80048; 85025; 85027; 85610; 85730; 86850; 86900; 86901; 93005; 93010; 94799; C1781; J0131; J0330; J0694; J1100; J1170; J1650; J1741; J2060; J2250; J2405; J2704; J3010; J3490; J7050; S0028

== ENCOUNTER → 2018-09-12 | Outpatient (CLI) | payer MEDICARE, MEDICAID ==
[~2018-09-12] MED LIST changes: -CEFOXITIN SODIUM 2 GM in DEXTROSE 5%-WATER 100 ML IV PRN; +DIPHENHYDRAMINE HCL 25 MG CAPSULE ONE; -IBUPROFEN 800 MG in NORMAL SALINE 250 ML IV PRN; -LACTATED RINGERS 1000 ML IV PRN; -LIDOCAINE 0.5% INJ-PF (5 MG/ML) 50 ML SDV SUBCUT PRN
--- NOTE | 2018-09-12 11:37 | RADIOLOGY REPORT (SQ) ---
EXAM DESCRIPTION: CT ABD/PELVIS WITH IV ORAL COMPLETED DATE/TIME: 09/12/2018 10:13 am REASON FOR STUDY: ABDOMINAL PAIN, CONSTIPATION R10.84 GENERALIZED ABDOMINAL PAIN K59.00 CONSTIPATI ON, UNSPECIFIED COMPARISON: 03/01/2018 TECHNIQUE: CT scan of the abdomen and pelvis performed with intravenous and oral contrast using cailin madhavi scanning technique with dynamic intravenous contrast injection. Images reviewed with lung, soft t issue, and bone windows. Reconstructed coronal and sagittal MPR images reviewed. Delayed images for e valuation of the urinary system also acquired. All images stored on PACS. All CT scanners at this facility use dose modulation, iterative reconstruction, and/or weight based d osing when appropriate to reduce radiation dose to as low as reasonably achievable (ALARA). [facility]: Dose Right [facility]: CareDose [facility]: Dose Right [facility]: Teradose 4D [facility]: [employer] CONTRAST TYPE AND DOSE: contrast/concentration: Isovue 350.00 mg/ml; Total Contrast Delivered: 70.0 ml; Total Saline Delivered: 20.3 ml RENAL FUNCTION: GFR > 60. RADIATION DOSE: CT Rad equipment meets quality standard of care and radiation dose reduction techniq ues were employed. CTDIvol: 5.5 - 6.2 mGy. DLP: 620 mGy-cm. . LIMITATIONS: None. FINDINGS: LOWER CHEST: Hiatal hernia. LIVER: Normal size. No masses. No dilated ducts. SPLEEN: Normal size. No focal lesions. PANCREAS: No masses. No significant calcifications. No adjacent inflammation or peripancreatic fluid collections. Pancreatic duct not dilated. GALLBLADDER: Surgically absent. ADRENAL GLANDS: No significant masses or asymmetry. RIGHT KIDNEY AND URETER: No solid masses. No significant calcifications. No hydronephrosis or hyd roureter. LEFT KIDNEY AND URETER: No solid masses. No significant calcifications. No hydronephrosis or hydr oureter. AORTA AND VESSELS: No aneurysm. RETROPERITONEUM: No retroperitoneal adenopathy, hemorrhage or masses. BOWEL AND PERITONEAL CAVITY: Rectal anastomosis. No dilated loops. 2.7 x 6.4 x 6 8.1 cm AP by trans verse by craniocaudal diameter gas fluid collection anterior midline upper abdomen. No obstruction. No visualized masses. No free fluid. No inflammatory changes or thickening of bowel wall. APPENDIX: Not visualized. PELVIS: No significant masses. Normal bladder. No free fluid. ABDOMINAL WALL: Small fat containing midline incisional hernia. BONES: No significant or acute findings. OTHER: No other significant finding. IMPRESSION: 1. Contained gas collection with small amount of fluid in the anterior upper abdomen. Amenable to CT guided aspiration if clinically indicated. 2. Rectal anastomosis. No evidence of bowel obstruction. TECHNICAL DOCUMENTATION: JOB ID: [id number] Quality ID # [id number]: Final reports with documentation of one or more dose reduction techniques (e.g., Au tomated exposure control, adjustment of the mA and/or kV according to patient size, use of iterative reconstruction technique) 2010 [employer]- All Rights Reserved Reading location - IP/workstation name: [email or web address]
== END ==
LOC: RAD 11:24
PROVIDERS: ATTEND Surgery
DX: R10.84 Generalized abdominal pain (principal); K59.00 Constipation, unspecified
CPT/HCPCS: 82565; 74177; A9270

== ENCOUNTER 2018-09-21 08:38 | Day surgery (SDC) | payer MEDICARE, MEDICAID ==
[2018-09-21 09:15] LABS: HEMOGLOBIN 12.2 g/dL (12.0-15.5); MEAN CORPUSCULAR HEMOGLOBIN 28.1 pg (27.0-33.4); MEAN CORPUSCULAR HGB CONC 32.2 g/dL (32.0-36.0); MEAN CORPUSCULAR VOLUME 87 fl (80-97); PLATELET COUNT 292 10^3/uL (150-450); RED BLOOD COUNT 4.36 10^6/uL (3.72-5.28); RED CELL DISTRIBUTION WIDTH 15.4 % (11.5-14.0); WHITE BLOOD COUNT 8.1 10^3/uL (4.0-10.5)
[2018-09-21 09:25] LABS: INTERNATIONAL RATION (INR) 1.04; PARTIAL THROMBOPLASTIN TIME 28.8 SEC (23.5-35.8); PROTHROMBIN TIME 13.6 SEC (11.4-15.4)
[2018-09-21 09:37] LABS: BLOOD UREA NITROGEN 18 mg/dL (7-20)
[2018-09-21] MEDS ORDERED: FENTANYL CITRATE INJ/PF 100 MCG/2 ML AMPUL ONE (10:49)
[2018-09-21] MEDS ORDERED: MIDAZOLAM 2 MG/2 ML INJ ONE (10:49)
--- NOTE | 2018-09-21 14:46 | RADIOLOGY REPORT (SQ) ---
EXAM DESCRIPTION: CT GUIDED PERCUT DRAIN W/CATH COMPLETED DATE/TIME: 09/21/2018 12:07 pm REASON FOR STUDY: CUTANEOUS ABSCESS OF ABDOMINAL WALL L02.211 CUTANEOUS ABSCESS OF ABDOMINAL WALL Z 79.01 MARKETING SUPPORT ASSISTANT (CURRENT) USE OF ANTICOAGULANTS COMPARISON: 09/12/2018 TECHNIQUE: After obtaining informed consent and explaining the risks and benefits of conscious sedat ion,the patient agreed to the procedure. The patient was brought to the CT suite and was placed supin e on the CT gurney. The patient was prepped and draped in the usual sterile fashion. Axial images we re obtained for targeting of thesuperficial gas containing collection. An appropriate access site was selected. IV conscious sedation was administered and physician direction by the registered nurse sidney ng 1 milligrams of Versed and 75 micrograms of fentanyl. Physiologic monitoring was provided before, during, and after sedation. The total sedation time was 30 minutes. Documentation face to face time, the performing proceduralist, spent monitoring the patient: [address] of the abdomen was performed demonstrating decreased size of the superficial gas co ntaining collection. Case was discussed with Dr. Ralph who wished to proceed with drain placement i nto the superficial anterior abdominal wall gas containing collection. A percutaneous site was marked. Time out was performed. Skin was prepped and draped in a standard sterile fashion. 10 cc 1% lidocaine was utilized for local sedation. Under limited CT fluoroscopic guidance a 18 gauge introducer needle was advanced to the s uperficial gas containing collection along the anterior abdominal wall. An 035 wire was placed. The tract was dilated to 10 Korean. 10 Korean pigtail catheter was placed. The wire and inner stiffener were removed and the pigtail formed in a standard fashion. Aspiration yielded minimal serosanguineo us fluid and gas. The catheter was secured to 2 the skin and hooked to a drainage device. A sterile dressing was applied. Total of [address] fluoro was used. 3 CT Fluoroscopic images were obtained and saved to PACS. All CT scanners at this facility use dose modulation, iterative reconstruction, and/or weight based d osing when appropriate to reduce radiation dose to as low as reasonably achievable (ALARA). [facility]: Dose Right [facility]: CareDose [facility]: Dose Right [facility]: Teradose 4D [facility]: [employer] RADIATION DOSE: CT Rad equipment meets quality standard of care and radiation dose reduction techniq ues were employed. CTDIvol: 7.6 - 16.3 mGy. DLP: 454 mGy-cm. mGy. LIMITATIONS: None. FINDINGS: CT guided liver biopsy as detailed above. IMPRESSION: CT guided 10 Korean drainage catheter placement within the superficial anterior gas cont aining collection as detailed above. COMMENT: Patient medication list reviewed:Yes- Quality ID# [id number]:Eligible professional attests to docu menting in the medical record they obtained, updated, or reviewed the patient's current medications.. Quality ID 145: Final reports for procedures using fluoroscopy that document radiation exposure oksana britt, or exposure time and number of fluorographic images (if radiation exposure indices are not avail able) TECHNICAL DOCUMENTATION: JOB ID: [id number] Quality ID # 436: Final reports with documentation of one or more dose reduction techniques (e.g., A utomated exposure control, adjustment of the mA and/or kV according to patient size, use of iterative reconstruction technique) 2010 [employer]- All Rights Reserved Reading location - IP/workstation name: [email or web address]
[2018-09-21 15:02] VITALS: BP 111/52
== END 2018-09-21 14:15 | disposition home or self-care (01) ==
LOC: RAD 08:38
PROVIDERS: ATTEND Surgery
DX: L02.211 Cutaneous abscess of abdominal wall (principal); Z79.01 Long term (current) use of anticoagulants; K21.9 Gastro-esophageal reflux disease without esophagitis; I48.91 Unspecified atrial fibrillation; Z86.010 Personal history of colon polyps; J44.9 Chronic obstructive pulmonary disease, unspecified; I25.10 Atherosclerotic heart disease of native coronary artery without angina pectoris; I10 Essential (primary) hypertension; F17.210 Nicotine dependence, cigarettes, uncomplicated; Z79.82 Long term (current) use of aspirin; Z79.899 Other long term (current) drug therapy
CPT/HCPCS: 36415; 84520; 82565; 85027; 85610; 85730; 75989; A9576; C1894; J2250; J3010

== ENCOUNTER → 2018-10-04 | Outpatient (CLI) | payer MEDICARE, MEDICAID ==
[2018-10-04 15:26] LABS: HEMATOCRIT 37.6 % (36.0-47.0); HEMOGLOBIN 12.3 g/dL (12.0-15.5); MEAN CORPUSCULAR HEMOGLOBIN 28.3 pg (27.0-33.4); MEAN CORPUSCULAR HGB CONC 32.8 g/dL (32.0-36.0); MEAN CORPUSCULAR VOLUME 86 fl (80-97); PLATELET COUNT 156 10^3/uL (150-450); RED BLOOD COUNT 4.36 10^6/uL (3.72-5.28); RED CELL DISTRIBUTION WIDTH 15.7 % (11.5-14.0); WHITE BLOOD COUNT 4.7 10^3/uL (4.0-10.5)
[2018-10-04 15:39] LABS: APPEARANCE,URINE SLIGHTLY-CLOUDY; BILIRUBIN,URINE NEGATIVE (NEGATIVE); COLOR,URINE YELLOW; GLUCOSE, URINE NEGATIVE (NEGATIVE); KETONES,URINE NEGATIVE (NEGATIVE); LEUKOCYTE ESTERASE,URINE TRACE (NEGATIVE); NITRITE,URINE NEGATIVE (NEGATIVE); PROTEIN,URINE NEGATIVE (NEGATIVE); URINE SPECIFIC GRAVITY 1.021; UROBILINOGEN,URINE NEGATIVE mg/dL (<2.0)
[2018-10-04 15:47] LABS: ALANINE AMINOTRANSFERASE 16 U/L (9-52); ALKALINE PHOSPHATASE 104 U/L (38-126); ANION GAP 6 (5-19); ASPARTATE AMINO TRANSFERASE 16 U/L (14-36); BILIRUBIN,DIRECT 0.3 mg/dL (0.0-0.4); BILIRUBIN,TOTAL 0.4 mg/dL (0.2-1.3); BLOOD UREA NITROGEN 13 mg/dL (7-20); CALCIUM 9.3 mg/dL (8.4-10.2); CARBON DIOXIDE 30 mmol/L (22-30); CHLORIDE 103 mmol/L (98-107); GLUCOSE 92 mg/dL (75-110); POTASSIUM 4.1 mmol/L (3.6-5.0); TOTAL PROTEIN 6.9 g/dL (6.3-8.2)
== END ==
LOC: OD 14:44
PROVIDERS: ATTEND Physician Assistant
DX: I12.9 Hypertensive chronic kidney disease with stage 1 through stage 4 chronic kidney disease, or unspecified chronic kidney disease (principal); N18.3 Chronic kidney disease, stage 3 (moderate); I48.0 Paroxysmal atrial fibrillation; Z79.01 Long term (current) use of anticoagulants; Z79.899 Other long term (current) drug therapy
CPT/HCPCS: 36415; 80048; 80076; 81001; 82272; 85027; 85730

== ENCOUNTER → 2018-10-26 | Outpatient (CLI) | payer MEDICARE, MEDICAID | LOC: LAB 11:32 | PROVIDERS: ATTEND Physician Assistant | DX: R31.21 Asymptomatic microscopic hematuria (principal) | CPT/HCPCS: 87086; 87088 ==

== ENCOUNTER → 2018-12-02 | Outpatient (CLI) | payer MEDICARE, MEDICAID ==
--- NOTE | 2018-12-02 10:58 | RADIOLOGY REPORT (SQ) ---
EXAM DESCRIPTION: CT CHEST WITHOUT COMPLETED DATE/TIME: 12/02/2018 10:12 am REASON FOR STUDY: DYSPNEA (R06.00) R06.00 DYSPNEA, UNSPECIFIED COMPARISON: CT chest dated 09/30/2015, chest x-ray dated 06/10/2018 TECHNIQUE: CT scan performed of the chest without intravenous contrast. Images reviewed with lung, soft tissue and bone windows. Reconstructed coronal and sagittal MPR images reviewed. All images st ored on PACS. All CT scanners at this facility use dose modulation, iterative reconstruction, and/or weight based d osing when appropriate to reduce radiation dose to as low as reasonably achievable (ALARA). [facility]: Dose Right [facility]: CareDose [facility]: Dose Right [facility]: Teradose 4D [facility]: [employer] RADIATION DOSE: CT Rad equipment meets quality standard of care and radiation dose reduction techniq ues were employed. CTDIvol: 6.2 mGy. DLP: 250 mGy-cm. mGy. LIMITATIONS: No technical limitations. FINDINGS: LUNGS AND PLEURA: There is subpleural fibrosis most marked in the lung bases. This has pr ogressed since prior study. There are small subpleural blebs. There is a simplification of the lung architecture in the apices. On images 52 through 60 there are small lesions along the trachea and l eft mainstem bronchus. This could represent mucous possibly small polyps. HILAR AND MEDIASTINAL STRUCTURES: No identified masses or abnormal nodes. No obvious aneurysm. HEART AND VASCULAR STRUCTURES: No aneurysm. No pericardial effusion. UPPER ABDOMEN: No significant findings. Limited exam. THYROID AND OTHER SOFT TISSUES: No masses. No adenopathy. BONES: No significant finding. HARDWARE: None in the chest. OTHER: No other significant findings. IMPRESSION: Bilateral emphysematous changes with subpleural fibrosis most marked in the lung bases. This has progressed from 2016. No suspicious nodules. Small soft tissue masses or mucous identified in the distal trachea and left mainstem bronchus. TECHNICAL DOCUMENTATION: JOB ID: [id number] Quality ID # 436: Final reports with documentation of one or more dose reduction techniques (e.g., Au tomated exposure control, adjustment of the mA and/or kV according to patient size, use of iterative reconstruction technique) 2010 [email or web address]- All Rights Reserved Reading location - IP/workstation name: [email or web address]
== END ==
LOC: RAD 09:42
PROVIDERS: ATTEND Registered Nurse
DX: J84.10 Pulmonary fibrosis, unspecified (principal); R06.00 Dyspnea, unspecified
CPT/HCPCS: 71250

== ENCOUNTER → 2018-12-23 | Outpatient (CLI) | payer MEDICARE, MEDICAID ==
[2018-12-23 13:41] LABS: HEMATOCRIT 39.6 % (36.0-47.0); MEAN CORPUSCULAR HEMOGLOBIN 29.5 pg (27.0-33.4); MEAN CORPUSCULAR HGB CONC 32.7 g/dL (32.0-36.0); MEAN CORPUSCULAR VOLUME 90 fl (80-97); PLATELET COUNT 237 10^3/uL (150-450); RED CELL DISTRIBUTION WIDTH 16.4 % (11.5-14.0); WHITE BLOOD COUNT 9.6 10^3/uL (4.0-10.5)
[2018-12-23 13:49] LABS: APPEARANCE,URINE SLIGHTLY-CLOUDY; BILIRUBIN,URINE NEGATIVE (NEGATIVE); COLOR,URINE YELLOW; GLUCOSE, URINE NEGATIVE (NEGATIVE); KETONES,URINE NEGATIVE (NEGATIVE); LEUKOCYTE ESTERASE,URINE TRACE (NEGATIVE); NITRITE,URINE NEGATIVE (NEGATIVE); PROTEIN,URINE NEGATIVE (NEGATIVE); URINE SPECIFIC GRAVITY 1.018; UROBILINOGEN,URINE NEGATIVE mg/dL (<2.0)
[2018-12-23 13:54] LABS: ALKALINE PHOSPHATASE 128 U/L (38-126); ANION GAP 6 (5-19); ASPARTATE AMINO TRANSFERASE 16 U/L (14-36); BILIRUBIN,DIRECT 0.1 mg/dL (0.0-0.4); BILIRUBIN,TOTAL 0.4 mg/dL (0.2-1.3); BLOOD UREA NITROGEN 17 mg/dL (7-20); CALCIUM 9.5 mg/dL (8.4-10.2); CARBON DIOXIDE 32 mmol/L (22-30); CHLORIDE 104 mmol/L (98-107); GLUCOSE 102 mg/dL (75-110); TOTAL PROTEIN 6.7 g/dL (6.3-8.2)
== END ==
LOC: OD 12:26
PROVIDERS: ATTEND Physician Assistant
DX: I12.9 Hypertensive chronic kidney disease with stage 1 through stage 4 chronic kidney disease, or unspecified chronic kidney disease (principal); N18.3 Chronic kidney disease, stage 3 (moderate); I48.0 Paroxysmal atrial fibrillation; Z79.01 Long term (current) use of anticoagulants; Z79.899 Other long term (current) drug therapy
CPT/HCPCS: 36415; 80048; 80076; 81001; 82272; 85027; 85610

== ENCOUNTER → 2019-01-02 | Outpatient (CLI) | payer MEDICARE, MEDICAID ==
--- NOTE | 2019-01-02 16:49 | RADIOLOGY REPORT (SQ) ---
EXAM DESCRIPTION: L SPINE WHOLE COMPLETED DATE/TIME: 01/02/2019 3:57 pm REASON FOR STUDY: (M47.817)SPONDYLS W/O MYELOPATHY OR RADICULOPATHY, LUMBOSACR REGION M47.817 SPOND YLS W/O MYELOPATHY OR RADICULOPATHY, LUMBOSACR M54.6 PAIN IN THORACIC SPINE COMPARISON: CT chest dated 12/02/[address] abdomen and pelvis dated 09/12/2018. NUMBER OF VIEWS: Five views including obliques. TECHNIQUE: AP, lateral, oblique, and sacral radiographic images acquired of the lumbar spine. LIMITATIONS: None. FINDINGS: MINERALIZATION: Normal. SEGMENTATION: Normal. No transitional anatomy. ALIGNMENT: Mild S-shaped scoliosis. VERTEBRAE: Wedge deformity of T12. Mild compression of the superior endplates of L1 and L2. DISCS: Mild disc space narrowing with small osteophytes. POSTERIOR ELEMENTS: Pedicles and facets are intact. No pars defect or posterior arch defects. HARDWARE: None in the spine. PARASPINAL SOFT TISSUES: Normal. PELVIS: Intact as visualized. No fractures or worrisome bone lesions. SI joints intact. OTHER: No other significant finding. IMPRESSION: 1. COMPRESSION DEFORMITIES OF THE T12, L 1, AND L2 VERTEBRAL BODIES. THIS FINDING WAS PRESENT ON THE PRIOR CHEST CT DATED 12/02/2018 BUT HAVE DEVELOPED SINCE THE PRIOR ABDOMINAL CT DATED 09/12/2018. MAY CONSIDER MRI IF CLINICALLY INDICATED. 2. MILD SCOLIOSIS AND MULTILEVEL CHRONIC DEGENERATIVE CHANGES. TECHNICAL DOCUMENTATION: JOB ID: [id number] [employer]- All Rights Reserved Reading location - IP/workstation name: [email or web address]
--- NOTE | 2019-01-02 16:51 | RADIOLOGY REPORT (SQ) ---
EXAM DESCRIPTION: T SPINE AP/LAT COMPLETED DATE/TIME: 01/02/2019 3:57 pm REASON FOR STUDY: (M47.817)SPONDYLS W/O MYELOPATHY OR RADICULOPATHY, LUMBOSACR REGION M47.817 SPOND YLS W/O MYELOPATHY OR RADICULOPATHY, LUMBOSACR M54.6 PAIN IN THORACIC SPINE COMPARISON: CT chest dated 12/02/2018. NUMBER OF VIEWS: Two views. TECHNIQUE: AP and lateral radiographic images acquired of the thoracic spine. LIMITATIONS: None. FINDINGS: MINERALIZATION: Normal. ALIGNMENT: Normal. No scoliosis. VERTEBRAE: Mild wedge deformities of the mid and lower thoracic vertebrae. DISCS: Multilevel disc space narrowing with osteophytes. HARDWARE: None in the spine. MEDIASTINUM AND SOFT TISSUES: Normal heart size and aortic contour. No soft tissue abnormality. VISUALIZED LUNG MENJIVAR: Clear. OTHER: No other significant finding. IMPRESSION: MILD WEDGE DEFORMITIES WHICH HAVE DEVELOPED SINCE THE PRIOR CHEST CT DATED 12/02/2018. M AY CONSIDER MRI OF THE THORACIC SPINE FOR FURTHER EVALUATION. MULTILEVEL DEGENERATIVE DISC DISEASE. TECHNICAL DOCUMENTATION: JOB ID: [id number] [employer]- All Rights Reserved Reading location - IP/workstation name: [email or web address]
== END ==
LOC: RAD 15:18
PROVIDERS: ATTEND Family Medicine
DX: M47.817 Spondylosis without myelopathy or radiculopathy, lumbosacral region (principal); M54.6 Pain in thoracic spine
CPT/HCPCS: 72070; 72110

== ENCOUNTER → 2019-02-14 | Outpatient (CLI) | payer MEDICARE, MEDICAID ==
--- NOTE | 2019-02-14 17:57 | RADIOLOGY REPORT (SQ) ---
EXAM DESCRIPTION: KUB COMPLETED DATE/TIME: 02/14/2019 5:23 pm REASON FOR STUDY: GASTROENTERITIS D52.9 FOLATE DEFICIENCY ANEMIA, UNSPECIFIED COMPARISON: 03/07/2018 NUMBER OF VIEWS: One view. TECHNIQUE: Supine radiographic image of the abdomen acquired. LIMITATIONS: None. FINDINGS: BOWEL GAS PATTERN: Normal bowel gas pattern. No dilated loops. CALCIFICATIONS: No suspicious calcifications. SOFT TISSUES: No gross mass or suggestion of organomegaly. HARDWARE: None in the abdomen. BONES: No acute fracture. No worrisome bone lesions. OTHER: No other significant finding. IMPRESSION: NO RADIOGRAPHIC EVIDENCE FOR ACUTE ABDOMINAL DISEASE. TECHNICAL DOCUMENTATION: JOB ID: [id number] [employer]- All Rights Reserved Reading location - IP/workstation name: [email or web address]
[2019-02-14 19:01] LABS: ABSOLUTE EOSINOPHILS # (AUTO) 0.2 10^3/uL (0.0-0.6); ABSOLUTE LYMPHOCYTES (AUTO) 2.4 10^3/uL (0.5-4.7); ABSOLUTE MONOCYTES (AUTO) 0.7 10^3/uL (0.1-1.4); ABSOLUTE NEUT (AUTO) 3.4 10^3/uL (1.7-8.2); BASOPHILS % (AUTO) 0.5 % (0-2); EOSINOPHILS % (AUTO) 3.4 % (0-6); HEMATOCRIT 44.7 % (36.0-47.0); HEMOGLOBIN 14.8 g/dL (12.0-15.5); MEAN CORPUSCULAR HEMOGLOBIN 30.4 pg (27.0-33.4); MEAN CORPUSCULAR VOLUME 92 fl (80-97); MONOCYTES % (AUTO) 9.8 % (3-13); PLATELET COUNT 169 10^3/uL (150-450); RED BLOOD COUNT 4.86 10^6/uL (3.72-5.28); RED CELL DISTRIBUTION WIDTH 14.7 % (11.5-14.0); SEGMENTED NEUTROPHILS % (AUTO) 50.3 % (42-78); TOTAL CELLS COUNTED % (AUTO) 100 %; WHITE BLOOD COUNT 6.7 10^3/uL (4.0-10.5)
[2019-02-14 19:23] LABS: ALBUMIN 4.3 g/dL (3.5-5.0); ALKALINE PHOSPHATASE 89 U/L (38-126); ANION GAP 10 (5-19); ASPARTATE AMINO TRANSFERASE 26 U/L (14-36); BILIRUBIN,DIRECT 0.3 mg/dL (0.0-0.4); BILIRUBIN,TOTAL 0.8 mg/dL (0.2-1.3); BLOOD UREA NITROGEN 12 mg/dL (7-20); CARBON DIOXIDE 27 mmol/L (22-30); CHLORIDE 105 mmol/L (98-107); GLUCOSE 86 mg/dL (75-110); POTASSIUM 5.3 mmol/L (3.6-5.0); TOTAL PROTEIN 7.3 g/dL (6.3-8.2)
== END ==
LOC: OD 17:03
PROVIDERS: ATTEND Family Medicine
DX: K52.9 Noninfective gastroenteritis and colitis, unspecified (principal)
CPT/HCPCS: 36415; 74018; 80053; 85025

== ENCOUNTER → 2019-03-27 | Outpatient (CLI) | payer MEDICARE, MEDICAID ==
[2019-03-27 13:37] LABS: HEMATOCRIT 44.6 % (36.0-47.0); MEAN CORPUSCULAR HEMOGLOBIN 30.5 pg (27.0-33.4); MEAN CORPUSCULAR HGB CONC 33.5 g/dL (32.0-36.0); MEAN CORPUSCULAR VOLUME 91 fl (80-97); PLATELET COUNT 161 10^3/uL (150-450); RED CELL DISTRIBUTION WIDTH 14.8 % (11.5-14.0); WHITE BLOOD COUNT 5.6 10^3/uL (4.0-10.5)
[2019-03-27 13:46] LABS: APPEARANCE,URINE SLIGHTLY-CLOUDY; BILIRUBIN,URINE NEGATIVE (NEGATIVE); COLOR,URINE YELLOW; GLUCOSE, URINE NEGATIVE (NEGATIVE); KETONES,URINE NEGATIVE (NEGATIVE); LEUKOCYTE ESTERASE,URINE TRACE (NEGATIVE); NITRITE,URINE NEGATIVE (NEGATIVE); PROTEIN,URINE 30 mg/dL (NEGATIVE); URINE SPECIFIC GRAVITY 1.026; UROBILINOGEN,URINE NEGATIVE mg/dL (<2.0)
[2019-03-27 13:57] LABS: ALBUMIN 4.5 g/dL (3.5-5.0); ALKALINE PHOSPHATASE 91 U/L (38-126); ANION GAP 10 (5-19); ASPARTATE AMINO TRANSFERASE 25 U/L (14-36); BILIRUBIN,DIRECT 0.4 mg/dL (0.0-0.4); BILIRUBIN,TOTAL 0.8 mg/dL (0.2-1.3); BLOOD UREA NITROGEN 17 mg/dL (7-20); CALCIUM 9.7 mg/dL (8.4-10.2); CARBON DIOXIDE 29 mmol/L (22-30); CHLORIDE 98 mmol/L (98-107); GLUCOSE 93 mg/dL (75-110); POTASSIUM 4.9 mmol/L (3.6-5.0); TOTAL PROTEIN 7.5 g/dL (6.3-8.2)
== END ==
LOC: OD 12:03
PROVIDERS: ATTEND Physician Assistant
DX: I12.9 Hypertensive chronic kidney disease with stage 1 through stage 4 chronic kidney disease, or unspecified chronic kidney disease (principal); N18.3 Chronic kidney disease, stage 3 (moderate); I48.0 Paroxysmal atrial fibrillation; Z79.01 Long term (current) use of anticoagulants
CPT/HCPCS: 36415; 80048; 80076; 81001; 82272; 85027; 85730

== ENCOUNTER → 2019-08-04 | Outpatient (CLI) | payer MEDICARE, MEDICAID ==
[2019-08-04 12:32] LABS: HEMATOCRIT 41.9 % (36.0-47.0); MEAN CORPUSCULAR HEMOGLOBIN 30.5 pg (27.0-33.4); MEAN CORPUSCULAR HGB CONC 33.3 g/dL (32.0-36.0); MEAN CORPUSCULAR VOLUME 92 fl (80-97); PLATELET COUNT 258 10^3/uL (150-450); RED BLOOD COUNT 4.57 10^6/uL (3.72-5.28); RED CELL DISTRIBUTION WIDTH 13.4 % (11.5-14.0); WHITE BLOOD COUNT 14.7 10^3/uL (4.0-10.5)
[2019-08-04 12:41] LABS: APPEARANCE,URINE SLIGHTLY-CLOUDY; BILIRUBIN,URINE NEGATIVE (NEGATIVE); COLOR,URINE YELLOW; GLUCOSE, URINE NEGATIVE (NEGATIVE); KETONES,URINE NEGATIVE (NEGATIVE); LEUKOCYTE ESTERASE,URINE SMALL (NEGATIVE); NITRITE,URINE NEGATIVE (NEGATIVE); PROTEIN,URINE NEGATIVE (NEGATIVE); URINE SPECIFIC GRAVITY 1.008; UROBILINOGEN,URINE NEGATIVE mg/dL (<2.0)
[2019-08-04 13:01] LABS: TRIGLYCERIDES 174 mg/dL (<150)
[2019-08-04 13:02] LABS: ALBUMIN 4.2 g/dL (3.5-5.0); ALKALINE PHOSPHATASE 103 U/L (38-126); ANION GAP 6 (5-19); ASPARTATE AMINO TRANSFERASE 25 U/L (14-36); BILIRUBIN,TOTAL 0.4 mg/dL (0.2-1.3); BLOOD UREA NITROGEN 20 mg/dL (7-20); CALCIUM 9.4 mg/dL (8.4-10.2); CARBON DIOXIDE 29 mmol/L (22-30); CHLORIDE 103 mmol/L (98-107); GLUCOSE 74 mg/dL (75-110); TOTAL PROTEIN 7.1 g/dL (6.3-8.2)
[2019-08-04 13:12] LABS: DIRECT LDL 106 mg/dL (<100)
[2019-08-04 13:20] LABS: VLDL CHOLESTEROL 34.8 mg/dL (10-31)
== END ==
LOC: LAB 11:52
PROVIDERS: ATTEND Physician Assistant
DX: I12.9 Hypertensive chronic kidney disease with stage 1 through stage 4 chronic kidney disease, or unspecified chronic kidney disease (principal); N18.3 Chronic kidney disease, stage 3 (moderate); I48.0 Paroxysmal atrial fibrillation; Z79.01 Long term (current) use of anticoagulants; Z79.899 Other long term (current) drug therapy; E78.00 Pure hypercholesterolemia, unspecified
CPT/HCPCS: 36415; 80048; 80061; 80076; 81001; 82272; 85027; 85730

== ENCOUNTER → 2019-09-28 | Outpatient (CLI) | payer MEDICARE, MEDICAID ==
[~2019-09-28] MED LIST changes: +AMINOPHYLLINE INJ/PF 250 MG/10 ML SDV IV ONE; -DIPHENHYDRAMINE HCL 25 MG CAPSULE ONE; +REGADENOSON INJ 0.4 MG/5 ML DISP.SYRIN IV ONE
--- NOTE | 2019-09-28 13:37 | DRAGON STRESS TEST REPORT ---
INTRAVENOUS LEXISCAN CARDIOLITE STRESS TEST USING SINGLE PHOTON EMMISION COMPUTERIZED TOMOGRAPHIC. DATE OF PROCEDURE: September 28, 2019. INDICATION : paroxysmal atrial fibrillation. CARDIAC RISK FACTORS: Hypertension, dyslipidemia, family history of CAD RESTING EKG: Sinus rhythm without any baseline ST-T wave changes STRESS EKG: No significant ST segment changes noted with LexiScan bolus REASON FOR TERMINATION: Protocol. PROCEDURE REPORT: Baseline heart rate 81 beats per minute with blood pressure of 130/68. Patient had no significant complaints. Patient was bolused with Lexiscan 0.4 mg intravenously followed by saline bolus. Heart rate at 2 minutes post bolus 98 with a blood pressure of 135/59. 3 minutes post bolus heart rate 83 with blood pressure of 134/62. No significant EKG changes were noted. Patient had no significant complaints during the procedure or postprocedure. CONCLUSIONS: Normal EKG and hemodynamic response to IV LexiScan. NUCLEAR DATA: At rest the patient was given 11.81 millicuries of technetium 99 sestamibi injected intravenously. As per protocol rest gated SPECT images were obtained. On day of stress test, the patient was given intravenous LexiScan at a dose of 0.4 mg in 5 mL intravenously, followed by flush with normal saline. Subsequently the stress dose of 33.3 millicuries of technetium 99 sestamibi was injected intravenously. As per protocol stress gated images were obtained. NUCLEAR INTERPRETATION: Both raw and processed data were used for interpretation. Visual, qualitative, computer-generated quantitative data was used. There was good myocardial uptake of technetium compound. Motion artifact and soft tissue attenuations were noted. Increased visceral uptake was noted. No definitive areas of transient perfusion defect noted, No definitive areas of fixed perfusion defect or scars noted. EKG gated imaging showed LV EF at 65 %, rest and stress gated EF similar visually. T. I D. ratio was 1.04. Lung heart ratio noted to be within normal limits 0.30. No significant extracardiac and abnormal radiotracer activities were noted. RV free wall uptake was noted to be WNL. IMPRESSION: Also refer to comments under nuclear interpretation. Also test results needs to be interpreted in the context of pretest probability. 1. No definitive areas of transient perfusion defect noted. 2. There is no definitive scintigraphic evidence of myocardial infarction/scar. 3. EKG gated imaging shows left ventricular ejection fraction of approx. 65 %. 4. Clinical correlation requested as worse disease and or balanced ischemia could be missed. In approximately 10% of the cases Lexiscan may not cause adequate vasodilatory stress. RECOMMENDATIONS: Aggressive risk factor modification and medical management. Further evaluation may be needed if continued symptoms or other high risk indicators are noted on clinical evaluation. Close cardiology follow-up is also recommended. Clinical correlation with echocardiogram derived ejection fraction. Inability to exercise by itself can lead to increased cardiovascular event risks. Consider cardiology consultation and or follow-up if clinically indicated. I am available for cardiology evaluation and consultation if requested by the button bradder, unless patient already has a program project manager. Dr. Darcie Crain. MRCP Board certified in cardiology and sleep medicine. Board certified in nuclear cardiology, adult echocardiography. DEBORA
== END ==
LOC: RAD 07:17
PROVIDERS: ATTEND Physician Assistant
DX: I25.10 Atherosclerotic heart disease of native coronary artery without angina pectoris (principal); I48.0 Paroxysmal atrial fibrillation; I10 Essential (primary) hypertension; E78.5 Hyperlipidemia, unspecified
CPT/HCPCS: 93017; 78452; A9500; J2785; J0280; Q9969

== ENCOUNTER 2019-10-16 07:10 | Day surgery (SDC) | payer MEDICARE, MEDICAID ==
[2019-10-16] MEDS ORDERED: PROPOFOL INJ 200 MG/20 ML VIAL IV ONE (08:06)
--- NOTE | 2019-10-16 08:47 | Operative Report ---
Operative Report DATE OF SURGERY: 10/16/19 Operative Report: The risks benefits and alternatives of the procedure explained to the patient in detail and informed consent is obtained.A GIF Olympus video scope was inserted into the patient's mouth and hypopharynx ,the esophagus is identified intubated and insufflated ,the scope was then advanced through the esophagus stomach and duodenum ,retroflexion maneuver is done the esophagus stomach and first and second portions of the duodenum examined PREOPERATIVE DIAGNOSIS: Nausea vomiting, early satiety POSTOPERATIVE DIAGNOSIS: Gastritis status post biopsy rule out Helicobacter pylori OPERATION: EGD with biopsy SURGEON: CANDIDO PETERSON ANESTHESIA: LMAC TISSUE REMOVED OR ALTERED: As noted above. COMPLICATIONS: None. ESTIMATED BLOOD LOSS: None. INTRAOPERATIVE FINDINGS: As noted above. PROCEDURE: Patient tolerated the procedure well. No immediate postprocedure complications are noted. Patient is discharged in good condition. Discharge date 10/16/2019. Discharge diet: Regular. Discharge activity: Regular. 2 to 3-week follow-up to discuss findings. Patient is instructed to call the office or proceed to the emergency room should there be any further problems or questions. Wait on the pathology.
[2019-10-16 09:24] VITALS: BP 134/59
== END 2019-10-16 09:20 | disposition home or self-care (01) ==
LOC: END 07:10
PROVIDERS: ATTEND Internal Medicine Gastroenterology
DX: K29.50 Unspecified chronic gastritis without bleeding (principal); Z03.818 Encounter for observation for suspected exposure to other biological agents ruled out; J44.9 Chronic obstructive pulmonary disease, unspecified; K21.9 Gastro-esophageal reflux disease without esophagitis; I10 Essential (primary) hypertension; F17.210 Nicotine dependence, cigarettes, uncomplicated; E07.9 Disorder of thyroid, unspecified; Z79.01 Long term (current) use of anticoagulants; Z79.899 Other long term (current) drug therapy
CPT/HCPCS: 43239; 88305 ×2; U0003; J2704; C9803; 87635; 88312

== ENCOUNTER → 2019-11-03 | Outpatient (CLI) | payer MEDICARE, MEDICAID ==
[2019-11-03 17:11] LABS: HEMATOCRIT 42.1 % (36.0-47.0); HEMOGLOBIN 13.9 g/dL (12.0-15.5); MEAN CORPUSCULAR HEMOGLOBIN 30.4 pg (27.0-33.4); MEAN CORPUSCULAR HGB CONC 32.9 g/dL (32.0-36.0); MEAN CORPUSCULAR VOLUME 92 fl (80-97); PLATELET COUNT 203 10^3/uL (150-450); RED BLOOD COUNT 4.56 10^6/uL (3.72-5.28); RED CELL DISTRIBUTION WIDTH 14.8 % (11.5-14.0); WHITE BLOOD COUNT 6.1 10^3/uL (4.0-10.5)
[2019-11-03 17:23] LABS: APPEARANCE,URINE SLIGHTLY-CLOUDY; BILIRUBIN,URINE NEGATIVE (NEGATIVE); COLOR,URINE YELLOW; GLUCOSE, URINE NEGATIVE (NEGATIVE); KETONES,URINE NEGATIVE (NEGATIVE); LEUKOCYTE ESTERASE,URINE MODERATE (NEGATIVE); NITRITE,URINE POSITIVE (NEGATIVE); PROTEIN,URINE NEGATIVE (NEGATIVE); URINE SPECIFIC GRAVITY 1.016; UROBILINOGEN,URINE NEGATIVE mg/dL (<2.0)
[2019-11-03 17:40] LABS: ALBUMIN 4.2 g/dL (3.5-5.0); ALKALINE PHOSPHATASE 90 U/L (38-126); ANION GAP 8 (5-19); ASPARTATE AMINO TRANSFERASE 28 U/L (14-36); BILIRUBIN,DIRECT 0.1 mg/dL (0.0-0.4); BILIRUBIN,TOTAL 0.6 mg/dL (0.2-1.3); BLOOD UREA NITROGEN 10 mg/dL (7-20); CALCIUM 9.6 mg/dL (8.4-10.2); CARBON DIOXIDE 31 mmol/L (22-30); CHLORIDE 104 mmol/L (98-107); GLUCOSE 110 mg/dL (75-110); POTASSIUM 5.2 mmol/L (3.6-5.0)
[2019-11-04 23:15] LABS: TRIGLYCERIDES 234 mg/dL (<150)
[2019-11-04 23:25] LABS: DIRECT LDL 91 mg/dL (<100)
[2019-11-04 23:32] LABS: VLDL CHOLESTEROL 46.8 mg/dL (10-31)
== END ==
LOC: OD 15:29
PROVIDERS: ATTEND Internal Medicine Cardiovascular Disease
DX: I48.0 Paroxysmal atrial fibrillation (principal); Z79.01 Long term (current) use of anticoagulants; Z79.899 Other long term (current) drug therapy
CPT/HCPCS: 36415; 80048; 80061; 80076; 81001; 82272; 85027; 85730

== ENCOUNTER → 2019-11-23 | Outpatient (CLI) | payer MEDICARE, MEDICAID ==
--- NOTE | 2019-11-23 16:02 | RADIOLOGY REPORT (SQ) ---
EXAM DESCRIPTION: CT CHEST WITHOUT IMAGES COMPLETED DATE/TIME: 11/23/2019 3:10 pm REASON FOR STUDY: J84.10 PULMONARY FIBROSIS, UNSPECIFIED J84.10 PULMONARY FIBROSIS, UNSPECIFIED COMPARISON: 12/02/2018 TECHNIQUE: CT scan performed of the chest without intravenous contrast. Images reviewed with lung, soft tissue and bone windows. Reconstructed coronal and sagittal MPR images reviewed. All images st ored on PACS. All CT scanners at this facility use dose modulation, iterative reconstruction, and/or weight based d osing when appropriate to reduce radiation dose to as low as reasonably achievable (ALARA). [facility]: Dose Right [facility]: CareDose [facility]: Dose Right [facility]: Teradose 4D [facility]: [employer] RADIATION DOSE: CT Rad equipment meets quality standard of care and radiation dose reduction techniq ues were employed. CTDIvol: 10.6 mGy. DLP: 457 mGy-cm. mGy. LIMITATIONS: No technical limitations. FINDINGS: LUNGS AND PLEURA: Stable subsegmental areas of subpleural honeycombing in the lung bases a nd medial left upper lobe. No progression. No superimposed infiltrate. HILAR AND MEDIASTINAL STRUCTURES: Stable small mediastinal nodes measuring up to 1 cm, likely reactiv e. No bulky adenopathy. HEART AND VASCULAR STRUCTURES: No aneurysm. No pericardial effusion. UPPER ABDOMEN: No significant findings. Limited exam. THYROID AND OTHER SOFT TISSUES: No masses. No adenopathy. BONES: Nothing acute. HARDWARE: None in the chest. OTHER: No other significant findings. IMPRESSION: Stable pulmonary fibrosis. No progression. TECHNICAL DOCUMENTATION: JOB ID: [id number] Quality ID # 436: Final reports with documentation of one or more dose reduction techniques (e.g., Au tomated exposure control, adjustment of the mA and/or kV according to patient size, use of iterative reconstruction technique) 2010 [employer]- All Rights Reserved Reading location - IP/workstation name: [email or web address]
== END ==
LOC: RAD 15:00
PROVIDERS: ATTEND Registered Nurse
DX: J84.10 Pulmonary fibrosis, unspecified (principal)
CPT/HCPCS: 71250

== ENCOUNTER → 2020-01-09 | Outpatient (CLI) | payer MEDICARE, MEDICAID ==
--- NOTE | 2020-01-09 14:49 | RADIOLOGY REPORT (SQ) ---
EXAM DESCRIPTION: CT LUNG CANCER SCREENING IMAGES COMPLETED DATE/TIME: 01/09/2020 1:35 pm REASON FOR STUDY: F17.210 NICOTINE DEPENDENCE, CIGARETTES, UNCOMPLICATED F17.210 NICOTINE DEPENDENC E, CIGARETTES, UNCOMPLICATED R10.84 GENERALIZED ABDOMINAL PAIN Has the patient had a Chest CT scan within the past year? N Was the patient offered tobacco cessation counseling? Y Was the patient engaged in shared decision making for this test? Y Does the patient have signs or symptoms of Lung Cancer? N Is the patient a smoker? Y How many pack years? 53YR How many years since quitting smoking? NA Patients age: 69 COMPARISON: CT chest 09/30/2015, 12/02/2018, 11/23/2019 TECHNIQUE: Low Dose CT scan performed of the chest without intravenous contrast for purposes of scre ening for lung cancer. Images reviewed with lung, soft tissue and bone windows. Reconstructed coron al and sagittal MPR images reviewed. All images stored on PACS. All CT scanners at this facility use dose modulation, iterative reconstruction, and/or weight based d osing when appropriate to reduce radiation dose to as low as reasonably achievable (ALARA). [facility]: Dose Right [facility]: CareDose [facility]: Dose Right [facility]: Teradose 4D [facility]: [employer] RADIATION DOSE: CT Rad equipment meets quality standard of care and radiation dose reduction techniq ues were employed. CTDIvol: 2.1 mGy. DLP: 86 mGy-cm. mGy. . LIMITATIONS: No technical limitations. FINDINGS: LUNG NODULES: No lung nodules. REMAINING LUNGS AND PLEURA: Stable minimal biapical pleural-parenchymal scarring. There is thicke latisha of the interlobular septa and enlargement of airspaces around the periphery of both lung bases w ith honeycomb appearance. This is similar compared to 2019 progressive since 2016. Obstructive lung disease is present with enlarged airspaces over the bilateral upper lobes and superi or segment lower lobes. No pneumothorax. No scarring or interstitial changes. HILAR AND MEDIASTINAL STRUCTURES: No identified masses. No abnormal nodes. HEART AND VASCULAR STRUCTURES: No aortic aneurysm. No pericardial effusion. No cardiac devices. CORONARY ARTERY CALCIFICATIONS: No significant calcifications. UPPER ABDOMEN, THYROID, BONES, OTHER SOFT TISSUES: Stable minimal upper endplate compression deformit ies at T8, T9, T11, T12 IMPRESSION: BENIGN FINDINGS IN THE LUNGS. Obstructive lung disease LUNGRADS: LUNGRADS: 1 MODIFIER: NONE. RECOMMENDATION: Continue annual screening with LDCT in 12 months. TECHNICAL DOCUMENTATION: JOB ID: [id number] Quality ID # 436: Final reports with documentation of one or more dose reduction techniques (e.g., Au tomated exposure control, adjustment of the mA and/or kV according to patient size, use of iterative reconstruction technique) 2010 [facility] Reading location - IP/workstation name: [email or web address] THE [facility]-
--- NOTE | 2020-01-09 14:55 | RADIOLOGY REPORT (SQ) ---
EXAM DESCRIPTION: CT ABDOMEN NO ORAL OR IV IMAGES COMPLETED DATE/TIME: 01/09/2020 1:36 pm REASON FOR STUDY: R10.84 GENERALIZED ABDOMINAL PAIN F17.210 NICOTINE DEPENDENCE, CIGARETTES, UNCOMP LICATED R10.84 GENERALIZED ABDOMINAL PAIN COMPARISON: CT abdomen pelvis 09/12/2018, 03/01/2018 TECHNIQUE: CT scan of the abdomen performed without intravenous contrast and without oral contrast. Images reviewed with lung, soft tissue, and bone windows. Reconstructed coronal and sagittal MPR im ages reviewed. All images stored on PACS. All CT scanners at this facility use dose modulation, iterative reconstruction, and/or weight based d osing when appropriate to reduce radiation dose to as low as reasonably achievable (ALARA). [facility]: Dose Right [facility]: CareDose [facility]: Dose Right [facility]: Teradose 4D [facility]: [employer] RADIATION DOSE: CT Rad equipment meets quality standard of care and radiation dose reduction techniq ues were employed. CTDIvol: 10.6 mGy. DLP: 284 mGy-cm.mGy. LIMITATIONS: Pelvis not imaged FINDINGS: LOWER CHEST: No acute infiltrates. Pulmonary fibrosis at both lung bases NONCONTRASTED LIVER, SPLEEN, ADRENALS: Evaluation limited by lack of IV contrast. No identified sign ificant masses. PANCREAS: No masses. No peripancreatic inflammatory changes. GALLBLADDER: Surgically absent RIGHT KIDNEY AND URETER: No suspicious masses. Assessment limited by lack of IV contrast. No signif icant calcifications. No hydronephrosis or hydroureter. LEFT KIDNEY AND URETER: No suspicious masses. Assessment limited by lack of IV contrast. Probable 1 cm cyst posterior left upper pole kidney No significant calcifications. No hydronephrosis or hydrou reter. AORTA AND RETROPERITONEUM: No aneurysm. No retroperitoneal masses or adenopathy. BOWEL AND PERITONEAL CAVITY: Stomach upper abdominal small bowel unremarkable. Bowel anastomotic sta ples are present at about the level of the umbilicus along the mid transverse colon APPENDIX: Not in the field of view ABDOMINAL WALL: No abdominal wall hernias. BONES: No significant findings. OTHER: No other significant finding. IMPRESSION: NO SIGNIFICANT OR ACUTE ABDOMINAL PROCESS. TECHNICAL DOCUMENTATION: JOB ID: [id number] Quality ID # 436: Final reports with documentation of one or more dose reduction techniques (e.g., Au tomated exposure control, adjustment of the mA and/or kV according to patient size, use of iterative reconstruction technique) 2010 [employer]- All Rights Reserved Reading location - IP/workstation name: [email or web address]
== END ==
LOC: RAD 13:05
PROVIDERS: ATTEND Family Medicine
DX: F17.210 Nicotine dependence, cigarettes, uncomplicated (principal); R10.84 Generalized abdominal pain
CPT/HCPCS: 74150; G0297

== ENCOUNTER → 2020-02-09 | Outpatient (CLI) | payer MEDICARE, MEDICAID ==
[2020-02-09 12:22] LABS: APPEARANCE,URINE SLIGHTLY-CLOUDY; BILIRUBIN,URINE NEGATIVE (NEGATIVE); GLUCOSE, URINE NEGATIVE (NEGATIVE); KETONES,URINE NEGATIVE (NEGATIVE); LEUKOCYTE ESTERASE,URINE MODERATE (NEGATIVE); NITRITE,URINE POSITIVE (NEGATIVE); PROTEIN,URINE NEGATIVE (NEGATIVE); URINE SPECIFIC GRAVITY 1.027; UROBILINOGEN,URINE NEGATIVE mg/dL (<2.0)
[2020-02-09 12:23] LABS: COLOR,URINE DARK YELLOW
[2020-02-09 13:30] LABS: HEMATOCRIT 40.2 % (36.0-47.0); HEMOGLOBIN 13.4 g/dL (12.0-15.5); MEAN CORPUSCULAR HEMOGLOBIN 30.3 pg (27.0-33.4); MEAN CORPUSCULAR HGB CONC 33.4 g/dL (32.0-36.0); MEAN CORPUSCULAR VOLUME 91 fl (80-97); PLATELET COUNT 185 10^3/uL (150-450); RED BLOOD COUNT 4.43 10^6/uL (3.72-5.28); RED CELL DISTRIBUTION WIDTH 14.7 % (11.5-14.0); WHITE BLOOD COUNT 10.2 10^3/uL (4.0-10.5)
[2020-02-09 13:52] LABS: ALBUMIN 4.1 g/dL (3.5-5.0); ALKALINE PHOSPHATASE 123 U/L (38-126); ANION GAP 8 (5-19); ASPARTATE AMINO TRANSFERASE 16 U/L (14-36); BILIRUBIN,DIRECT 0.2 mg/dL (0.0-0.4); BILIRUBIN,TOTAL 0.6 mg/dL (0.2-1.3); CALCIUM 8.8 mg/dL (8.4-10.2); CARBON DIOXIDE 27 mmol/L (22-30); CHLORIDE 104 mmol/L (98-107); GLUCOSE 76 mg/dL (75-110); POTASSIUM 4.2 mmol/L (3.6-5.0); TOTAL PROTEIN 6.7 g/dL (6.3-8.2)
[2020-02-09 13:53] LABS: BLOOD UREA NITROGEN 13 mg/dL (7-20)
== END ==
LOC: OD 11:33
PROVIDERS: ATTEND Internal Medicine Cardiovascular Disease
DX: I48.0 Paroxysmal atrial fibrillation (principal); Z79.01 Long term (current) use of anticoagulants; Z79.899 Other long term (current) drug therapy
CPT/HCPCS: 36415; 80048; 80076; 81001; 82272; 85027; 85730

== ENCOUNTER → 2020-02-21 | Outpatient (CLI) | payer MEDICARE, MEDICAID ==
[2020-02-21 14:05] LABS: CHOLESTEROL 211.41 mg/dL (0-200); TRIGLYCERIDES 179 mg/dL (<150)
[2020-02-21 14:16] LABS: DIRECT LDL 127 mg/dL (<100)
[2020-02-21 14:21] LABS: VLDL CHOLESTEROL 35.8 mg/dL (10-31)
== END ==
LOC: OD 12:29
PROVIDERS: ATTEND Internal Medicine Cardiovascular Disease
DX: E78.00 Pure hypercholesterolemia, unspecified (principal)
CPT/HCPCS: 36415; 80061

== ENCOUNTER → 2020-02-27 | Outpatient (CLI) | payer MEDICARE, MEDICAID ==
--- NOTE | 2020-02-27 11:03 | WOMENS IMAGING REPORT ---
EXAM DESCRIPTION: 3D SCREENING MAMMO BILAT IMAGES COMPLETED DATE/TIME: 02/27/2020 9:11 am REASON FOR STUDY: Z12.31 ENCNTR SCREEN MAMMOGRAM FOR MALIGNANT NEOPLASM OF BREAST Z78.0 ASYMPTOMATI C MENOPAUSAL STATE Z12.31 ENCNTR SCREEN MAMMOGRAM FOR MALIGNANT NEOPLASM OF BERNABE F17.210 NICOTINE DE PENDENCE, CIGARETTES, UNCOMPLICATED COMPARISON: Priors dating back to 2008 EXAM PARAMETERS: Views: Standard craniocaudal and mediolateral oblique views of each breast recorded using digital acquisition and breast tomosynthesis. Read with the assistance of CAD. .[facility] [place] Paste Thinner Version 9.2 LIMITATIONS: None. FINDINGS: No suspicious masses, suspicious calcifications or architectural distortion. No areas of c oncern. IMPRESSION: NEGATIVE MAMMOGRAM. BIRADS 1. BREAST DENSITY: b. There are scattered areas of fibroglandular density. BIRAD: ASSESSMENT: 1 NEGATIVE RECOMMENDATION: ROUTINE SCREENING COMMENT: The patient has been notified of the results by letter per SA requirements. Additional no tification policies are in place for contacting patient with suspicious or incomplete findings. Quality ID #225: The [employer] recommends an annual screening mammogram for women aged 40 years or over. This facility utilizes a reminder system to ensure that all patients receive reminder letters, and/or direct phone calls for appointments. This includes reminders for routine scr eening mammograms, diagnostic mammograms, or other Breast Imaging Interventions when appropriate. Th is patient will be placed in the appropriate reminder system. TECHNICAL DOCUMENTATION: FINDING NUMBER: (1) ASSESSMENT: (1) JOB ID: [id number] 2010 [employer]- All Rights Reserved Reading location - IP/workstation name: [email or web address]
--- NOTE | 2020-02-27 15:09 | WOMENS IMAGING REPORT ---
EXAM DESCRIPTION: BONE DENSITY HIP/SPINE IMAGES COMPLETED DATE/TIME: 02/27/2020 2:52 pm REASON FOR STUDY: Z78.0 ASYMPTOMATIC MENOPAUSAL STATE Z78.0 ASYMPTOMATIC MENOPAUSAL STATE Z12.31 E NCNTR SCREEN MAMMOGRAM FOR MALIGNANT NEOPLASM OF BERNABE F17.210 NICOTINE DEPENDENCE, CIGARETTES, UNCOMP LICATED COMPARISON: None. TECHNIQUE: Dual-Energy X-ray Absorptiometry (DEXA) of the AP Spine and Hip. LIMITATIONS: None. FINDINGS: LUMBAR SPINE: The bone mineral density (BMD) measured from L1-L4 in the AP projection correlates with a T-score of -1.1, which is osteopenia as defined by the World Health Organization. BMD Change vs Baseline: N/A HIP: The bone mineral density (BMD) measured in the left hip correlates with a T-score of -2.2 in the femo ral neck, which is osteopenia as defined by the World Health Organization. BMD Change vs Baseline: N/A 10 year Fracture Risk Assessment: Major Osteoporotic Fracture: 13% Hip Fracture: 4% IMPRESSION: 1. LUMBAR SPINE WHO CLASSIFICATION: OSTEOPENIA. 2. HIP WHO CLASSIFICATION: OSTEOPENIA. OVERALL ASSESSMENT: WHO CLASSIFICATION: OSTEOPENIA. COMMENT: The World Health Organization defines low BMD as follows: T-score: Normal: At or above -1.0 Osteopenia: Between -1.0 and -2.5 Osteoporosis: At or below -2.5 without fractures Established osteoporosis: At or below -2.5 with fractures In general, you may wish to consider: Diagnosis Treatment Follow-up DEXA Normal BMD Prevention 2-3 years Osteopenia Prevention/Therapy 1-2 years Osteoporosis Therapy Yearly TECHNICAL DOCUMENTATION: JOB ID: [id number] [employer]- All Rights Reserved Reading location - IP/workstation name: [email or web address]
== END ==
LOC: WI 08:09
PROVIDERS: ATTEND Physician Assistant Medical
DX: Z12.31 Encounter for screening mammogram for malignant neoplasm of breast (principal); Z78.0 Asymptomatic menopausal state; F17.210 Nicotine dependence, cigarettes, uncomplicated
CPT/HCPCS: 77063; 77067; 77080